=== PATIENT | male | born 1945 | race Hispanic/Latino ===

== ENCOUNTER 2017-08-12 14:11 | Inpatient (IN) | payer MEDICARE ==
[2017-08-12 14:12] VITALS: BMI 24.3
[2017-08-12 15:00] LABS: BASO # 0.1 K/uL (0.0-0.2); EOS % 0.5 % (0.0-4.0); HEMATOCRIT 38.7 % (35.0-51.0); LYMPH # 1.6 K/uL (1.0-4.3); LYMPH % 29.9 % (20.0-40.0); MEAN CELL VOLUME 90.3 fL (80.0-94.0); MEAN CORPUSCULAR HGB CONC 33.2 g/dL (33.0-37.0); MEAN PLATELET VOLUME 7.5 fL (7.2-11.7); MONO # 0.6 K/uL (0.0-0.8); MONO % 11.9 % (0.0-10.0); NRBC % 0.2 % (0.0-2.0); RED CELL DISTRIBUTION WIDTH 14.2 % (11.5-14.5); WHITE BLOOD COUNT 5.4 K/uL (4.8-10.8)
--- NOTE | 2017-08-12 15:12 | C.PDOC ---
History Of Present Illness 71 year old male with a Hx of pancreatitis, prostate CA, HLD, AAA, TAA, and HTN [facility] the [facility] for a complaint of decreased appetite and weakness for a few "weeks". As per patient states when he eats he feels like he is going to choke and regurgitates the food. (+) weight loss. Denies fever, chills, chest pain, hematochezia, abdominal pain, melena, or SOB. Time Seen by Provider: 08/12/17 14:30 Chief Complaint (Nursing): Medical Clearance History Per: Patient History/Exam Limitations: no limitations Onset/Duration Of Symptoms: Days Current Symptoms Are (Timing): Still Present Recent travel outside of the [place]: No Past Medical History Reviewed: Historical Data, Nursing Documentation, Vital Signs Vital Signs: Last Vital Signs Temp 98.2 F 08/15/17 07:35 Pulse 85 08/15/17 12:15 Resp 18 08/15/17 07:35 BP 98/66 L 08/15/17 07:35 Pulse Ox 94 L 08/15/17 12:15 - Medical History PMH: CVA, HTN, Hypercholesterolemia, Hyperlipidemia, Malignancy (bladder cancer , currently being treated), Seizures Surgical History: Appendectomy, Cholecystectomy Family History: States: Unknown Family Hx (noncontributory) - Social History Hx Alcohol Use: No Hx Substance Use: No Review Of Systems Constitutional: Positive for: Weakness, Other (Decreased appetite). Negative for: Fever, Chills Cardiovascular: Negative for: Chest Pain, Palpitations Gastrointestinal: Positive for: Vomiting Physical Exam - Physical Exam Appears: Non-toxic, No Acute Distress, Chronically Ill Skin: Warm, Dry, Ecchymosis (Diffusely) Head: Atraumatic, Normacephalic Eye(s): bilateral: Normal Inspection, EOMI Nose: Normal Oral Mucosa: Moist Throat: No Erythema, No Drooling Neck: Normal, Normal ROM, Supple Chest: Symmetrical, No Tenderness Cardiovascular: Rhythm Regular Respiratory: Normal Breath Sounds, No Rales, No Rhonchi, No Wheezing Gastrointestinal/Abdominal: Bowel Sounds (decreased bowel sounds), Soft, No Tenderness Male Genital: Other (Left groin vacuum) ED Course And Treatment - Laboratory Results Result Diagrams: 08/15/17 10:14 08/15/17 11:49 ECG: Interpreted By Me, Viewed By Me ECG Rhythm: Sinus Rhythm Rate From EC O2 Sat by Pulse Oximetry: 96 (Room air) Pulse Ox Interpretation: Normal - Other Rad CXR X-Ray: Viewed By Me, Read By Radiologist Interpretation: HISTORY: pain. COMPARISON: None available. TECHNIQUE: Chest , one view. FINDINGS: Question presence of left-sided PICC which terminates at the level of the axilla. LUNGS: Biapical pleural thickening and granulomatous changes. Left hilar/ infrahilar opacity of unclear significance ; pneumonia is not excluded. Please note that chest x-ray has limited sensitivity for the detection of pulmonary masses. PLEURA: No significant pleural effusion identified. No definite pneumothorax . CARDIOVASCULAR: Borderline cardiomegaly. Ectatic aorta. Atherosclerotic calcifications of the aorta. OSSEOUS STRUCTURES: Osseous demineralization. Degenerative changes of the spine and shoulders. Marked joint space narrowing of the right glenohumeral joint space. Acromioclavicular arthropathy. VISUALIZED UPPER ABDOMEN: Unremarkable. OTHER FINDINGS: None. IMPRESSION: Question presence of left- sided PICC which terminates at the level of the axilla. Left hilar/ infrahilar opacity of unclear significance ; pneumonia is not excluded. Recommend chest PA and lateral for further evaluation. Follow-up to clearing. Biapical pleural thickening and granulomatous changes. Progress Note: Blood work, CXR, and urinalysis ordered. Case discussed with Dr. Jeffrey who agrees to admit patient to his service. Disposition - Disposition Disposition: HOSPITALIZED Disposition Time: 14:21 Condition: STABLE - Clinical Impression Clinical Impression: Weight loss, Dehydration, Weakness - Scribe Statement The provider has reviewed the documentation as recorded by the Etienneibcosme Cordero All medical record entries made by the Etienneibcosme were at my direction and personally dictated by me. I have reviewed the chart and agree that the record accurately reflects my personal performance of the history, physical exam, medical decision making, and the department course for this patient. I have also personally directed, reviewed, and agree with the discharge instructions and disposition.
[2017-08-12 15:23] LABS: CALCIUM 7.9 mg/dl (8.6-10.4); GFR AFRICAN-AMERICAN > 60; GLUCOSE,RANDOM 70 mg/dL (75-110); TOTAL PROTEIN 6.6 g/dL (6.3-8.3)
[2017-08-12 15:26] LABS: ALB/GLOB RATIO 0.6 (1.0-2.1); ALKALINE PHOSPHATASE 163 U/L (38-126); ALT/SGPT 34 U/L (21-72); AST/SGOT 60 U/L (17-59); BLOOD UREA NITROGEN 17 mg/dL (9-20); CARBON DIOXIDE 18 mmol/L (22-30); CHLORIDE 104 mmol/L (98-107); POTASSIUM 4.8 mmol/L (3.6-5.2); SODIUM 133 mmol/L (132-148)
[2017-08-12 15:40] LABS: INR 1.3
[2017-08-12] MEDS ORDERED: Sodium Chloride 0.9% 1,000 ML IV ONE ×2 (15:54)
[2017-08-12] MEDS ORDERED: Sodium Chloride 0.9% 1,000 ML ONE (15:58)
--- NOTE | 2017-08-12 16:30 | RAD ---
HISTORY: pain COMPARISON: None available. TECHNIQUE: Chest, one view. FINDINGS: Question presence of left-sided PICC which terminates at the level of the axilla. LUNGS: Biapical pleural thickening and granulomatous changes. Left hilar/ infrahilar opacity of unclear significance ; pneumonia is not excluded. Please note that chest x-ray has limited sensitivity for the detection of pulmonary masses. PLEURA: No significant pleural effusion identified. No definite pneumothorax . CARDIOVASCULAR: Borderline cardiomegaly. Ectatic aorta. Atherosclerotic calcifications of the aorta. OSSEOUS STRUCTURES: Osseous demineralization. Degenerative changes of the spine and shoulders. Marked joint space narrowing of the right glenohumeral joint space. Acromioclavicular arthropathy. VISUALIZED UPPER ABDOMEN: Unremarkable. OTHER FINDINGS: None. IMPRESSION: Question presence of left-sided PICC which terminates at the level of the axilla. Left hilar/ infrahilar opacity of unclear significance ; pneumonia is not excluded. Recommend chest PA and lateral for further evaluation. Follow-up to clearing. Biapical pleural thickening and granulomatous changes.
[2017-08-12] MEDS: Dextrose 5%/0.9% NS 1,000 ML IV SCH (17:11)
--- NOTE | 2017-08-12 18:02 | CP.PCM.HP ---
History of Present Illness - History of Present Illness History of Present Illness: 71-year-old male with PMH - abdominal aneuysm [repair done], pancreatitis, prostate cancer, hyperlipidemia, bladder malignancy, HTN, stroke and seizure disorder presents to the ER from group home for complaint of reduced appetite and weakness. C/ reduced appetite since the last 3-4 weeks. C/Ogeneralized weakness for 3-4 weeks. C/ choking sensation while eating and regurgitation of food while eating since 2-3 weeks. C/ weight loss for 3-4 weeks. No C/Ofever, chills, chest pain, hematochezia, abdominal pain, melena or shortness of breath. Present on Admission - Present on Admission Any Indicators Present on Admission: No Past Patient History - Infectious Disease Hx of Infectious Diseases: None - Past Medical History & Family History Past Medical History?: Yes - Past Social History Smoking Status: Former Smoker - CARDIAC Hx Hypercholesterolemia: Yes Hx Hypertension: Yes - PULMONARY Hx Respiratory Disorders: No - NEUROLOGICAL Hx Seizures: Yes - HEENT Hx HEENT Problems: Yes (hard of hearing) - RENAL Hx Chronic Kidney Disease: No - ENDOCRINE/METABOLIC Hx Endocrine Disorders: No - HEMATOLOGICAL/ONCOLOGICAL Hx Human Immunodeficiency Virus (HIV): No - INTEGUMENTARY Hx Dermatological Problems: No - MUSCULOSKELETAL/RHEUMATOLOGICAL Hx Musculoskeletal Disorders: Yes Hx Falls: No Hx Gout: Yes - GASTROINTESTINAL Hx Gastrointestinal Disorders: No Other/Comment: RUPTURED AAA - GENITOURINARY/GYNECOLOGICAL Hx Genitourinary Disorders: No - PSYCHIATRIC Hx Substance Use: No - SURGICAL HISTORY Hx Appendectomy: Yes Hx Cholecystectomy: Yes - ANESTHESIA Hx Anesthesia: Yes Hx Anesthesia Reactions: No Hx Malignant Hyperthermia: No Meds Allergies/Adverse Reactions: Allergies Allergy/AdvReac Type Severity Reaction Status Date / Time No Known Allergies Allergy Verified 10/17/15 15:26 Physical Exam - Constitutional Appears: Well - Head Exam Head Exam: ATRAUMATIC, NORMAL INSPECTION, NORMOCEPHALIC - Eye Exam Eye Exam: EOMI, Normal appearance, PERRL Pupil Exam: NORMAL ACCOMODATION, PERRL - ENT Exam ENT Exam: Mucous Membranes Moist, Normal Exam - Neck Exam Neck exam: Positive for: Normal Inspection - Respiratory Exam Respiratory Exam: Decreased Breath Sounds - Cardiovascular Exam Cardiovascular Exam: REGULAR RHYTHM, +S1, +S2 - GI/Abdominal Exam GI & Abdominal Exam: Diminished Bowel Sounds, Soft - Rectal Exam Rectal Exam: Deferred Results - Vital Signs Recent Vital Signs: Last Vital Signs Temp 98.4 F 08/12/17 14:36 Pulse 85 08/12/17 16:34 Resp 16 08/12/17 16:34 BP 119/76 08/12/17 16:34 Pulse Ox 96 08/12/17 17:04 - Labs Result Diagrams: 08/16/17 07:59 08/16/17 07:59 Labs: Laboratory Results - last 24 hr 08/12/17 08/12/17 08/12/17 14:50 14:50 14:50 WBC 5.4 RBC 4.28 L Hgb 12.9 Hct 38.7 MCV 90.3 MCH 30.0 MCHC 33.2 RDW 14.2 Plt Count 135 MPV 7.5 Neut % (Auto) 56.7 Lymph % (Auto) 29.9 Bowman % (Auto) 11.9 H Eos % (Auto) 0.5 Baso % (Auto) 1.0 Neut # 3.0 Lymph # 1.6 Bowman # 0.6 Eos # 0.0 Baso # 0.1 PT 14.9 H INR 1.3 APTT 38 H Sodium 133 Potassium 4.8 Chloride 104 Carbon Dioxide 18 L Anion Gap 15 BUN 17 Creatinine 0.9 Est GFR ( Amer) > 60 Est GFR (Non-Af Amer) > 60 Random Glucose 70 L Calcium 7.9 L Total Bilirubin 1.0 AST 60 H D ALT 34 Alkaline Phosphatase 163 H D Total Protein 6.6 Albumin 2.6 L Globulin 4.0 H Albumin/Globulin Ratio 0.6 L
[2017-08-13] MEDS ORDERED: Oxycodone/Acetaminophen 5/325 mg Tab PO PRN (00:35)
[2017-08-13] MEDS: Dextrose 5%/0.9% NS 1,000 ML IV SCH ×3 (05:10→22:58)
[2017-08-13] MEDS: Metoprolol Succinate 25 mg XL Tab PO SCH (09:27)
[2017-08-13] MEDS: Pantoprazole 40 mg EC Tab PO SCH (09:27)
[2017-08-13] MEDS ORDERED: ARGININE 500 MG PO SCH (10:00)
--- NOTE | 2017-08-13 14:40 | CP.PCM.PN ---
Subjective - Date & Time of Evaluation Date of Evaluation: 08/13/17 Time of Evaluation: 11:40 - Subjective Subjective: clinically same Objective - Vital Signs/Intake and Output Vital Signs (last 24 hours): Temp Pulse Resp BP Pulse Ox 97.0 F L 80 20 101/65 98 08/13/17 08:29 08/13/17 08:29 08/13/17 08:29 08/13/17 08:29 08/13/17 08:29 Intake and Output: 08/13/17 08/13/17 06:59 18:59 Intake Total 800 Balance 800 - Medications Medications: Current Medications Allopurinol (Zyloprim) 100 mg PO DAILY [facility] Last Admin: 08/13/17 09:27 Dose: 100 mg Aspirin (Ecotrin) 81 mg PO DAILY [facility] Last Admin: 08/13/17 09:26 Dose: 81 mg Docusate Sodium (Colace) 100 mg PO DAILY [facility] Last Admin: 08/13/17 09:26 Dose: 100 mg Dronabinol (Marinol) 2.5 mg PO BID [facility] Last Admin: 08/13/17 12:29 Dose: 2.5 mg Folic Acid (Folic Acid) 1 mg PO DAILY [facility] Last Admin: 08/13/17 12:31 Dose: 1 mg Home Med (Arginine [L-Arginine]) 500 mg PO DAILY [facility] Dextrose/Sodium Chloride (Dextrose 5%/0.9% Ns 1000 Ml) 1,000 mls @ 100 mls/hr IV .Q10H [facility] Last Admin: 08/13/17 12:32 Dose: 100 mls/hr Metoprolol Succinate (Toprol Xl) 25 mg PO DAILY [facility] Last Admin: 08/13/17 09:27 Dose: 25 mg Oxycodone/Acetaminophen (Percocet 5/325 Mg Tab) 1 tab PO Q4H PRN PRN Reason: Pain, moderate (4-7) Stop: 08/16/17 00:36 Pantoprazole Sodium (Protonix Ec Tab) 40 mg PO DAILY [facility] Last Admin: 08/13/17 09:27 Dose: 40 mg Rosuvastatin Calcium (Crestor) 2.5 mg PO HS [facility] - Labs Labs: 08/12/17 14:50 08/12/17 14:50 PT 14.9 SECONDS (9.7-12.2) H 11/24/17 14:50 INR 1.3 08/12/17 14:50 APTT 38 SECONDS (21-34) H 08/12/17 14:50 - Constitutional Appears: Well - Head Exam Head Exam: ATRAUMATIC, NORMAL INSPECTION, NORMOCEPHALIC - Eye Exam Eye Exam: EOMI, Normal appearance, PERRL Pupil Exam: NORMAL ACCOMODATION, PERRL - ENT Exam ENT Exam: Mucous Membranes Moist, Normal Exam - Neck Exam Neck Exam: Full ROM, Normal Inspection. absent: Lymphadenopathy - Respiratory Exam Respiratory Exam: Decreased Breath Sounds - Cardiovascular Exam Cardiovascular Exam: REGULAR RHYTHM, +S1, +S2 - GI/Abdominal Exam GI & Abdominal Exam: Soft, Diminished Bowel Sounds - Rectal Exam Rectal Exam: Deferred Assessment and Plan (1) Dehydration Status: Acute (2) Weakness Status: Acute (3) Weight loss Status: Acute (4) Alcohol dependence Status: Acute (5) Alcohol intoxication Status: Acute (6) Altered mental status Status: Acute (7) Aortic aneurysm Status: Acute (8) DVT prophylaxis Status: Acute (9) HTN (hypertension) Status: Acute (10) Near syncope Status: Acute (11) Pancreatitis Status: Acute (12) Seizure disorder Status: Acute (13) Dyslipidemia Status: Chronic (14) Gout Status: Chronic - Assessment and Plan (Free Text) Plan: Patient examined. Patient better. Continue aspirin. Continue dronabinol. Continue antihypertensive medications and supportive care.
[2017-08-13 21:06] LABS: RBC URINE < 1 /hpf (0-3); URINE BACTERIA RARE (<OCC); URINE BILIRUBIN NEGATIVE (NEGATIVE); URINE BLOOD NEGATIVE (NEGATIVE); URINE COLOR Yellow (YELLOW); URINE GLUCOSE (UA) NORMAL (Normal); URINE KETONE NEGATIVE (NEGATIVE); URINE LEUKOCYTE ESTERASE NEG Leu/uL (Negative); URINE PROTEIN NEGATIVE (NEGATIVE); URINE UROBILINOGEN NORMAL mg/dL (0.2-1.0); WBC URINE 3 /hpf (0-5)
[2017-08-13] MEDS: Vancomycin 1 gm/NS 200 ml 1 GM/200 ML BAG IVPB SCH (22:58)
[2017-08-13] MEDS: Rosuvastatin Calcium 2.5 mg Tab PO SCH (22:59)
--- NOTE | 2017-08-14 01:16 | RAD ---
EXAM: XR Abdomen Complete, 2 or More Views EXAM DATE/TIME: 08/13/2017 11:55 PM CLINICAL HISTORY: 71 years old, male; Signs and symptoms; Vomiting; Additional info: Vomitting TECHNIQUE: Frontal view of the abdomen/pelvis with upright view of the abdomen. COMPARISON: There are no prior studies for comparison. FINDINGS: Lower thorax: There is an endograft in the descending thoracic aorta. There is left retrocardiac opacity. Vascular: There are stents in the abdominal aorta and iliacs. There are vascular calcifications. Intraperitoneal space: There is no free air. Gastrointestinal tract: There is a disordered bowel gas pattern. There are mildly distended loops of small bowel in the left flank and right upper quadrant. There is a paucity of gas in the colon. Bones/joints: Bony structures are osteopenic. There are degenerative changes. Soft tissues: There are no abnormal soft tissue masses. IMPRESSION: Mildly distended small bowel ileus versus early obstruction; vascular disease with multiple stents Additional findings as described above.
--- NOTE | 2017-08-14 07:06 | CP.PCM.CON ---
History of Present Illness - History of Present Illness History of Present Illness: General Surgery Consult Note Re: left groin wound HPI: 71M presented to hospital on 08/12 for weakness and dyspagia. Currently, patient has no complaints. Patient stated he is in the hospital due to his left groin wound vac. Pt stated he has had it for 1.5months and was put in for his "gallbladder." Patient denies any pain from the site. Patient stated he has problems with vomiting when he tries to eat. Patient denies nausea, abdominal pain, fever, chills. Allergies: NKDA PMH: Pancreatitis, Prostate CA, HTN, Hypercholestrolemia, CVA, AAA PSH: Aditi, Appendectomy Med: Allipurinol, Aspirin, Percocet, Simvastatin, Omeprazole, Colase, Metoprolol , Dronabinol SH: Former smoker. Denies alcohol or illicit drug use. Patient lives in halfway. Review of Systems - Review of Systems All systems: reviewed and no additional remarkable complaints except (as per HPI ) Past Patient History - Infectious Disease Hx of Infectious Diseases: None - Past Medical History & Family History Past Medical History?: Yes - Past Social History Smoking Status: Former Smoker - CARDIAC Hx Cardiac Disorders: Yes Hx Hypercholesterolemia: Yes Hx Hypertension: Yes - PULMONARY Hx Respiratory Disorders: No - NEUROLOGICAL HX Cerebrovascular Accident: Yes - HEENT Hx HEENT Problems: Yes (hard of hearing) - RENAL Hx Chronic Kidney Disease: No - ENDOCRINE/METABOLIC Hx Endocrine Disorders: No - HEMATOLOGICAL/ONCOLOGICAL Hx Blood Disorders: No Hx Human Immunodeficiency Virus (HIV): No - INTEGUMENTARY Hx Dermatological Problems: No - MUSCULOSKELETAL/RHEUMATOLOGICAL Hx Musculoskeletal Disorders: Yes Hx Falls: No Hx Gout: Yes - GASTROINTESTINAL Hx Gastrointestinal Disorders: No Other/Comment: RUPTURED AAA - GENITOURINARY/GYNECOLOGICAL Hx Genitourinary Disorders: Yes Hx Prostate Problems: Yes - PSYCHIATRIC Hx Psychophysiologic Disorder: No Hx Substance Use: No - SURGICAL HISTORY Hx Surgeries: Yes Hx Abdominal Aortic Aneurysm Repair: Yes (ruptured AAA) Hx Appendectomy: Yes Hx Cholecystectomy: Yes - ANESTHESIA Hx Anesthesia: Yes Hx Anesthesia Reactions: No Hx Malignant Hyperthermia: No Meds Allergies/Adverse Reactions: Allergies Allergy/AdvReac Type Severity Reaction Status Date / Time No Known Allergies Allergy Verified 10/17/15 15:26 - Medications Medications: Current Medications Allopurinol (Zyloprim) 100 mg PO DAILY [facility] Last Admin: 08/13/17 09:27 Dose: 100 mg Aspirin (Ecotrin) 81 mg PO DAILY [facility] Last Admin: 08/13/17 09:26 Dose: 81 mg Docusate Sodium (Colace) 100 mg PO DAILY [facility] Last Admin: 08/13/17 09:26 Dose: 100 mg Dronabinol (Marinol) 2.5 mg PO BID [facility] Last Admin: 08/13/17 18:00 Dose: Not Given Folic Acid (Folic Acid) 1 mg PO DAILY [facility] Last Admin: 08/13/17 12:31 Dose: 1 mg Home Med (Arginine [L-Arginine]) 500 mg PO DAILY [facility] Dextrose/Sodium Chloride (Dextrose 5%/0.9% Ns 1000 Ml) 1,000 mls @ 100 mls/hr IV .Q10H [facility] Last Admin: 08/13/17 22:58 Dose: 100 mls/hr Vancomycin/Sodium Chloride (Vancomycin 1 Gm/Ns 200 Ml) 1 gm in 200 mls @ 133.333 mls/hr IVPB Q24H [facility] Stop: 08/18/17 22:01 Last Admin: 08/13/17 22:58 Dose: 133.333 mls/hr Metoprolol Succinate (Toprol Xl) 25 mg PO DAILY [facility] Last Admin: 08/13/17 09:27 Dose: 25 mg Oxycodone/Acetaminophen (Percocet 5/325 Mg Tab) 1 tab PO Q4H PRN PRN Reason: Pain, moderate (4-7) Stop: 08/16/17 00:36 Pantoprazole Sodium (Protonix Ec Tab) 40 mg PO DAILY [facility] Last Admin: 08/13/17 09:27 Dose: 40 mg Rosuvastatin Calcium (Crestor) 2.5 mg PO HS [facility] Last Admin: 08/13/17 22:59 Dose: Not Given Physical Exam - Constitutional Appears: Non-toxic, No Acute Distress - Head Exam Head Exam: ATRAUMATIC, NORMAL INSPECTION - Eye Exam Eye Exam: Normal appearance. absent: Scleral icterus - ENT Exam ENT Exam: Mucous Membranes Dry - Respiratory Exam Respiratory Exam: Clear to Auscultation Bilateral, NORMAL BREATHING PATTERN - Cardiovascular Exam Cardiovascular Exam: REGULAR RHYTHM. absent: Tachycardia - GI/Abdominal Exam GI & Abdominal Exam: Soft. absent: Tenderness Additional comments: Wound vac left groin - Rectal Exam Rectal Exam: Deferred - Extremities Exam Extremities exam: Positive for: normal inspection. Negative for: calf tenderness - Psychiatric Exam Psychiatric exam: Normal Affect, Normal Mood Results - Vital Signs Recent Vital Signs: Last Vital Signs Temp 97.7 F 08/13/17 23:20 Pulse 83 08/13/17 23:20 Resp 20 08/13/17 23:20 BP 129/80 08/13/17 23:20 Pulse Ox 97 08/13/17 23:20 - Labs Result Diagrams: 08/12/17 14:50 08/12/17 14:50 Labs: Laboratory Results - last 24 hr 08/13/17 20:55 Urine Color Yellow Urine Clarity Clear Urine pH 5.0 Ur Specific [place] 1.015 Urine Protein Negative Urine Glucose (UA) Normal Urine Ketones Negative Urine Blood Negative Urine Nitrate Negative Urine Bilirubin Negative Urine Urobilinogen Normal Ur Leukocyte Esterase Neg Urine WBC (Auto) 3 Urine RBC (Auto) < 1 Ur Squamous Epith Cells 1 Urine Bacteria Rare Assessment & Plan - Assessment and Plan (Free Text) Assessment: 71M with left groin wound; with wound vac Plan: will change wound vac as soon as supplies available likely change q3d while pt is in house d/w Dr Avni Soni, PGY3
[2017-08-14] MEDS: Dextrose 5%/0.9% NS 1,000 ML IV SCH ×2 (09:00→21:37)
[2017-08-14] MEDS: Pantoprazole 40 mg EC Tab PO SCH (09:33)
[2017-08-14] MEDS: Metoprolol Succinate 25 mg XL Tab PO SCH (09:34)
--- NOTE | 2017-08-14 16:12 | CP.PCM.CON ---
History of Present Illness - History of Present Illness History of Present Illness: 71 year old male with a Hx of pancreatitis, prostate CA, HLD, AAA, TAA, and HTN presents [facility] the ER from [facility] for a complaint of decreased appetite and weakness. As per patient states when he eats he feels like he is going to choke and ends up vomiting. Denies fever, chills, chest pain, or SOB. Patient being treated for left groin wound infection s/p aneurysm repair and has a wound vac in place IV antibiotics ordered pending cultures - Medical History PMH: CVA, HTN, Hypercholesterolemia, Hyperlipidemia, Malignancy (bladder cancer , currently being treated), Seizures Surgical History: Appendectomy, Cholecystectomy Family History: States: Unknown Family Hx (noncontributory) Review of Systems - Review of Systems Systems not reviewed;Unavailable: Altered Mental Status - Constitutional Constitutional: As Per HPI - EENT Eyes: absent: As Per HPI, Blind Spots, Blurred Vision, Change in Vision, Decreased Night Vision, Diplopia, Discharge, Dry Eye, Exophthalmos, Floaters, Irritation, Itchy Eyes, Loss of Peripheral Vision, Pain, Photophobia, Requires Corrective Lenses, Sees Flashes, Spots in Vision, Tunnel Vision, Other Visual Disturbances, Loss of Vision, Other Ears: absent: As Per HPI, Decreased Hearing, Ear Discharge, Ear Pain, Tinnitus, Abnormal Hearing, Disequilibrium, Dizziness, Other Nose/Mouth/Throat: absent: As Per HPI, Epistaxis, Nasal Congestion, Nasal Discharge, Nasal Obstruction, Nasal Trauma, Nose Pain, Post Nasal Drip, Sinus Pain, Sinus Pressure, Bleeding Gums, Change in Voice, Dental Pain, Dry Mouth, Dysphagia, Halitosis, Hoarsness, Lip Swelling, Mouth Lesions, Mouth Pain, Odynophagia, Sore Throat, Throat Swelling, Tongue Swelling, Facial Pain, Neck Pain, Neck Mass, Other - Cardiovascular Cardiovascular: As Per HPI - Respiratory Respiratory: As Per HPI - Gastrointestinal Gastrointestinal: As Per HPI, Abdominal Pain - Genitourinary Genitourinary: As Per HPI - Musculoskeletal Musculoskeletal: absent: As Per HPI, Abnormal Gait, Arthralgias, Atrophy, Back Pain, Deformity, Joint Swelling, Limited Range of Motion, Loss of Height, Muscle Cramps, Muscle Weakness, Myalgias, Neck Pain, Numbness, Radiating Pain into Limb, Stiffness, Tingling, Other - Integumentary Integumentary: As Per HPI, Skin Pain, Wounds - Neurological Neurological: absent: As Per HPI, Abnormal Gait, Abnormal Hearing, Abnormal Movements, Abnormal Speech, Behavioral Changes, Burning Sensations, Confusion, Convulsions, Disequilibrium, Dizziness, Numbness, Focal Weakness, Frequent Falls , Headaches, Lack of Coordination, Loss of Vision, Memory Loss, Paresthesias, Radicular Pain, Restless Legs, Sensory Deficit, Syncope, Tingling, Tremor, Vertigo, Weakness, Other Visual Disturbances, Other - Endocrine Endocrine: absent: As Per HPI, Change in Body Appearance, Change in Libido, Cold Intolorance, Deepening of Voice, Excessive Sweating, Fatigue, Flushing, Heat Intolorance, Increase in Ring/Shoe/Hat Size, Palpitations, Polydipsia, Polyphagia, Polyuria, Other - Hematologic/Lymphatic Hematologic: absent: As Per HPI, Easy Bleeding, Easy Bruising, Lymphadenopathy, Other Past Patient History - Infectious Disease Hx of Infectious Diseases: None - Past Medical History & Family History Past Medical History?: Yes - Past Social History Smoking Status: Former Smoker - CARDIAC Hx Cardiac Disorders: Yes Hx Hypercholesterolemia: Yes Hx Hypertension: Yes - PULMONARY Hx Respiratory Disorders: No - NEUROLOGICAL HX Cerebrovascular Accident: Yes - HEENT Hx HEENT Problems: Yes (hard of hearing) - RENAL Hx Chronic Kidney Disease: No - ENDOCRINE/METABOLIC Hx Endocrine Disorders: No - HEMATOLOGICAL/ONCOLOGICAL Hx Blood Disorders: No Hx Human Immunodeficiency Virus (HIV): No - INTEGUMENTARY Hx Dermatological Problems: No - MUSCULOSKELETAL/RHEUMATOLOGICAL Hx Musculoskeletal Disorders: Yes Hx Falls: No Hx Gout: Yes - GASTROINTESTINAL Hx Gastrointestinal Disorders: No Other/Comment: RUPTURED AAA - GENITOURINARY/GYNECOLOGICAL Hx Genitourinary Disorders: Yes Hx Prostate Problems: Yes - PSYCHIATRIC Hx Psychophysiologic Disorder: No Hx Substance Use: No - SURGICAL HISTORY Hx Surgeries: Yes Hx Abdominal Aortic Aneurysm Repair: Yes (ruptured AAA) Hx Appendectomy: Yes Hx Cholecystectomy: Yes - ANESTHESIA Hx Anesthesia: Yes Hx Anesthesia Reactions: No Hx Malignant Hyperthermia: No Meds Allergies/Adverse Reactions: Allergies Allergy/AdvReac Type Severity Reaction Status Date / Time No Known Allergies Allergy Verified 10/17/15 15:26 - Medications Medications: Current Medications Allopurinol (Zyloprim) 100 mg PO DAILY [facility] Last Admin: 08/14/17 09:33 Dose: 100 mg Aspirin (Ecotrin) 81 mg PO DAILY [facility] Last Admin: 08/14/17 09:34 Dose: 81 mg Docusate Sodium (Colace) 100 mg PO DAILY [facility] Last Admin: 08/14/17 09:33 Dose: 100 mg Dronabinol (Marinol) 2.5 mg PO BID [facility] Last Admin: 08/14/17 11:02 Dose: Not Given Folic Acid (Folic Acid) 1 mg PO DAILY [facility] Last Admin: 08/14/17 09:33 Dose: 1 mg Dextrose/Sodium Chloride (Dextrose 5%/0.9% Ns 1000 Ml) 1,000 mls @ 100 mls/hr IV .Q10H [facility] Last Admin: 08/14/17 09:00 Dose: Not Given Vancomycin/Sodium Chloride (Vancomycin 1 Gm/Ns 200 Ml) 1 gm in 200 mls @ 133.333 mls/hr IVPB Q24H [facility] Stop: 08/18/17 22:01 Last Admin: 08/13/17 22:58 Dose: 133.333 mls/hr Metoprolol Succinate (Toprol Xl) 25 mg PO DAILY [facility] Last Admin: 08/14/17 09:34 Dose: 25 mg Oxycodone/Acetaminophen (Percocet 5/325 Mg Tab) 1 tab PO Q4H PRN PRN Reason: Pain, moderate (4-7) Stop: 08/16/17 00:36 Pantoprazole Sodium (Protonix Ec Tab) 40 mg PO DAILY [facility] Last Admin: 08/14/17 09:33 Dose: 40 mg Rosuvastatin Calcium (Crestor) 2.5 mg PO HS [facility] Last Admin: 08/13/17 22:59 Dose: Not Given Physical Exam - Constitutional Appears: Non-toxic, Cachectic, Chronically Ill - Head Exam Head Exam: ATRAUMATIC, NORMAL INSPECTION, NORMOCEPHALIC - Eye Exam Eye Exam: EOMI, PERRL. absent: Scleral icterus - ENT Exam ENT Exam: Mucous Membranes Dry, Normal External Ear Exam, Normal Oropharynx - Neck Exam Neck exam: Negative for: Lymphadenopathy - Respiratory Exam Respiratory Exam: Decreased Breath Sounds, Rhonchi - Cardiovascular Exam Cardiovascular Exam: REGULAR RHYTHM, +S1, +S2 - GI/Abdominal Exam GI & Abdominal Exam: Diminished Bowel Sounds, Distended, Guarding, Soft, Tenderness. absent: Rebound, Rigid Additional comments: wound vac left groin - Rectal Exam Rectal Exam: Deferred - Exam Exam: NORMAL INSPECTION - Extremities Exam Extremities exam: Positive for: pedal pulses present. Negative for: calf tenderness, pedal edema, tenderness - Back Exam Back exam: absent: CVA tenderness (L), CVA tenderness (R), paraspinal tenderness - Neurological Exam Neurological exam: Alert, Altered, CN II-XII Intact, Reflexes Normal - Psychiatric Exam Psychiatric exam: Depressed - Skin Skin Exam: Dry, Intact Results - Vital Signs Recent Vital Signs: Last Vital Signs Temp 98.1 F 08/14/17 09:13 Pulse 81 08/14/17 09:13 Resp 20 08/14/17 09:13 BP 118/74 08/14/17 09:13 Pulse Ox 100 08/14/17 09:13 - Labs Result Diagrams: 08/12/17 14:50 08/12/17 14:50 Labs: Laboratory Results - last 24 hr 08/13/17 20:55 Urine Color Yellow Urine Clarity Clear Urine pH 5.0 Ur Specific [place] 1.015 Urine Protein Negative Urine Glucose (UA) Normal Urine Ketones Negative Urine Blood Negative Urine Nitrate Negative Urine Bilirubin Negative Urine Urobilinogen Normal Ur Leukocyte Esterase Neg Urine WBC (Auto) 3 Urine RBC (Auto) < 1 Ur Squamous Epith Cells 1 Urine Bacteria Rare Assessment & Plan (1) Altered mental status Status: Acute (2) Aortic aneurysm Status: Acute (3) DVT prophylaxis Status: Acute (4) HTN (hypertension) Status: Acute (5) Near syncope Status: Acute Priority: High (6) Pancreatitis Status: Acute (7) Seizure disorder Status: Acute - Assessment and Plan (Free Text) Assessment: gram + bacrteremia r/o infected wound as source consider Vascular eval/ CT angio pelvis, echo may need drainage
--- NOTE | 2017-08-14 17:03 | CP.PCM.PN ---
Subjective - Date & Time of Evaluation Date of Evaluation: 08/14/17 Time of Evaluation: 12:00 - Subjective Subjective: clinically same Objective - Vital Signs/Intake and Output Vital Signs (last 24 hours): Temp Pulse Resp BP Pulse Ox 98.1 F 81 20 118/74 100 08/14/17 09:13 08/14/17 09:13 08/14/17 09:13 08/14/17 09:13 08/14/17 09:13 Intake and Output: 08/14/17 08/14/17 06:59 18:59 Intake Total 1600 800 Output Total 500 400 Balance 1100 400 - Medications Medications: Current Medications Allopurinol (Zyloprim) 100 mg PO DAILY [facility] Last Admin: 08/14/17 09:33 Dose: 100 mg Aspirin (Ecotrin) 81 mg PO DAILY [facility] Last Admin: 08/14/17 09:34 Dose: 81 mg Docusate Sodium (Colace) 100 mg PO DAILY [facility] Last Admin: 08/14/17 09:33 Dose: 100 mg Dronabinol (Marinol) 2.5 mg PO BID [facility] Last Admin: 08/14/17 11:02 Dose: Not Given Folic Acid (Folic Acid) 1 mg PO DAILY [facility] Last Admin: 08/14/17 09:33 Dose: 1 mg Dextrose/Sodium Chloride (Dextrose 5%/0.9% Ns 1000 Ml) 1,000 mls @ 100 mls/hr IV .Q10H [facility] Last Admin: 08/14/17 09:00 Dose: Not Given Vancomycin/Sodium Chloride (Vancomycin 1 Gm/Ns 200 Ml) 1 gm in 200 mls @ 133.333 mls/hr IVPB Q24H [facility] Stop: 08/18/17 22:01 Last Admin: 08/13/17 22:58 Dose: 133.333 mls/hr Metoprolol Succinate (Toprol Xl) 25 mg PO DAILY [facility] Last Admin: 08/14/17 09:34 Dose: 25 mg Oxycodone/Acetaminophen (Percocet 5/325 Mg Tab) 1 tab PO Q4H PRN PRN Reason: Pain, moderate (4-7) Stop: 08/16/17 00:36 Pantoprazole Sodium (Protonix Ec Tab) 40 mg PO DAILY [facility] Last Admin: 08/14/17 09:33 Dose: 40 mg Rosuvastatin Calcium (Crestor) 2.5 mg PO HS [facility] Last Admin: 08/13/17 22:59 Dose: Not Given - Labs Labs: 08/12/17 14:50 08/12/17 14:50 PT 14.9 SECONDS (9.7-12.2) H 08/12/17 14:50 INR 1.3 08/12/17 14:50 APTT 38 SECONDS (21-34) H 08/12/17 14:50 - Constitutional Appears: Well - Head Exam Head Exam: ATRAUMATIC, NORMAL INSPECTION, NORMOCEPHALIC - Eye Exam Eye Exam: EOMI, Normal appearance, PERRL Pupil Exam: NORMAL ACCOMODATION, PERRL - ENT Exam ENT Exam: Mucous Membranes Moist, Normal Exam - Neck Exam Neck Exam: Full ROM, Normal Inspection. absent: Lymphadenopathy - Respiratory Exam Respiratory Exam: Clear to Ausculation Bilateral, NORMAL BREATHING PATTERN - Cardiovascular Exam Cardiovascular Exam: REGULAR RHYTHM, +S1, +S2. absent: Murmur - GI/Abdominal Exam GI & Abdominal Exam: Soft, Normal Bowel Sounds. absent: Tenderness - Rectal Exam Rectal Exam: Deferred - Extremities Exam Extremities Exam: Full ROM, Normal Capillary Refill, Normal Inspection. absent : Joint Swelling, Pedal Edema - Back Exam Back Exam: NORMAL INSPECTION Assessment and Plan (1) Dehydration Status: Acute (2) Weakness Status: Acute (3) Weight loss Status: Acute (4) Alcohol dependence Status: Acute (5) Alcohol intoxication Status: Acute (6) Altered mental status Status: Acute (7) Aortic aneurysm Status: Acute (8) DVT prophylaxis Status: Acute (9) HTN (hypertension) Status: Acute (10) Near syncope Status: Acute (11) Pancreatitis Status: Acute (12) Seizure disorder Status: Acute (13) Dyslipidemia Status: Chronic (14) Gout Status: Chronic - Assessment and Plan (Free Text) Plan: Patient examined. Chest x-ray suggestive of left heel infrahilar opacities of unclear significance. EKG suggestive of first-degree AV block and T-wave abnormalities. Abdominal x-ray is suggestive of mildly distended small bowel loops possibility of early obstruction. Blood culture grew staph aureus and coagulase-negative Staphylococcus. Urine culture grew Pseudomonas.
[2017-08-14] MEDS: Vancomycin 1 gm/NS 200 ml 1 GM/200 ML BAG IVPB SCH (21:37)
[2017-08-14] MEDS: Rosuvastatin Calcium 2.5 mg Tab PO SCH (21:37)
--- NOTE | 2017-08-15 08:03 | CP.PCM.CON ---
<Deepa Bright - Last Filed: 08/15/17 13:58> History of Present Illness - History of Present Illness History of Present Illness: Deepa Bright, PGY1, GI Consult Note for Dr Graham: CC: decreased appetite, weakness 71 years old male with hx of CVA with no residual deficits (12 years ago), pancreatitis, HLD, TAA, presents for weakness, fatigue and decreased appetite x past three weeks. Pt is a poor historian, info obtained from prior charts, . Pt states that every time he eats, he feels a choking sensation down his throat, and regurgitates the food right up, denies hematochezia, oral lesions, pyrosis, dyspepsia, abdominal pain, diarrhea, constipation, melena, fever, chills, sob. Pt has also lost 36 pounds over the past 3 months. Pt states that he is able to drink water well, but has problems with solids. On 08/04/17, esophagogram was attempted at [facility] [place] for similar complaints, but pt could not ingest barium contrast. Pt has a left groin wound vac from a recent iliac stent placed at [facility]. Pt denies any sick contacts or recent travel. No prior EGD or colonoscopy as per pt. This admission, pt found to have Gram positive bacteremia and started on Vancomycin IV. Wound cultures from left groin wound vac pending. Abd x ray shows mildly distended small bowel ileus vs early obstruction. Vascular disease with multiple stents. CXR shows left hilar/infrahilar opacity - cannot exclude pna. biapical pleural thickening/granulomatous changes. 12 point ROS reviewed and negative, except as noted per HPI PMH: HLD, AAA s/p repair -04/2017, iliac angioplasty/stent 05/2017, HTN, CVA (12 years ago), seizures PSH: lap cholecystectomy - 04/22/17 at [facility], appendectomy All: NK[facility] SH: former smoker, 2 ppd x many years. heavy ETOH user in the past, last drink a month ago, scotch x many years. Lives at [facility]. 05/20/2017 at [facility]: left femoral thrombectomy - iliac angioplasty and stents placed. Endograft for AAA. Review of Systems - Review of Systems All systems: reviewed and no additional remarkable complaints except Review of Systems: as per HPI Past Patient History - Infectious Disease Hx of Infectious Diseases: None - Past Medical History & Family History Past Medical History?: Yes - Past Social History Smoking Status: Former Smoker - CARDIAC Hx Cardiac Disorders: Yes Hx Hypercholesterolemia: Yes Hx Hypertension: Yes - PULMONARY Hx Respiratory Disorders: No - NEUROLOGICAL HX Cerebrovascular Accident: Yes - HEENT Hx HEENT Problems: Yes (hard of hearing) - RENAL Hx Chronic Kidney Disease: No - ENDOCRINE/METABOLIC Hx Endocrine Disorders: No - HEMATOLOGICAL/ONCOLOGICAL Hx Blood Disorders: No Hx Human Immunodeficiency Virus (HIV): No - INTEGUMENTARY Hx Dermatological Problems: No - MUSCULOSKELETAL/RHEUMATOLOGICAL Hx Musculoskeletal Disorders: Yes Hx Falls: No Hx Gout: Yes - GASTROINTESTINAL Hx Gastrointestinal Disorders: No Other/Comment: RUPTURED AAA - GENITOURINARY/GYNECOLOGICAL Hx Genitourinary Disorders: Yes Hx Prostate Problems: Yes - PSYCHIATRIC Hx Psychophysiologic Disorder: No Hx Substance Use: No - SURGICAL HISTORY Hx Surgeries: Yes Hx Abdominal Aortic Aneurysm Repair: Yes (ruptured AAA) Hx Appendectomy: Yes Hx Cholecystectomy: Yes - ANESTHESIA Hx Anesthesia: Yes Hx Anesthesia Reactions: No Hx Malignant Hyperthermia: No Meds Allergies/Adverse Reactions: Allergies Allergy/AdvReac Type Severity Reaction Status Date / Time No Known Allergies Allergy Verified 10/17/15 15:26 - Medications Medications: Current Medications Allopurinol (Zyloprim) 100 mg PO DAILY [facility] Last Admin: 08/14/17 09:33 Dose: 100 mg Aspirin (Ecotrin) 81 mg PO DAILY [facility] Last Admin: 08/14/17 09:34 Dose: 81 mg Docusate Sodium (Colace) 100 mg PO DAILY [facility] Last Admin: 08/14/17 09:33 Dose: 100 mg Dronabinol (Marinol) 2.5 mg PO BID [facility] Last Admin: 08/14/17 17:35 Dose: Not Given Folic Acid (Folic Acid) 1 mg PO DAILY [facility] Last Admin: 08/14/17 09:33 Dose: 1 mg Dextrose/Sodium Chloride (Dextrose 5%/0.9% Ns 1000 Ml) 1,000 mls @ 100 mls/hr IV .Q10H [facility] Last Admin: 08/14/17 21:37 Dose: 100 mls/hr Vancomycin/Sodium Chloride (Vancomycin 1 Gm/Ns 200 Ml) 1 gm in 200 mls @ 133.333 mls/hr IVPB Q24H [facility] Stop: 08/18/17 22:01 Last Admin: 08/14/17 21:37 Dose: 133.333 mls/hr Metoprolol Succinate (Toprol Xl) 25 mg PO DAILY [facility] Last Admin: 08/14/17 09:34 Dose: 25 mg Oxycodone/Acetaminophen (Percocet 5/325 Mg Tab) 1 tab PO Q4H PRN PRN Reason: Pain, moderate (4-7) Stop: 08/16/17 00:36 Pantoprazole Sodium (Protonix Ec Tab) 40 mg PO DAILY [facility] Last Admin: 08/14/17 09:33 Dose: 40 mg Rosuvastatin Calcium (Crestor) 2.5 mg PO HS [facility] Last Admin: 08/14/17 21:37 Dose: Not Given Physical Exam - Constitutional Appears: Non-toxic, Older Than Stated Age, Chronically Ill - Head Exam Head Exam: ATRAUMATIC, NORMOCEPHALIC - Eye Exam Eye Exam: EOMI, PERRL Pupil Exam: PERRL - ENT Exam ENT Exam: Mucous Membranes Moist - Respiratory Exam Respiratory Exam: Clear to Auscultation Bilateral. absent: Respiratory Distress - Cardiovascular Exam Cardiovascular Exam: RRR, +S1, +S2. absent: Systolic Murmur - GI/Abdominal Exam GI & Abdominal Exam: Normal Bowel Sounds, Soft. absent: Distended, Firm, Guarding, Organomegaly, Rebound, Tenderness - Extremities Exam Extremities exam: Negative for: calf tenderness, pedal edema - Neurological Exam Neurological exam: Alert, Oriented x3 - Psychiatric Exam Psychiatric exam: Normal Affect - Skin Skin Exam: Dry, Normal Color, Warm Results - Vital Signs Recent Vital Signs: Last Vital Signs Temp 98.3 F 08/14/17 23:20 Pulse 81 08/14/17 23:20 Resp 20 08/14/17 23:20 BP 111/73 08/14/17 23:20 Pulse Ox 98 08/14/17 23:20 - Labs Result Diagrams: 08/15/17 10:14 08/15/17 11:49 Labs: Laboratory Results - last 24 hr 08/14/17 17:08 Procalcitonin 0.15 L Assessment & Plan - Assessment and Plan (Free Text) Assessment: 71 years old male, with hx of CVA, AAA, TAA, presents for dysphagia, vomiting, weight loss, bacteremia, fatigue: Plan: - 2/2 SBO vs ileus vs esophageal stenosis vs PUD vs malignancy - Formal swallow screen - Obtain medical records from [facility] from 04/2017 - Abd x ray 08/13/17: mildly distended small bowel ileus vs early obstruction. Mildly distended loops of small bowel in left flank and RUQ. Vascular disease with multiple stents - abdominal aorta and iliacs. - CXR 08/12/17: Left hilar/infrahilar opacity -> cannot exclude pneumonia. Biapical pleural thickening/granulamatous changes. - Esophagus x ray 08/04/17: could not evaluate because pt could not ingest barium contrast - Blood cultures (09/20) 08/12/17 shows S aureus, gram positive cocci. Pt started on Vancomycin IV, pt has a left groin wound vac, dressing changed by surgery yesterday, pending wound cultures. - Echocardiogram EF 65-70%. Grade 1 (impaired relaxation pattern) LV diastolic dysfunction. - Follow up formal speech and swallow eval - Obtain Obstructive series x ray to rule out bowel obstruction - Agree with ID recs. Follow up with echocardiogram, Ct angio pelvis. Treat Gr + bacteremia with IV antibiotics. - Consider EGD after all workup is done Will discuss with GI fellow and attending, Dr Graham. Deepa Bright, PGY1 - Date & Time Date: 08/15/17 Time: 08:03 <Chris Graham MD - Last Filed: 08/15/17 18:07> Meds - Medications Medications: Current Medications Allopurinol (Zyloprim) 100 mg PO DAILY [facility] Last Admin: 08/15/17 12:38 Dose: Not Given Aspirin (Ecotrin) 81 mg PO DAILY [facility] Last Admin: 08/15/17 12:35 Dose: Not Given Docusate Sodium (Colace) 100 mg PO DAILY [facility] Last Admin: 08/15/17 12:34 Dose: Not Given Dronabinol (Marinol) 2.5 mg PO BID [facility] Last Admin: 08/15/17 17:43 Dose: Not Given Folic Acid (Folic Acid) 1 mg PO DAILY [facility] Last Admin: 08/15/17 12:36 Dose: Not Given Dextrose/Sodium Chloride (Dextrose 5%/0.9% Ns 1000 Ml) 1,000 mls @ 100 mls/hr IV .Q10H [facility] Last Admin: 08/14/17 21:37 Dose: 100 mls/hr Vancomycin/Sodium Chloride (Vancomycin 1 Gm/Ns 200 Ml) 1 gm in 200 mls @ 133.333 mls/hr IVPB Q24H [facility] Stop: 08/18/17 22:01 Last Admin: 08/14/17 21:37 Dose: 133.333 mls/hr Cefepime HCl (Maxipime Iv 1 Gm Premix) 1 gm in 50 mls @ 100 mls/hr IVPB Q12H [facility] Last Admin: 08/15/17 12:04 Dose: 100 mls/hr Multivitamins/Vitamin C 10 ml/Chromium/Copper/Manganese/Zinc 1 ml/ Amino Acids 1,011 mls @ 50 mls/hr IV .[id number] ONE Stop: 08/16/17 14:13 Fat Emulsion Intravenous (Intralipid 20%) 500 mls @ 50 mls/hr IV MWF@1800 [facility] Stop: 08/20/17 03:59 Magnesium Sulfate/Dextrose (Magnesium Sulfate 1 Gm/100 Ml D5w) 1 gm in 100 mls @ 100 mls/hr IVPB Q1H [facility] Stop: 08/15/17 18:59 Last Admin: 08/15/17 17:36 Dose: 100 mls/hr Potassium Chloride (Potassium Chloride 20 Meq/100 Ml) 20 meq in 100 mls @ 50 mls/hr IVPB Q4H [facility] Stop: 08/15/17 20:59 Last Admin: 08/15/17 15:57 Dose: 50 mls/hr Metoprolol Succinate (Toprol Xl) 25 mg PO DAILY [facility] Last Admin: 08/15/17 12:37 Dose: Not Given Oxycodone/Acetaminophen (Percocet 5/325 Mg Tab) 1 tab PO Q4H PRN PRN Reason: Pain, moderate (4-7) Stop: 08/16/17 00:36 Pantoprazole Sodium (Protonix Ec Tab) 40 mg PO DAILY [facility] Last Admin: 08/15/17 12:37 Dose: Not Given Potassium Chloride (Potassium Chloride Oral Soln) 20 meq PO Q6H [facility] Stop: 08/16/17 05:01 Last Admin: 08/15/17 17:39 Dose: Not Given Potassium Phos/Sodium Phos (Neutra-Phos) 1 pkt PO TID [facility] Stop: 08/17/17 14:01 Last Admin: 08/15/17 17:39 Dose: Not Given Rosuvastatin Calcium (Crestor) 2.5 mg PO HS [facility] Last Admin: 08/14/17 21:37 Dose: Not Given Results - Vital Signs Recent Vital Signs: Last Vital Signs Temp 98.4 F 08/15/17 15:20 Pulse 79 08/15/17 15:20 Resp 20 08/15/17 15:20 BP 118/74 08/15/17 15:20 Pulse Ox 100 08/15/17 15:20 - Labs Result Diagrams: 08/15/17 10:14 08/15/17 11:49 Labs: Laboratory Results - last 24 hr 08/14/17 08/15/17 08/15/17 17:08 07:02 10:14 WBC 5.0 RBC 3.64 L Hgb 11.1 L Hct 32.7 L MCV 89.8 MCH 30.3 MCHC 33.8 RDW 14.0 Plt Count 102 L D MPV 8.4 Neut % (Auto) 55.4 Lymph % (Auto) 32.8 [place] % (Auto) 10.7 H Eos % (Auto) 0.4 Baso % (Auto) 0.7 Neut # 2.8 Lymph # 1.6 [place] # 0.5 Eos # 0.0 Baso # 0.0 Sodium Potassium Chloride Carbon Dioxide Anion Gap BUN Creatinine Est GFR ( Amer) Est GFR (Non-Af Amer) Random Glucose Calcium Phosphorus Magnesium Total Bilirubin AST ALT Alkaline Phosphatase Total Protein Albumin Globulin Albumin/Globulin Ratio Procalcitonin 0.15 L Vancomycin Trough 17.9 H 08/15/17 11:49 WBC RBC Hgb Hct MCV MCH MCHC RDW Plt Count MPV Neut % (Auto) Lymph % (Auto) [place] % (Auto) Eos % (Auto) Baso % (Auto) Neut # Lymph # [place] # Eos # Baso # Sodium 140 Potassium 2.7 L Chloride 112 H Carbon Dioxide 19 L Anion Gap 12 BUN 11 Creatinine 0.9 Est GFR ( Amer) > 60 Est GFR (Non-Af Amer) > 60 Random Glucose 93 Calcium 7.3 L Phosphorus 2.0 L Magnesium 1.4 L Total Bilirubin 0.8 AST 36 ALT 26 Alkaline Phosphatase 147 H Total Protein 4.4 L Albumin 1.9 L D Globulin 2.5 Albumin/Globulin Ratio 0.8 L Procalcitonin Vancomycin Trough Attending/Attestation - Attestation I have personally seen and examined this patient.: Yes I have fully participated in the care of the patient.: Yes I have reviewed all pertinent clinical information: Yes Notes (Text): 08/15/17 18:00 This is a 71 years old male, with hx of CVA, AAA s/p endovascular repair in May , TAA s/p abdominal and iliac stents, presents for dysphagia, vomiting, weight loss. Blood cultures show Gram + cocci. On CXR there is retrocardiac opacity ? Formal speech and swallow pending. Will hold off on endoscopic evaluation till cardiology evaluation is complete and bacteremia is treated. Will follow closely
--- NOTE | 2017-08-15 09:24 | CARD ---
APPROVED REPORT EKG Measurement Heart [id number] <Conclusion> Sinus rhythm with 1st degree AV block Low voltage QRS T wave abnormality, consider anterior ischemia Abnormal ECG
[2017-08-15 10:22] LABS: BASO % 0.7 % (0.0-2.0); EOS % 0.4 % (0.0-4.0); HEMATOCRIT 32.7 % (35.0-51.0); LYMPH # 1.6 K/uL (1.0-4.3); LYMPH % 32.8 % (20.0-40.0); MEAN CELL VOLUME 89.8 fL (80.0-94.0); MEAN CORPUSCULAR HEMOGLOBIN 30.3 pg (27.0-31.0); MEAN CORPUSCULAR HGB CONC 33.8 g/dL (33.0-37.0); MEAN PLATELET VOLUME 8.4 fL (7.2-11.7); MONO # 0.5 K/uL (0.0-0.8); MONO % 10.7 % (0.0-10.0); NRBC % 0.6 % (0.0-2.0)
--- NOTE | 2017-08-15 11:14 | CP.PCM.PN ---
<TieshaJose Elias - Last Filed: 08/15/17 17:34> Subjective - Date & Time of Evaluation Date of Evaluation: 08/15/17 Time of Evaluation: 07:25 - Subjective Subjective: PGY2 Resident - Medicine Progress Note This 71 years old Male with PMHx of pancreatitis, HLD, TAA, CVA (no residual deficits, occured years ago) - presents from correction c/o weakness, fatigue , and dysphagia for the past 2wks. He admits that anytime he eats, he feels a choking sensation and vomits the food immediately. As a result, he has lost 30- 40lbs over the last 3 months. He is able to tolerate liquids, but not solids. He could not complete a esophagram scheduled for 08/04/17 secondary to intolerance of barium contrast (could not ingest). He had a left groin wound vac placed after a recent iliac stent placed at [facility]. He denies any prior Colonoscopy or EGD. PMH: HLD, AAA s/p repair -04/2017, iliac angioplasty/stent 05/2017, HTN, CVA (12 years ago), seizures PSH: lap cholecystectomy - 04/22/17 at [facility], appendectomy All: NKA SH: former smoker, 2 ppd x many years. heavy ETOH user in the past, last drink a month ago, scotch x many years. Lives at [facility]. 05/20/2017 at [facility]: left femoral thrombectomy - iliac angioplasty and stents placed. Endograft for AAA. Today, 08/15/17 - Patient seen and examined at bedside. No acute distress. No overnight events. Patient is AAOx2, not oriented to time. He reports feeling tired and weak. Tolerating liquid diet. Denies fever, chills, headache, palpitations, dyspnea, cough, abdominal pain, nausea/vomiting, diarrhea/ constipation, or any additional acute complaints. Objective - Vital Signs/Intake and Output Vital Signs (last 24 hours): Temp Pulse Resp BP Pulse Ox 98.2 F 90 18 98/66 L 100 08/15/17 07:35 08/15/17 07:35 08/15/17 07:35 08/15/17 07:35 08/15/17 07:35 Intake and Output: 08/15/17 08/15/17 06:59 18:59 Intake Total 800 Output Total 750 Balance 50 - Medications Medications: Current Medications Allopurinol (Zyloprim) 100 mg PO DAILY [facility] Last Admin: 08/14/17 09:33 Dose: 100 mg Aspirin (Ecotrin) 81 mg PO DAILY [facility] Last Admin: 08/14/17 09:34 Dose: 81 mg Docusate Sodium (Colace) 100 mg PO DAILY [facility] Last Admin: 08/14/17 09:33 Dose: 100 mg Dronabinol (Marinol) 2.5 mg PO BID [facility] Last Admin: 08/14/17 17:35 Dose: Not Given Folic Acid (Folic Acid) 1 mg PO DAILY [facility] Last Admin: 08/14/17 09:33 Dose: 1 mg Dextrose/Sodium Chloride (Dextrose 5%/0.9% Ns 1000 Ml) 1,000 mls @ 100 mls/hr IV .Q10H [facility] Last Admin: 08/14/17 21:37 Dose: 100 mls/hr Vancomycin/Sodium Chloride (Vancomycin 1 Gm/Ns 200 Ml) 1 gm in 200 mls @ 133.333 mls/hr IVPB Q24H [facility] Stop: 08/18/17 22:01 Last Admin: 08/14/17 21:37 Dose: 133.333 mls/hr Metoprolol Succinate (Toprol Xl) 25 mg PO DAILY [facility] Last Admin: 08/14/17 09:34 Dose: 25 mg Oxycodone/Acetaminophen (Percocet 5/325 Mg Tab) 1 tab PO Q4H PRN PRN Reason: Pain, moderate (4-7) Stop: 08/16/17 00:36 Pantoprazole Sodium (Protonix Ec Tab) 40 mg PO DAILY [facility] Last Admin: 08/14/17 09:33 Dose: 40 mg Rosuvastatin Calcium (Crestor) 2.5 mg PO HS [facility] Last Admin: 08/14/17 21:37 Dose: Not Given - Labs Labs: 08/15/17 10:14 08/12/17 14:50 PT 14.9 SECONDS (9.7-12.2) H 08/12/17 14:50 INR 1.3 08/12/17 14:50 APTT 38 SECONDS (21-34) H 08/12/17 14:50 - Additional Findings Additional findings: - Constitutional Appears: Non-toxic, Older Than Stated Age, Chronically Ill - Head Exam Head Exam: ATRAUMATIC, NORMOCEPHALIC - Eye Exam Eye Exam: EOMI, PERRL Pupil Exam: PERRL - ENT Exam ENT Exam: Mucous Membranes Moist note: poor dentition - Respiratory Exam Respiratory Exam: Clear to Auscultation Bilateral. absent: Respiratory Distress - Cardiovascular Exam Cardiovascular Exam: RRR, +S1, +S2. absent: Systolic Murmur - GI/Abdominal Exam GI & Abdominal Exam: Diminished Bowel Sounds (mild), Distended, Guarding, Soft, Tenderness. absent: Rebound, Rigid Additional comments: left groin dressing CDI - Extremities Exam Extremities exam: Negative for: calf tenderness, pedal edema - Neurological Exam Neurological exam: Alert, Oriented x2 (not orriented to time). - Psychiatric Exam Psychiatric exam: Flat Affect - Skin Skin Exam: Dry, Normal Color, Warm Assessment and Plan - Assessment and Plan (Free Text) Assessment: 71 years old male, with hx of CVA, AAA, TAA, presents for dysphagia, vomiting, weight loss, bacteremia, fatigue: Dysphagia 08/15: f/u Obstructive series xray to rule out bowel obstruction. GI plans to perform EGD once echo and CT angio pelvis have resulted. f/u echo Marinol) 2.5 mg PO BID [facility] Percocet 5/325 Mg Tab) 1 tab PO Q4H PRN liquid diet - Abd x ray 08/13/17: mildly distended small bowel ileus vs early obstruction. Mildly distended loops of small bowel in left flank and RUQ. Vascular disease with multiple stents - abdominal aorta and iliacs. - CXR 08/12/17: Left hilar/infrahilar opacity -> cannot exclude pneumonia. Biapical pleural thickening/granulamatous changes. - Esophagus x ray 08/04/17: could not evaluate because pt could not ingest barium contrast - Blood cultures (1/2) 08/12/17 shows S aureus, gram positive cocci. Pt started on Vancomycin IV, - Follow up formal speech and swallow eval GI Consult, Dr. Avalos, recs appreciated. Hx of Stents at Iliac and Abdominal Aorta 08/15: f/u CT angio pelvis to assess for any blockage - Abd x ray 08/13/17: mildly distended small bowel ileus vs early obstruction. Mildly distended loops of small bowel in left flank and RUQ. Vascular disease with multiple stents - abdominal aorta and iliacs. AAA s/p repair -04/2017, iliac angioplasty/stent 05/2017 Bacteremia Gram (+) Note: pt has a left groin wound vac - dressings to be changed by surgery Q3d. f/u wound cultures. Vancomycin 1 Gm/Ns 200 Ml) 1 gm in 200 mls @ 133.333 mls/hr IVPB Q24H [facility] BC G+ cocci UC prelim G-negative rods procalcitonin 0.15L ID consult, Dr. Ovalles, recs appreciated. Gout Allopurinol (Zyloprim) 100 mg PO DAILY [facility] Hypertension Metoprolol Succinate (Toprol Xl) 25 mg PO DAILY [facility] Hyperlipidemia ASA 81 mg PO DAILY [facility] Crestor) 2.5 mg PO HS [facility] Electrolyte Imbalance Kypokalemia, K2.7 - KCl 10meq IVPB x4; KCl PO 20meq x3 Hypomagnesemia, Mg 1.4 -> repleted Hypophosphatemia, P 2 -> Neutraphos TID [id number] total Prophylaxis SCDs Protonix Ec Tab) 40 mg PO DAILY [facility] Colace) 100 mg PO DAILY [facility] Folic Acid) 1 mg PO DAILY [facility] NS D5-0.9 at 100cc/hr <Danny Jeffrey S - Last Filed: 08/16/17 17:05> Objective - Vital Signs/Intake and Output Vital Signs (last 24 hours): Temp Pulse Resp BP Pulse Ox 98.4 F 79 20 123/73 98 08/16/17 15:00 08/16/17 15:00 08/16/17 15:00 08/16/17 15:00 08/16/17 15:00 Intake and Output: 08/16/17 08/16/17 06:59 18:59 Intake Total 450 Balance 450 - Medications Medications: Current Medications Allopurinol (Zyloprim) 100 mg PO DAILY [facility] Last Admin: 08/16/17 11:18 Dose: 100 mg Aspirin (Ecotrin) 81 mg PO DAILY [facility] Last Admin: 08/16/17 11:18 Dose: 81 mg Docusate Sodium (Colace) 100 mg PO DAILY [facility] Last Admin: 08/16/17 11:18 Dose: 100 mg Dronabinol (Marinol) 2.5 mg PO BID [facility] Last Admin: 08/16/17 11:35 Dose: 2.5 mg Folic Acid (Folic Acid) 1 mg PO DAILY [facility] Last Admin: 08/16/17 11:18 Dose: 1 mg Dextrose/Sodium Chloride (Dextrose 5%/0.9% Ns 1000 Ml) 1,000 mls @ 100 mls/hr IV .Q10H [facility] Last Admin: 08/16/17 10:15 Dose: Not Given Cefepime HCl (Maxipime Iv 1 Gm Premix) 1 gm in 50 mls @ 100 mls/hr IVPB Q12H [facility] Last Admin: 08/16/17 12:00 Dose: 100 mls/hr Fat Emulsion Intravenous (Intralipid 20%) 500 mls @ 50 mls/hr IV MWF@1800 [facility] Stop: 08/20/17 03:59 Last Admin: 08/15/17 19:37 Dose: 50 mls/hr Multivitamins/Vitamin C 10 ml/Chromium/Copper/Manganese/Zinc 1 ml/ Amino Acids 1,011 mls @ 42 mls/hr IV .Q24H ONE Stop: 08/17/17 17:59 Vancomycin HCl 1 gm/ Sodium (Chloride) 250 mls @ 166.667 mls/hr IVPB Q24H [facility] Metoprolol Succinate (Toprol Xl) 25 mg PO DAILY [facility] Last Admin: 08/16/17 11:35 Dose: 25 mg Ondansetron HCl (Zofran Inj) 4 mg IVP Q6H PRN PRN Reason: Nausea/Vomiting Pantoprazole Sodium (Protonix Inj) 40 mg IVP DAILY [facility] Last Admin: 08/16/17 11:19 Dose: 40 mg Potassium Phos/Sodium Phos (Neutra-Phos) 1 pkt PO TID [facility] Stop: 08/17/17 14:01 Last Admin: 08/16/17 14:00 Dose: 1 pkt Rosuvastatin Calcium (Crestor) 2.5 mg PO HS [facility] Last Admin: 08/15/17 21:05 Dose: Not Given - Labs Labs: 08/16/17 07:59 08/16/17 07:59 PT 18.6 SECONDS (9.7-12.2) H 08/15/17 20:05 INR 1.6 08/15/17 20:05 APTT 44 SECONDS (21-34) H 08/15/17 20:05 Attending/Attestation - Attestation I have personally seen and examined this patient.: Yes I have fully participated in the care of the patient.: Yes I have reviewed all pertinent clinical information, including history, physical exam and plan: Yes Notes (Text): Patient examined. Patient better. Able to tolerate liquids. But not solids. Continue vancomycin. Continue aspirin. Continue antihypertensive medications and supportive care.
--- NOTE | 2017-08-15 11:31 | CP.PCM.PN ---
Subjective - Date & Time of Evaluation Date of Evaluation: 08/15/17 Time of Evaluation: 09:00 - Subjective Subjective: blood c/s + as well as urine IV rx in progress Objective - Vital Signs/Intake and Output Vital Signs (last 24 hours): Temp Pulse Resp BP Pulse Ox 98.2 F 90 18 98/66 L 100 08/15/17 07:35 08/15/17 07:35 08/15/17 07:35 08/15/17 07:35 08/15/17 07:35 Intake and Output: 08/15/17 08/15/17 06:59 18:59 Intake Total 800 Output Total 750 Balance 50 - Medications Medications: Current Medications Allopurinol (Zyloprim) 100 mg PO DAILY [facility] Last Admin: 08/14/17 09:33 Dose: 100 mg Aspirin (Ecotrin) 81 mg PO DAILY [facility] Last Admin: 08/14/17 09:34 Dose: 81 mg Docusate Sodium (Colace) 100 mg PO DAILY [facility] Last Admin: 08/14/17 09:33 Dose: 100 mg Dronabinol (Marinol) 2.5 mg PO BID [facility] Last Admin: 08/14/17 17:35 Dose: Not Given Folic Acid (Folic Acid) 1 mg PO DAILY [facility] Last Admin: 08/14/17 09:33 Dose: 1 mg Dextrose/Sodium Chloride (Dextrose 5%/0.9% Ns 1000 Ml) 1,000 mls @ 100 mls/hr IV .Q10H [facility] Last Admin: 08/14/17 21:37 Dose: 100 mls/hr Vancomycin/Sodium Chloride (Vancomycin 1 Gm/Ns 200 Ml) 1 gm in 200 mls @ 133.333 mls/hr IVPB Q24H [facility] Stop: 08/18/17 22:01 Last Admin: 08/14/17 21:37 Dose: 133.333 mls/hr Metoprolol Succinate (Toprol Xl) 25 mg PO DAILY [facility] Last Admin: 08/14/17 09:34 Dose: 25 mg Oxycodone/Acetaminophen (Percocet 5/325 Mg Tab) 1 tab PO Q4H PRN PRN Reason: Pain, moderate (4-7) Stop: 08/16/17 00:36 Pantoprazole Sodium (Protonix Ec Tab) 40 mg PO DAILY [facility] Last Admin: 08/14/17 09:33 Dose: 40 mg Rosuvastatin Calcium (Crestor) 2.5 mg PO HS [facility] Last Admin: 08/14/17 21:37 Dose: Not Given - Labs Labs: 08/15/17 10:14 08/12/17 14:50 PT 14.9 SECONDS (9.7-12.2) H 08/12/17 14:50 INR 1.3 08/12/17 14:50 APTT 38 SECONDS (21-34) H 08/12/17 14:50 - Constitutional Appears: Cachectic, Chronically Ill - Head Exam Head Exam: NORMOCEPHALIC - Eye Exam Eye Exam: PERRL - ENT Exam ENT Exam: Mucous Membranes Dry - Neck Exam Neck Exam: absent: Lymphadenopathy - Respiratory Exam Respiratory Exam: Decreased Breath Sounds - Cardiovascular Exam Cardiovascular Exam: REGULAR RHYTHM - GI/Abdominal Exam GI & Abdominal Exam: Distended Assessment and Plan (1) Altered mental status Status: Acute (2) Aortic aneurysm Status: Acute (3) DVT prophylaxis Status: Acute (4) HTN (hypertension) Status: Acute (5) Near syncope Status: Acute (6) Pancreatitis Status: Acute (7) Seizure disorder Status: Acute
[2017-08-15] MEDS: Cefepime IV 1 gm in Dextrose 1 GM/50 ML BAG IVPB SCH (12:04)
[2017-08-15] MEDS ORDERED: Aminophylline 25 mg/ml Inj ONE (12:29)
[2017-08-15] MEDS: Pantoprazole 40 mg EC Tab PO SCH (12:37)
[2017-08-15] MEDS: Metoprolol Succinate 25 mg XL Tab PO SCH (12:37)
--- NOTE | 2017-08-15 13:06 | CP.PCM.PN ---
Subjective - Date & Time of Evaluation Date of Evaluation: 08/15/17 Time of Evaluation: 13:02 - Subjective Subjective: Surgery: Dr. Holly Pt seen and examined. Resting comfortably in bed. Mildly confused. No complaints. Objective - Vital Signs/Intake and Output Vital Signs (last 24 hours): Temp Pulse Resp BP Pulse Ox 98.2 F 85 18 98/66 L 94 L 08/15/17 07:35 08/15/17 12:15 08/15/17 07:35 08/15/17 07:35 08/15/17 12:15 Intake and Output: 08/15/17 08/15/17 06:59 18:59 Intake Total 800 Output Total 750 Balance 50 - Medications Medications: Current Medications Allopurinol (Zyloprim) 100 mg PO DAILY [facility] Last Admin: 08/15/17 12:38 Dose: Not Given Aspirin (Ecotrin) 81 mg PO DAILY [facility] Last Admin: 08/15/17 12:35 Dose: Not Given Docusate Sodium (Colace) 100 mg PO DAILY [facility] Last Admin: 08/15/17 12:34 Dose: Not Given Dronabinol (Marinol) 2.5 mg PO BID [facility] Last Admin: 08/15/17 12:36 Dose: Not Given Folic Acid (Folic Acid) 1 mg PO DAILY [facility] Last Admin: 08/15/17 12:36 Dose: Not Given Dextrose/Sodium Chloride (Dextrose 5%/0.9% Ns 1000 Ml) 1,000 mls @ 100 mls/hr IV .Q10H [facility] Last Admin: 08/14/17 21:37 Dose: 100 mls/hr Vancomycin/Sodium Chloride (Vancomycin 1 Gm/Ns 200 Ml) 1 gm in 200 mls @ 133.333 mls/hr IVPB Q24H [facility] Stop: 08/18/17 22:01 Last Admin: 08/14/17 21:37 Dose: 133.333 mls/hr Cefepime HCl (Maxipime Iv 1 Gm Premix) 1 gm in 50 mls @ 100 mls/hr IVPB Q12H [facility] Last Admin: 08/15/17 12:04 Dose: 100 mls/hr Metoprolol Succinate (Toprol Xl) 25 mg PO DAILY [facility] Last Admin: 08/15/17 12:37 Dose: Not Given Oxycodone/Acetaminophen (Percocet 5/325 Mg Tab) 1 tab PO Q4H PRN PRN Reason: Pain, moderate (4-7) Stop: 08/16/17 00:36 Pantoprazole Sodium (Protonix Ec Tab) 40 mg PO DAILY [facility] Last Admin: 08/15/17 12:37 Dose: Not Given Rosuvastatin Calcium (Crestor) 2.5 mg PO HS [facility] Last Admin: 08/14/17 21:37 Dose: Not Given - Labs Labs: 08/15/17 10:14 08/12/17 14:50 PT 14.9 SECONDS (9.7-12.2) H 08/12/17 14:50 INR 1.3 08/12/17 14:50 APTT 38 SECONDS (21-34) H 08/12/17 14:50 - Constitutional Appears: Non-toxic, No Acute Distress - Head Exam Head Exam: ATRAUMATIC, NORMOCEPHALIC - Eye Exam Eye Exam: EOMI - ENT Exam ENT Exam: Mucous Membranes Moist - Neck Exam Neck Exam: Full ROM - Respiratory Exam Respiratory Exam: NORMAL BREATHING PATTERN. absent: Accessory Muscle Use, Respiratory Distress - GI/Abdominal Exam GI & Abdominal Exam: Soft. absent: Distended, Tenderness - Extremities Exam Extremities Exam: absent: Calf Tenderness, Pedal Edema Additional comments: L groin, dressing in place, C/D/I - Neurological Exam Neurological Exam: Alert, Awake. absent: Oriented x3 - Psychiatric Exam Psychiatric exam: Normal Affect, Normal Mood - Skin Skin Exam: Dry, Warm Assessment and Plan - Assessment and Plan (Free Text) Assessment: 71M w. L groin wound -c/w local wound care -discussed w. attending Jacitis PGY3
[2017-08-15 13:14] LABS: ALB/GLOB RATIO 0.8 (1.0-2.1); ALKALINE PHOSPHATASE 147 U/L (38-126); ALT/SGPT 26 U/L (21-72); AST/SGOT 36 U/L (17-59); BILIRUBIN,TOTAL 0.8 mg/dL (0.2-1.3); BLOOD UREA NITROGEN 11 mg/dL (9-20); CALCIUM 7.3 mg/dl (8.6-10.4); CARBON DIOXIDE 19 mmol/L (22-30); CHLORIDE 112 mmol/L (98-107); GFR AFRICAN-AMERICAN > 60; GLUCOSE,RANDOM 93 mg/dL (75-110); MAGNESIUM 1.4 mg/dL (1.6-2.3); POTASSIUM 2.7 mmol/L (3.6-5.2); SODIUM 140 mmol/L (132-148); TOTAL PROTEIN 4.4 g/dL (6.3-8.3)
[2017-08-15] MEDS: Magnesium Sulfate 1 gm in D5W 1 GM/100 ML BAG IVPB SCH ×4 (14:55→18:54)
--- NOTE | 2017-08-15 15:49 | RAD ---
PROCEDURE: Radiographs of the chest and abdomen (obstructive series) HISTORY: vomiting, prior xray with early obtruction COMPARISON: Comparison is made to the previous chest x-ray dated 08/12/2017 and previous x-ray of the abdomen dated 08/14/2017 TECHNIQUE: AP radiograph of the chest, with upright and supine radiographs of the abdomen. FINDINGS: CHEST: Lungs: No significant interval change in the lungs noted since the previous exam. Cardiovascular: Normal size heart. No pulmonary vascular congestion. Pleura: No pleural fluid. No pneumothorax. Other findings: Again seen is descending thoracic aorta stent ABDOMEN AND PELVIS: Bowel: Unremarkable bowel gas pattern. No evidence of mechanical obstruction. Free air: None. Bones: Unremarkable. Other findings: There is distal abdominal aorta and bilateral common iliac arteries stents again noted. IMPRESSION: No radiographic evidence of bowel obstruction. No evidence of acute pulmonary disease.
[2017-08-15] MEDS: Potassium Chloride 20 mEq/15 ml LIQ UD PO SCH (17:39)
[2017-08-15] MEDS: Potassium & Sodium Phosphate PO SCH (17:39)
[2017-08-15] MEDS ORDERED: Iohexol 350mg/ml 100 ML ONE (17:56)
[2017-08-15] MEDS ORDERED: PPN #1 IV ONE (18:00)
[2017-08-15] MEDS: Fat Emulsion 20% IV 500 ML IV SCH (19:37)
--- NOTE | 2017-08-15 20:11 | CP.PCM.PN ---
Subjective - Date & Time of Evaluation Date of Evaluation: 08/15/17 Time of Evaluation: 12:40 - Subjective Subjective: clinically same Objective - Vital Signs/Intake and Output Vital Signs (last 24 hours): Temp Pulse Resp BP Pulse Ox 98.4 F 79 20 118/74 100 08/15/17 15:20 08/15/17 15:20 08/15/17 15:20 08/15/17 15:20 08/15/17 15:20 - Medications Medications: Current Medications Allopurinol (Zyloprim) 100 mg PO DAILY [facility] Last Admin: 08/15/17 12:38 Dose: Not Given Aspirin (Ecotrin) 81 mg PO DAILY [facility] Last Admin: 08/15/17 12:35 Dose: Not Given Docusate Sodium (Colace) 100 mg PO DAILY [facility] Last Admin: 08/15/17 12:34 Dose: Not Given Dronabinol (Marinol) 2.5 mg PO BID [facility] Last Admin: 08/15/17 17:43 Dose: Not Given Folic Acid (Folic Acid) 1 mg PO DAILY [facility] Last Admin: 08/15/17 12:36 Dose: Not Given Dextrose/Sodium Chloride (Dextrose 5%/0.9% Ns 1000 Ml) 1,000 mls @ 100 mls/hr IV .Q10H [facility] Last Admin: 08/14/17 21:37 Dose: 100 mls/hr Vancomycin/Sodium Chloride (Vancomycin 1 Gm/Ns 200 Ml) 1 gm in 200 mls @ 133.333 mls/hr IVPB Q24H [facility] Stop: 08/18/17 22:01 Last Admin: 08/14/17 21:37 Dose: 133.333 mls/hr Cefepime HCl (Maxipime Iv 1 Gm Premix) 1 gm in 50 mls @ 100 mls/hr IVPB Q12H [facility] Last Admin: 08/15/17 12:04 Dose: 100 mls/hr Multivitamins/Vitamin C 10 ml/Chromium/Copper/Manganese/Zinc 1 ml/ Amino Acids 1,011 mls @ 50 mls/hr IV .[id number] [facility] Stop: 08/16/17 14:13 Last Admin: 08/15/17 19:37 Dose: 50 mls/hr Fat Emulsion Intravenous (Intralipid 20%) 500 mls @ 50 mls/hr IV MWF@1800 [facility] Stop: 08/20/17 03:59 Last Admin: 08/15/17 19:37 Dose: 50 mls/hr Potassium Chloride (Potassium Chloride 20 Meq/100 Ml) 20 meq in 100 mls @ 50 mls/hr IVPB Q4H [facility] Stop: 08/15/17 20:59 Last Admin: 08/15/17 18:40 Dose: 50 mls/hr Metoprolol Succinate (Toprol Xl) 25 mg PO DAILY [facility] Last Admin: 08/15/17 12:37 Dose: Not Given Oxycodone/Acetaminophen (Percocet 5/325 Mg Tab) 1 tab PO Q4H PRN PRN Reason: Pain, moderate (4-7) Stop: 08/16/17 00:36 Pantoprazole Sodium (Protonix Ec Tab) 40 mg PO DAILY [facility] Last Admin: 08/15/17 12:37 Dose: Not Given Potassium Chloride (Potassium Chloride Oral Soln) 20 meq PO Q6H [facility] Stop: 08/16/17 05:01 Last Admin: 08/15/17 17:39 Dose: Not Given Potassium Phos/Sodium Phos (Neutra-Phos) 1 pkt PO TID [facility] Stop: 08/17/17 14:01 Last Admin: 08/15/17 17:39 Dose: Not Given Rosuvastatin Calcium (Crestor) 2.5 mg PO HS [facility] Last Admin: 08/14/17 21:37 Dose: Not Given - Labs Labs: 08/15/17 10:14 08/15/17 11:49 PT 14.9 SECONDS (9.7-12.2) H 08/12/17 14:50 INR 1.3 08/12/17 14:50 APTT 38 SECONDS (21-34) H 08/12/17 14:50 - Constitutional Appears: Well - Head Exam Head Exam: ATRAUMATIC, NORMAL INSPECTION, NORMOCEPHALIC - Eye Exam Eye Exam: EOMI, Normal appearance, PERRL Pupil Exam: NORMAL ACCOMODATION, PERRL - ENT Exam ENT Exam: Mucous Membranes Moist, Normal Exam - Neck Exam Neck Exam: Full ROM, Normal Inspection. absent: Lymphadenopathy - Respiratory Exam Respiratory Exam: Clear to Ausculation Bilateral, NORMAL BREATHING PATTERN - Cardiovascular Exam Cardiovascular Exam: REGULAR RHYTHM, +S1, +S2. absent: Murmur - GI/Abdominal Exam GI & Abdominal Exam: Soft, Normal Bowel Sounds. absent: Tenderness - Rectal Exam Rectal Exam: Deferred - Extremities Exam Extremities Exam: Full ROM, Normal Capillary Refill, Normal Inspection. absent : Joint Swelling, Pedal Edema - Back Exam Back Exam: NORMAL INSPECTION Assessment and Plan (1) Dehydration Status: Acute (2) Weakness Status: Acute (3) Weight loss Status: Acute (4) Alcohol dependence Status: Acute (5) Alcohol intoxication Status: Acute (6) Altered mental status Status: Acute (7) Aortic aneurysm Status: Acute (8) DVT prophylaxis Status: Acute (9) HTN (hypertension) Status: Acute (10) Near syncope Status: Acute (11) Pancreatitis Status: Acute (12) Seizure disorder Status: Acute (13) Dyslipidemia Status: Chronic (14) Gout Status: Chronic - Assessment and Plan (Free Text) Plan: Patient examined. Patient better. Resting comfortably in bed. Continue vancomycin and cefepime. Continue aspirin, antihypertensive medications. Continue supportive care.
--- NOTE | 2017-08-15 20:33 | CT ---
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 All CT scans at this facility use one or more dose reduction techniques, viz.: automated exposure control; ma/kV adjustment per patient size (including targeted exams where dose is matched to indication; i.e. head); or iterative reconstruction technique. 3D reconstructed images were created and reviewed. Coronal and sagittal reformatted images were created and reviewed. CONTRAST: 100 mL of omnipaque 350 administered intravenously. COMPARISON: No relevant prior studies were provided for comparison. FINDINGS: Aorta: Post aortic bifemoral endograft repair. The inferior mesenteric artery is fed via collateralization, likely from the superior mesenteric artery. A small blush is detected, not uncommon post procedure, within the aneurysm sac (series 7, image 24). Inferior mesenteric artery: As above. Iliac arteries: The bilateral common iliac arteries are included within the endograft. Femoral arteries: The left common femoral artery is included within the region of (likely) clinical concern. Just above the bifurcation of the superficial femoral artery and the profundofemoral artery, is a 6 x 3 x 8 cm fluid collection (anterior to posterior x medial to lateral x cranial to caudal dimension). A small branch of the common femoral artery courses through this collection. No blush of contrast is detected to suggest active extravasation within this fluid collection. The attenuation of this fluid collection, measures less than one would expect for a simple hematoma, and is denser than simple fluid, possibly representing purulence, for which clinical correlation is needed. Bowel: Anastomotic staple line is identified within the right lower quadrant with adjacent inflammatory change. Mural thickening with surrounding inflammatory changes present within the rectal sigmoid colon. Bladder: Unremarkable. No mass. Reproductive: Unremarkable as visualized. Bones/joints: No acute fracture. No dislocation. Soft tissues: Free fluid is identified within the pelvis, simple in attenuation when compared to the fluid within the left groin, as detailed above. Lymph nodes: Minimally enlarged lymph nodes are identified within the retroperitoneum and at the root of the mesentery, a nonspecific finding. IMPRESSION: Post aortic bifemoral endograft repair. 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 Dense fluid collection surrounding the left common femoral artery with measurements as detailed above. No active extravasation is detected within the dense fluid collection within the left groin, as detailed above.
[2017-08-15 20:44] LABS: INR 1.6
[2017-08-15] MEDS: Dextrose 5%/0.9% NS 1,000 ML IV SCH (21:05)
[2017-08-15] MEDS: Rosuvastatin Calcium 2.5 mg Tab PO SCH (21:05)
[2017-08-15] MEDS: Vancomycin 1 gm/NS 200 ml 1 GM/200 ML BAG IVPB SCH (21:15)
[2017-08-16] MEDS: Cefepime IV 1 gm in Dextrose 1 GM/50 ML BAG IVPB SCH ×2 (00:16→12:00)
[2017-08-16] MEDS: Dextrose 5%/0.9% NS 1,000 ML IV SCH ×2 (00:20→10:15)
[2017-08-16] MEDS: Potassium Chloride 20 mEq/15 ml LIQ UD PO SCH ×3 (00:20→06:22)
--- NOTE | 2017-08-16 07:17 | CP.PCM.PN ---
<Deepa Bright - Last Filed: 08/16/17 08:17> Subjective - Date & Time of Evaluation Date of Evaluation: 08/16/17 Time of Evaluation: 07:13 - Subjective Subjective: Deepa Bright, PGY1, GI Progress Note for Dr. Avalos: Pt seen and examined at bedside. Pt not taking in PO diet, PICC line inserted, started on TPN and lipids. As per nurse, pt refused PO meds and tried some Potassium fluid this morning with coughing. Pt had 1-2 regurgitation episodes yesterday, occurred while trying his liquid diet. Last BM 2 days ago. Verbalizes no appetite this AM, denies abdominal pain, dyspepsia, diarrhea, fever, chills. 12 point ROS obtained and unremarkable, except as noted per HPI. Objective - Vital Signs/Intake and Output Vital Signs (last 24 hours): Temp Pulse Resp BP Pulse Ox 98 F 73 20 114/73 100 08/15/17 23:30 08/15/17 23:30 08/15/17 23:30 08/15/17 23:30 08/15/17 23:30 Intake and Output: 08/16/17 08/16/17 06:59 18:59 Intake Total 450 Balance 450 - Medications Medications: Current Medications Allopurinol (Zyloprim) 100 mg PO DAILY [facility] Last Admin: 08/15/17 12:38 Dose: Not Given Aspirin (Ecotrin) 81 mg PO DAILY [facility] Last Admin: 08/15/17 12:35 Dose: Not Given Docusate Sodium (Colace) 100 mg PO DAILY [facility] Last Admin: 08/15/17 12:34 Dose: Not Given Dronabinol (Marinol) 2.5 mg PO BID [facility] Last Admin: 08/15/17 17:43 Dose: Not Given Folic Acid (Folic Acid) 1 mg PO DAILY [facility] Last Admin: 08/15/17 12:36 Dose: Not Given Dextrose/Sodium Chloride (Dextrose 5%/0.9% Ns 1000 Ml) 1,000 mls @ 100 mls/hr IV .Q10H [facility] Last Admin: 08/16/17 00:20 Dose: Not Given Vancomycin/Sodium Chloride (Vancomycin 1 Gm/Ns 200 Ml) 1 gm in 200 mls @ 133.333 mls/hr IVPB Q24H [facility] Stop: 08/18/17 22:01 Last Admin: 08/15/17 21:15 Dose: 133.333 mls/hr Cefepime HCl (Maxipime Iv 1 Gm Premix) 1 gm in 50 mls @ 100 mls/hr IVPB Q12H [facility] Last Admin: 08/16/17 00:16 Dose: 100 mls/hr Multivitamins/Vitamin C 10 ml/Chromium/Copper/Manganese/Zinc 1 ml/ Amino Acids 1,011 mls @ 50 mls/hr IV .[id number] ONE Stop: 08/16/17 14:13 Last Admin: 08/15/17 19:37 Dose: 50 mls/hr Fat Emulsion Intravenous (Intralipid 20%) 500 mls @ 50 mls/hr IV MWF@1800 [facility] Stop: 08/20/17 03:59 Last Admin: 08/15/17 19:37 Dose: 50 mls/hr Metoprolol Succinate (Toprol Xl) 25 mg PO DAILY [facility] Last Admin: 08/15/17 12:37 Dose: Not Given Pantoprazole Sodium (Protonix Ec Tab) 40 mg PO DAILY [facility] Last Admin: 08/15/17 12:37 Dose: Not Given Potassium Phos/Sodium Phos (Neutra-Phos) 1 pkt PO TID [facility] Stop: 08/17/17 14:01 Last Admin: 08/15/17 17:39 Dose: Not Given Rosuvastatin Calcium (Crestor) 2.5 mg PO HS [facility] Last Admin: 08/15/17 21:05 Dose: Not Given - Labs Labs: 08/15/17 10:14 08/15/17 11:49 PT 18.6 SECONDS (9.7-12.2) H 08/15/17 20:05 INR 1.6 08/15/17 20:05 APTT 44 SECONDS (21-34) H 08/15/17 20:05 - Constitutional Appears: Older Than Stated Age, Cachectic, Chronically Ill - Head Exam Head Exam: ATRAUMATIC, NORMOCEPHALIC - Eye Exam Eye Exam: EOMI, PERRL. absent: Conjunctival injection, Scleral icterus Pupil Exam: PERRL - ENT Exam ENT Exam: Mucous Membranes Moist, Normal Oropharynx - Respiratory Exam Respiratory Exam: Clear to Ausculation Bilateral. absent: Respiratory Distress - Cardiovascular Exam Cardiovascular Exam: RRR, +S1, +S2. absent: Murmur - GI/Abdominal Exam GI & Abdominal Exam: Soft, Tenderness, Normal Bowel Sounds. absent: Distended, Firm, Rigid, Mass, Organomegaly, Rebound Additional comments: Mild TTP in LLQ, at the site of dressing, L groin wound vac removed yesterday by wound care nurse. - Extremities Exam Extremities Exam: absent: Calf Tenderness, Pedal Edema - Neurological Exam Neurological Exam: Alert, Awake, Oriented x3 - Psychiatric Exam Psychiatric exam: Normal Affect - Skin Skin Exam: Dry, Normal Color, Warm Assessment and Plan - Assessment and Plan (Free Text) Assessment: 71 years old male, with hx of CVA, AAA, TAA, presents for dysphagia, weight loss , bacteremia, fatigue: Plan: - 2/2 esophageal stenosis/structure vs mechanical obstruction vs PUD vs malignancy - Formal swallow screen pending, attempted yesterday, however, pt was actively vomiting. - Abd x ray 08/13/17: mildly distended small bowel ileus vs early obstruction. Mildly distended loops of small bowel in left flank and RUQ. Vascular disease with multiple stents - abdominal aorta and iliacs. Repeat obstructive series x ray 07/31 shows no obstruction. - CXR 08/12/17: Left hilar/infrahilar opacity -> cannot exclude pneumonia. Biapical pleural thickening/granulamatous changes. - Esophagus x ray 08/04/17: could not evaluate because pt could not ingest barium contrast - Blood cultures (1/2) 08/12/17 shows S aureus, gram positive cocci in chains. Pt started on Vancomycin IV D4 and IV Cefepime D2, per ID. - Pt's left wound vac removed by wound care nurse yesterday, dressing mildly soiled, clean, intact. - Ct angio pelvis 08/15/17: Post aortic bifemoral endograft repair Dense fluid collection, 6x3x8 cm, surrounding left common femoral artery - likely purulence than hematoma or simple fluid. No active extravasation within dense fluid collection. - Vascular surgery consulted. Follow up recs regarding the left groin infection drainage/treatment. - Pending left wound vac cultures 08/12/17 - Continue with TPN and lipids for now, for nutrition. - CT angio 05/2017 at [facility] [place] shows cirrhosis; Likely 2/2 long standing alcohol abuse. Will obtain cirrhosis workup, f/u hep panel and AFP. - Echocardiogram EF 65-70%. Grade 1 (impaired relaxation pattern) LV diastolic dysfunction. - Follow up echo findings this admission. - Consider EGD after all workup is done Discussed with GI fellow and attending, Dr Avalos. Deepa Bright, PGY1 <Donald Avalos - Last Filed: 08/16/17 08:55> Objective - Vital Signs/Intake and Output Vital Signs (last 24 hours): Temp Pulse Resp BP Pulse Ox 98 F 73 20 114/73 100 08/15/17 23:30 08/15/17 23:30 08/15/17 23:30 08/15/17 23:30 08/15/17 23:30 Intake and Output: 08/16/17 08/16/17 06:59 18:59 Intake Total 450 Balance 450 - Medications Medications: Current Medications Allopurinol (Zyloprim) 100 mg PO DAILY [facility] Last Admin: 08/15/17 12:38 Dose: Not Given Aspirin (Ecotrin) 81 mg PO DAILY [facility] Last Admin: 08/15/17 12:35 Dose: Not Given Docusate Sodium (Colace) 100 mg PO DAILY [facility] Last Admin: 08/15/17 12:34 Dose: Not Given Dronabinol (Marinol) 2.5 mg PO BID [facility] Last Admin: 08/15/17 17:43 Dose: Not Given Folic Acid (Folic Acid) 1 mg PO DAILY [facility] Last Admin: 08/15/17 12:36 Dose: Not Given Dextrose/Sodium Chloride (Dextrose 5%/0.9% Ns 1000 Ml) 1,000 mls @ 100 mls/hr IV .Q10H [facility] Last Admin: 08/16/17 00:20 Dose: Not Given Vancomycin/Sodium Chloride (Vancomycin 1 Gm/Ns 200 Ml) 1 gm in 200 mls @ 133.333 mls/hr IVPB Q24H [facility] Stop: 08/18/17 22:01 Last Admin: 08/15/17 21:15 Dose: 133.333 mls/hr Cefepime HCl (Maxipime Iv 1 Gm Premix) 1 gm in 50 mls @ 100 mls/hr IVPB Q12H [facility] Last Admin: 08/16/17 00:16 Dose: 100 mls/hr Multivitamins/Vitamin C 10 ml/Chromium/Copper/Manganese/Zinc 1 ml/ Amino Acids 1,011 mls @ 50 mls/hr IV .[id number] ONE Stop: 08/16/17 14:13 Last Admin: 08/15/17 19:37 Dose: 50 mls/hr Fat Emulsion Intravenous (Intralipid 20%) 500 mls @ 50 mls/hr IV MWF@1800 [facility] Stop: 08/20/17 03:59 Last Admin: 08/15/17 19:37 Dose: 50 mls/hr Metoprolol Succinate (Toprol Xl) 25 mg PO DAILY [facility] Last Admin: 08/15/17 12:37 Dose: Not Given Ondansetron HCl (Zofran Inj) 4 mg IVP Q6H PRN PRN Reason: Nausea/Vomiting Pantoprazole Sodium (Protonix Inj) 40 mg IVP DAILY [facility] Potassium Phos/Sodium Phos (Neutra-Phos) 1 pkt PO TID [facility] Stop: 08/17/17 14:01 Last Admin: 08/15/17 17:39 Dose: Not Given Rosuvastatin Calcium (Crestor) 2.5 mg PO HS [facility] Last Admin: 08/15/17 21:05 Dose: Not Given - Labs Labs: 08/16/17 07:59 08/16/17 07:59 PT 18.6 SECONDS (9.7-12.2) H 08/15/17 20:05 INR 1.6 08/15/17 20:05 APTT 44 SECONDS (21-34) H 08/15/17 20:05 Attending/Attestation - Attestation I have personally seen and examined this patient.: Yes I have fully participated in the care of the patient.: Yes I have reviewed all pertinent clinical information, including history, physical exam and plan: Yes Notes (Text): 08/16/17 08:49 I have seen and examined patient with medical billing manager and GI fellow. No acute events overnight, he is seen resting in bed comfortably. He denies abdominal pain, nausea, fever/chills. He was made NPO after having difficulty in swallowing medication with small sips of water today. History of CVA AAA TAA Sepsis, left groin abscess Cirrhosis - presumably secondary to prior history of ETOH abuse Dysphagia, weight loss - NPO - Continue with antibiotic therapy as per ID - Patient started on TPN, poses additional risk for superimposed infection in this situation, though required for time being due to ongoing dysphagia - Obtain AFP, viral hepatitis panel, autoimmune serologies to complete cirrhotic workup - Follow up echocardiogram results and vascular surgery recommendations - Patient would eventually benefit from EGD and colonoscopy evaluation given dysphagia and weight loss following further medical optimization, will continue to monitor patient clinical course
[2017-08-16 08:04] LABS: BASO % 0.7 % (0.0-2.0); EOS % 0.6 % (0.0-4.0); HEMATOCRIT 31.7 % (35.0-51.0); MEAN CELL VOLUME 90.1 fL (80.0-94.0); MEAN CORPUSCULAR HGB CONC 34.4 g/dL (33.0-37.0); MEAN PLATELET VOLUME 7.7 fL (7.2-11.7); MONO # 0.4 K/uL (0.0-0.8); NRBC % 0.1 % (0.0-2.0); RED CELL DISTRIBUTION WIDTH 14.1 % (11.5-14.5); WHITE BLOOD COUNT 4.3 K/uL (4.8-10.8)
--- NOTE | 2017-08-16 08:16 | CP.PCM.PN ---
Subjective - Date & Time of Evaluation Date of Evaluation: 08/16/17 Time of Evaluation: 08:15 - Subjective Subjective: groin wound an issue endo leak as described and seen on ct is not unusal and needs medical terminologist fu Objective - Vital Signs/Intake and Output Vital Signs (last 24 hours): Temp Pulse Resp BP Pulse Ox 98 F 73 20 114/73 100 08/15/17 23:30 08/15/17 23:30 08/15/17 23:30 08/15/17 23:30 08/15/17 23:30 Intake and Output: 08/16/17 08/16/17 06:59 18:59 Intake Total 450 Balance 450 - Medications Medications: Current Medications Allopurinol (Zyloprim) 100 mg PO DAILY [facility] Last Admin: 08/15/17 12:38 Dose: Not Given Aspirin (Ecotrin) 81 mg PO DAILY [facility] Last Admin: 08/15/17 12:35 Dose: Not Given Docusate Sodium (Colace) 100 mg PO DAILY [facility] Last Admin: 08/15/17 12:34 Dose: Not Given Dronabinol (Marinol) 2.5 mg PO BID [facility] Last Admin: 08/15/17 17:43 Dose: Not Given Folic Acid (Folic Acid) 1 mg PO DAILY [facility] Last Admin: 08/15/17 12:36 Dose: Not Given Dextrose/Sodium Chloride (Dextrose 5%/0.9% Ns 1000 Ml) 1,000 mls @ 100 mls/hr IV .Q10H [facility] Last Admin: 08/16/17 00:20 Dose: Not Given Vancomycin/Sodium Chloride (Vancomycin 1 Gm/Ns 200 Ml) 1 gm in 200 mls @ 133.333 mls/hr IVPB Q24H [facility] Stop: 08/18/17 22:01 Last Admin: 08/15/17 21:15 Dose: 133.333 mls/hr Cefepime HCl (Maxipime Iv 1 Gm Premix) 1 gm in 50 mls @ 100 mls/hr IVPB Q12H [facility] Last Admin: 08/16/17 00:16 Dose: 100 mls/hr Multivitamins/Vitamin C 10 ml/Chromium/Copper/Manganese/Zinc 1 ml/ Amino Acids 1,011 mls @ 50 mls/hr IV .[id number] ONE Stop: 08/16/17 14:13 Last Admin: 08/15/17 19:37 Dose: 50 mls/hr Fat Emulsion Intravenous (Intralipid 20%) 500 mls @ 50 mls/hr IV MWF@1800 [facility] Stop: 08/20/17 03:59 Last Admin: 08/15/17 19:37 Dose: 50 mls/hr Metoprolol Succinate (Toprol Xl) 25 mg PO DAILY [facility] Last Admin: 08/15/17 12:37 Dose: Not Given Ondansetron HCl (Zofran Inj) 4 mg IVP Q6H PRN PRN Reason: Nausea/Vomiting Pantoprazole Sodium (Protonix Inj) 40 mg IVP DAILY [facility] Potassium Phos/Sodium Phos (Neutra-Phos) 1 pkt PO TID [facility] Stop: 08/17/17 14:01 Last Admin: 08/15/17 17:39 Dose: Not Given Rosuvastatin Calcium (Crestor) 2.5 mg PO HS [facility] Last Admin: 08/15/17 21:05 Dose: Not Given - Labs Labs: 08/16/17 07:59 08/15/17 11:49 PT 18.6 SECONDS (9.7-12.2) H 08/15/17 20:05 INR 1.6 08/15/17 20:05 APTT 44 SECONDS (21-34) H 08/15/17 20:05
[2017-08-16 08:28] LABS: ALB/GLOB RATIO 0.7 (1.0-2.1); ALKALINE PHOSPHATASE 146 U/L (38-126); ALT/SGPT 25 U/L (21-72); AST/SGOT 31 U/L (17-59); BILIRUBIN,TOTAL 0.7 mg/dL (0.2-1.3); BLOOD UREA NITROGEN 11 mg/dL (9-20); CALCIUM 7.2 mg/dl (8.6-10.4); CARBON DIOXIDE 19 mmol/L (22-30); CHLORIDE 113 mmol/L (98-107); GFR AFRICAN-AMERICAN > 60; GLUCOSE,RANDOM 112 mg/dL (75-110); MAGNESIUM 2.1 mg/dL (1.6-2.3); PHOSPHOROUS 1.7 mg/dL (2.5-4.5); POTASSIUM 3.7 mmol/L (3.6-5.2); SODIUM 135 mmol/L (132-148); TOTAL PROTEIN 4.1 g/dL (6.3-8.3)
[2017-08-16] MEDS: Potassium & Sodium Phosphate PO SCH ×4 (10:00→17:50)
--- NOTE | 2017-08-16 10:17 | CP.PCM.PN ---
<Nixon Griffith - Last Filed: 08/16/17 10:14> Subjective - Date & Time of Evaluation Date of Evaluation: 08/16/17 Time of Evaluation: 10:17 - Subjective Subjective: PGY2 Note for Dr. Blayne Jeffrey Patient seen and examined at bedside this AM; he is NPO in good spirits states he has no pain at this time; is planned to go for EGD today as per GI; patient had Echo done and will f/u results; patient has no complaints today. Objective - Vital Signs/Intake and Output Vital Signs (last 24 hours): Temp Pulse Resp BP Pulse Ox 97.8 F 72 18 98/62 L 99 08/16/17 08:35 08/16/17 08:35 08/16/17 08:35 08/16/17 08:35 08/16/17 08:35 Intake and Output: 08/16/17 08/16/17 06:59 18:59 Intake Total 450 Balance 450 - Medications Medications: Current Medications Allopurinol (Zyloprim) 100 mg PO DAILY [facility] Last Admin: 08/15/17 12:38 Dose: Not Given Aspirin (Ecotrin) 81 mg PO DAILY [facility] Last Admin: 08/15/17 12:35 Dose: Not Given Docusate Sodium (Colace) 100 mg PO DAILY [facility] Last Admin: 08/15/17 12:34 Dose: Not Given Dronabinol (Marinol) 2.5 mg PO BID [facility] Last Admin: 08/15/17 17:43 Dose: Not Given Folic Acid (Folic Acid) 1 mg PO DAILY [facility] Last Admin: 08/15/17 12:36 Dose: Not Given Dextrose/Sodium Chloride (Dextrose 5%/0.9% Ns 1000 Ml) 1,000 mls @ 100 mls/hr IV .Q10H [facility] Last Admin: 08/16/17 00:20 Dose: Not Given Vancomycin/Sodium Chloride (Vancomycin 1 Gm/Ns 200 Ml) 1 gm in 200 mls @ 133.333 mls/hr IVPB Q24H [facility] Stop: 08/18/17 22:01 Last Admin: 08/15/17 21:15 Dose: 133.333 mls/hr Cefepime HCl (Maxipime Iv 1 Gm Premix) 1 gm in 50 mls @ 100 mls/hr IVPB Q12H [facility] Last Admin: 08/16/17 00:16 Dose: 100 mls/hr Multivitamins/Vitamin C 10 ml/Chromium/Copper/Manganese/Zinc 1 ml/ Amino Acids 1,011 mls @ 50 mls/hr IV .[id number] ONE Stop: 08/16/17 14:13 Last Admin: 08/15/17 19:37 Dose: 50 mls/hr Fat Emulsion Intravenous (Intralipid 20%) 500 mls @ 50 mls/hr IV MWF@1800 [facility] Stop: 08/20/17 03:59 Last Admin: 08/15/17 19:37 Dose: 50 mls/hr Metoprolol Succinate (Toprol Xl) 25 mg PO DAILY [facility] Last Admin: 08/15/17 12:37 Dose: Not Given Ondansetron HCl (Zofran Inj) 4 mg IVP Q6H PRN PRN Reason: Nausea/Vomiting Pantoprazole Sodium (Protonix Inj) 40 mg IVP DAILY [facility] Potassium Phos/Sodium Phos (Neutra-Phos) 1 pkt PO TID [facility] Stop: 08/17/17 14:01 Last Admin: 08/15/17 17:39 Dose: Not Given Rosuvastatin Calcium (Crestor) 2.5 mg PO HS [facility] Last Admin: 08/15/17 21:05 Dose: Not Given - Labs Labs: 08/16/17 07:59 08/16/17 07:59 PT 18.6 SECONDS (9.7-12.2) H 08/15/17 20:05 INR 1.6 08/15/17 20:05 APTT 44 SECONDS (21-34) H 08/15/17 20:05 - Constitutional Appears: Non-toxic, Cachectic, Chronically Ill - Head Exam Head Exam: ATRAUMATIC - Eye Exam Eye Exam: EOMI - ENT Exam ENT Exam: Mucous Membranes Moist (extremely poor dentition) - Neck Exam Neck Exam: Full ROM - Respiratory Exam Respiratory Exam: Clear to Ausculation Bilateral - Cardiovascular Exam Cardiovascular Exam: REGULAR RHYTHM - Extremities Exam Extremities Exam: absent: Calf Tenderness - Neurological Exam Neurological Exam: Alert, Awake, Oriented x3 - Psychiatric Exam Psychiatric exam: Normal Affect - Skin Skin Exam: Warm Assessment and Plan - Assessment and Plan (Free Text) Assessment: 71 years old male, with hx of CVA, AAA, TAA, presents for dysphagia, vomiting, weight loss, bacteremia, fatigue: Dysphagia 08/16: Speech and swallow is recommending ENT consult; ordered; appreciate Dr. Karel Ramirez; EGD planned for today as potient is NPO; will f/u results 08/15: f/u Obstructive series xray to rule out bowel obstruction. GI plans to perform EGD once echo and CT angio pelvis have resulted. f/u echo Marinol) 2.5 mg PO BID [facility] Percocet 5/325 Mg Tab) 1 tab PO Q4H PRN liquid diet - Abd x ray 08/13/17: mildly distended small bowel ileus vs early obstruction. Mildly distended loops of small bowel in left flank and RUQ. Vascular disease with multiple stents - abdominal aorta and iliacs. - CXR 08/12/17: Left hilar/infrahilar opacity -> cannot exclude pneumonia. Biapical pleural thickening/granulamatous changes. - Esophagus x ray 08/04/17: could not evaluate because pt could not ingest barium contrast - Blood cultures (/2) 08/12/17 shows S aureus, gram positive cocci. Pt started on Vancomycin IV, - Follow up formal speech and swallow eval GI Consult, Dr. Avalos, recs appreciated. Hx of Stents at Iliac and Abdominal Aorta 08/15: f/u CT angio pelvis to assess for any blockage - Abd x ray 08/13/17: mildly distended small bowel ileus vs early obstruction. Mildly distended loops of small bowel in left flank and RUQ. Vascular disease with multiple stents - abdominal aorta and iliacs. AAA s/p repair -04/2017, iliac angioplasty/stent 05/2017 Bacteremia Gram (+) Note: pt has a left groin wound vac - dressings to be changed by surgery Q3d. Vancomycin 1 Gm/Ns 200 Ml) 1 gm in 200 mls @ 133.333 mls/hr IVPB Q24H [facility] BC G+ cocci UC prelim G-negative rods procalcitonin 0.15L ID consult, Dr. Ovalles, recs appreciated. -f/u echo for possible endocarditis -most likely from repair of his iliac and abdominal aorta 2/2 to results from cat scan Gout Allopurinol (Zyloprim) 100 mg PO DAILY [facility] Hypertension Metoprolol Succinate (Toprol Xl) 25 mg PO DAILY [facility] Hyperlipidemia ASA 81 mg PO DAILY [facility] Crestor) 2.5 mg PO HS [facility] Electrolyte Imbalance Kypokalemia, K2.7 - KCl 10meq IVPB x4; KCl PO 20meq x3 Hypomagnesemia, Mg 1.4 -> repleted Hypophosphatemia, P 2 -> Neutraphos TID [id number] total Prophylaxis SCDs Protonix Ec Tab) 40 mg PO DAILY [facility] Colace) 100 mg PO DAILY [facility] Folic Acid) 1 mg PO DAILY [facility] NS D5-0.9 at 100cc/hr All management as per Dr Blayne Jeffrey <Danny Jeffrey S - Last Filed: 08/16/17 17:07> Objective - Vital Signs/Intake and Output Vital Signs (last 24 hours): Temp Pulse Resp BP Pulse Ox 98.4 F 79 20 123/73 98 08/16/17 15:00 08/16/17 15:00 08/16/17 15:00 08/16/17 15:00 08/16/17 15:00 Intake and Output: 08/16/17 08/16/17 06:59 18:59 Intake Total 450 Balance 450 - Medications Medications: Current Medications Allopurinol (Zyloprim) 100 mg PO DAILY [facility] Last Admin: 08/16/17 11:18 Dose: 100 mg Aspirin (Ecotrin) 81 mg PO DAILY [facility] Last Admin: 08/16/17 11:18 Dose: 81 mg Docusate Sodium (Colace) 100 mg PO DAILY [facility] Last Admin: 08/16/17 11:18 Dose: 100 mg Dronabinol (Marinol) 2.5 mg PO BID [facility] Last Admin: 08/16/17 11:35 Dose: 2.5 mg Folic Acid (Folic Acid) 1 mg PO DAILY [facility] Last Admin: 08/16/17 11:18 Dose: 1 mg Dextrose/Sodium Chloride (Dextrose 5%/0.9% Ns 1000 Ml) 1,000 mls @ 100 mls/hr IV .Q10H [facility] Last Admin: 08/16/17 10:15 Dose: Not Given Cefepime HCl (Maxipime Iv 1 Gm Premix) 1 gm in 50 mls @ 100 mls/hr IVPB Q12H [facility] Last Admin: 08/16/17 12:00 Dose: 100 mls/hr Fat Emulsion Intravenous (Intralipid 20%) 500 mls @ 50 mls/hr IV MWF@1800 [facility] Stop: 08/20/17 03:59 Last Admin: 08/15/17 19:37 Dose: 50 mls/hr Multivitamins/Vitamin C 10 ml/Chromium/Copper/Manganese/Zinc 1 ml/ Amino Acids 1,011 mls @ 42 mls/hr IV .Q24H [facility] Stop: 08/17/17 17:59 Vancomycin HCl 1 gm/ Sodium (Chloride) 250 mls @ 166.667 mls/hr IVPB Q24H [facility] Metoprolol Succinate (Toprol Xl) 25 mg PO DAILY [facility] Last Admin: 08/16/17 11:35 Dose: 25 mg Ondansetron HCl (Zofran Inj) 4 mg IVP Q6H PRN PRN Reason: Nausea/Vomiting Pantoprazole Sodium (Protonix Inj) 40 mg IVP DAILY [facility] Last Admin: 08/16/17 11:19 Dose: 40 mg Potassium Phos/Sodium Phos (Neutra-Phos) 1 pkt PO TID [facility] Stop: 08/17/17 14:01 Last Admin: 08/16/17 14:00 Dose: 1 pkt Rosuvastatin Calcium (Crestor) 2.5 mg PO HS [facility] Last Admin: 08/15/17 21:05 Dose: Not Given - Labs Labs: 08/16/17 07:59 08/16/17 07:59 PT 18.6 SECONDS (9.7-12.2) H 08/15/17 20:05 INR 1.6 08/15/17 20:05 APTT 44 SECONDS (21-34) H 08/15/17 20:05 Assessment and Plan (1) Dehydration Status: Acute (2) Weakness Status: Acute (3) Weight loss Status: Acute (4) Alcohol dependence Status: Acute (5) Alcohol intoxication Status: Acute (6) Altered mental status Status: Acute (7) Aortic aneurysm Status: Acute (8) DVT prophylaxis Status: Acute (9) HTN (hypertension) Status: Acute (10) Near syncope Status: Acute (11) Pancreatitis Status: Acute (12) Seizure disorder Status: Acute (13) Dyslipidemia Status: Chronic (14) Gout Status: Chronic Attending/Attestation - Attestation I have personally seen and examined this patient.: Yes I have fully participated in the care of the patient.: Yes I have reviewed all pertinent clinical information, including history, physical exam and plan: Yes Notes (Text): Patient examined. PICC line inserted. TPN started. Continue vancomycin and cefepime. Continue antihypertensive medications and aspirin. Continue supportive care.
--- NOTE | 2017-08-16 10:32 | CP.PCM.PN ---
Subjective - Date & Time of Evaluation Date of Evaluation: 08/16/17 Time of Evaluation: 07:00 - Subjective Subjective: GENERAL SURGERY PROGRESS NOTE FOR DR. SHEIKH Patient seen and examined at bedside. Patient doesn't have any complaints. He wants to go home. Objective - Vital Signs/Intake and Output Vital Signs (last 24 hours): Temp Pulse Resp BP Pulse Ox 97.8 F 72 18 98/62 L 99 08/16/17 08:35 08/16/17 08:35 08/16/17 08:35 08/16/17 08:35 08/16/17 08:35 Intake and Output: 08/16/17 08/16/17 06:59 18:59 Intake Total 450 Balance 450 - Medications Medications: Current Medications Allopurinol (Zyloprim) 100 mg PO DAILY [facility] Last Admin: 08/15/17 12:38 Dose: Not Given Aspirin (Ecotrin) 81 mg PO DAILY [facility] Last Admin: 08/15/17 12:35 Dose: Not Given Docusate Sodium (Colace) 100 mg PO DAILY [facility] Last Admin: 08/15/17 12:34 Dose: Not Given Dronabinol (Marinol) 2.5 mg PO BID [facility] Last Admin: 08/15/17 17:43 Dose: Not Given Folic Acid (Folic Acid) 1 mg PO DAILY [facility] Last Admin: 08/15/17 12:36 Dose: Not Given Dextrose/Sodium Chloride (Dextrose 5%/0.9% Ns 1000 Ml) 1,000 mls @ 100 mls/hr IV .Q10H [facility] Last Admin: 08/16/17 00:20 Dose: Not Given Vancomycin/Sodium Chloride (Vancomycin 1 Gm/Ns 200 Ml) 1 gm in 200 mls @ 133.333 mls/hr IVPB Q24H [facility] Stop: 08/18/17 22:01 Last Admin: 08/15/17 21:15 Dose: 133.333 mls/hr Cefepime HCl (Maxipime Iv 1 Gm Premix) 1 gm in 50 mls @ 100 mls/hr IVPB Q12H [facility] Last Admin: 08/16/17 00:16 Dose: 100 mls/hr Multivitamins/Vitamin C 10 ml/Chromium/Copper/Manganese/Zinc 1 ml/ Amino Acids 1,011 mls @ 50 mls/hr IV .[id number] [facility] Stop: 08/16/17 14:13 Last Admin: 08/15/17 19:37 Dose: 50 mls/hr Fat Emulsion Intravenous (Intralipid 20%) 500 mls @ 50 mls/hr IV MWF@1800 [facility] Stop: 08/20/17 03:59 Last Admin: 08/15/17 19:37 Dose: 50 mls/hr Metoprolol Succinate (Toprol Xl) 25 mg PO DAILY [facility] Last Admin: 08/15/17 12:37 Dose: Not Given Ondansetron HCl (Zofran Inj) 4 mg IVP Q6H PRN PRN Reason: Nausea/Vomiting Pantoprazole Sodium (Protonix Inj) 40 mg IVP DAILY [facility] Potassium Phos/Sodium Phos (Neutra-Phos) 1 pkt PO TID [facility] Stop: 08/17/17 14:01 Last Admin: 08/15/17 17:39 Dose: Not Given Rosuvastatin Calcium (Crestor) 2.5 mg PO HS [facility] Last Admin: 08/15/17 21:05 Dose: Not Given - Labs Labs: 08/16/17 07:59 08/16/17 07:59 PT 18.6 SECONDS (9.7-12.2) H 08/15/17 20:05 INR 1.6 08/15/17 20:05 APTT 44 SECONDS (21-34) H 08/15/17 20:05 - Constitutional Appears: Non-toxic, No Acute Distress - Head Exam Head Exam: ATRAUMATIC, NORMAL INSPECTION - Respiratory Exam Respiratory Exam: NORMAL BREATHING PATTERN. absent: Respiratory Distress - Cardiovascular Exam Cardiovascular Exam: +S1, +S2 - Extremities Exam Additional comments: Left groin dressing clean/dry/intact - Neurological Exam Neurological Exam: Alert, Awake. absent: Oriented x3 - Psychiatric Exam Psychiatric exam: Normal Affect, Normal Mood Assessment and Plan - Assessment and Plan (Free Text) Assessment: 71yo M with left groin wound s/p aortic bifemoral endograft repair - Groin cx: gram negative gladys & corynebacterium species - On Vanco and cefepime - Wound care note: base beefy red with islands of epithelialization, musty sweet odor coming from wound consistent with fungus. Recommending to start medihoney covered with foam dressing to be changed every other day. - CTA: type II endoleak s/p aortic bifemoral endograft repair with dense fluid collection surrounding left common femoral artery. Dr. Hoang, vascular surgery consulted - Recommend transfer back to [place] which was site of patient's surgery - Will discuss plan with Dr. Avni Johns PGY-3
[2017-08-16] MEDS: Metoprolol Succinate 25 mg XL Tab PO SCH (11:35)
--- NOTE | 2017-08-16 12:28 | CP.PCM.PN ---
Subjective - Date & Time of Evaluation Date of Evaluation: 08/16/17 Time of Evaluation: 08:00 - Subjective Subjective: enterococcus in blood pseudomonas in urine prognosis guarded fluid collection left groin needs surg Objective - Vital Signs/Intake and Output Vital Signs (last 24 hours): Temp Pulse Resp BP Pulse Ox 97.8 F 72 18 98/62 L 99 08/16/17 08:35 08/16/17 08:35 08/16/17 08:35 08/16/17 08:35 08/16/17 08:35 Intake and Output: 08/16/17 08/16/17 06:59 18:59 Intake Total 450 Balance 450 - Medications Medications: Current Medications Allopurinol (Zyloprim) 100 mg PO DAILY [facility] Last Admin: 08/16/17 11:18 Dose: 100 mg Aspirin (Ecotrin) 81 mg PO DAILY [facility] Last Admin: 08/16/17 11:18 Dose: 81 mg Docusate Sodium (Colace) 100 mg PO DAILY [facility] Last Admin: 08/16/17 11:18 Dose: 100 mg Dronabinol (Marinol) 2.5 mg PO BID [facility] Last Admin: 08/16/17 11:35 Dose: 2.5 mg Folic Acid (Folic Acid) 1 mg PO DAILY [facility] Last Admin: 08/16/17 11:18 Dose: 1 mg Dextrose/Sodium Chloride (Dextrose 5%/0.9% Ns 1000 Ml) 1,000 mls @ 100 mls/hr IV .Q10H [facility] Last Admin: 08/16/17 00:20 Dose: Not Given Vancomycin/Sodium Chloride (Vancomycin 1 Gm/Ns 200 Ml) 1 gm in 200 mls @ 133.333 mls/hr IVPB Q24H [facility] Stop: 08/18/17 22:01 Last Admin: 08/15/17 21:15 Dose: 133.333 mls/hr Cefepime HCl (Maxipime Iv 1 Gm Premix) 1 gm in 50 mls @ 100 mls/hr IVPB Q12H [facility] Last Admin: 08/16/17 00:16 Dose: 100 mls/hr Multivitamins/Vitamin C 10 ml/Chromium/Copper/Manganese/Zinc 1 ml/ Amino Acids 1,011 mls @ 50 mls/hr IV .[id number] [facility] Stop: 08/16/17 14:13 Last Admin: 08/15/17 19:37 Dose: 50 mls/hr Fat Emulsion Intravenous (Intralipid 20%) 500 mls @ 50 mls/hr IV MWF@1800 [facility] Stop: 08/20/17 03:59 Last Admin: 08/15/17 19:37 Dose: 50 mls/hr Metoprolol Succinate (Toprol Xl) 25 mg PO DAILY [facility] Last Admin: 08/16/17 11:35 Dose: 25 mg Ondansetron HCl (Zofran Inj) 4 mg IVP Q6H PRN PRN Reason: Nausea/Vomiting Pantoprazole Sodium (Protonix Inj) 40 mg IVP DAILY [facility] Last Admin: 08/16/17 11:19 Dose: 40 mg Potassium Phos/Sodium Phos (Neutra-Phos) 1 pkt PO TID [facility] Stop: 08/17/17 14:01 Last Admin: 08/16/17 10:00 Dose: 1 pkt Rosuvastatin Calcium (Crestor) 2.5 mg PO HS [facility] Last Admin: 08/15/17 21:05 Dose: Not Given - Labs Labs: 08/16/17 07:59 08/16/17 07:59 PT 18.6 SECONDS (9.7-12.2) H 08/15/17 20:05 INR 1.6 08/15/17 20:05 APTT 44 SECONDS (21-34) H 08/15/17 20:05 - Constitutional Appears: Non-toxic, Cachectic, Chronically Ill - Head Exam Head Exam: NORMOCEPHALIC - Eye Exam Eye Exam: PERRL. absent: Scleral icterus - ENT Exam ENT Exam: Mucous Membranes Dry - Neck Exam Neck Exam: absent: Lymphadenopathy - Respiratory Exam Respiratory Exam: Decreased Breath Sounds - Cardiovascular Exam Cardiovascular Exam: REGULAR RHYTHM - GI/Abdominal Exam GI & Abdominal Exam: Distended, Soft - Rectal Exam Rectal Exam: Deferred Assessment and Plan (1) Altered mental status Status: Acute (2) Aortic aneurysm Status: Acute (3) DVT prophylaxis Status: Acute (4) HTN (hypertension) Status: Acute (5) Near syncope Status: Acute (6) Pancreatitis Status: Acute (7) Seizure disorder Status: Acute
--- NOTE | 2017-08-16 16:21 | CP.PCM.PN ---
Subjective - Date & Time of Evaluation Date of Evaluation: 08/16/17 Time of Evaluation: 12:20 - Subjective Subjective: clinically same Objective - Vital Signs/Intake and Output Vital Signs (last 24 hours): Temp Pulse Resp BP Pulse Ox 98.4 F 79 20 123/73 98 08/16/17 15:00 08/16/17 15:00 08/16/17 15:00 08/16/17 15:00 08/16/17 15:00 Intake and Output: 08/16/17 08/16/17 06:59 18:59 Intake Total 450 Balance 450 - Medications Medications: Current Medications Allopurinol (Zyloprim) 100 mg PO DAILY [facility] Last Admin: 08/16/17 11:18 Dose: 100 mg Aspirin (Ecotrin) 81 mg PO DAILY [facility] Last Admin: 08/16/17 11:18 Dose: 81 mg Docusate Sodium (Colace) 100 mg PO DAILY [facility] Last Admin: 08/16/17 11:18 Dose: 100 mg Dronabinol (Marinol) 2.5 mg PO BID [facility] Last Admin: 08/16/17 11:35 Dose: 2.5 mg Folic Acid (Folic Acid) 1 mg PO DAILY [facility] Last Admin: 08/16/17 11:18 Dose: 1 mg Dextrose/Sodium Chloride (Dextrose 5%/0.9% Ns 1000 Ml) 1,000 mls @ 100 mls/hr IV .Q10H [facility] Last Admin: 08/16/17 10:15 Dose: Not Given Cefepime HCl (Maxipime Iv 1 Gm Premix) 1 gm in 50 mls @ 100 mls/hr IVPB Q12H [facility] Last Admin: 08/16/17 12:00 Dose: 100 mls/hr Fat Emulsion Intravenous (Intralipid 20%) 500 mls @ 50 mls/hr IV MWF@1800 [facility] Stop: 08/20/17 03:59 Last Admin: 08/15/17 19:37 Dose: 50 mls/hr Multivitamins/Vitamin C 10 ml/Chromium/Copper/Manganese/Zinc 1 ml/ Amino Acids 1,011 mls @ 42 mls/hr IV .Q24H [facility] Stop: 08/17/17 17:59 Vancomycin HCl 1 gm/ Sodium (Chloride) 250 mls @ 166.667 mls/hr IVPB Q24H [facility] Metoprolol Succinate (Toprol Xl) 25 mg PO DAILY [facility] Last Admin: 08/16/17 11:35 Dose: 25 mg Ondansetron HCl (Zofran Inj) 4 mg IVP Q6H PRN PRN Reason: Nausea/Vomiting Pantoprazole Sodium (Protonix Inj) 40 mg IVP DAILY [facility] Last Admin: 08/16/17 11:19 Dose: 40 mg Potassium Phos/Sodium Phos (Neutra-Phos) 1 pkt PO TID [facility] Stop: 08/17/17 14:01 Last Admin: 08/16/17 14:00 Dose: 1 pkt Rosuvastatin Calcium (Crestor) 2.5 mg PO HS [facility] Last Admin: 08/15/17 21:05 Dose: Not Given - Labs Labs: 08/16/17 07:59 08/16/17 07:59 PT 18.6 SECONDS (9.7-12.2) H 08/15/17 20:05 INR 1.6 08/15/17 20:05 APTT 44 SECONDS (21-34) H 08/15/17 20:05 - Constitutional Appears: Well - Head Exam Head Exam: ATRAUMATIC, NORMAL INSPECTION, NORMOCEPHALIC - Eye Exam Eye Exam: EOMI, Normal appearance, PERRL Pupil Exam: NORMAL ACCOMODATION, PERRL - ENT Exam ENT Exam: Mucous Membranes Moist, Normal Exam - Neck Exam Neck Exam: Full ROM, Normal Inspection. absent: Lymphadenopathy - Respiratory Exam Respiratory Exam: Clear to Ausculation Bilateral, NORMAL BREATHING PATTERN - Cardiovascular Exam Cardiovascular Exam: REGULAR RHYTHM, +S1, +S2. absent: Murmur - GI/Abdominal Exam GI & Abdominal Exam: Soft, Normal Bowel Sounds. absent: Tenderness - Rectal Exam Rectal Exam: Deferred - Extremities Exam Extremities Exam: Full ROM, Normal Capillary Refill, Normal Inspection. absent : Joint Swelling, Pedal Edema - Back Exam Back Exam: NORMAL INSPECTION Assessment and Plan (1) Alcohol dependence Status: Acute (2) Alcohol intoxication Status: Acute (3) Altered mental status Status: Acute (4) Aortic aneurysm Status: Acute (5) Dehydration Status: Acute (6) DVT prophylaxis Status: Acute (7) Dyslipidemia Status: Chronic (8) Gout Status: Chronic (9) HTN (hypertension) Status: Acute (10) Near syncope Status: Acute (11) Pancreatitis Status: Acute (12) Seizure disorder Status: Acute (13) Weakness Status: Acute (14) Weight loss Status: Acute - Assessment and Plan (Free Text) Plan: Patient examined. Patient on TPN. Blood culture grows enterococcus. Urine culture grew Pseudomonas. Continue vancomycin and cefepime. Continue antihypertensive medications. Continue supportive care.
[2017-08-16] MEDS ORDERED: PPN #2 IV ONE (18:00)
[2017-08-16] MEDS: Rosuvastatin Calcium 2.5 mg Tab PO SCH (21:08)
--- NOTE | 2017-08-17 00:44 | OP ---
PROCEDURE DATE: 08/16/2017 PREOPERATIVE DIAGNOSIS: Dysphagia. POSTOPERATIVE DIAGNOSIS: Dysphagia. PROCEDURE: Flexible laryngoscopy. SIGNIFICANT FINDINGS: No masses, no lesions, no erythema, no edema. Normal exam. DESCRIPTION OF PROCEDURE: The patient was placed in seated position, and nose was decongested using Afrin nasal spray. Flexible laryngoscope was inserted into nasal cavity, passed through nasopharynx, oropharynx and hypopharynx. The pharyngeal young, base of tongue, vallecula, epiglottis, AE folds, false cords, true cords, arytenoids, piriform sinuses, were brought into view. No masses or lesions were noted. No erythema or edema was noted. Vocal cords were mobile bilaterally. The scope was removed. The patient tolerated the procedure well. Recommend modified barium swallow and follow the speech therapist's recommendations on swallowing. Benny Vinson MD
--- NOTE | 2017-08-17 07:14 | CP.PCM.PN ---
<Deepa Bright - Last Filed: 08/17/17 09:05> Subjective - Date & Time of Evaluation Date of Evaluation: 08/17/17 Time of Evaluation: 07:12 - Subjective Subjective: Deepa Bright, PGY1, GI Progress Note for Dr Cespedes: Pt seen and examined at bedside. No acute events overnight. As per nurse, pt took PO pills with small sips of water yesterday morning, and is tolerating small sips of cranberry juice and liquids. No nausea, vomiting, abdominal/ epigastric pain, diarrhea, fever, chills. Last BM 3 days ago. 12 point ROS reviewed and negative, except as noted per HPI. Objective - Vital Signs/Intake and Output Vital Signs (last 24 hours): Temp Pulse Resp BP Pulse Ox 98.5 F 66 20 107/67 99 08/16/17 23:20 08/16/17 23:20 08/16/17 23:20 08/16/17 23:20 08/16/17 23:20 Intake and Output: 08/17/17 08/17/17 06:59 18:59 Intake Total 660 Output Total 400 Balance 260 - Medications Medications: Current Medications Allopurinol (Zyloprim) 100 mg PO DAILY [facility] Last Admin: 08/16/17 11:18 Dose: 100 mg Aspirin (Ecotrin) 81 mg PO DAILY [facility] Last Admin: 08/16/17 11:18 Dose: 81 mg Docusate Sodium (Colace) 100 mg PO DAILY [facility] Last Admin: 08/16/17 11:18 Dose: 100 mg Dronabinol (Marinol) 2.5 mg PO BID [facility] Last Admin: 08/16/17 17:50 Dose: Not Given Folic Acid (Folic Acid) 1 mg PO DAILY [facility] Last Admin: 08/16/17 11:18 Dose: 1 mg Cefepime HCl (Maxipime Iv 1 Gm Premix) 1 gm in 50 mls @ 100 mls/hr IVPB Q12H [facility] Last Admin: 08/17/17 00:00 Dose: 100 mls/hr Fat Emulsion Intravenous (Intralipid 20%) 500 mls @ 50 mls/hr IV MWF@1800 [facility] Stop: 08/20/17 03:59 Last Admin: 08/15/17 19:37 Dose: 50 mls/hr Multivitamins/Vitamin C 10 ml/Chromium/Copper/Manganese/Zinc 1 ml/ Amino Acids 1,011 mls @ 42 mls/hr IV .Q24H ONE Stop: 08/17/17 17:59 Last Admin: 08/16/17 17:36 Dose: 42 mls/hr Vancomycin HCl 1 gm/ Sodium (Chloride) 250 mls @ 166.667 mls/hr IVPB Q24H [facility] Last Admin: 08/16/17 21:16 Dose: 166.667 mls/hr Metoprolol Succinate (Toprol Xl) 25 mg PO DAILY [facility] Last Admin: 08/16/17 11:35 Dose: 25 mg Ondansetron HCl (Zofran Inj) 4 mg IVP Q6H PRN PRN Reason: Nausea/Vomiting Pantoprazole Sodium (Protonix Inj) 40 mg IVP DAILY [facility] Last Admin: 08/16/17 11:19 Dose: 40 mg Potassium Phos/Sodium Phos (Neutra-Phos) 1 pkt PO TID [facility] Stop: 08/17/17 14:01 Last Admin: 08/16/17 17:50 Dose: Not Given Rosuvastatin Calcium (Crestor) 2.5 mg PO HS [facility] Last Admin: 08/16/17 21:08 Dose: Not Given - Labs Labs: 08/16/17 07:59 08/16/17 07:59 PT 18.6 SECONDS (9.7-12.2) H 08/15/17 20:05 INR 1.6 08/15/17 20:05 APTT 44 SECONDS (21-34) H 08/15/17 20:05 - Constitutional Appears: Non-toxic, Older Than Stated Age, Chronically Ill - Head Exam Head Exam: ATRAUMATIC, NORMOCEPHALIC - Eye Exam Eye Exam: PERRL. absent: Conjunctival injection, Scleral icterus Pupil Exam: PERRL - ENT Exam ENT Exam: Mucous Membranes Moist - Respiratory Exam Respiratory Exam: Clear to Ausculation Bilateral. absent: Respiratory Distress - Cardiovascular Exam Cardiovascular Exam: RRR, +S1, +S2. absent: Murmur - GI/Abdominal Exam GI & Abdominal Exam: Soft, Normal Bowel Sounds. absent: Distended, Guarding, Tenderness, Mass, Organomegaly, Rebound - Extremities Exam Extremities Exam: absent: Calf Tenderness, Pedal Edema - Neurological Exam Neurological Exam: Alert (oriented to person and place only), Awake - Psychiatric Exam Psychiatric exam: Normal Affect - Skin Skin Exam: Dry, Normal Color, Warm Assessment and Plan - Assessment and Plan (Free Text) Assessment: 71 years old male, with hx of CVA, AAA, TAA s/p repair and iliac stents, presents for dysphagia, weight loss, bacteremia, fatigue: Plan: - 2/2 TAA impinging on the esophagus vs esophageal stenosis/structure vs mechanical obstruction vs PUD vs malignancy - Afebrile, no leukocytosis, currently HD stable. - Formal swallow screen 08/16/17 shows pt tolerating small sips of thin liquids. Recommends ENT eval, EGD and Modified Barium swallow. - Repeat obstructive series x ray 08/15 shows no obstruction. Abd x ray : mildly distended small bowel ileus vs early obstruction. Mildly distended loops of small bowel in left flank and RUQ. Vascular disease with multiple stents - abdominal aorta and iliacs. - CXR 08/12/17: Left hilar/infrahilar opacity -> cannot exclude pneumonia. Biapical pleural thickening/granulamatous changes. - Esophagus x ray 08/04/17: could not evaluate because pt could not ingest barium contrast - Blood cultures (1/2) 08/12/17 shows Enterococcus avium, S to Vanco, Cipro, Levofloxacin. - Urine culture shows Pseudomonas aeruginosa. S to Cefepime, Merrem, Cipro. - Wound Culture 08/12/17 shows Corynebacterium, pending final results. - Pt currently on Vancomycin IV D5 and IV Cefepime D3, per ID. Follow up ID recs , given finalized culture results. - Pt's left wound vac removed by wound care nurse 08/15/17, dressing c/d/i. - Ct angio pelvis 08/15/17: Post aortic bifemoral endograft repair Dense fluid collection, 6x3x8 cm, surrounding left common femoral artery - likely purulence than hematoma or simple fluid. No active extravasation within dense fluid collection. - Vascular surgery consulted. Follow up recs regarding the left groin infection drainage/treatment. Discuss with primary team regarding possible transfer to [facility], as pt previously had stents and workup done there. - Continue with TPN and lipids for now, for nutrition. Consider the risk of superimposed infection, in the setting of this septic patient. - CT angio 05/2017 at [facility] shows cirrhosis; Likely 2/2 long standing alcohol abuse. Will obtain cirrhosis workup. Hep panel negative, AFP<0.8. - Echocardiogram EF 65-70%. Grade 1 (impaired relaxation pattern) LV diastolic dysfunction. - Follow up echo findings this admission. - Consider chest CT (to evaluate thoracic aorta and any compressive etiology), EGD and colonoscopy after all workup is done Discussed with GI fellow and attending, Dr Cespedes. Deepa Bright, PGY1 <David Cespedes - Last Filed: 08/17/17 12:43> Objective - Vital Signs/Intake and Output Vital Signs (last 24 hours): Temp Pulse Resp BP Pulse Ox 97.7 F 68 20 108/61 99 08/17/17 08:10 08/17/17 08:10 08/17/17 08:10 08/17/17 08:10 08/17/17 08:10 Intake and Output: 08/17/17 08/17/17 06:59 18:59 Intake Total 660 Output Total 400 Balance 260 - Medications Medications: Current Medications Allopurinol (Zyloprim) 100 mg PO DAILY [facility] Last Admin: 08/17/17 10:30 Dose: 100 mg Aspirin (Ecotrin) 81 mg PO DAILY [facility] Last Admin: 08/17/17 10:30 Dose: 81 mg Docusate Sodium (Colace) 100 mg PO DAILY [facility] Last Admin: 08/17/17 10:30 Dose: 100 mg Dronabinol (Marinol) 2.5 mg PO BID [facility] Last Admin: 08/17/17 10:32 Dose: 2.5 mg Folic Acid (Folic Acid) 1 mg PO DAILY [facility] Last Admin: 08/17/17 10:30 Dose: 1 mg Cefepime HCl (Maxipime Iv 1 Gm Premix) 1 gm in 50 mls @ 100 mls/hr IVPB Q12H [facility] Last Admin: 08/17/17 00:00 Dose: 100 mls/hr Fat Emulsion Intravenous (Intralipid 20%) 500 mls @ 50 mls/hr IV MWF@1800 [facility] Stop: 08/20/17 03:59 Last Admin: 08/15/17 19:37 Dose: 50 mls/hr Multivitamins/Vitamin C 10 ml/Chromium/Copper/Manganese/Zinc 1 ml/ Amino Acids 1,011 mls @ 42 mls/hr IV .Q24H [facility] Stop: 08/17/17 17:59 Last Admin: 08/16/17 17:36 Dose: 42 mls/hr Vancomycin HCl 1 gm/ Sodium (Chloride) 250 mls @ 166.667 mls/hr IVPB Q24H [facility] Last Admin: 08/16/17 21:16 Dose: 166.667 mls/hr Multivitamins/Vitamin C 10 ml/Chromium/Copper/Manganese/Zinc 1 ml/ Amino Acids 1,011 mls @ 42 mls/hr IV .Q24H [facility] Stop: 08/18/17 18:01 Metoprolol Succinate (Toprol Xl) 25 mg PO DAILY [facility] Last Admin: 08/17/17 10:30 Dose: 25 mg Ondansetron HCl (Zofran Inj) 4 mg IVP Q6H PRN PRN Reason: Nausea/Vomiting Pantoprazole Sodium (Protonix Inj) 40 mg IVP DAILY [facility] Last Admin: 08/17/17 10:30 Dose: 40 mg Potassium Phos/Sodium Phos (Neutra-Phos) 1 pkt PO TID [facility] Stop: 08/17/17 14:01 Last Admin: 08/17/17 10:29 Dose: 1 pkt Rosuvastatin Calcium (Crestor) 2.5 mg PO HS [facility] Last Admin: 08/16/17 21:08 Dose: Not Given - Labs Labs: 08/17/17 11:18 08/17/17 11:18 PT 18.6 SECONDS (9.7-12.2) H 08/15/17 20:05 INR 1.6 08/15/17 20:05 APTT 44 SECONDS (21-34) H 08/15/17 20:05 Attending/Attestation - Attestation I have personally seen and examined this patient.: Yes I have fully participated in the care of the patient.: Yes I have reviewed all pertinent clinical information, including history, physical exam and plan: Yes Notes (Text): 08/17/17 12:39 71 years old male with hx of CVA, AAA, TAA s/p repair recently at [facility] a/ w bacteremia, dysphagia, and weight loss. 1. Dysphagia 2. Thoracic aortic aneurysm 3. Abdominal aortic aneurysm Plan: -patient had a large 7 cm thoracic aneurysm repaired at [facility] -suspect extrinsic compression may be contributing to his dysphagia/weight loss -appreciate vascular surgery eval, may need re-evaluation at [place] -if workup here is pursued, then would recommend CT chest prior to any endoscopic evaluation to re-evaluate his thoracic aneurysm as it is not seen on the abdominal imaging -after that, an elective endoscopy could be done -if he is accepted at [facility], then would proceed with transfer, but will defer to vascular surgery -continue supportive measures in the meantime with antibiotics for bacteremia and TPN
[2017-08-17] MEDS: Potassium & Sodium Phosphate PO SCH ×2 (10:29→14:29)
[2017-08-17] MEDS: Metoprolol Succinate 25 mg XL Tab PO SCH (10:30)
--- NOTE | 2017-08-17 11:19 | CP.PCM.PN ---
<Danny Jeffrey S - Last Filed: 08/17/17 14:40> Objective - Vital Signs/Intake and Output Vital Signs (last 24 hours): Temp Pulse Resp BP Pulse Ox 97.7 F 79 20 108/61 100 08/17/17 08:10 08/17/17 12:39 08/17/17 08:10 08/17/17 08:10 08/17/17 12:39 Intake and Output: 08/17/17 08/17/17 06:59 18:59 Intake Total 660 Output Total 400 Balance 260 - Medications Medications: Current Medications Allopurinol (Zyloprim) 100 mg PO DAILY [facility] Last Admin: 08/17/17 10:30 Dose: 100 mg Aspirin (Ecotrin) 81 mg PO DAILY [facility] Last Admin: 08/17/17 10:30 Dose: 81 mg Docusate Sodium (Colace) 100 mg PO DAILY [facility] Last Admin: 08/17/17 10:30 Dose: 100 mg Dronabinol (Marinol) 2.5 mg PO BID [facility] Last Admin: 08/17/17 10:32 Dose: 2.5 mg Folic Acid (Folic Acid) 1 mg PO DAILY [facility] Last Admin: 08/17/17 10:30 Dose: 1 mg Cefepime HCl (Maxipime Iv 1 Gm Premix) 1 gm in 50 mls @ 100 mls/hr IVPB Q12H [facility] Last Admin: 08/17/17 13:00 Dose: 100 mls/hr Fat Emulsion Intravenous (Intralipid 20%) 500 mls @ 50 mls/hr IV MWF@1800 [facility] Stop: 08/20/17 03:59 Last Admin: 08/15/17 19:37 Dose: 50 mls/hr Multivitamins/Vitamin C 10 ml/Chromium/Copper/Manganese/Zinc 1 ml/ Amino Acids 1,011 mls @ 42 mls/hr IV .Q24H [facility] Stop: 08/17/17 17:59 Last Admin: 08/16/17 17:36 Dose: 42 mls/hr Vancomycin HCl 1 gm/ Sodium (Chloride) 250 mls @ 166.667 mls/hr IVPB Q24H [facility] Last Admin: 08/16/17 21:16 Dose: 166.667 mls/hr Multivitamins/Vitamin C 10 ml/Chromium/Copper/Manganese/Zinc 1 ml/ Amino Acids 1,011 mls @ 42 mls/hr IV .Q24H [facility] Stop: 08/18/17 18:01 Metoprolol Succinate (Toprol Xl) 25 mg PO DAILY [facility] Last Admin: 08/17/17 10:30 Dose: 25 mg Ondansetron HCl (Zofran Inj) 4 mg IVP Q6H PRN PRN Reason: Nausea/Vomiting Pantoprazole Sodium (Protonix Inj) 40 mg IVP DAILY [facility] Last Admin: 08/17/17 10:30 Dose: 40 mg Rosuvastatin Calcium (Crestor) 2.5 mg PO HS [facility] Last Admin: 08/16/17 21:08 Dose: Not Given - Labs Labs: 08/17/17 11:18 08/17/17 11:18 PT 18.6 SECONDS (9.7-12.2) H 08/15/17 20:05 INR 1.6 08/15/17 20:05 APTT 44 SECONDS (21-34) H 08/15/17 20:05 Assessment and Plan (1) Alcohol dependence Status: Acute (2) Alcohol intoxication Status: Acute (3) Altered mental status Status: Acute (4) Aortic aneurysm Status: Acute (5) Dehydration Status: Acute (6) DVT prophylaxis Status: Acute (7) Dyslipidemia Status: Chronic (8) Gout Status: Chronic (9) HTN (hypertension) Status: Acute (10) Near syncope Status: Acute (11) Pancreatitis Status: Acute (12) Seizure disorder Status: Acute (13) Weakness Status: Acute (14) Weight loss Status: Acute Attending/Attestation - Attestation I have personally seen and examined this patient.: Yes I have fully participated in the care of the patient.: Yes I have reviewed all pertinent clinical information, including history, physical exam and plan: Yes Notes (Text): Patient examined. Patient better. Continue cefepime and vanomycin. Continue supportive care. <Jose Elias Motley - Last Filed: 08/17/17 18:35> Subjective - Date & Time of Evaluation Date of Evaluation: 08/17/17 Time of Evaluation: 07:25 - Subjective Subjective: PGY2 Resident - Medicine Progress Note Patient seen and examined at bedside. No acute distress. No overnight events. He is tolerating liquid diet. He reports feeling weak / lethargic overall. Patient is AAOx2, not oriented to the year, however he knows its July and that Thanksgiving has past. Denies fever, chills, headache, changes in vision, chest pain, palpitations, dyspnea, cough, abdominal pain, nausea/vomiting, diarrhea/constipation, or any additional acute complaints. Objective - Vital Signs/Intake and Output Vital Signs (last 24 hours): Temp Pulse Resp BP Pulse Ox 97.7 F 68 20 108/61 99 08/17/17 08:10 08/17/17 08:10 08/17/17 08:10 08/17/17 08:10 08/17/17 08:10 Intake and Output: 08/17/17 08/17/17 06:59 18:59 Intake Total 660 Output Total 400 Balance 260 - Medications Medications: Current Medications Allopurinol (Zyloprim) 100 mg PO DAILY [facility] Last Admin: 08/17/17 10:30 Dose: 100 mg Aspirin (Ecotrin) 81 mg PO DAILY [facility] Last Admin: 08/17/17 10:30 Dose: 81 mg Docusate Sodium (Colace) 100 mg PO DAILY [facility] Last Admin: 08/17/17 10:30 Dose: 100 mg Dronabinol (Marinol) 2.5 mg PO BID [facility] Last Admin: 08/17/17 10:32 Dose: 2.5 mg Folic Acid (Folic Acid) 1 mg PO DAILY [facility] Last Admin: 08/17/17 10:30 Dose: 1 mg Cefepime HCl (Maxipime Iv 1 Gm Premix) 1 gm in 50 mls @ 100 mls/hr IVPB Q12H [facility] Last Admin: 08/17/17 00:00 Dose: 100 mls/hr Fat Emulsion Intravenous (Intralipid 20%) 500 mls @ 50 mls/hr IV MWF@1800 [facility] Stop: 08/20/17 03:59 Last Admin: 08/15/17 19:37 Dose: 50 mls/hr Multivitamins/Vitamin C 10 ml/Chromium/Copper/Manganese/Zinc 1 ml/ Amino Acids 1,011 mls @ 42 mls/hr IV .Q24H ONE Stop: 08/17/17 17:59 Last Admin: 08/16/17 17:36 Dose: 42 mls/hr Vancomycin HCl 1 gm/ Sodium (Chloride) 250 mls @ 166.667 mls/hr IVPB Q24H [facility] Last Admin: 08/16/17 21:16 Dose: 166.667 mls/hr Metoprolol Succinate (Toprol Xl) 25 mg PO DAILY [facility] Last Admin: 08/17/17 10:30 Dose: 25 mg Ondansetron HCl (Zofran Inj) 4 mg IVP Q6H PRN PRN Reason: Nausea/Vomiting Pantoprazole Sodium (Protonix Inj) 40 mg IVP DAILY [facility] Last Admin: 08/17/17 10:30 Dose: 40 mg Potassium Phos/Sodium Phos (Neutra-Phos) 1 pkt PO TID [facility] Stop: 08/17/17 14:01 Last Admin: 08/17/17 10:29 Dose: 1 pkt Rosuvastatin Calcium (Crestor) 2.5 mg PO HS [facility] Last Admin: 08/16/17 21:08 Dose: Not Given - Labs Labs: 08/16/17 07:59 08/16/17 07:59 PT 18.6 SECONDS (9.7-12.2) H 08/15/17 20:05 INR 1.6 08/15/17 20:05 APTT 44 SECONDS (21-34) H 08/15/17 20:05 - Additional Findings Additional findings: - Constitutional Appears: Non-toxic, Cachectic, Chronically Ill - Head Exam Head Exam: ATRAUMATIC - Eye Exam Eye Exam: EOMI - ENT Exam ENT Exam: Mucous Membranes Moist (extremely poor dentition) - Neck Exam Neck Exam: Full ROM - Respiratory Exam Respiratory Exam: Clear to Ausculation Bilateral - Cardiovascular Exam Cardiovascular Exam: REGULAR RHYTHM, +S1, +S2 - Extremities Exam Extremities Exam: absent: Calf Tenderness - Neurological Exam Neurological Exam: Alert, Awake, Oriented x3 - Psychiatric Exam Psychiatric exam: Normal Affect - Skin Skin Exam: Warm Note: L Groin wound CDI, nontender to palpation, No fluctuance Assessment and Plan - Assessment and Plan (Free Text) Assessment: 71 years old male, with hx of CVA, AAA, TAA, presents for dysphagia, vomiting, weight loss, bacteremia, fatigue: Dysphagia 08/17: EGD negative. f/u modified barrium swallow 08/16: Speech and swallow is recommending ENT consult; ordered; appreciate Dr. Vinson Rectd; EGD planned for today as potient is NPO; will f/u results 08/15: f/u Obstructive series xray to rule out bowel obstruction. GI plans to perform EGD once echo and CT angio pelvis have resulted. f/u echo Marinol) 2.5 mg PO BID [facility] Percocet 5/325 Mg Tab) 1 tab PO Q4H PRN liquid diet - Abd x ray 08/13/17: mildly distended small bowel ileus vs early obstruction. Mildly distended loops of small bowel in left flank and RUQ. Vascular disease with multiple stents - abdominal aorta and iliacs. - CXR 08/12/17: Left hilar/infrahilar opacity -> cannot exclude pneumonia. Biapical pleural thickening/granulamatous changes. - Esophagus x ray 08/04/17: could not evaluate because pt could not ingest barium contrast - Blood cultures (09/20) 08/12/17 shows S aureus, gram positive cocci. Pt started on Vancomycin IV, - Follow up formal speech and swallow eval GI Consult, Dr. Avalos, recs appreciated. Hx of Stents at Iliac and Abdominal Aorta 08/17: surgery team recommends transfer back to [place] which was site of patient's initial surgery 08/15: f/u CT angio pelvis to assess for any blockage Ct angio pelvis 08/15/17: Post aortic bifemoral endograft repair Dense fluid collection, 6x3x8 cm, surrounding left common femoral artery - likely purulence than hematoma or simple fluid. No active extravasation within dense fluid collection. - Abd x ray 08/13/17: mildly distended small bowel ileus vs early obstruction. Mildly distended loops of small bowel in left flank and RUQ. Vascular disease with multiple stents - abdominal aorta and iliacs. AAA s/p repair -04/2017, iliac angioplasty/stent 05/2017 Bacteremia Gram (+) 08/17: Continue Vanco and Cefepime for infections in groin, blood, and urine ( MICs reviewed, abx are effective). -f/u echo for possible endocarditis - pending read Note: pt has a left groin wound vac - dressings to be changed by surgery Q3d. Vancomycin 1 Gm/Ns 200 Ml) 1 gm in 200 mls @ 133.333 mls/hr IVPB Q24H [facility] BC G+ cocci UC prelim G-negative rods procalcitonin 0.15L ID consult, Dr. Mangia, recs appreciated. -most likely from repair of his iliac and abdominal aorta 2/2 to results from cat scan Gout Allopurinol (Zyloprim) 100 mg PO DAILY [facility] Hypertension Metoprolol Succinate (Toprol Xl) 25 mg PO DAILY [facility] Hyperlipidemia ASA 81 mg PO DAILY [facility] Crestor) 2.5 mg PO HS [facility] Electrolyte Imbalance Kypokalemia, K2.7 - KCl 10meq IVPB x4; KCl PO 20meq x3 Hypomagnesemia, Mg 1.4 -> repleted Hypophosphatemia, P 2 -> Neutraphos TID [id number] total Prophylaxis PT/OT SCDs Protonix Ec Tab) 40 mg PO DAILY [facility] Colace) 100 mg PO DAILY [facility] Folic Acid) 1 mg PO DAILY [facility] NS D5-0.9 at 100cc/hr All management as per Dr Blayne Jeffrey
[2017-08-17 11:24] LABS: BASO % 0.7 % (0.0-2.0); EOS # 0.1 K/uL (0.0-0.7); EOS % 1.2 % (0.0-4.0); HEMATOCRIT 34.7 % (35.0-51.0); LYMPH # 1.9 K/uL (1.0-4.3); LYMPH % 32.8 % (20.0-40.0); MEAN CELL VOLUME 91.3 fL (80.0-94.0); MEAN CORPUSCULAR HEMOGLOBIN 29.8 pg (27.0-31.0); MEAN CORPUSCULAR HGB CONC 32.7 g/dL (33.0-37.0); MEAN PLATELET VOLUME 8.3 fL (7.2-11.7); MONO # 0.6 K/uL (0.0-0.8); MONO % 10.2 % (0.0-10.0); NRBC % 0.3 % (0.0-2.0); RED CELL DISTRIBUTION WIDTH 14.3 % (11.5-14.5); WHITE BLOOD COUNT 5.8 K/uL (4.8-10.8)
[2017-08-17 11:45] LABS: ALB/GLOB RATIO 0.8 (1.0-2.1); ALKALINE PHOSPHATASE 159 U/L (38-126); ALT/SGPT 29 U/L (21-72); AST/SGOT 45 U/L (17-59); BILIRUBIN,TOTAL 0.9 mg/dL (0.2-1.3); BLOOD UREA NITROGEN 13 mg/dL (9-20); CALCIUM 7.2 mg/dl (8.6-10.4); CARBON DIOXIDE 12 mmol/L (22-30); CHLORIDE 109 mmol/L (98-107); GFR AFRICAN-AMERICAN > 60; GLUCOSE,RANDOM 94 mg/dL (75-110); MAGNESIUM 2.1 mg/dL (1.6-2.3); PHOSPHOROUS 2.4 mg/dL (2.5-4.5); POTASSIUM 3.9 mmol/L (3.6-5.2); SODIUM 133 mmol/L (132-148); TOTAL PROTEIN 4.6 g/dL (6.3-8.3)
[2017-08-17] MEDS: Cefepime IV 1 gm in Dextrose 1 GM/50 ML BAG IVPB SCH ×2 (13:00)
--- NOTE | 2017-08-17 16:31 | CP.PCM.PN ---
Subjective - Date & Time of Evaluation Date of Evaluation: 08/17/17 Time of Evaluation: 08:00 - Subjective Subjective: events noted rx in progress Objective - Vital Signs/Intake and Output Vital Signs (last 24 hours): Temp Pulse Resp BP Pulse Ox 97.7 F 71 20 121/75 100 08/17/17 15:35 08/17/17 15:35 08/17/17 15:35 08/17/17 15:35 08/17/17 15:35 Intake and Output: 08/17/17 08/17/17 06:59 18:59 Intake Total 660 Output Total 400 Balance 260 - Medications Medications: Current Medications Allopurinol (Zyloprim) 100 mg PO DAILY [facility] Last Admin: 08/17/17 10:30 Dose: 100 mg Aspirin (Ecotrin) 81 mg PO DAILY [facility] Last Admin: 08/17/17 10:30 Dose: 81 mg Docusate Sodium (Colace) 100 mg PO DAILY [facility] Last Admin: 08/17/17 10:30 Dose: 100 mg Dronabinol (Marinol) 2.5 mg PO BID [facility] Last Admin: 08/17/17 10:32 Dose: 2.5 mg Folic Acid (Folic Acid) 1 mg PO DAILY [facility] Last Admin: 08/17/17 10:30 Dose: 1 mg Cefepime HCl (Maxipime Iv 1 Gm Premix) 1 gm in 50 mls @ 100 mls/hr IVPB Q12H [facility] Last Admin: 08/17/17 13:00 Dose: 100 mls/hr Fat Emulsion Intravenous (Intralipid 20%) 500 mls @ 50 mls/hr IV MWF@1800 [facility] Stop: 08/20/17 03:59 Last Admin: 08/15/17 19:37 Dose: 50 mls/hr Multivitamins/Vitamin C 10 ml/Chromium/Copper/Manganese/Zinc 1 ml/ Amino Acids 1,011 mls @ 42 mls/hr IV .Q24H ONE Stop: 08/17/17 17:59 Last Admin: 08/16/17 17:36 Dose: 42 mls/hr Vancomycin HCl 1 gm/ Sodium (Chloride) 250 mls @ 166.667 mls/hr IVPB Q24H [facility] Last Admin: 08/16/17 21:16 Dose: 166.667 mls/hr Multivitamins/Vitamin C 10 ml/Chromium/Copper/Manganese/Zinc 1 ml/ Amino Acids 1,011 mls @ 42 mls/hr IV .Q24H [facility] Stop: 08/18/17 18:01 Metoprolol Succinate (Toprol Xl) 25 mg PO DAILY [facility] Last Admin: 08/17/17 10:30 Dose: 25 mg Ondansetron HCl (Zofran Inj) 4 mg IVP Q6H PRN PRN Reason: Nausea/Vomiting Pantoprazole Sodium (Protonix Inj) 40 mg IVP DAILY [facility] Last Admin: 08/17/17 10:30 Dose: 40 mg Rosuvastatin Calcium (Crestor) 2.5 mg PO HS [facility] Last Admin: 08/16/17 21:08 Dose: Not Given - Labs Labs: 08/17/17 11:18 08/17/17 11:18 PT 18.6 SECONDS (9.7-12.2) H 08/15/17 20:05 INR 1.6 08/15/17 20:05 APTT 44 SECONDS (21-34) H 08/15/17 20:05 - Constitutional Appears: Non-toxic - Head Exam Head Exam: NORMOCEPHALIC - Eye Exam Eye Exam: PERRL - ENT Exam ENT Exam: Mucous Membranes Dry - Neck Exam Neck Exam: absent: Lymphadenopathy - Respiratory Exam Respiratory Exam: Decreased Breath Sounds - Cardiovascular Exam Cardiovascular Exam: REGULAR RHYTHM - GI/Abdominal Exam GI & Abdominal Exam: Distended, Soft - Rectal Exam Rectal Exam: Deferred Assessment and Plan (1) Altered mental status Status: Acute (2) Aortic aneurysm Status: Acute (3) DVT prophylaxis Status: Acute (4) HTN (hypertension) Status: Acute (5) Near syncope Status: Acute (6) Pancreatitis Status: Acute (7) Seizure disorder Status: Acute
--- NOTE | 2017-08-17 16:52 | CP.PCM.PN ---
Subjective - Date & Time of Evaluation Date of Evaluation: 08/17/17 Time of Evaluation: 10:15 - Subjective Subjective: General Surgery Pt S&E, NAEO. No complaints at this time. no groin pain. Objective - Vital Signs/Intake and Output Vital Signs (last 24 hours): Temp Pulse Resp BP Pulse Ox 97.7 F 71 20 121/75 100 08/17/17 15:35 08/17/17 15:35 08/17/17 15:35 08/17/17 15:35 08/17/17 15:35 Intake and Output: 08/17/17 08/17/17 06:59 18:59 Intake Total 660 Output Total 400 Balance 260 - Medications Medications: Current Medications Allopurinol (Zyloprim) 100 mg PO DAILY [facility] Last Admin: 08/17/17 10:30 Dose: 100 mg Aspirin (Ecotrin) 81 mg PO DAILY [facility] Last Admin: 08/17/17 10:30 Dose: 81 mg Docusate Sodium (Colace) 100 mg PO DAILY [facility] Last Admin: 08/17/17 10:30 Dose: 100 mg Dronabinol (Marinol) 2.5 mg PO BID [facility] Last Admin: 08/17/17 10:32 Dose: 2.5 mg Folic Acid (Folic Acid) 1 mg PO DAILY [facility] Last Admin: 08/17/17 10:30 Dose: 1 mg Cefepime HCl (Maxipime Iv 1 Gm Premix) 1 gm in 50 mls @ 100 mls/hr IVPB Q12H [facility] Last Admin: 08/17/17 13:00 Dose: 100 mls/hr Fat Emulsion Intravenous (Intralipid 20%) 500 mls @ 50 mls/hr IV MWF@1800 [facility] Stop: 08/20/17 03:59 Last Admin: 08/15/17 19:37 Dose: 50 mls/hr Multivitamins/Vitamin C 10 ml/Chromium/Copper/Manganese/Zinc 1 ml/ Amino Acids 1,011 mls @ 42 mls/hr IV .Q24H [facility] Stop: 08/17/17 17:59 Last Admin: 08/16/17 17:36 Dose: 42 mls/hr Vancomycin HCl 1 gm/ Sodium (Chloride) 250 mls @ 166.667 mls/hr IVPB Q24H [facility] Last Admin: 08/16/17 21:16 Dose: 166.667 mls/hr Multivitamins/Vitamin C 10 ml/Chromium/Copper/Manganese/Zinc 1 ml/ Amino Acids 1,011 mls @ 42 mls/hr IV .Q24H [facility] Stop: 08/18/17 18:01 Metoprolol Succinate (Toprol Xl) 25 mg PO DAILY [facility] Last Admin: 08/17/17 10:30 Dose: 25 mg Ondansetron HCl (Zofran Inj) 4 mg IVP Q6H PRN PRN Reason: Nausea/Vomiting Pantoprazole Sodium (Protonix Inj) 40 mg IVP DAILY [facility] Last Admin: 08/17/17 10:30 Dose: 40 mg Rosuvastatin Calcium (Crestor) 2.5 mg PO HS [facility] Last Admin: 08/16/17 21:08 Dose: Not Given - Labs Labs: 08/17/17 11:18 08/17/17 11:18 PT 18.6 SECONDS (9.7-12.2) H 08/15/17 20:05 INR 1.6 08/15/17 20:05 APTT 44 SECONDS (21-34) H 08/15/17 20:05 - Constitutional Appears: Non-toxic, No Acute Distress - Head Exam Head Exam: ATRAUMATIC, NORMOCEPHALIC - Respiratory Exam Respiratory Exam: NORMAL BREATHING PATTERN. absent: Respiratory Distress - GI/Abdominal Exam GI & Abdominal Exam: Soft. absent: Distended, Tenderness - Extremities Exam Additional comments: L Groin wound healing. No fluctuance, +induration. Dressing changed No TTP - Neurological Exam Neurological Exam: Alert, Awake - Skin Skin Exam: Dry, Warm Assessment and Plan - Assessment and Plan (Free Text) Assessment: 71M with left groin wound s/p aortic bifemoral endograft repair Plan: Medihoney covered with foam dressing to be changed every other day per wound care. No palpable abscess beneath site. Recommend transfer back to [place] which was site of patient's surgery D/W Dr. Avni Hadley PGY4
[2017-08-17] MEDS: *** PPN # 3 IV SCH (18:41)
[2017-08-17] MEDS: Fat Emulsion 20% IV 500 ML IV SCH (18:41)
--- NOTE | 2017-08-17 19:02 | CP.PCM.PN ---
Subjective - Date & Time of Evaluation Date of Evaluation: 08/17/17 Time of Evaluation: 11:40 - Subjective Subjective: clinically same Objective - Vital Signs/Intake and Output Vital Signs (last 24 hours): Temp Pulse Resp BP Pulse Ox 97.7 F 71 20 121/75 100 08/17/17 15:35 08/17/17 15:35 08/17/17 15:35 08/17/17 15:35 08/17/17 15:35 - Medications Medications: Current Medications Allopurinol (Zyloprim) 100 mg PO DAILY [facility] Last Admin: 08/17/17 10:30 Dose: 100 mg Aspirin (Ecotrin) 81 mg PO DAILY [facility] Last Admin: 08/17/17 10:30 Dose: 81 mg Docusate Sodium (Colace) 100 mg PO DAILY [facility] Last Admin: 08/17/17 10:30 Dose: 100 mg Dronabinol (Marinol) 2.5 mg PO BID [facility] Last Admin: 08/17/17 18:41 Dose: Not Given Folic Acid (Folic Acid) 1 mg PO DAILY [facility] Last Admin: 08/17/17 10:30 Dose: 1 mg Cefepime HCl (Maxipime Iv 1 Gm Premix) 1 gm in 50 mls @ 100 mls/hr IVPB Q12H [facility] Last Admin: 08/17/17 13:00 Dose: 100 mls/hr Vancomycin HCl 1 gm/ Sodium (Chloride) 250 mls @ 166.667 mls/hr IVPB Q24H [facility] Last Admin: 08/16/17 21:16 Dose: 166.667 mls/hr Multivitamins/Vitamin C 10 ml/Chromium/Copper/Manganese/Zinc 1 ml/ Amino Acids 1,011 mls @ 42 mls/hr IV .Q24H [facility] Stop: 08/18/17 18:01 Last Admin: 08/17/17 18:41 Dose: 42 mls/hr Metoprolol Succinate (Toprol Xl) 25 mg PO DAILY [facility] Last Admin: 08/17/17 10:30 Dose: 25 mg Ondansetron HCl (Zofran Inj) 4 mg IVP Q6H PRN PRN Reason: Nausea/Vomiting Pantoprazole Sodium (Protonix Inj) 40 mg IVP DAILY [facility] Last Admin: 08/17/17 10:30 Dose: 40 mg Rosuvastatin Calcium (Crestor) 2.5 mg PO HS [facility] Last Admin: 08/16/17 21:08 Dose: Not Given - Labs Labs: 08/17/17 11:18 08/17/17 11:18 PT 18.6 SECONDS (9.7-12.2) H 08/15/17 20:05 INR 1.6 08/15/17 20:05 APTT 44 SECONDS (21-34) H 08/15/17 20:05 - Constitutional Appears: Well - Head Exam Head Exam: ATRAUMATIC, NORMAL INSPECTION, NORMOCEPHALIC - Eye Exam Eye Exam: EOMI, Normal appearance, PERRL Pupil Exam: NORMAL ACCOMODATION, PERRL - ENT Exam ENT Exam: Mucous Membranes Moist, Normal Exam - Neck Exam Neck Exam: Full ROM, Normal Inspection. absent: Lymphadenopathy - Respiratory Exam Respiratory Exam: Decreased Breath Sounds - Cardiovascular Exam Cardiovascular Exam: REGULAR RHYTHM, +S1, +S2 - GI/Abdominal Exam GI & Abdominal Exam: Soft, Diminished Bowel Sounds - Rectal Exam Rectal Exam: Deferred Assessment and Plan (1) Alcohol dependence Status: Acute (2) Alcohol intoxication Status: Acute (3) Altered mental status Status: Acute (4) Aortic aneurysm Status: Acute (5) Dehydration Status: Acute (6) DVT prophylaxis Status: Acute (7) Dyslipidemia Status: Chronic (8) Gout Status: Chronic (9) HTN (hypertension) Status: Acute (10) Near syncope Status: Acute (11) Pancreatitis Status: Acute (12) Seizure disorder Status: Acute (13) Weakness Status: Acute (14) Weight loss Status: Acute
[2017-08-17] MEDS: Rosuvastatin Calcium 2.5 mg Tab PO SCH (22:04)
--- NOTE | 2017-08-17 22:45 | CARD ---
APPROVED REPORT EXAM: LIMITED Two-dimensional and M-mode echocardiogram with Doppler and color Doppler. Other Information Quality : TDSRhythm : INDICATION Syncope Alcohole dependance RISK FACTORS Hypertension Hyperlipidemia <Conclusion> LIMITED STUDY DUE TO POOR ULTRASONIC WINDOW. Grossly, good LV systolic function. Suggest ARIADNA for better identification of cardiac structures.
[2017-08-18] MEDS: Cefepime IV 1 gm in Dextrose 1 GM/50 ML BAG IVPB SCH ×2 (01:23→11:56)
[2017-08-18 06:44] LABS: BASO % 0.7 % (0.0-2.0); EOS # 0.1 K/uL (0.0-0.7); EOS % 1.2 % (0.0-4.0); HEMATOCRIT 30.5 % (35.0-51.0); LYMPH # 1.1 K/uL (1.0-4.3); LYMPH % 23.4 % (20.0-40.0); MEAN CELL VOLUME 88.8 fL (80.0-94.0); MEAN CORPUSCULAR HEMOGLOBIN 30.3 pg (27.0-31.0); MEAN CORPUSCULAR HGB CONC 34.2 g/dL (33.0-37.0); MEAN PLATELET VOLUME 7.9 fL (7.2-11.7); MONO # 0.4 K/uL (0.0-0.8); MONO % 8.1 % (0.0-10.0); NRBC % 0.1 % (0.0-2.0); RED CELL DISTRIBUTION WIDTH 13.9 % (11.5-14.5); WHITE BLOOD COUNT 4.5 K/uL (4.8-10.8)
[2017-08-18 08:33] LABS: ALB/GLOB RATIO 0.8 (1.0-2.1); ALKALINE PHOSPHATASE 157 U/L (38-126); ALT/SGPT 32 U/L (21-72); AST/SGOT 41 U/L (17-59); BILIRUBIN,TOTAL 0.6 mg/dL (0.2-1.3); BLOOD UREA NITROGEN 13 mg/dL (9-20); CALCIUM 7.2 mg/dl (8.6-10.4); CARBON DIOXIDE 18 mmol/L (22-30); CHLORIDE 107 mmol/L (98-107); GFR AFRICAN-AMERICAN > 60; GLUCOSE,RANDOM 92 mg/dL (75-110); MAGNESIUM 1.9 mg/dL (1.6-2.3); PHOSPHOROUS 2.3 mg/dL (2.5-4.5); POTASSIUM 3.7 mmol/L (3.6-5.2); SODIUM 135 mmol/L (132-148); TOTAL PROTEIN 4.4 g/dL (6.3-8.3)
--- NOTE | 2017-08-18 09:04 | CP.PCM.PN ---
Subjective - Date & Time of Evaluation Date of Evaluation: 08/18/17 Time of Evaluation: 09:03 - Subjective Subjective: PGY2 Note for Dr. Blayne Jeffrey; all management as per Dr. Blayne Jeffrey Pt seen and examined at bedside this AM; denies any complaints and states he feels great and hates to complain. Objective - Vital Signs/Intake and Output Vital Signs (last 24 hours): Temp Pulse Resp BP Pulse Ox 97.9 F 79 20 112/70 100 08/18/17 08:10 08/18/17 08:10 08/18/17 08:10 08/18/17 08:10 08/18/17 08:10 Intake and Output: 08/18/17 08/18/17 06:59 18:59 Intake Total 1622 Output Total 600 Balance 1022 - Medications Medications: Current Medications Allopurinol (Zyloprim) 100 mg PO DAILY [facility] Last Admin: 08/17/17 10:30 Dose: 100 mg Aspirin (Ecotrin) 81 mg PO DAILY [facility] Last Admin: 08/17/17 10:30 Dose: 81 mg Docusate Sodium (Colace) 100 mg PO DAILY [facility] Last Admin: 08/17/17 10:30 Dose: 100 mg Dronabinol (Marinol) 2.5 mg PO BID [facility] Last Admin: 08/17/17 18:41 Dose: Not Given Folic Acid (Folic Acid) 1 mg PO DAILY [facility] Last Admin: 08/17/17 10:30 Dose: 1 mg Cefepime HCl (Maxipime Iv 1 Gm Premix) 1 gm in 50 mls @ 100 mls/hr IVPB Q12H [facility] Last Admin: 08/18/17 01:23 Dose: 100 mls/hr Vancomycin HCl 1 gm/ Sodium (Chloride) 250 mls @ 166.667 mls/hr IVPB Q24H [facility] Last Admin: 08/17/17 22:04 Dose: 166.667 mls/hr Multivitamins/Vitamin C 10 ml/Chromium/Copper/Manganese/Zinc 1 ml/ Amino Acids 1,011 mls @ 42 mls/hr IV .Q24H [facility] Stop: 08/18/17 18:01 Last Admin: 08/17/17 18:41 Dose: 42 mls/hr Metoprolol Succinate (Toprol Xl) 25 mg PO DAILY [facility] Last Admin: 08/17/17 10:30 Dose: 25 mg Ondansetron HCl (Zofran Inj) 4 mg IVP Q6H PRN PRN Reason: Nausea/Vomiting Pantoprazole Sodium (Protonix Inj) 40 mg IVP DAILY [facility] Last Admin: 08/17/17 10:30 Dose: 40 mg Rosuvastatin Calcium (Crestor) 2.5 mg PO HS [facility] Last Admin: 08/17/17 22:04 Dose: Not Given Sodium Bicarbonate (Sodium Bicarbonate Tab) 650 mg PO Q6 [facility] Last Admin: 08/18/17 05:43 Dose: Not Given - Labs Labs: 08/18/17 06:35 08/18/17 06:35 PT 18.6 SECONDS (9.7-12.2) H 08/15/17 20:05 INR 1.6 08/15/17 20:05 APTT 44 SECONDS (21-34) H 08/15/17 20:05 - Constitutional Appears: Non-toxic - Head Exam Head Exam: ATRAUMATIC Additional comments: extremely poor dentition - ENT Exam ENT Exam: Mucous Membranes Moist - Neck Exam Neck Exam: absent: Lymphadenopathy - Respiratory Exam Respiratory Exam: Clear to Ausculation Bilateral - Cardiovascular Exam Cardiovascular Exam: REGULAR RHYTHM - GI/Abdominal Exam GI & Abdominal Exam: Soft - Extremities Exam Extremities Exam: absent: Calf Tenderness - Back Exam Back Exam: absent: CVA tenderness (L), CVA tenderness (R) - Neurological Exam Neurological Exam: Alert, Awake, Oriented x3 - Psychiatric Exam Psychiatric exam: Normal Affect - Skin Skin Exam: Warm Assessment and Plan - Assessment and Plan (Free Text) Assessment: 71 years old male, with hx of CVA, AAA, TAA, presents for dysphagia, vomiting, weight loss, bacteremia, fatigue: Dysphagia 08/18: pending barium swallow results; ENT has signed off and recommends chest CT; going for EGD today 08/17: EGD negative. f/u modified barrium swallow 08/16: Speech and swallow is recommending ENT consult; ordered; appreciate Dr. Karel Ramirez; EGD planned for today as potient is NPO; will f/u results 08/15: f/u Obstructive series xray to rule out bowel obstruction. GI plans to perform EGD once echo and CT angio pelvis have resulted. f/u echo Marinol) 2.5 mg PO BID [facility] Percocet 5/325 Mg Tab) 1 tab PO Q4H PRN liquid diet - Abd x ray 08/13/17: mildly distended small bowel ileus vs early obstruction. Mildly distended loops of small bowel in left flank and RUQ. Vascular disease with multiple stents - abdominal aorta and iliacs. - CXR 08/12/17: Left hilar/infrahilar opacity -> cannot exclude pneumonia. Biapical pleural thickening/granulamatous changes. - Esophagus x ray 08/04/17: could not evaluate because pt could not ingest barium contrast - Blood cultures (1/2) 08/12/17 shows S aureus, gram positive cocci. Pt started on Vancomycin IV, - Follow up formal speech and swallow eval GI Consult, Dr. Avalos, recs appreciated. Hx of Stents at Iliac and Abdominal Aorta 08/18: vasc surg is recommending transfer back to [place] as this was site of patients initial surgery 08/17: surgery team recommends transfer back to [place] which was site of patient's initial surgery 08/15: f/u CT angio pelvis to assess for any blockage Ct angio pelvis 08/15/17: Post aortic bifemoral endograft repair Dense fluid collection, 6x3x8 cm, surrounding left common femoral artery - likely purulence than hematoma or simple fluid. No active extravasation within dense fluid collection. - Abd x ray 08/13/17: mildly distended small bowel ileus vs early obstruction. Mildly distended loops of small bowel in left flank and RUQ. Vascular disease with multiple stents - abdominal aorta and iliacs. AAA s/p repair -04/2017, iliac angioplasty/stent 05/2017 Bacteremia Gram (+) 08/18: c/w Vanco/Cefepime; echo was inconclusive and they are recommending ARIADNA 08/17: Continue Vanco and Cefepime for infections in groin, blood, and urine ( MICs reviewed, abx are effective). -f/u echo for possible endocarditis - pending read Note: pt has a left groin wound vac - dressings to be changed by surgery Q3d. Vancomycin 1 Gm/Ns 200 Ml) 1 gm in 200 mls @ 133.333 mls/hr IVPB Q24H [facility] BC G+ cocci UC prelim G-negative rods procalcitonin 0.15L ID consult, Dr. Mangia, recs appreciated. -most likely from repair of his iliac and abdominal aorta 2/2 to results from cat scan Gout;chronic stable Allopurinol (Zyloprim) 100 mg PO DAILY [facility] Hypertension; chronic stable Metoprolol Succinate (Toprol Xl) 25 mg PO DAILY [facility] Hyperlipidemia; chronic stable ASA 81 mg PO DAILY [facility] Crestor) 2.5 mg PO HS [facility] Electrolyte Imbalance; will continue to monitor Kypokalemia, K2.7 - KCl 10meq IVPB x4; KCl PO 20meq x3 Hypomagnesemia, Mg 1.4 -> repleted Hypophosphatemia, P 2 -> Neutraphos TID [id number] total Prophylaxis PT/OT SCDs Protonix Ec Tab) 40 mg PO DAILY [facility] Colace) 100 mg PO DAILY [facility] Folic Acid) 1 mg PO DAILY [facility] NS D5-0.9 at 100cc/hr Dispo: Pending EGD -pending possible ARIADNA to r/o endocard??? Will order another set of blood cx to see if come back + as it is a hard criteria for endocarditis and is cheaper/ better tolerated by patient with multiple comorbidities who has undergone so much testing recently; f/u results -surgery is recommending transfer back to [place] as all surgeries were performed there All management as per Dr Blayne Jeffrey
[2017-08-18] MEDS: Metoprolol Succinate 25 mg XL Tab PO SCH ×2 (11:09→11:10)
[2017-08-18] MEDS ORDERED: Propofol 10 mg/ml Inj (20 ML) ONE (15:05)
--- NOTE | 2017-08-18 15:05 | CP.PCM.PN ---
Subjective - Date & Time of Evaluation Date of Evaluation: 08/18/17 Time of Evaluation: 15:01 - Subjective Subjective: Surgery: Dr. Holly Pt seen and examined. Resting comfortably in bed. No acute events overnight. Objective - Vital Signs/Intake and Output Vital Signs (last 24 hours): Temp Pulse Resp BP Pulse Ox 97.9 F 79 20 112/70 100 08/18/17 08:10 08/18/17 08:10 08/18/17 08:10 08/18/17 08:10 08/18/17 08:10 Intake and Output: 08/18/17 08/18/17 06:59 18:59 Intake Total 1622 289 Output Total 600 Balance 1022 289 - Medications Medications: Current Medications Allopurinol (Zyloprim) 100 mg PO DAILY [facility] Last Admin: 08/18/17 10:50 Dose: Not Given Aspirin (Ecotrin) 81 mg PO DAILY [facility] Last Admin: 08/18/17 10:48 Dose: Not Given Docusate Sodium (Colace) 100 mg PO DAILY [facility] Last Admin: 08/18/17 10:48 Dose: Not Given Dronabinol (Marinol) 2.5 mg PO BID [facility] Last Admin: 08/18/17 10:48 Dose: Not Given Folic Acid (Folic Acid) 1 mg PO DAILY [facility] Last Admin: 08/18/17 10:48 Dose: Not Given Cefepime HCl (Maxipime Iv 1 Gm Premix) 1 gm in 50 mls @ 100 mls/hr IVPB Q12H [facility] Last Admin: 08/18/17 11:56 Dose: 100 mls/hr Vancomycin HCl 1 gm/ Sodium (Chloride) 250 mls @ 166.667 mls/hr IVPB Q24H [facility] Last Admin: 08/17/17 22:04 Dose: 166.667 mls/hr Multivitamins/Vitamin C 10 ml/Chromium/Copper/Manganese/Zinc 1 ml/ Amino Acids 1,011 mls @ 42 mls/hr IV .Q24H [facility] Stop: 08/18/17 18:01 Last Admin: 08/17/17 18:41 Dose: 42 mls/hr Multivitamins/Vitamin C 10 ml/Chromium/Copper/Manganese/Zinc 1 ml/ Amino Acids 1,011 mls @ 42 mls/hr IV .Q24H [facility] Stop: 08/19/17 17:59 Fat Emulsion Intravenous (Intralipid 20%) 500 mls @ 50 mls/hr IV 1800 [facility] Stop: 08/20/17 03:59 Metoprolol Succinate (Toprol Xl) 25 mg PO DAILY [facility] Last Admin: 08/18/17 11:10 Dose: 25 mg Ondansetron HCl (Zofran Inj) 4 mg IVP Q6H PRN PRN Reason: Nausea/Vomiting Pantoprazole Sodium (Protonix Inj) 40 mg IVP DAILY [facility] Last Admin: 08/18/17 10:55 Dose: 40 mg Rosuvastatin Calcium (Crestor) 2.5 mg PO HS [facility] Last Admin: 08/17/17 22:04 Dose: Not Given Sodium Bicarbonate (Sodium Bicarbonate Tab) 650 mg PO Q6 [facility] Last Admin: 08/18/17 11:57 Dose: Not Given - Labs Labs: 08/18/17 06:35 08/18/17 06:35 PT 18.6 SECONDS (9.7-12.2) H 08/15/17 20:05 INR 1.6 08/15/17 20:05 APTT 44 SECONDS (21-34) H 08/15/17 20:05 - Constitutional Appears: Non-toxic, No Acute Distress, Unkempt - Head Exam Head Exam: ATRAUMATIC, NORMOCEPHALIC - Eye Exam Eye Exam: EOMI - ENT Exam ENT Exam: Mucous Membranes Moist - Neck Exam Neck Exam: Full ROM - GI/Abdominal Exam GI & Abdominal Exam: Soft. absent: Tenderness - Extremities Exam Additional comments: L groin, ~3x2 cm wound, beefy red base, no drainage/pus - Neurological Exam Neurological Exam: Alert, Awake Assessment and Plan - Assessment and Plan (Free Text) Assessment: 71M with left groin wound s/p aortic bifemoral endograft repair -Medihoney covered with foam dressing to be changed every other day per wound care. No palpable abscess beneath site. -Recommend transfer back to [place] which was site of patient's surgery -d/w attending Tammie PGY3
[2017-08-18] MEDS ORDERED: PPN #4 IV ONE (18:00)
--- NOTE | 2017-08-18 18:36 | CP.PCM.PN ---
Subjective - Date & Time of Evaluation Date of Evaluation: 08/18/17 Time of Evaluation: 08:00 - Subjective Subjective: awake alert NAD Objective - Vital Signs/Intake and Output Vital Signs (last 24 hours): Temp Pulse Resp BP Pulse Ox 97.6 F 66 20 105/68 100 08/18/17 16:50 08/18/17 16:50 08/18/17 16:50 08/18/17 16:50 08/18/17 16:50 Intake and Output: 08/18/17 08/18/17 06:59 18:59 Intake Total 1622 589 Output Total 600 Balance 1022 589 - Medications Medications: Current Medications Allopurinol (Zyloprim) 100 mg PO DAILY [facility] Last Admin: 08/18/17 10:50 Dose: Not Given Aspirin (Ecotrin) 81 mg PO DAILY [facility] Last Admin: 08/18/17 10:48 Dose: Not Given Docusate Sodium (Colace) 100 mg PO DAILY [facility] Last Admin: 08/18/17 10:48 Dose: Not Given Dronabinol (Marinol) 2.5 mg PO BID [facility] Last Admin: 08/18/17 17:49 Dose: 2.5 mg Folic Acid (Folic Acid) 1 mg PO DAILY [facility] Last Admin: 08/18/17 10:48 Dose: Not Given Cefepime HCl (Maxipime Iv 1 Gm Premix) 1 gm in 50 mls @ 100 mls/hr IVPB Q12H [facility] Last Admin: 08/18/17 11:56 Dose: 100 mls/hr Vancomycin HCl 1 gm/ Sodium (Chloride) 250 mls @ 166.667 mls/hr IVPB Q24H [facility] Last Admin: 08/17/17 22:04 Dose: 166.667 mls/hr Multivitamins/Vitamin C 10 ml/Chromium/Copper/Manganese/Zinc 1 ml/ Amino Acids 1,011 mls @ 42 mls/hr IV .Q24H [facility] Stop: 08/19/17 17:59 Last Admin: 08/18/17 17:49 Dose: 42 mls/hr Fat Emulsion Intravenous (Intralipid 20%) 500 mls @ 50 mls/hr IV 1800 [facility] Stop: 08/20/17 03:59 Metoprolol Succinate (Toprol Xl) 25 mg PO DAILY [facility] Last Admin: 08/18/17 11:10 Dose: 25 mg Ondansetron HCl (Zofran Inj) 4 mg IVP Q6H PRN PRN Reason: Nausea/Vomiting Pantoprazole Sodium (Protonix Inj) 40 mg IVP DAILY [facility] Last Admin: 08/18/17 10:55 Dose: 40 mg Rosuvastatin Calcium (Crestor) 2.5 mg PO HS [facility] Last Admin: 08/17/17 22:04 Dose: Not Given Sodium Bicarbonate (Sodium Bicarbonate Tab) 650 mg PO Q6 [facility] Last Admin: 08/18/17 17:49 Dose: 650 mg - Labs Labs: 08/18/17 06:35 08/18/17 06:35 PT 18.6 SECONDS (9.7-12.2) H 08/15/17 20:05 INR 1.6 08/15/17 20:05 APTT 44 SECONDS (21-34) H 08/15/17 20:05 - Constitutional Appears: Non-toxic, Chronically Ill - Head Exam Head Exam: NORMOCEPHALIC - Eye Exam Eye Exam: PERRL - ENT Exam ENT Exam: Mucous Membranes Dry - Neck Exam Neck Exam: absent: Lymphadenopathy - Respiratory Exam Respiratory Exam: Decreased Breath Sounds - Cardiovascular Exam Cardiovascular Exam: REGULAR RHYTHM - GI/Abdominal Exam GI & Abdominal Exam: Distended, Soft - Rectal Exam Rectal Exam: Deferred - Exam Exam: NORMAL INSPECTION Assessment and Plan (1) Altered mental status Status: Acute (2) Aortic aneurysm Status: Acute (3) DVT prophylaxis Status: Acute (4) HTN (hypertension) Status: Acute (5) Near syncope Status: Acute (6) Pancreatitis Status: Acute (7) Seizure disorder Status: Acute - Assessment and Plan (Free Text) Assessment: wound with min drainage cultures noted IV rx in progress
--- NOTE | 2017-08-18 18:53 | CP.PCM.PN ---
Subjective - Date & Time of Evaluation Date of Evaluation: 08/18/17 Time of Evaluation: 10:40 - Subjective Subjective: clinically same Objective - Vital Signs/Intake and Output Vital Signs (last 24 hours): Temp Pulse Resp BP Pulse Ox 97.6 F 66 20 105/68 100 08/18/17 16:50 08/18/17 16:50 08/18/17 16:50 08/18/17 16:50 08/18/17 16:50 Intake and Output: 08/18/17 08/18/17 06:59 18:59 Intake Total 1622 589 Output Total 600 Balance 1022 589 - Medications Medications: Current Medications Allopurinol (Zyloprim) 100 mg PO DAILY [facility] Last Admin: 08/18/17 10:50 Dose: Not Given Aspirin (Ecotrin) 81 mg PO DAILY [facility] Last Admin: 08/18/17 10:48 Dose: Not Given Docusate Sodium (Colace) 100 mg PO DAILY [facility] Last Admin: 08/18/17 10:48 Dose: Not Given Dronabinol (Marinol) 2.5 mg PO BID [facility] Last Admin: 08/18/17 17:49 Dose: 2.5 mg Folic Acid (Folic Acid) 1 mg PO DAILY [facility] Last Admin: 08/18/17 10:48 Dose: Not Given Cefepime HCl (Maxipime Iv 1 Gm Premix) 1 gm in 50 mls @ 100 mls/hr IVPB Q12H [facility] Last Admin: 08/18/17 11:56 Dose: 100 mls/hr Vancomycin HCl 1 gm/ Sodium (Chloride) 250 mls @ 166.667 mls/hr IVPB Q24H [facility] Last Admin: 08/17/17 22:04 Dose: 166.667 mls/hr Multivitamins/Vitamin C 10 ml/Chromium/Copper/Manganese/Zinc 1 ml/ Amino Acids 1,011 mls @ 42 mls/hr IV .Q24H [facility] Stop: 08/19/17 17:59 Last Admin: 08/18/17 17:49 Dose: 42 mls/hr Fat Emulsion Intravenous (Intralipid 20%) 500 mls @ 50 mls/hr IV 1800 [facility] Stop: 08/20/17 03:59 Metoprolol Succinate (Toprol Xl) 25 mg PO DAILY [facility] Last Admin: 08/18/17 11:10 Dose: 25 mg Ondansetron HCl (Zofran Inj) 4 mg IVP Q6H PRN PRN Reason: Nausea/Vomiting Pantoprazole Sodium (Protonix Inj) 40 mg IVP DAILY [facility] Last Admin: 08/18/17 10:55 Dose: 40 mg Rosuvastatin Calcium (Crestor) 2.5 mg PO HS [facility] Last Admin: 08/17/17 22:04 Dose: Not Given Sodium Bicarbonate (Sodium Bicarbonate Tab) 650 mg PO Q6 [facility] Last Admin: 08/18/17 17:49 Dose: 650 mg - Labs Labs: 08/18/17 06:35 08/18/17 06:35 PT 18.6 SECONDS (9.7-12.2) H 08/15/17 20:05 INR 1.6 08/15/17 20:05 APTT 44 SECONDS (21-34) H 08/15/17 20:05 - Constitutional Appears: Well - Head Exam Head Exam: ATRAUMATIC, NORMAL INSPECTION, NORMOCEPHALIC - Eye Exam Eye Exam: EOMI, Normal appearance, PERRL Pupil Exam: NORMAL ACCOMODATION, PERRL - ENT Exam ENT Exam: Mucous Membranes Moist, Normal Exam - Neck Exam Neck Exam: Full ROM, Normal Inspection. absent: Lymphadenopathy - Respiratory Exam Respiratory Exam: Decreased Breath Sounds - Cardiovascular Exam Cardiovascular Exam: REGULAR RHYTHM, +S1, +S2 - GI/Abdominal Exam GI & Abdominal Exam: Soft, Diminished Bowel Sounds - Rectal Exam Rectal Exam: Deferred Assessment and Plan (1) Alcohol dependence Status: Acute (2) Alcohol intoxication Status: Acute (3) Altered mental status Status: Acute (4) Aortic aneurysm Status: Acute (5) Dehydration Status: Acute (6) DVT prophylaxis Status: Acute (7) Dyslipidemia Status: Chronic (8) Gout Status: Chronic (9) HTN (hypertension) Status: Acute (10) Near syncope Status: Acute (11) Pancreatitis Status: Acute (12) Seizure disorder Status: Acute (13) Weakness Status: Acute (14) Weight loss Status: Acute
[2017-08-18] MEDS: Rosuvastatin Calcium 2.5 mg Tab PO SCH (22:10)
[2017-08-18] MEDS: *** PPN # 3 IV SCH (22:19)
[2017-08-19] MEDS: Cefepime IV 1 gm in Dextrose 1 GM/50 ML BAG IVPB SCH ×2 (00:32→11:26)
[2017-08-19 07:06] LABS: ALB/GLOB RATIO 0.6 (1.0-2.1); ALKALINE PHOSPHATASE 160 U/L (38-126); ALT/SGPT 39 U/L (21-72); AST/SGOT 56 U/L (17-59); BILIRUBIN,TOTAL 0.4 mg/dL (0.2-1.3); BLOOD UREA NITROGEN 14 mg/dL (9-20); CALCIUM 7.3 mg/dl (8.6-10.4); CARBON DIOXIDE 22 mmol/L (22-30); CHLORIDE 106 mmol/L (98-107); GFR AFRICAN-AMERICAN > 60; GLUCOSE,RANDOM 96 mg/dL (75-110); MAGNESIUM 1.9 mg/dL (1.6-2.3); PHOSPHOROUS 2.5 mg/dL (2.5-4.5); POTASSIUM 3.5 mmol/L (3.6-5.2); SODIUM 132 mmol/L (132-148); TOTAL PROTEIN 5.2 g/dL (6.3-8.3)
--- NOTE | 2017-08-19 07:17 | CP.PCM.PN ---
<Deepa Bright - Last Filed: 08/19/17 10:45> Subjective - Date & Time of Evaluation Date of Evaluation: 08/19/17 Time of Evaluation: 07:08 - Subjective Subjective: Deepa Bright, PGY1, GI Progress Note for Dr Cespedes: Pt seen and examined at bedside. No acute events overnight. EGD yesterday showed gastritis, no obstruction. As per nurse, pt tolerated liquid diet yesterday evening. No nausea and vomiting for past 24 hours. Denies abdominal pain, nausea, vomiting, diarrhea. Last BM yesterday, formed, nonbloody. 12 point ROS unobtainable due to AMS. Objective - Vital Signs/Intake and Output Vital Signs (last 24 hours): Temp Pulse Resp BP Pulse Ox 98.2 F 76 20 98/62 L 97 08/19/17 04:05 08/19/17 04:05 08/19/17 04:05 08/19/17 04:05 08/19/17 04:05 Intake and Output: 08/19/17 08/19/17 06:59 18:59 Intake Total 604 Output Total 500 Balance 104 - Medications Medications: Current Medications Allopurinol (Zyloprim) 100 mg PO DAILY [facility] Last Admin: 08/18/17 10:50 Dose: Not Given Aspirin (Ecotrin) 81 mg PO DAILY [facility] Last Admin: 08/18/17 10:48 Dose: Not Given Docusate Sodium (Colace) 100 mg PO DAILY [facility] Last Admin: 08/18/17 10:48 Dose: Not Given Dronabinol (Marinol) 2.5 mg PO BID [facility] Last Admin: 08/18/17 17:49 Dose: 2.5 mg Folic Acid (Folic Acid) 1 mg PO DAILY [facility] Last Admin: 08/18/17 10:48 Dose: Not Given Cefepime HCl (Maxipime Iv 1 Gm Premix) 1 gm in 50 mls @ 100 mls/hr IVPB Q12H [facility] Last Admin: 08/19/17 00:32 Dose: 100 mls/hr Vancomycin HCl 1 gm/ Sodium (Chloride) 250 mls @ 166.667 mls/hr IVPB Q24H [facility] Last Admin: 08/17/17 22:04 Dose: 166.667 mls/hr Multivitamins/Vitamin C 10 ml/Chromium/Copper/Manganese/Zinc 1 ml/ Amino Acids 1,011 mls @ 42 mls/hr IV .Q24H ONE Stop: 08/19/17 17:59 Last Admin: 08/18/17 17:49 Dose: 42 mls/hr Fat Emulsion Intravenous (Intralipid 20%) 500 mls @ 50 mls/hr IV 1800 ONE Stop: 08/20/17 03:59 Metoprolol Succinate (Toprol Xl) 25 mg PO DAILY [facility] Last Admin: 08/18/17 11:10 Dose: 25 mg Ondansetron HCl (Zofran Inj) 4 mg IVP Q6H PRN PRN Reason: Nausea/Vomiting Pantoprazole Sodium (Protonix Inj) 40 mg IVP DAILY [facility] Last Admin: 08/18/17 10:55 Dose: 40 mg Rosuvastatin Calcium (Crestor) 2.5 mg PO HS [facility] Last Admin: 08/18/17 22:10 Dose: 2.5 mg Sodium Bicarbonate (Sodium Bicarbonate Tab) 650 mg PO Q6 [facility] Last Admin: 08/19/17 06:24 Dose: 650 mg - Labs Labs: 08/18/17 06:35 08/19/17 06:37 PT 18.6 SECONDS (9.7-12.2) H 08/15/17 20:05 INR 1.6 08/15/17 20:05 APTT 44 SECONDS (21-34) H 08/15/17 20:05 - Constitutional Appears: Non-toxic, Older Than Stated Age, Chronically Ill - Head Exam Head Exam: ATRAUMATIC, NORMOCEPHALIC - Eye Exam Eye Exam: EOMI, PERRL Pupil Exam: PERRL - ENT Exam ENT Exam: Mucous Membranes Moist - Respiratory Exam Respiratory Exam: Clear to Ausculation Bilateral. absent: Respiratory Distress - Cardiovascular Exam Cardiovascular Exam: RRR, +S1, +S2. absent: Murmur - GI/Abdominal Exam GI & Abdominal Exam: Soft, Normal Bowel Sounds. absent: Distended, Firm, Guarding, Tenderness, Mass, Organomegaly, Rebound - Extremities Exam Extremities Exam: absent: Calf Tenderness, Pedal Edema Additional comments: L groin dressing c/d/i. - Back Exam Back Exam: NORMAL INSPECTION - Neurological Exam Neurological Exam: Awake Additional comments: oriented to self only - Psychiatric Exam Psychiatric exam: Normal Affect - Skin Skin Exam: Dry, Normal Color, Warm Assessment and Plan - Assessment and Plan (Free Text) Assessment: 71 years old male, with hx of CVA, AAA, TAA s/p repair and iliac stents, presents for dysphagia, weight loss, bacteremia, fatigue: Plan: - 2/2 advanced dementia vs stroke vs spastic motor disorders (esophageal spasm) - Afebrile, no leukocytosis, mildly hypotensive 98/62 today. As per nurse, pt tolerated CLD yesterday for dinner. - Formal swallow screen 08/16/17 shows pt tolerating small sips of thin liquids. Recommends ENT eval, EGD and Modified Barium swallow. - Following normal EGD, reobtain formal swallow eval. - Repeat obstructive series x ray 08/15 shows no obstruction. Abd x ray : mildly distended small bowel ileus vs early obstruction. Mildly distended loops of small bowel in left flank and RUQ. Vascular disease with multiple stents - abdominal aorta and iliacs. - CXR 08/12/17: Left hilar/infrahilar opacity -> cannot exclude pneumonia. Biapical pleural thickening/granulamatous changes. - Esophagus x ray 08/04/17: could not evaluate because pt could not ingest barium contrast - Blood cultures (1/2) 08/12/17 shows Enterococcus avium, S to Vanco, Cipro, Levofloxacin. - Urine culture shows Pseudomonas aeruginosa. S to Cefepime, Merrem, Cipro. - Wound Culture 08/12/17 shows E.coli and Corynebacterium. - Pt currently on Vancomycin IV D7 and IV Cefepime D5, per ID. - Pt's left wound vac removed by wound care nurse 08/15/17, dressing c/d/i. - Ct angio pelvis 08/15/17: Post aortic bifemoral endograft repair. Dense fluid collection, 6x3x8 cm, surrounding left common femoral artery - likely purulence than hematoma or simple fluid. No active extravasation within dense fluid collection. - Vascular surgery consulted. Discuss with primary team regarding possible transfer to [facility], as pt previously had stents and workup done there. - CT angio 05/2017 at [facility] shows cirrhosis; Likely 2/2 long standing alcohol abuse. Hep panel negative, AFP<0.8. - Echocardiogram EF 65-70%. Grade 1 (impaired relaxation pattern) LV diastolic dysfunction. - Echo this admission shows good LV systolic function. Limited due to poor US window. Recommend ARIADNA. - EGD yesterday showed gastritis, no obstruction. - Pt oriented to self only today, quite disoriented with mild slurring of speech this AM, notified bedside nurse and primary team medical office clerk Dr Jose Elias Keene. Aware and will evaluated. Obtain CT head to r/o CVA. - Continue with TPN and lipids for now, for nutrition. Pt tolerating some CLD. As patient tolerates more PO diet, will cut down on parenteral nutrition. Discussed with GI fellow and attending, Dr Cespedes. Deepa Bright, PGY1 <David Cespedes - Last Filed: 08/19/17 15:19> Objective - Vital Signs/Intake and Output Vital Signs (last 24 hours): Temp Pulse Resp BP Pulse Ox 98.3 F 75 18 100/61 98 08/19/17 08:30 08/19/17 08:30 08/19/17 08:30 08/19/17 08:30 08/19/17 08:30 Intake and Output: 08/19/17 08/19/17 06:59 18:59 Intake Total 604 Output Total 500 Balance 104 - Medications Medications: Current Medications Allopurinol (Zyloprim) 100 mg PO DAILY [facility] Last Admin: 08/19/17 10:04 Dose: 100 mg Aspirin (Aspirin Chewable) 81 mg PO DAILY [facility] Last Admin: 08/19/17 11:26 Dose: 81 mg Docusate Sodium (Colace) 100 mg PO DAILY [facility] Last Admin: 08/19/17 10:10 Dose: Not Given Dronabinol (Marinol) 2.5 mg PO BID [facility] Last Admin: 08/19/17 10:05 Dose: 2.5 mg Folic Acid (Folic Acid) 1 mg PO DAILY [facility] Last Admin: 08/19/17 10:05 Dose: 1 mg Cefepime HCl (Maxipime Iv 1 Gm Premix) 1 gm in 50 mls @ 100 mls/hr IVPB Q12H [facility] Last Admin: 08/19/17 11:26 Dose: 100 mls/hr Vancomycin HCl 1 gm/ Sodium (Chloride) 250 mls @ 166.667 mls/hr IVPB Q24H [facility] Last Admin: 08/17/17 22:04 Dose: 166.667 mls/hr Multivitamins/Vitamin C 10 ml/Chromium/Copper/Manganese/Zinc 1 ml/ Amino Acids 1,011 mls @ 42 mls/hr IV .Q24H ONE Stop: 08/19/17 17:59 Last Admin: 08/18/17 17:49 Dose: 42 mls/hr Fat Emulsion Intravenous (Intralipid 20%) 500 mls @ 50 mls/hr IV 1800 ONE Stop: 08/20/17 03:59 Multivitamins/Vitamin C 10 ml/Chromium/Copper/Manganese/Zinc 1 ml/ Amino Acids 1,011 mls @ 42 mls/hr IV .Q24H ONE Stop: 08/20/17 17:59 Potassium Chloride (Potassium Chloride 10 Meq/100 Ml) 10 meq in 100 mls @ 100 mls/hr IVPB Q3H [facility] Stop: 08/19/17 18:59 Last Admin: 08/19/17 12:17 Dose: 100 mls/hr Metoprolol Succinate (Toprol Xl) 25 mg PO DAILY [facility] Last Admin: 08/19/17 10:04 Dose: 25 mg Ondansetron HCl (Zofran Inj) 4 mg IVP Q6H PRN PRN Reason: Nausea/Vomiting Pantoprazole Sodium (Protonix Inj) 40 mg IVP DAILY [facility] Last Admin: 08/19/17 10:16 Dose: 40 mg Rosuvastatin Calcium (Crestor) 2.5 mg PO HS [facility] Last Admin: 08/18/17 22:10 Dose: 2.5 mg Sodium Bicarbonate (Sodium Bicarbonate Tab) 650 mg PO Q6 [facility] Last Admin: 08/19/17 11:26 Dose: 650 mg - Labs Labs: 08/19/17 06:37 08/19/17 06:37 PT 18.6 SECONDS (9.7-12.2) H 08/15/17 20:05 INR 1.6 08/15/17 20:05 APTT 44 SECONDS (21-34) H 08/15/17 20:05 Attending/Attestation - Attestation I have personally seen and examined this patient.: Yes I have fully participated in the care of the patient.: Yes I have reviewed all pertinent clinical information, including history, physical exam and plan: Yes Notes (Text): 08/19/17 15:18 71 years old male with hx of CVA, AAA, TAA s/p repair recently at [place]/ w bacteremia, dysphagia, and weight loss. 1. Dysphagia Plan: -s/p unremarkable EGD yesterday -dysphagia may be neurological in origin -repeat speech/swallow eval -advance diet as tolerated
[2017-08-19 07:29] LABS: BASO % 0.7 % (0.0-2.0); EOS # 0.1 K/uL (0.0-0.7); EOS % 1.6 % (0.0-4.0); HEMATOCRIT 28.7 % (35.0-51.0); LYMPH % 24.5 % (20.0-40.0); MEAN CELL VOLUME 88.1 fL (80.0-94.0); MEAN CORPUSCULAR HEMOGLOBIN 29.7 pg (27.0-31.0); MEAN CORPUSCULAR HGB CONC 33.8 g/dL (33.0-37.0); MEAN PLATELET VOLUME 8.6 fL (7.2-11.7); MONO # 0.4 K/uL (0.0-0.8); MONO % 9.8 % (0.0-10.0); NRBC % 0.3 % (0.0-2.0); RED CELL DISTRIBUTION WIDTH 13.8 % (11.5-14.5); WHITE BLOOD COUNT 4.1 K/uL (4.8-10.8)
--- NOTE | 2017-08-19 09:11 | CP.PCM.PN ---
Subjective - Date & Time of Evaluation Date of Evaluation: 08/19/17 Time of Evaluation: 09:07 - Subjective Subjective: General Surgery: Dr Holly Pt S&E. JAMES. Resting comfortably. No complaints. Denies any fevers or chills. No further drainage from wound site in left groin Objective - Vital Signs/Intake and Output Vital Signs (last 24 hours): Temp Pulse Resp BP Pulse Ox 98.3 F 75 18 100/61 98 08/19/17 08:30 08/19/17 08:30 08/19/17 08:30 08/19/17 08:30 08/19/17 08:30 Intake and Output: 08/19/17 08/19/17 06:59 18:59 Intake Total 604 Output Total 500 Balance 104 - Medications Medications: Current Medications Allopurinol (Zyloprim) 100 mg PO DAILY [facility] Last Admin: 08/18/17 10:50 Dose: Not Given Aspirin (Ecotrin) 81 mg PO DAILY [facility] Last Admin: 08/18/17 10:48 Dose: Not Given Docusate Sodium (Colace) 100 mg PO DAILY [facility] Last Admin: 08/18/17 10:48 Dose: Not Given Dronabinol (Marinol) 2.5 mg PO BID [facility] Last Admin: 08/18/17 17:49 Dose: 2.5 mg Folic Acid (Folic Acid) 1 mg PO DAILY [facility] Last Admin: 08/18/17 10:48 Dose: Not Given Cefepime HCl (Maxipime Iv 1 Gm Premix) 1 gm in 50 mls @ 100 mls/hr IVPB Q12H [facility] Last Admin: 08/19/17 00:32 Dose: 100 mls/hr Vancomycin HCl 1 gm/ Sodium (Chloride) 250 mls @ 166.667 mls/hr IVPB Q24H [facility] Last Admin: 08/17/17 22:04 Dose: 166.667 mls/hr Multivitamins/Vitamin C 10 ml/Chromium/Copper/Manganese/Zinc 1 ml/ Amino Acids 1,011 mls @ 42 mls/hr IV .Q24H ONE Stop: 08/19/17 17:59 Last Admin: 08/18/17 17:49 Dose: 42 mls/hr Fat Emulsion Intravenous (Intralipid 20%) 500 mls @ 50 mls/hr IV 1800 ONE Stop: 08/20/17 03:59 Metoprolol Succinate (Toprol Xl) 25 mg PO DAILY [facility] Last Admin: 08/18/17 11:10 Dose: 25 mg Ondansetron HCl (Zofran Inj) 4 mg IVP Q6H PRN PRN Reason: Nausea/Vomiting Pantoprazole Sodium (Protonix Inj) 40 mg IVP DAILY [facility] Last Admin: 08/18/17 10:55 Dose: 40 mg Rosuvastatin Calcium (Crestor) 2.5 mg PO HS [facility] Last Admin: 08/18/17 22:10 Dose: 2.5 mg Sodium Bicarbonate (Sodium Bicarbonate Tab) 650 mg PO Q6 [facility] Last Admin: 08/19/17 06:24 Dose: 650 mg - Labs Labs: 08/19/17 06:37 08/19/17 06:37 PT 18.6 SECONDS (9.7-12.2) H 08/15/17 20:05 INR 1.6 08/15/17 20:05 APTT 44 SECONDS (21-34) H 08/15/17 20:05 - Constitutional Appears: Non-toxic - ENT Exam ENT Exam: Mucous Membranes Moist - Respiratory Exam Respiratory Exam: absent: Accessory Muscle Use, Respiratory Distress - Cardiovascular Exam Cardiovascular Exam: absent: Tachycardia - GI/Abdominal Exam GI & Abdominal Exam: Soft. absent: Distended - Extremities Exam Additional comments: left groin wound c/d/i, minimal drainage, no erythema or discharge Assessment and Plan - Assessment and Plan (Free Text) Assessment: 71M with Type II endoleak and left groin wound Plan: wound healing well cont abx as per ID no plan or need for surgical intervention regarding wound should fluid collection need to be addressed pt should be transfered back to [place] please reconsult if necessary d/w Dr Avni Soni, PGY3
[2017-08-19] MEDS: Metoprolol Succinate 25 mg XL Tab PO SCH (10:04)
--- NOTE | 2017-08-19 11:32 | CP.PCM.PN ---
Subjective - Date & Time of Evaluation Date of Evaluation: 08/19/17 Time of Evaluation: 07:40 - Subjective Subjective: PGY2 Resident - Medicine Progress Note Patient seen and examined at bedside. No acute distress. No overnight events. He is tolerating liquid diet. He continues to feeling weak / lethargic overall. Patient is AAOx2, not oriented to the year. No noted slurring of speech or increased confusion from prior assessment. No neurological findings. However, GI and nursing report a distinct change in the patients mental status. Will evaluate further. Denies fever, chills, headache, changes in vision, chest pain , palpitations, dyspnea, cough, abdominal pain, nausea/vomiting, diarrhea/ constipation, or any additional acute complaints. Objective - Vital Signs/Intake and Output Vital Signs (last 24 hours): Temp Pulse Resp BP Pulse Ox 98.3 F 75 18 100/61 98 08/19/17 08:30 08/19/17 08:30 08/19/17 08:30 08/19/17 08:30 08/19/17 08:30 Intake and Output: 08/19/17 08/19/17 06:59 18:59 Intake Total 604 Output Total 500 Balance 104 - Medications Medications: Current Medications Allopurinol (Zyloprim) 100 mg PO DAILY [facility] Last Admin: 08/19/17 10:04 Dose: 100 mg Aspirin (Aspirin Chewable) 81 mg PO DAILY [facility] Last Admin: 08/19/17 11:26 Dose: 81 mg Docusate Sodium (Colace) 100 mg PO DAILY [facility] Last Admin: 08/19/17 10:10 Dose: Not Given Dronabinol (Marinol) 2.5 mg PO BID [facility] Last Admin: 08/19/17 10:05 Dose: 2.5 mg Folic Acid (Folic Acid) 1 mg PO DAILY [facility] Last Admin: 08/19/17 10:05 Dose: 1 mg Cefepime HCl (Maxipime Iv 1 Gm Premix) 1 gm in 50 mls @ 100 mls/hr IVPB Q12H [facility] Last Admin: 08/19/17 11:26 Dose: 100 mls/hr Vancomycin HCl 1 gm/ Sodium (Chloride) 250 mls @ 166.667 mls/hr IVPB Q24H [facility] Last Admin: 08/17/17 22:04 Dose: 166.667 mls/hr Multivitamins/Vitamin C 10 ml/Chromium/Copper/Manganese/Zinc 1 ml/ Amino Acids 1,011 mls @ 42 mls/hr IV .Q24H ONE Stop: 08/19/17 17:59 Last Admin: 08/18/17 17:49 Dose: 42 mls/hr Fat Emulsion Intravenous (Intralipid 20%) 500 mls @ 50 mls/hr IV 1800 ONE Stop: 08/20/17 03:59 Multivitamins/Vitamin C 10 ml/Chromium/Copper/Manganese/Zinc 1 ml/ Amino Acids 1,011 mls @ 42 mls/hr IV .Q24H ONE Stop: 08/20/17 17:59 Metoprolol Succinate (Toprol Xl) 25 mg PO DAILY [facility] Last Admin: 08/19/17 10:04 Dose: 25 mg Ondansetron HCl (Zofran Inj) 4 mg IVP Q6H PRN PRN Reason: Nausea/Vomiting Pantoprazole Sodium (Protonix Inj) 40 mg IVP DAILY [facility] Last Admin: 08/19/17 10:16 Dose: 40 mg Rosuvastatin Calcium (Crestor) 2.5 mg PO HS [facility] Last Admin: 08/18/17 22:10 Dose: 2.5 mg Sodium Bicarbonate (Sodium Bicarbonate Tab) 650 mg PO Q6 [facility] Last Admin: 08/19/17 11:26 Dose: 650 mg - Labs Labs: 08/19/17 06:37 08/19/17 06:37 PT 18.6 SECONDS (9.7-12.2) H 08/15/17 20:05 INR 1.6 08/15/17 20:05 APTT 44 SECONDS (21-34) H 08/15/17 20:05 - Additional Findings Additional findings: - Constitutional Appears: Non-toxic - Head Exam Head Exam: ATRAUMATIC - ENT Exam ENT Exam: Mucous Membranes Moist (poor dentition) - Neck Exam Neck Exam: absent: Lymphadenopathy - Respiratory Exam Respiratory Exam: Clear to Ausculation Bilateral - Cardiovascular Exam Cardiovascular Exam: REGULAR RHYTHM, +S1, +S2 - GI/Abdominal Exam GI & Abdominal Exam: Soft - Extremities Exam Extremities Exam: absent: Calf Tenderness - Back Exam Back Exam: absent: CVA tenderness (L), CVA tenderness (R) - Neurological Exam Neurological Exam: Alert, Awake, Oriented x2 (not oriented to year) - Psychiatric Exam Psychiatric exam: Normal Affect - Skin Skin Exam: Warm, Dry Note: L Groin wound CDI, nontender to palpation, No fluctuance Assessment and Plan - Assessment and Plan (Free Text) Assessment: 71 years old male, with hx of CVA, AAA, TAA, presents for dysphagia, vomiting, weight loss, bacteremia, fatigue: Dysphagia 08/19: pending barium swallow results; ENT has signed off and recommends chest CT ; EGD negative 08/18: pending barium swallow results; ENT has signed off and recommends chest CT; going for EGD today 08/17: f/u modified barrium swallow 08/16: Speech and swallow is recommending ENT consult; ordered; appreciate Dr. Karel Ramirez; EGD planned for today as potient is NPO; will f/u results 08/15: f/u Obstructive series xray to rule out bowel obstruction. GI plans to perform EGD once echo and CT angio pelvis have resulted. f/u echo Marinol) 2.5 mg PO BID [facility] Percocet 5/325 Mg Tab) 1 tab PO Q4H PRN liquid diet - Abd x ray 08/13/17: mildly distended small bowel ileus vs early obstruction. Mildly distended loops of small bowel in left flank and RUQ. Vascular disease with multiple stents - abdominal aorta and iliacs. - CXR 08/12/17: Left hilar/infrahilar opacity -> cannot exclude pneumonia. Biapical pleural thickening/granulamatous changes. - Esophagus x ray 08/04/17: could not evaluate because pt could not ingest barium contrast - Blood cultures (/) 08/12/17 shows S aureus, gram positive cocci. Pt started on Vancomycin IV, - Follow up formal speech and swallow eval GI Consult, Dr. Avalos recs appreciated. Altered Mental Status 08/19: GI team and nursing noted AMS today. My evaluation of the patient showed him at his base line, AAOx2, in a pleasant mood. He often jokes with staff and this behavior may be misleading. CT Head w/o contrast ordered. If this is negative, order CT head w/Contrast to r/o Stroke. -Neurology consulted, Dr. Jeffers, help appreciated. Hx of Stents at Iliac and Abdominal Aorta 08/19: vasc surg is recommending transfer back to [facility] as this was site of patients initial surgery. 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 08/18: vasc surg is recommending transfer back to [facility] as this was site of patients initial surgery 08/17: surgery team recommends transfer back to [facility] which was site of patient's initial surgery 08/15: f/u CT angio pelvis to assess for any blockage Ct angio pelvis 08/15/17: Post aortic bifemoral endograft repair Dense fluid collection, 6x3x8 cm, surrounding left common femoral artery - likely purulence than hematoma or simple fluid. No active extravasation within dense fluid collection. - Abd x ray 08/13/17: mildly distended small bowel ileus vs early obstruction. Mildly distended loops of small bowel in left flank and RUQ. Vascular disease with multiple stents - abdominal aorta and iliacs. AAA s/p repair -04/2017, iliac angioplasty/stent 05/2017 Bacteremia Gram (+) 08/19: repeat BC negative x24hrs; Source of prior bacteremia likely L Groin wound. If bacteremia persists at time of discharge to [facility], will recommend ARIADNA at that time. 08/18: c/w Vanco/Cefepime; echo was inconclusive and they are recommending ARIADNA 08/17: Continue Vanco and Cefepime for infections in groin, blood, and urine ( MICs reviewed, abx are effective). -f/u echo for possible endocarditis - pending read Note: pt has a left groin wound vac - dressings to be changed by surgery Q3d. Vancomycin 1 Gm/Ns 200 Ml) 1 gm in 200 mls @ 133.333 mls/hr IVPB Q24H [facility] BC G+ cocci UC prelim G-negative rods procalcitonin 0.15L ID consult, Dr. Ovalles, recs appreciated. -most likely from repair of his iliac and abdominal aorta 2/2 to results from cat scan Gout;chronic stable Allopurinol (Zyloprim) 100 mg PO DAILY [facility] Hypertension; chronic stable Metoprolol Succinate (Toprol Xl) 25 mg PO DAILY [facility] Hyperlipidemia; chronic stable ASA 81 mg PO DAILY [facility] Crestor) 2.5 mg PO HS [facility] Electrolyte Imbalance; will continue to monitor 08/19: Hypokalemia, K3.5 -> KCl 10meq IVPB x3 bags (magsulfate x1bag) Kypokalemia, K2.7 - KCl 10meq IVPB x4; KCl PO 20meq x3 Hypomagnesemia, Mg 1.4 -> repleted Hypophosphatemia, P 2 -> Neutraphos TID d2igdyl total Prophylaxis PT/OT SCDs Protonix Ec Tab) 40 mg PO DAILY [facility] Colace) 100 mg PO DAILY [facility] Folic Acid) 1 mg PO DAILY [facility] NS D5-0.9 at 100cc/hr Dispo: Once evaluation of stroke 2/2 AMS is completed and patient is stable, patient may be discharged to [facility], which was the site of patients initial surgery (Stents at Iliac and Abdominal Aorta). 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 All management as per Dr Blayne Jeffrey
[2017-08-19] MEDS ORDERED: Magnesium Sulfate 1 gm in D5W 1 GM/100 ML BAG IVPB ONE (12:00)
--- NOTE | 2017-08-19 16:27 | CP.PCM.PN ---
Subjective - Date & Time of Evaluation Date of Evaluation: 08/19/17 Time of Evaluation: 08:00 - Subjective Subjective: afeb on IV antibiotics for possible transfer to [facility] Objective - Vital Signs/Intake and Output Vital Signs (last 24 hours): Temp Pulse Resp BP Pulse Ox 98.3 F 75 18 100/61 98 08/19/17 08:30 08/19/17 08:30 08/19/17 08:30 08/19/17 08:30 08/19/17 08:30 Intake and Output: 08/19/17 08/19/17 06:59 18:59 Intake Total 604 660 Output Total 500 Balance 104 660 - Medications Medications: Current Medications Allopurinol (Zyloprim) [address] [facility] Last Admin: 08/19/17 10:04 Dose: 100 mg Aspirin (Aspirin Chewable) [address] [facility] Last Admin: 08/19/17 11:26 Dose: 81 mg Docusate Sodium (Colace) [address] [facility] Last Admin: 08/19/17 10:10 Dose: Not Given Dronabinol (Marinol) 2.[address] [facility] Last Admin: 08/19/17 10:05 Dose: 2.5 mg Folic Acid (Folic Acid) [address] [facility] Last Admin: 08/19/17 10:05 Dose: 1 mg Cefepime HCl (Maxipime Iv 1 Gm Premix) 1 gm in 50 mls @ 100 mls/hr IVPB Q12H [facility] Last Admin: 08/19/17 11:26 Dose: 100 mls/hr Vancomycin HCl 1 gm/ Sodium (Chloride) 250 mls @ 166.667 mls/hr IVPB Q24H [facility] Last Admin: 08/17/17 22:04 Dose: 166.667 mls/hr Multivitamins/Vitamin C 10 ml/Chromium/Copper/Manganese/Zinc 1 ml/ Amino Acids 1,011 mls @ 42 mls/hr IV .Q24H ONE Stop: 08/19/17 17:59 Last Admin: 08/18/17 17:49 Dose: 42 mls/hr Fat Emulsion Intravenous (Intralipid 20%) 500 mls @ 50 mls/hr IV 1800 ONE Stop: 08/20/17 03:59 Multivitamins/Vitamin C 10 ml/Chromium/Copper/Manganese/Zinc 1 ml/ Amino Acids 1,011 mls @ 42 mls/hr IV .Q24H ONE Stop: 08/20/17 17:59 Potassium Chloride (Potassium Chloride 10 Meq/100 Ml) 10 meq in 100 mls @ 100 mls/hr IVPB Q3H [facility] Stop: 08/19/17 18:59 Last Admin: 08/19/17 12:17 Dose: 100 mls/hr Metoprolol Succinate (Toprol Xl) [address] [facility] Last Admin: 08/19/17 10:04 Dose: 25 mg Ondansetron HCl (Zofran Inj) 4 mg IVP Q6H PRN PRN Reason: Nausea/Vomiting Pantoprazole Sodium (Protonix Inj) [address] [facility] Last Admin: 08/19/17 10:16 Dose: 40 mg Rosuvastatin Calcium (Crestor) 2.[address] [facility] Last Admin: 08/18/17 22:10 Dose: 2.5 mg Sodium Bicarbonate (Sodium Bicarbonate Tab) [address] [facility] Last Admin: 08/19/17 11:26 Dose: 650 mg - Labs Labs: 08/19/17 06:37 08/19/17 06:37 PT 18.6 SECONDS (9.7-12.2) H 08/15/17 20:05 INR 1.6 08/15/17 20:05 APTT 44 SECONDS (21-34) H 08/15/17 20:05 - Constitutional Appears: Non-toxic, Chronically Ill - Head Exam Head Exam: NORMOCEPHALIC - Eye Exam Eye Exam: absent: Scleral icterus - ENT Exam ENT Exam: Mucous Membranes Dry - Neck Exam Neck Exam: absent: Lymphadenopathy - Respiratory Exam Respiratory Exam: Decreased Breath Sounds - Cardiovascular Exam Cardiovascular Exam: REGULAR RHYTHM, +S1, +S2 - GI/Abdominal Exam GI & Abdominal Exam: Distended - Rectal Exam Rectal Exam: Deferred - Exam Exam: NORMAL INSPECTION - Extremities Exam Extremities Exam: absent: Calf Tenderness, Pedal Edema - Back Exam Back Exam: absent: CVA tenderness (L), CVA tenderness (R) Assessment and Plan (1) Altered mental status Status: Acute (2) Aortic aneurysm Status: Acute (3) DVT prophylaxis Status: Acute (4) HTN (hypertension) Status: Acute (5) Near syncope Status: Acute (6) Pancreatitis Status: Acute (7) Seizure disorder Status: Acute
[2017-08-19] MEDS ORDERED: PPN #5 IV ONE (18:00)
[2017-08-19] MEDS ORDERED: Fat Emulsion 20% IV 500 ML IV ONE (18:00)
--- NOTE | 2017-08-19 20:00 | CP.PCM.PN ---
Subjective - Date & Time of Evaluation Date of Evaluation: 08/19/17 Time of Evaluation: 11:00 - Subjective Subjective: clinically same Objective - Vital Signs/Intake and Output Vital Signs (last 24 hours): Temp Pulse Resp BP Pulse Ox 98.4 F 71 16 125/55 L 96 08/19/17 15:30 08/19/17 15:30 08/19/17 15:30 08/19/17 15:30 08/19/17 15:30 Intake and Output: 08/19/17 08/20/17 18:59 06:59 Intake Total 660 Balance 660 - Medications Medications: Current Medications Allopurinol (Zyloprim) 100 mg PO DAILY [facility] Last Admin: 08/19/17 10:04 Dose: 100 mg Aspirin (Aspirin Chewable) 81 mg PO DAILY [facility] Last Admin: 08/19/17 11:26 Dose: 81 mg Docusate Sodium (Colace) 100 mg PO DAILY [facility] Last Admin: 08/19/17 10:10 Dose: Not Given Dronabinol (Marinol) 2.5 mg PO BID [facility] Last Admin: 08/19/17 17:00 Dose: 2.5 mg Folic Acid (Folic Acid) 1 mg PO DAILY [facility] Last Admin: 08/19/17 10:05 Dose: 1 mg Cefepime HCl (Maxipime Iv 1 Gm Premix) 1 gm in 50 mls @ 100 mls/hr IVPB Q12H [facility] Last Admin: 08/19/17 11:26 Dose: 100 mls/hr Vancomycin HCl 1 gm/ Sodium (Chloride) 250 mls @ 166.667 mls/hr IVPB Q24H [facility] Last Admin: 08/17/17 22:04 Dose: 166.667 mls/hr Fat Emulsion Intravenous (Intralipid 20%) 500 mls @ 50 mls/hr IV 1800 ONE Stop: 08/20/17 03:59 Last Admin: 08/19/17 19:50 Dose: 50 mls/hr Multivitamins/Vitamin C 10 ml/Chromium/Copper/Manganese/Zinc 1 ml/ Amino Acids 1,011 mls @ 42 mls/hr IV .Q24H ONE Stop: 08/20/17 17:59 Last Admin: 08/19/17 18:00 Dose: 42 mls/hr Metoprolol Succinate (Toprol Xl) 25 mg PO DAILY [facility] Last Admin: 08/19/17 10:04 Dose: 25 mg Ondansetron HCl (Zofran Inj) 4 mg IVP Q6H PRN PRN Reason: Nausea/Vomiting Pantoprazole Sodium (Protonix Inj) 40 mg IVP DAILY [facility] Last Admin: 08/19/17 10:16 Dose: 40 mg Potassium Chloride (K-Dur 20 Meq Er Tab) 40 meq PO Q2 [facility] Stop: 08/19/17 22:01 Rosuvastatin Calcium (Crestor) 2.5 mg PO HS [facility] Last Admin: 08/18/17 22:10 Dose: 2.5 mg Sodium Bicarbonate (Sodium Bicarbonate Tab) 650 mg PO Q6 [facility] Last Admin: 08/19/17 17:00 Dose: 650 mg - Labs Labs: 08/19/17 06:37 08/19/17 06:37 PT 18.6 SECONDS (9.7-12.2) H 08/15/17 20:05 INR 1.6 08/15/17 20:05 APTT 44 SECONDS (21-34) H 08/15/17 20:05 - Constitutional Appears: Well - Head Exam Head Exam: ATRAUMATIC, NORMAL INSPECTION, NORMOCEPHALIC - Eye Exam Eye Exam: EOMI, Normal appearance, PERRL Pupil Exam: NORMAL ACCOMODATION, PERRL - ENT Exam ENT Exam: Mucous Membranes Moist, Normal Exam - Neck Exam Neck Exam: Full ROM, Normal Inspection. absent: Lymphadenopathy - Respiratory Exam Respiratory Exam: Decreased Breath Sounds - Cardiovascular Exam Cardiovascular Exam: REGULAR RHYTHM, +S1, +S2 - GI/Abdominal Exam GI & Abdominal Exam: Soft, Diminished Bowel Sounds - Rectal Exam Rectal Exam: Deferred Assessment and Plan (1) Alcohol dependence Status: Acute (2) Alcohol intoxication Status: Acute (3) Altered mental status Status: Acute (4) Aortic aneurysm Status: Acute (5) Dehydration Status: Acute (6) DVT prophylaxis Status: Acute (7) Dyslipidemia Status: Chronic (8) Gout Status: Chronic (9) HTN (hypertension) Status: Acute (10) Near syncope Status: Acute (11) Pancreatitis Status: Acute (12) Seizure disorder Status: Acute (13) Weakness Status: Acute (14) Weight loss Status: Acute
[2017-08-19] MEDS: Potassium Chloride 20 mEq ER Tab PO SCH (21:39)
[2017-08-19] MEDS: Rosuvastatin Calcium 2.5 mg Tab PO SCH ×2 (21:40→21:41)
[2017-08-20] MEDS: Cefepime IV 1 gm in Dextrose 1 GM/50 ML BAG IVPB SCH ×2 (01:10→12:45)
--- NOTE | 2017-08-20 08:18 | CP.PCM.PN ---
<Tiffany Petersen - Last Filed: 08/20/17 08:39> Subjective - Date & Time of Evaluation Date of Evaluation: 08/20/17 Time of Evaluation: 07:30 - Subjective Subjective: GI Fellow PGY4 Progress Note Pt seen and evaluated at bedside, pt awake and able to answer some questions, reports he is tolerating his liquid diet with no problem. Pt had a BM two days ago. ROS: A 12pt ROS was negative except as above. Objective - Vital Signs/Intake and Output Vital Signs (last 24 hours): Temp Pulse Resp BP Pulse Ox 98.5 F 70 20 104/65 95 08/19/17 23:17 08/19/17 23:17 08/19/17 23:17 08/19/17 23:17 08/19/17 23:17 Intake and Output: 08/20/17 08/20/17 06:59 18:59 Intake Total 976 Output Total 1150 Balance -174 - Medications Medications: Current Medications Allopurinol (Zyloprim) [address] [facility] Last Admin: 08/19/17 10:04 Dose: 100 mg Aspirin (Aspirin Chewable) [address] [facility] Last Admin: 08/19/17 11:26 Dose: 81 mg Docusate Sodium (Colace) [address] [facility] Last Admin: 08/19/17 10:10 Dose: Not Given Dronabinol (Marinol) 2.[address] [facility] Last Admin: 08/19/17 17:00 Dose: 2.5 mg Folic Acid (Folic Acid) [address] [facility] Last Admin: 08/19/17 10:05 Dose: 1 mg Cefepime HCl (Maxipime Iv 1 Gm Premix) 1 gm in 50 mls @ 100 mls/hr IVPB Q12H [facility] Last Admin: 08/20/17 01:10 Dose: 100 mls/hr Vancomycin HCl 1 gm/ Sodium (Chloride) 250 mls @ 166.667 mls/hr IVPB Q24H [facility] Last Admin: 08/17/17 22:04 Dose: 166.667 mls/hr Multivitamins/Vitamin C 10 ml/Chromium/Copper/Manganese/Zinc 1 ml/ Amino Acids 1,011 mls @ 42 mls/hr IV .Q24H ONE Stop: 08/20/17 17:59 Last Admin: 08/19/17 18:00 Dose: 42 mls/hr Metoprolol Succinate (Toprol Xl) [address] [facility] Last Admin: 08/19/17 10:04 Dose: 25 mg Ondansetron HCl (Zofran Inj) 4 mg IVP Q6H PRN PRN Reason: Nausea/Vomiting Pantoprazole Sodium (Protonix Inj) [address] [facility] Last Admin: 08/19/17 10:16 Dose: 40 mg Rosuvastatin Calcium (Crestor) 2.[address] [facility] Last Admin: 08/19/17 21:41 Dose: Not Given Sodium Bicarbonate (Sodium Bicarbonate Tab) [address] [facility] Last Admin: 08/20/17 06:26 Dose: Not Given - Labs Labs: 08/19/17 06:37 08/19/17 06:37 PT 18.6 SECONDS (9.7-12.2) H 08/15/17 20:05 INR 1.6 08/15/17 20:05 APTT 44 SECONDS (21-34) H 08/15/17 20:05 - Constitutional Appears: Non-toxic, No Acute Distress, Older Than Stated Age, Chronically Ill - Head Exam Head Exam: ATRAUMATIC, NORMAL INSPECTION, NORMOCEPHALIC - Eye Exam Eye Exam: EOMI, Normal appearance, PERRL Pupil Exam: PERRL - ENT Exam ENT Exam: Mucous Membranes Moist - Respiratory Exam Respiratory Exam: Decreased Breath Sounds - Cardiovascular Exam Cardiovascular Exam: REGULAR RHYTHM - GI/Abdominal Exam GI & Abdominal Exam: Soft, Normal Bowel Sounds. absent: Tenderness - Rectal Exam Rectal Exam: Deferred - Extremities Exam Extremities Exam: Pedal Edema, Tenderness - Neurological Exam Neurological Exam: Alert, Awake - Psychiatric Exam Psychiatric exam: Normal Affect, Normal Mood - Skin Skin Exam: Dry, Intact, Normal Color, Warm Assessment and Plan - Assessment and Plan (Free Text) Assessment: 71 years old male with hx of CVA, AAA, TAA s/p repair presenting with with bacteremia, dysphagia, and weight loss. 1. Dysphagia, weight loss 2. History of CVA 3. AAA 4. TAA 5. Groin abscess 6. Constipation 7. Elevated LFTs Plan: -Continue supportive care with clear liquid diet and advance as tolerated -Repeat speech/swallow evaluation -s/p EGD unremarkable -Dysphagia may be neurological in origin -Continue with antibiotic therapy as per ID -Patient on TPN increased risk for superimposed infection -Viral hepatitis panel negative, AFP negative, LFTs normalized -Bowel regimen with miralax daily -Outpatient colonoscopy for weight loss following when medically stable -Please call with any questions or concerns <Donald Avalos - Last Filed: 08/20/17 09:16> Objective - Vital Signs/Intake and Output Vital Signs (last 24 hours): Temp Pulse Resp BP Pulse Ox 97.6 F 63 18 101/60 100 08/20/17 07:35 08/20/17 07:35 08/20/17 07:35 08/20/17 07:35 08/20/17 07:35 Intake and Output: 08/20/17 08/20/17 06:59 18:59 Intake Total 976 Output Total 1150 Balance -174 - Medications Medications: Current Medications Allopurinol (Zyloprim) [address] [facility] Last Admin: 08/19/17 10:04 Dose: 100 mg Aspirin (Aspirin Chewable) [address] [facility] Last Admin: 08/19/17 11:26 Dose: 81 mg Docusate Sodium (Colace) [address] [facility] Last Admin: 08/19/17 10:10 Dose: Not Given Dronabinol (Marinol) 2.[address] [facility] Last Admin: 08/19/17 17:00 Dose: 2.5 mg Folic Acid (Folic Acid) [address] [facility] Last Admin: 08/19/17 10:05 Dose: 1 mg Cefepime HCl (Maxipime Iv 1 Gm Premix) 1 gm in 50 mls @ 100 mls/hr IVPB Q12H [facility] Last Admin: 08/20/17 01:10 Dose: 100 mls/hr Vancomycin HCl 1 gm/ Sodium (Chloride) 250 mls @ 166.667 mls/hr IVPB Q24H [facility] Last Admin: 08/17/17 22:04 Dose: 166.667 mls/hr Multivitamins/Vitamin C 10 ml/Chromium/Copper/Manganese/Zinc 1 ml/ Amino Acids 1,011 mls @ 42 mls/hr IV .Q24H ONE Stop: 08/20/17 17:59 Last Admin: 08/19/17 18:00 Dose: 42 mls/hr Metoprolol Succinate (Toprol Xl) [address] [facility] Last Admin: 08/19/17 10:04 Dose: 25 mg Ondansetron HCl (Zofran Inj) 4 mg IVP Q6H PRN PRN Reason: Nausea/Vomiting Pantoprazole Sodium (Protonix Inj) [address] [facility] Last Admin: 08/19/17 10:16 Dose: 40 mg Polyethylene Glycol (Miralax) [address] [facility] Rosuvastatin Calcium (Crestor) 2.[address] [facility] Last Admin: 08/19/17 21:41 Dose: Not Given Sodium Bicarbonate (Sodium Bicarbonate Tab) [address] [facility] Last Admin: 08/20/17 06:26 Dose: Not Given - Labs Labs: 08/19/17 06:37 08/19/17 06:37 PT 18.6 SECONDS (9.7-12.2) H 08/15/17 20:05 INR 1.6 08/15/17 20:05 APTT 44 SECONDS (21-34) H 08/15/17 20:05 Attending/Attestation - Attestation I have personally seen and examined this patient.: Yes I have fully participated in the care of the patient.: Yes I have reviewed all pertinent clinical information, including history, physical exam and plan: Yes Notes (Text): 08/20/17 09:12 Patient seen and examined with GI fellow. No acute events overnight, he is tolerating PO liquid diet without difficulty. More alert today as compared to yesterday. He denies abdominal pain, nausea, vomiting, fever/chills. AAA TAA s/p repair Dementia Sepsis, bacteremia Dysphagia - s/p EGD without any gross abnormalities noted, ? underlying neurological deficit contributing to ongoing dysphagia - Liquid diet as tolerated. Swallow evaluation performed yesterday with patient not able to cooperate fully with examination, continue to follow recommendations. - Neurologic workup in progress, monitor - Follow up vascular surgery recommendations regarding TAA endoleak - Continue with antibiotic therapy as per ID - Monitor calorie count, if patient not able to maintain appropriate caloric intake, may eventually require placement of feeding tube. Currently no further planned GI intervention, will sign off case. Please reconsult as necessary, thank you.
[2017-08-20] MEDS: Metoprolol Succinate 25 mg XL Tab PO SCH (10:00)
[2017-08-20] MEDS: POLYETHYLENE GLYCOL 3350 17 GM/Dose PACKET PO SCH (10:00)
--- NOTE | 2017-08-20 10:30 | CT ---
PROCEDURE: CT HEAD WITHOUT CONTRAST. HISTORY: AMS, assess for stroke COMPARISON: None available. TECHNIQUE: Axial computed tomography images were obtained through the head/brain without intravenous contrast. Radiation dose: Total exam DLP = 918.10 mGy-cm. This CT exam was performed using one or more of the following dose reduction techniques: Automated exposure control, adjustment of the mA and/or kV according to patient size, and/or use of iterative reconstruction technique. FINDINGS: HEMORRHAGE: No intracranial hemorrhage. BRAIN: A chronic lacune is seen at the medial left thalamus. Otherwise, Diffuse expansion of the ventriculosulcal and cisternal spaces is appreciated with white matter lucency compatible with diffuse cerebral atrophy and chronic microangiopathy. No masses appreciated. Extra-axial spaces appear unremarkable as well as the midline brain anatomy. Posterior fossa contents are unremarkable the brainstem. VENTRICLES: Unremarkable. No hydrocephalus. CALVARIUM: Unremarkable. PARANASAL SINUSES: Unremarkable as visualized. No significant inflammatory changes. MASTOID AIR CELLS: Unremarkable as visualized. No inflammatory changes. OTHER FINDINGS: None. IMPRESSION: No definite acute intracranial findings by standard CT criteria. Chronic lacune is seen the left thalamus and are age related neuro degenerative changes which appear age-appropriate as discussed above. Follow-up CT or MRI are available if clinically warranted.
[2017-08-20 12:06] LABS: BASO % 0.6 % (0.0-2.0); EOS # 0.1 K/uL (0.0-0.7); EOS % 1.2 % (0.0-4.0); HEMATOCRIT 32.1 % (35.0-51.0); LYMPH # 1.4 K/uL (1.0-4.3); LYMPH % 30.5 % (20.0-40.0); MEAN CELL VOLUME 88.8 fL (80.0-94.0); MEAN CORPUSCULAR HGB CONC 33.8 g/dL (33.0-37.0); MEAN PLATELET VOLUME 8.7 fL (7.2-11.7); MONO # 0.4 K/uL (0.0-0.8); MONO % 9.2 % (0.0-10.0); NRBC % 0.2 % (0.0-2.0); RED CELL DISTRIBUTION WIDTH 13.4 % (11.5-14.5); WHITE BLOOD COUNT 4.7 K/uL (4.8-10.8)
[2017-08-20 12:30] LABS: ALB/GLOB RATIO 0.6 (1.0-2.1); ALKALINE PHOSPHATASE 192 U/L (38-126); ALT/SGPT 37 U/L (21-72); AST/SGOT 46 U/L (17-59); BILIRUBIN,TOTAL 0.4 mg/dL (0.2-1.3); BLOOD UREA NITROGEN 14 mg/dL (9-20); CALCIUM 7.8 mg/dl (8.6-10.4); CARBON DIOXIDE 27 mmol/L (22-30); CHLORIDE 104 mmol/L (98-107); CHOLESTEROL 98 mg/dL (0-199); GFR AFRICAN-AMERICAN > 60; GLUCOSE,RANDOM 96 mg/dL (75-110); MAGNESIUM 2.1 mg/dL (1.6-2.3); PHOSPHOROUS 2.4 mg/dL (2.5-4.5); POTASSIUM 4.1 mmol/L (3.6-5.2); SODIUM 133 mmol/L (132-148)
--- NOTE | 2017-08-20 14:17 | CP.PCM.CON ---
History of Present Illness - History of Present Illness History of Present Illness: Mr. Perez is a 71-year-old man with a past medical history of abdominal aneurysm (repaired), pancreatitis, prostate cancer, hyperlipidemia, bladder malignancy, HTN, stroke and seizure disorder who has been experiencing generalized weakness, lethargy, decreased appetite, dysphagia and confusion. He has had a nearly 40 lb weight loss. He was admitted and found to have gram +ve bacteremia, possible pneumonia and started on vancomycin. Neurology was consulted for dysphagia and generalized weakness. Review of Systems - Review of Systems All systems: reviewed and no additional remarkable complaints except Past Patient History - Infectious Disease Hx of Infectious Diseases: None - Past Medical History & Family History Past Medical History?: Yes - Past Social History Smoking Status: Former Smoker - CARDIAC Hx Cardiac Disorders: Yes Hx Hypercholesterolemia: Yes Hx Hypertension: Yes - PULMONARY Hx Respiratory Disorders: No - NEUROLOGICAL HX Cerebrovascular Accident: Yes - HEENT Hx HEENT Problems: Yes (hard of hearing) - RENAL Hx Chronic Kidney Disease: No - ENDOCRINE/METABOLIC Hx Endocrine Disorders: No - HEMATOLOGICAL/ONCOLOGICAL Hx Human Immunodeficiency Virus (HIV): No - INTEGUMENTARY Hx Dermatological Problems: No - MUSCULOSKELETAL/RHEUMATOLOGICAL Hx Musculoskeletal Disorders: Yes Hx Falls: No Hx Gout: Yes - GASTROINTESTINAL Hx Gastrointestinal Disorders: No Other/Comment: RUPTURED AAA - GENITOURINARY/GYNECOLOGICAL Hx Genitourinary Disorders: No - PSYCHIATRIC Hx Substance Use: No - SURGICAL HISTORY Hx Appendectomy: Yes Hx Cholecystectomy: Yes - ANESTHESIA Hx Anesthesia: Yes Hx Anesthesia Reactions: No Hx Malignant Hyperthermia: No Meds Allergies/Adverse Reactions: Allergies Allergy/AdvReac Type Severity Reaction Status Date / Time No Known Allergies Allergy Verified 10/17/15 15:26 - Medications Medications: Current Medications Allopurinol (Zyloprim) 100 mg PO DAILY [facility] Last Admin: 08/19/17 10:04 Dose: 100 mg Aspirin (Aspirin Chewable) 81 mg PO DAILY [facility] Last Admin: 08/19/17 11:26 Dose: 81 mg Docusate Sodium (Colace) 100 mg PO DAILY [facility] Last Admin: 08/19/17 10:10 Dose: Not Given Dronabinol (Marinol) 2.5 mg PO BID [facility] Last Admin: 08/19/17 17:00 Dose: 2.5 mg Folic Acid (Folic Acid) 1 mg PO DAILY [facility] Last Admin: 08/19/17 10:05 Dose: 1 mg Cefepime HCl (Maxipime Iv 1 Gm Premix) 1 gm in 50 mls @ 100 mls/hr IVPB Q12H [facility] Last Admin: 08/20/17 01:10 Dose: 100 mls/hr Vancomycin HCl 1 gm/ Sodium (Chloride) 250 mls @ 166.667 mls/hr IVPB Q24H [facility] Last Admin: 08/17/17 22:04 Dose: 166.667 mls/hr Multivitamins/Vitamin C 10 ml/Chromium/Copper/Manganese/Zinc 1 ml/ Amino Acids 1,011 mls @ 42 mls/hr IV .Q24H ONE Stop: 08/20/17 17:59 Last Admin: 08/19/17 18:00 Dose: 42 mls/hr Multivitamins/Vitamin C 10 ml/Chromium/Copper/Manganese/Zinc 1 ml/ Amino Acids 1,011 mls @ 42 mls/hr IV .Q24H ONE Stop: 08/21/17 17:59 Metoprolol Succinate (Toprol Xl) 25 mg PO DAILY [facility] Last Admin: 08/19/17 10:04 Dose: 25 mg Ondansetron HCl (Zofran Inj) 4 mg IVP Q6H PRN PRN Reason: Nausea/Vomiting Pantoprazole Sodium (Protonix Inj) 40 mg IVP DAILY [facility] Last Admin: 08/19/17 10:16 Dose: 40 mg Polyethylene Glycol (Miralax) 17 gm PO DAILY [facility] Rosuvastatin Calcium (Crestor) 2.5 mg PO HS [facility] Last Admin: 08/19/17 21:41 Dose: Not Given Sodium Bicarbonate (Sodium Bicarbonate Tab) 650 mg PO Q6 [facility] Last Admin: 08/20/17 06:26 Dose: Not Given Physical Exam - Constitutional Appears: Cachectic, Chronically Ill - Head Exam Head Exam: ATRAUMATIC, NORMAL INSPECTION, NORMOCEPHALIC - Eye Exam Eye Exam: EOMI, Normal appearance, PERRL - ENT Exam Additional comments: Poor dentition - Neck Exam Neck exam: Positive for: Normal Inspection - Respiratory Exam Respiratory Exam: Clear to Auscultation Bilateral, NORMAL BREATHING PATTERN - Cardiovascular Exam Cardiovascular Exam: +S1, +S2 - GI/Abdominal Exam GI & Abdominal Exam: Normal Bowel Sounds, Soft. absent: Tenderness - Rectal Exam Rectal Exam: Deferred - Neurological Exam Neurological exam: Alert, CN II-XII Intact, Oriented x3, Reflexes Normal Additional comments: Dysarthric speech due to poor dentition, no aphasia, otherwise content of speech and comprehension is normal. Generalized weakness proximally and distally in all extremities with muscle wasting. Reflexes and sensation were normal. Gait could not be tested due to weakness. Plantar responses were downgoing. Results - Vital Signs Recent Vital Signs: Last Vital Signs Temp 97.6 F 08/20/17 07:35 Pulse 63 08/20/17 07:35 Resp 18 08/20/17 07:35 BP 101/60 08/20/17 07:35 Pulse Ox 100 08/20/17 07:35 - Labs Result Diagrams: 08/20/17 11:56 08/20/17 11:56 Labs: Laboratory Results - last 24 hr 08/20/17 08/20/17 11:56 11:56 WBC 4.7 L RBC 3.62 L Hgb 10.9 L Hct 32.1 L MCV 88.8 MCH 30.0 MCHC 33.8 RDW 13.4 Plt Count 127 L D MPV 8.7 Neut % (Auto) 58.5 Lymph % (Auto) 30.5 [place] % (Auto) 9.2 Eos % (Auto) 1.2 Baso % (Auto) 0.6 Neut # 2.7 Lymph # 1.4 [place] # 0.4 Eos # 0.1 Baso # 0.0 Sodium 133 Potassium 4.1 Chloride 104 Carbon Dioxide 27 Anion Gap 6 L BUN 14 Creatinine 0.9 Est GFR ( Amer) > 60 Est GFR (Non-Af Amer) > 60 Random Glucose 96 Calcium 7.8 L Phosphorus 2.4 L Magnesium 2.1 Total Bilirubin 0.4 AST 46 ALT 37 Alkaline Phosphatase 192 H Total Protein 6.0 L Albumin 2.2 L Globulin 3.7 Albumin/Globulin Ratio 0.6 L Triglycerides 167 H Cholesterol 98 LDL Cholesterol Direct 62 HDL Cholesterol 15 L - Imaging and Cardiology CT scan - head Status: Image reviewed by me, Report reviewed by me (Chronic small vesssel disease and white matter disease. No acute findings. ) Assessment & Plan (1) Dysphagia Assessment and Plan: This does not seem to be neurologically based and may be due to GI issues and/ or generalized deconditioning and sepsis. Speech/swallow evaluation concurrent with speech therapy is recommended. Considering his history, a brainstem stroke is possible, but will need an MRI to evaluate for this. An MRI of the brain without contrast may be performed. This does NOT appear to be due to any auto-immune conditions such as Myasthenia or Lambert-Eaton based on exam findings and history. Status: Acute Priority: Medium (2) Weakness Status: Chronic Priority: Medium (3) Altered mental status Status: Resolved Priority: Low (4) Near syncope Status: Resolved Priority: Medium (5) Seizure disorder Status: Chronic Priority: Low
[2017-08-20] MEDS ORDERED: PPN #6 IV ONE (18:00)
--- NOTE | 2017-08-20 18:33 | CP.PCM.PN ---
Subjective - Date & Time of Evaluation Date of Evaluation: 08/20/17 Time of Evaluation: 10:00 - Subjective Subjective: clinically same Objective - Vital Signs/Intake and Output Vital Signs (last 24 hours): Temp Pulse Resp BP Pulse Ox 98.8 F 78 18 100/60 97 08/20/17 17:17 08/20/17 17:17 08/20/17 17:17 08/20/17 17:17 08/20/17 17:17 Intake and Output: 08/20/17 08/20/17 06:59 18:59 Intake Total 976 Output Total 1150 Balance -174 - Medications Medications: Current Medications Allopurinol (Zyloprim) 100 mg PO DAILY [facility] Last Admin: 08/19/17 10:04 Dose: 100 mg Aspirin (Aspirin Chewable) 81 mg PO DAILY [facility] Last Admin: 08/19/17 11:26 Dose: 81 mg Docusate Sodium (Colace) 100 mg PO DAILY [facility] Last Admin: 08/19/17 10:10 Dose: Not Given Dronabinol (Marinol) 2.5 mg PO BID [facility] Last Admin: 08/20/17 17:21 Dose: 2.5 mg Folic Acid (Folic Acid) 1 mg PO DAILY [facility] Last Admin: 08/19/17 10:05 Dose: 1 mg Cefepime HCl (Maxipime Iv 1 Gm Premix) 1 gm in 50 mls @ 100 mls/hr IVPB Q12H [facility] Last Admin: 08/20/17 01:10 Dose: 100 mls/hr Vancomycin HCl 1 gm/ Sodium (Chloride) 250 mls @ 166.667 mls/hr IVPB Q24H [facility] Last Admin: 08/17/17 22:04 Dose: 166.667 mls/hr Multivitamins/Vitamin C 10 ml/Chromium/Copper/Manganese/Zinc 1 ml/ Amino Acids 1,011 mls @ 42 mls/hr IV .Q24H ONE Stop: 08/21/17 17:59 Metoprolol Succinate (Toprol Xl) 25 mg PO DAILY [facility] Last Admin: 08/19/17 10:04 Dose: 25 mg Ondansetron HCl (Zofran Inj) 4 mg IVP Q6H PRN PRN Reason: Nausea/Vomiting Pantoprazole Sodium (Protonix Inj) 40 mg IVP DAILY [facility] Last Admin: 08/19/17 10:16 Dose: 40 mg Polyethylene Glycol (Miralax) 17 gm PO DAILY [facility] Rosuvastatin Calcium (Crestor) 2.5 mg PO HS [facility] Last Admin: 08/19/17 21:41 Dose: Not Given Sodium Bicarbonate (Sodium Bicarbonate Tab) 650 mg PO Q6 [facility] Last Admin: 08/20/17 17:21 Dose: 650 mg - Labs Labs: 08/20/17 11:56 08/20/17 11:56 PT 18.6 SECONDS (9.7-12.2) H 08/15/17 20:05 INR 1.6 08/15/17 20:05 APTT 44 SECONDS (21-34) H 08/15/17 20:05 Assessment and Plan (1) Alcohol dependence Status: Acute (2) Alcohol intoxication Status: Acute (3) Aortic aneurysm Status: Acute (4) Dehydration Status: Acute (5) DVT prophylaxis Status: Acute (6) Dyslipidemia Status: Chronic (7) Gout Status: Chronic (8) HTN (hypertension) Status: Acute (9) Pancreatitis Status: Acute (10) Seizure disorder Status: Chronic (11) Weakness Status: Chronic (12) Weight loss Status: Acute
[2017-08-20] MEDS: Rosuvastatin Calcium 2.5 mg Tab PO SCH (22:15)
[2017-08-21] MEDS: Cefepime IV 1 gm in Dextrose 1 GM/50 ML BAG IVPB SCH ×2 (00:27→13:32)
[2017-08-21 07:48] LABS: BASO % 1.1 % (0.0-2.0); EOS # 0.1 K/uL (0.0-0.7); EOS % 1.3 % (0.0-4.0); HEMATOCRIT 29.3 % (35.0-51.0); LYMPH % 27.2 % (20.0-40.0); MEAN CELL VOLUME 88.3 fL (80.0-94.0); MEAN PLATELET VOLUME 8.5 fL (7.2-11.7); MONO # 0.5 K/uL (0.0-0.8); MONO % 13.4 % (0.0-10.0); NRBC % 0.1 % (0.0-2.0); RED CELL DISTRIBUTION WIDTH 13.7 % (11.5-14.5); WHITE BLOOD COUNT 3.8 K/uL (4.8-10.8)
[2017-08-21 08:05] LABS: ALB/GLOB RATIO 0.8 (1.0-2.1); ALKALINE PHOSPHATASE 166 U/L (38-126); ALT/SGPT 36 U/L (21-72); AST/SGOT 43 U/L (17-59); BILIRUBIN,TOTAL 0.5 mg/dL (0.2-1.3); BLOOD UREA NITROGEN 14 mg/dL (9-20); CALCIUM 7.5 mg/dl (8.6-10.4); CARBON DIOXIDE 25 mmol/L (22-30); CHLORIDE 104 mmol/L (98-107); GFR AFRICAN-AMERICAN > 60; GLUCOSE,RANDOM 102 mg/dL (75-110); PHOSPHOROUS 2.9 mg/dL (2.5-4.5); POTASSIUM 3.7 mmol/L (3.6-5.2); SODIUM 132 mmol/L (132-148); TOTAL PROTEIN 4.8 g/dL (6.3-8.3)
[2017-08-21] MEDS: Metoprolol Succinate 25 mg XL Tab PO SCH (10:59)
[2017-08-21] MEDS: POLYETHYLENE GLYCOL 3350 17 GM/Dose PACKET PO SCH (10:59)
--- NOTE | 2017-08-21 14:25 | CP.PCM.PN ---
Subjective - Date & Time of Evaluation Date of Evaluation: 08/21/17 Time of Evaluation: 09:00 - Subjective Subjective: improving slowly less drainage Objective - Vital Signs/Intake and Output Vital Signs (last 24 hours): Temp Pulse Resp BP Pulse Ox 99.2 F 81 18 111/71 98 08/21/17 07:35 08/21/17 07:35 08/21/17 07:35 08/21/17 07:35 08/21/17 07:35 Intake and Output: 08/21/17 08/21/17 06:59 18:59 Intake Total 840 Output Total 200 Balance 640 - Medications Medications: Current Medications Allopurinol (Zyloprim) 100 mg PO DAILY [facility] Last Admin: 08/21/17 10:59 Dose: 100 mg Aspirin (Aspirin Chewable) 81 mg PO DAILY [facility] Last Admin: 08/21/17 10:59 Dose: 81 mg Docusate Sodium (Colace) 100 mg PO DAILY [facility] Last Admin: 08/21/17 11:00 Dose: Not Given Dronabinol (Marinol) 2.5 mg PO BID [facility] Last Admin: 08/21/17 10:59 Dose: 2.5 mg Folic Acid (Folic Acid) 1 mg PO DAILY [facility] Last Admin: 08/21/17 10:59 Dose: 1 mg Cefepime HCl (Maxipime Iv 1 Gm Premix) 1 gm in 50 mls @ 100 mls/hr IVPB Q12H [facility] Last Admin: 08/21/17 13:32 Dose: 100 mls/hr Vancomycin HCl 1 gm/ Sodium (Chloride) 250 mls @ 166.667 mls/hr IVPB Q24H [facility] Last Admin: 08/17/17 22:04 Dose: 166.667 mls/hr Multivitamins/Vitamin C 10 ml/Chromium/Copper/Manganese/Zinc 1 ml/ Amino Acids 1,011 mls @ 42 mls/hr IV .Q24H ONE Stop: 08/21/17 17:59 Last Admin: 08/20/17 18:00 Dose: 42 mls/hr Chromium/Copper/Manganese/Zinc 1 ml/ Parenteral Electrolytes 20 ml/ Amino Acids 1,021 mls @ 42 mls/hr IV .Q24H ONE Stop: 08/22/17 17:59 Metoprolol Succinate (Toprol Xl) 25 mg PO DAILY [facility] Last Admin: 08/21/17 10:59 Dose: 25 mg Ondansetron HCl (Zofran Inj) 4 mg IVP Q6H PRN PRN Reason: Nausea/Vomiting Pantoprazole Sodium (Protonix Inj) 40 mg IVP DAILY [facility] Last Admin: 08/21/17 10:59 Dose: 40 mg Polyethylene Glycol (Miralax) 17 gm PO DAILY [facility] Last Admin: 08/21/17 10:59 Dose: Not Given Rosuvastatin Calcium (Crestor) 2.5 mg PO HS [facility] Last Admin: 08/20/17 22:15 Dose: Not Given Sodium Bicarbonate (Sodium Bicarbonate Tab) 650 mg PO Q6 [facility] Last Admin: 08/21/17 13:32 Dose: Not Given - Labs Labs: 08/21/17 07:24 08/21/17 07:24 PT 18.6 SECONDS (9.7-12.2) H 08/15/17 20:05 INR 1.6 08/15/17 20:05 APTT 44 SECONDS (21-34) H 08/15/17 20:05 - Constitutional Appears: Non-toxic, Cachectic, Chronically Ill - Head Exam Head Exam: NORMOCEPHALIC - Eye Exam Eye Exam: PERRL. absent: Scleral icterus - ENT Exam ENT Exam: Mucous Membranes Dry, Normal External Ear Exam - Neck Exam Neck Exam: absent: Lymphadenopathy - Respiratory Exam Respiratory Exam: Decreased Breath Sounds, Clear to Ausculation Bilateral - Cardiovascular Exam Cardiovascular Exam: REGULAR RHYTHM, +S1, +S2 - GI/Abdominal Exam GI & Abdominal Exam: Distended, Soft. absent: Tenderness - Rectal Exam Rectal Exam: Deferred - Exam Exam: NORMAL INSPECTION - Extremities Exam Extremities Exam: absent: Pedal Edema - Back Exam Back Exam: absent: CVA tenderness (L), CVA tenderness (R) - Neurological Exam Neurological Exam: Alert, Awake, Oriented x3 - Psychiatric Exam Psychiatric exam: Depressed - Skin Skin Exam: Intact Assessment and Plan (1) Altered mental status Status: Resolved (2) Aortic aneurysm Status: Acute (3) DVT prophylaxis Status: Acute (4) HTN (hypertension) Status: Acute (5) Near syncope Status: Resolved (6) Pancreatitis Status: Acute (7) Seizure disorder Status: Chronic
--- NOTE | 2017-08-21 17:05 | CP.PCM.PN ---
Subjective - Date & Time of Evaluation Date of Evaluation: 08/21/17 Time of Evaluation: 10:00 - Subjective Subjective: clinically same Objective - Vital Signs/Intake and Output Vital Signs (last 24 hours): Temp Pulse Resp BP Pulse Ox 99.2 F 81 18 111/71 98 08/21/17 07:35 08/21/17 07:35 08/21/17 07:35 08/21/17 07:35 08/21/17 07:35 Intake and Output: 08/21/17 08/21/17 06:59 18:59 Intake Total 840 330 Output Total 200 Balance 640 330 - Medications Medications: Current Medications Allopurinol (Zyloprim) 100 mg PO DAILY [facility] Last Admin: 08/21/17 10:59 Dose: 100 mg Aspirin (Aspirin Chewable) 81 mg PO DAILY [facility] Last Admin: 08/21/17 10:59 Dose: 81 mg Docusate Sodium (Colace) 100 mg PO DAILY [facility] Last Admin: 08/21/17 11:00 Dose: Not Given Dronabinol (Marinol) 2.5 mg PO BID [facility] Last Admin: 08/21/17 10:59 Dose: 2.5 mg Folic Acid (Folic Acid) 1 mg PO DAILY [facility] Last Admin: 08/21/17 10:59 Dose: 1 mg Cefepime HCl (Maxipime Iv 1 Gm Premix) 1 gm in 50 mls @ 100 mls/hr IVPB Q12H [facility] Last Admin: 08/21/17 13:32 Dose: 100 mls/hr Vancomycin HCl 1 gm/ Sodium (Chloride) 250 mls @ 166.667 mls/hr IVPB Q24H [facility] Last Admin: 08/17/17 22:04 Dose: 166.667 mls/hr Multivitamins/Vitamin C 10 ml/Chromium/Copper/Manganese/Zinc 1 ml/ Amino Acids 1,011 mls @ 42 mls/hr IV .Q24H ONE Stop: 08/21/17 17:59 Last Admin: 08/20/17 18:00 Dose: 42 mls/hr Chromium/Copper/Manganese/Zinc 1 ml/ Parenteral Electrolytes 20 ml/ Amino Acids 1,021 mls @ 42 mls/hr IV .Q24H ONE Stop: 08/22/17 17:59 Metoprolol Succinate (Toprol Xl) 25 mg PO DAILY [facility] Last Admin: 08/21/17 10:59 Dose: 25 mg Ondansetron HCl (Zofran Inj) 4 mg IVP Q6H PRN PRN Reason: Nausea/Vomiting Pantoprazole Sodium (Protonix Inj) 40 mg IVP DAILY [facility] Last Admin: 08/21/17 10:59 Dose: 40 mg Polyethylene Glycol (Miralax) 17 gm PO DAILY [facility] Last Admin: 08/21/17 10:59 Dose: Not Given Rosuvastatin Calcium (Crestor) 2.5 mg PO HS [facility] Last Admin: 08/20/17 22:15 Dose: Not Given Sodium Bicarbonate (Sodium Bicarbonate Tab) 650 mg PO Q6 [facility] Last Admin: 08/21/17 13:32 Dose: Not Given - Labs Labs: 08/21/17 07:24 08/21/17 07:24 PT 18.6 SECONDS (9.7-12.2) H 08/15/17 20:05 INR 1.6 08/15/17 20:05 APTT 44 SECONDS (21-34) H 08/15/17 20:05 Assessment and Plan (1) Alcohol dependence Status: Acute (2) Alcohol intoxication Status: Acute (3) Aortic aneurysm Status: Acute (4) Dehydration Status: Acute (5) DVT prophylaxis Status: Acute (6) Dyslipidemia Status: Chronic (7) Gout Status: Chronic (8) HTN (hypertension) Status: Acute (9) Pancreatitis Status: Acute (10) Seizure disorder Status: Chronic (11) Weakness Status: Chronic (12) Weight loss Status: Acute
[2017-08-21] MEDS ORDERED: PPN #7 IV ONE (18:00)
[2017-08-21] MEDS: Rosuvastatin Calcium 2.5 mg Tab PO SCH (21:40)
[2017-08-22] MEDS: Cefepime IV 1 gm in Dextrose 1 GM/50 ML BAG IVPB SCH ×3 (00:02→23:55)
[2017-08-22 06:34] LABS: BASO # 0.1 K/uL (0.0-0.2); BASO % 1.2 % (0.0-2.0); EOS % 1.1 % (0.0-4.0); LYMPH # 1.3 K/uL (1.0-4.3); LYMPH % 31.2 % (20.0-40.0); MEAN CELL VOLUME 88.3 fL (80.0-94.0); MEAN CORPUSCULAR HEMOGLOBIN 30.2 pg (27.0-31.0); MEAN CORPUSCULAR HGB CONC 34.2 g/dL (33.0-37.0); MONO # 0.5 K/uL (0.0-0.8); MONO % 12.8 % (0.0-10.0); NRBC % 0.1 % (0.0-2.0); RED CELL DISTRIBUTION WIDTH 13.7 % (11.5-14.5); WHITE BLOOD COUNT 4.3 K/uL (4.8-10.8)
[2017-08-22 06:50] LABS: ALB/GLOB RATIO 0.8 (1.0-2.1); ALKALINE PHOSPHATASE 168 U/L (38-126); ALT/SGPT 34 U/L (21-72); AST/SGOT 56 U/L (17-59); BILIRUBIN,TOTAL 0.5 mg/dL (0.2-1.3); BLOOD UREA NITROGEN 16 mg/dL (9-20); CALCIUM 7.6 mg/dl (8.6-10.4); CARBON DIOXIDE 27 mmol/L (22-30); CHLORIDE 104 mmol/L (98-107); GFR AFRICAN-AMERICAN > 60; GLUCOSE,RANDOM 104 mg/dL (75-110); PHOSPHOROUS 2.4 mg/dL (2.5-4.5); POTASSIUM 3.9 mmol/L (3.6-5.2); SODIUM 132 mmol/L (132-148); TOTAL PROTEIN 4.9 g/dL (6.3-8.3)
--- NOTE | 2017-08-22 08:47 | CP.PCM.PN ---
Subjective - Date & Time of Evaluation Date of Evaluation: 08/22/17 Time of Evaluation: 08:37 - Subjective Subjective: PGY2 Progress note for Dr. Jeffrey's service: Patient seen and examined at bedside. No acute overnight events per nursing. States he "feels good" at bedside. He is oriented to person/time, and is aware of president, but not to place. Nursing reports patient is able to tolerate liquid diet but must be coached and prodded to eat. At bedside patient denied any pain or trouble swallowing. Denies fever, chills, headache, changes in vision, chest pain, palpitations, dyspnea, cough, abdominal pain, nausea/ vomiting, diarrhea/constipation, or any additional acute complaints. Objective - Vital Signs/Intake and Output Vital Signs (last 24 hours): Temp Pulse Resp BP Pulse Ox 98.0 F 79 20 99/54 L 98 08/22/17 08:02 08/22/17 08:02 08/22/17 08:02 08/22/17 08:02 08/22/17 08:02 Intake and Output: 08/22/17 08/22/17 06:59 18:59 Intake Total 872 Output Total 400 Balance 472 - Medications Medications: Current Medications Allopurinol (Zyloprim) 100 mg PO DAILY [facility] Last Admin: 08/21/17 10:59 Dose: 100 mg Aspirin (Aspirin Chewable) 81 mg PO DAILY [facility] Last Admin: 08/21/17 10:59 Dose: 81 mg Docusate Sodium (Colace) 100 mg PO DAILY [facility] Last Admin: 08/21/17 11:00 Dose: Not Given Dronabinol (Marinol) 2.5 mg PO BID [facility] Last Admin: 08/21/17 18:12 Dose: 2.5 mg Folic Acid (Folic Acid) 1 mg PO DAILY [facility] Last Admin: 08/21/17 10:59 Dose: 1 mg Cefepime HCl (Maxipime Iv 1 Gm Premix) 1 gm in 50 mls @ 100 mls/hr IVPB Q12H [facility] Last Admin: 08/22/17 00:02 Dose: 100 mls/hr Vancomycin HCl 1 gm/ Sodium (Chloride) 250 mls @ 166.667 mls/hr IVPB Q24H [facility] Last Admin: 08/17/17 22:04 Dose: 166.667 mls/hr Chromium/Copper/Manganese/Zinc 1 ml/ Parenteral Electrolytes 20 ml/ Amino Acids 1,021 mls @ 42 mls/hr IV .Q24H ONE Stop: 08/22/17 17:59 Last Admin: 08/21/17 18:13 Dose: 42 mls/hr Metoprolol Succinate (Toprol Xl) 25 mg PO DAILY [facility] Last Admin: 08/21/17 10:59 Dose: 25 mg Ondansetron HCl (Zofran Inj) 4 mg IVP Q6H PRN PRN Reason: Nausea/Vomiting Pantoprazole Sodium (Protonix Inj) 40 mg IVP DAILY [facility] Last Admin: 08/21/17 10:59 Dose: 40 mg Polyethylene Glycol (Miralax) 17 gm PO DAILY [facility] Last Admin: 08/21/17 10:59 Dose: Not Given Rosuvastatin Calcium (Crestor) 2.5 mg PO HS [facility] Last Admin: 08/21/17 21:40 Dose: Not Given Sodium Bicarbonate (Sodium Bicarbonate Tab) 650 mg PO Q6 [facility] Last Admin: 08/22/17 06:04 Dose: 650 mg - Labs Labs: 08/22/17 06:25 08/22/17 06:25 PT 18.6 SECONDS (9.7-12.2) H 08/15/17 20:05 INR 1.6 08/15/17 20:05 APTT 44 SECONDS (21-34) H 08/15/17 20:05 - Additional Findings Additional findings: - Constitutional Appears: Non-toxic - Head Exam Head Exam: ATRAUMATIC - ENT Exam ENT Exam: Mucous Membranes Dry (poor dentition) - Witnessed pt eat. With prodding he eats/swallows with no coughing or other signs of aspiration. No pocketing witnessed. - Neck Exam Neck Exam: absent: Lymphadenopathy - Respiratory Exam Respiratory Exam: Clear to Auscultation Bilateral - Cardiovascular Exam Cardiovascular Exam: REGULAR RHYTHM, +S1, +S2 - GI/Abdominal Exam GI & Abdominal Exam: Soft - Extremities Exam Extremities Exam: absent: Calf Tenderness - Back Exam Back Exam: absent: CVA tenderness (L), CVA tenderness (R) - Neurological Exam Neurological Exam: Alert, Awake, Oriented x2 (not oriented to place) - Psychiatric Exam Psychiatric exam: Normal Affect - Skin Skin Exam: Warm, Dry Assessment and Plan - Assessment and Plan (Free Text) Plan: 71 years old male, with hx of CVA, AAA, TAA, presents for dysphagia, vomiting, weight loss, bacteremia, fatigue: Dysphagia 08/22: Events over weekend: GI - EGD unremarkable, ADAT, OPDX colonoscopy for wt loss when medically stable, believe dysphagia may be neurologic in origin - Pt tolerating liquid diet at bedside with prodding from nursing staff - Continue Liquid Diet until after barium swallow tomorrow, NPO after midnight - Barium swallow tomorrow, 08/23/17 @ 11 AM per instructions from speech Marinol 2.5 mg PO BID [facility] Obst Series (08/15/17): No evidence of acute obstruction. Abd x ray 08/13/17: mildly distended small bowel ileus vs early obstruction. Mildly distended loops of small bowel in left flank and RUQ. Vascular disease with multiple stents - abdominal aorta and iliacs. CXR 08/12/17: Left hilar/infrahilar opacity -> cannot exclude pneumonia. Biapical pleural thickening/granulamatous changes. Esophagus x ray 08/04/17: could not evaluate because pt could not ingest barium contrast GI Consult, Dr. Avalos, recs appreciated. - EGD unremarkable, ADAT, OPDX colonoscopy for wt loss when medically stable, believe dysphagia may be neurologic in origin Altered Mental Status Neurology consulted, Dr. Jeffers, help appreciated - CT head (08/19/17): read as as Chronic small vessel disease/white matter disease. No acute findings. - speech/swallow eval repeat recommended - recommend MRI brain w/o contrast for brainstem stroke - MRI has history of aneurysm and iliac stent placement, produced card saying MRI safe - f/u MRI brain - not believed to be caused by autoimmune condition Hx of Stents at Iliac and Abdominal Aorta 08/22: vasc surg is recommending transfer back to [place] as this was site of patients initial surgery. 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 Will consider once workup for stroke completed. 08/18: vasc surg is recommending transfer back to [place] as this was site of patients initial surgery 08/17: surgery team recommends transfer back to [place] which was site of patient's initial surgery 08/15: f/u CT angio pelvis to assess for any blockage Ct angio pelvis 08/15/17: Post aortic bifemoral endograft repair Dense fluid collection, 6x3x8 cm, surrounding left common femoral artery - likely purulence than hematoma or simple fluid. No active extravasation within dense fluid collection. - Abd x ray 08/13/17: mildly distended small bowel ileus vs early obstruction. Mildly distended loops of small bowel in left flank and RUQ. Vascular disease with multiple stents - abdominal aorta and iliacs. AAA s/p repair -04/2017, iliac angioplasty/stent 05/2017 Bacteremia Gram (+) 08/22: Pt afebrile over the weekend - ECHO (08/17/17): Poor acoustic windows. Grossly good LV systolic dysfunction. Recommend ARIADNA for evaluation of cardiac structures. - Per Dr. Jeffrey, no ARIADNA at this time. ARIADNA can be performed at [place] when patient transferred. Vancomycin 1 Gm/Ns 200 Ml) 1 gm in 200 mls @ 133.333 mls/hr IVPB Q24H [facility] Cefepime 1 gram IV Q12H [facility] ID consult, Dr. Ovalles, recs appreciated. - positive cultures most likely from repair of his iliac and abdominal aorta / 2 to results from cat scan Blood culture (08/12/17): Enterococcus Avium (1 bottle only) - repeat Blood culture (08/18/17): No growth x 4 days Gout; chronic stable Allopurinol (Zyloprim) 100 mg PO DAILY [facility] Hypertension; chronic stable Well controlled, borderline hypotensive this AM Metoprolol Succinate (Toprol Xl) 25 mg PO DAILY [facility] - new parameters entered (Hold if SBP <100, HR < 65) Will monitor and encourage fluid intake Hyperlipidemia; chronic stable ASA 81 mg PO DAILY [facility] Crestor 2.5 mg PO HS [facility] Electrolyte Imbalance; will continue to monitor 08/22: Phos 2.4 repleted, hypokalemia/hypomagnesemia resolved Prophylaxis PT/OT SCDs Protonix Ec Tab 40 mg PO DAILY [facility] Colace 100 mg PO DAILY [facility] Folic Acid 1 mg PO DAILY [facility] Dispo: Pt for barium swallow tomorrow, he is NPO after midnight. If MRI brain negative, will reach out to [facility] for transfer to fix endoleak. Once evaluation of stroke 2/2 AMS is completed and patient is stable, patient may be discharged to [facility], which was the site of patients initial surgery (Stents at Iliac and Abdominal Aorta). 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 Bernard Gonzalez PGY-2 All management as per Dr Blayne Jeffrey
[2017-08-22] MEDS: Metoprolol Succinate 25 mg XL Tab PO SCH ×3 (10:29→11:05)
[2017-08-22] MEDS: POLYETHYLENE GLYCOL 3350 17 GM/Dose PACKET PO SCH (10:53)
--- NOTE | 2017-08-22 14:59 | CP.PCM.PN ---
Subjective - Date & Time of Evaluation Date of Evaluation: 08/22/17 Time of Evaluation: 14:57 - Subjective Subjective: Mr. Perez was seen and examined at the bedside. He is alert, oriented in all spheres. He further claims that his speech is slightly garbled due to his illfitting dentures. He further states of losing a lot of weight in the recent months. He denies any headache, dizziness, lightheadedness, numbness, nausea, or vomiting. There was no untoward events overnight. Objective - Vital Signs/Intake and Output Vital Signs (last 24 hours): Temp Pulse Resp BP Pulse Ox 98.0 F 79 20 99/54 L 98 08/22/17 08:02 08/22/17 08:02 08/22/17 08:02 08/22/17 08:02 08/22/17 08:02 Intake and Output: 08/22/17 08/22/17 06:59 18:59 Intake Total 872 444 Output Total 400 200 Balance 472 244 - Medications Medications: Current Medications Allopurinol (Zyloprim) 100 mg PO DAILY [facility] Last Admin: 08/22/17 10:28 Dose: 100 mg Aspirin (Aspirin Chewable) 81 mg PO DAILY [facility] Last Admin: 08/22/17 10:28 Dose: 81 mg Docusate Sodium (Colace) 100 mg PO DAILY [facility] Last Admin: 08/22/17 10:28 Dose: 100 mg Dronabinol (Marinol) 2.5 mg PO BID [facility] Last Admin: 08/22/17 10:28 Dose: 2.5 mg Folic Acid (Folic Acid) 1 mg PO DAILY [facility] Last Admin: 08/22/17 10:28 Dose: 1 mg Cefepime HCl (Maxipime Iv 1 Gm Premix) 1 gm in 50 mls @ 100 mls/hr IVPB Q12H [facility] Last Admin: 08/22/17 11:45 Dose: 100 mls/hr Vancomycin HCl 1 gm/ Sodium (Chloride) 250 mls @ 166.667 mls/hr IVPB Q24H [facility] Last Admin: 08/17/17 22:04 Dose: 166.667 mls/hr Chromium/Copper/Manganese/Zinc 1 ml/ Parenteral Electrolytes 20 ml/ Amino Acids 1,021 mls @ 42 mls/hr IV .Q24H ONE Stop: 08/22/17 17:59 Last Admin: 08/21/17 18:13 Dose: 42 mls/hr Metoprolol Succinate (Toprol Xl) 25 mg PO DAILY [facility] Last Admin: 08/22/17 10:29 Dose: 25 mg Ondansetron HCl (Zofran Inj) 4 mg IVP Q6H PRN PRN Reason: Nausea/Vomiting Pantoprazole Sodium (Protonix Inj) 40 mg IVP DAILY [facility] Last Admin: 08/22/17 10:28 Dose: 40 mg Polyethylene Glycol (Miralax) 17 gm PO DAILY [facility] Last Admin: 08/22/17 10:53 Dose: Not Given Potassium Phos/Sodium Phos (Neutra-Phos) 1 pkt PO BID [facility] Stop: 08/24/17 10:01 Rosuvastatin Calcium (Crestor) 2.5 mg PO HS [facility] Last Admin: 08/21/17 21:40 Dose: Not Given Sodium Bicarbonate (Sodium Bicarbonate Tab) 650 mg PO Q6 [facility] Last Admin: 08/22/17 11:54 Dose: Not Given - Labs Labs: 08/22/17 06:25 08/22/17 06:25 PT 18.6 SECONDS (9.7-12.2) H 08/15/17 20:05 INR 1.6 08/15/17 20:05 APTT 44 SECONDS (21-34) H 08/15/17 20:05 - Constitutional Appears: No Acute Distress - Head Exam Head Exam: ATRAUMATIC - Neurological Exam Neurological Exam: Alert, Awake, Oriented x3 Additional comments: Dysarthric speech due to poor dentition, no aphasia, otherwise content of speech and comprehension is normal. Generalized weakness proximally and distally in all extremities with muscle wasting. Reflexes and sensation were normal. Gait could not be tested due to weakness. Plantar responses were downgoing. Assessment and Plan (1) Dysphagia Assessment & Plan: Case discussed with Dr. evans, continue all current medical, physical, and occupational therapies. Pending MRI of the brain result Status: Acute
--- NOTE | 2017-08-22 15:07 | MRI ---
PROCEDURE: MRI BRAIN WITHOUT CONTRAST HISTORY: per neuro, r/o brainstem stroke, AMS COMPARISON: Unenhanced head CT 08/20/2017. TECHNIQUE: Multiplanar, multisequence MR images of the brain were obtained without intravenous contrast enhancement. FINDINGS: HEMORRHAGE: None DWI: No evidence of an acute or early subacute infarction. BRAIN PARENCHYMA: Diffuse cerebral atrophy and chronic microangiopathy are reiterated as well as left thalamic chronic lacune. No acute intracranial findings are appreciable by standard MR criteria. There is no mass effect or suspicious extra-axial collection in the posterior fossa contents appear stable. VENTRICLES: Unremarkable. No hydrocephalus. CRANIUM: Unremarkable. ORBITS: Grossly unremarkable. PARANASAL SINUSES/MASTOIDS: Clear VASCULAR SYSTEM: Skull base flow voids intact. OTHER FINDINGS: None. IMPRESSION: Age-related neuro degenerative changes are reiterated. No acute brain infarction or intracranial hemorrhage appreciable this time.
[2017-08-22] MEDS: Potassium & Sodium Phosphate PO SCH (17:47)
--- NOTE | 2017-08-22 19:41 | CP.PCM.PN ---
Subjective - Date & Time of Evaluation Date of Evaluation: 08/22/17 Time of Evaluation: 11:20 - Subjective Subjective: clinically same Objective - Vital Signs/Intake and Output Vital Signs (last 24 hours): Temp Pulse Resp BP Pulse Ox 97.6 F 73 20 106/66 99 08/22/17 15:12 08/22/17 15:12 08/22/17 15:12 08/22/17 15:12 08/22/17 15:12 Intake and Output: 08/22/17 08/23/17 18:59 06:59 Intake Total 444 Output Total 200 Balance 244 - Medications Medications: Current Medications Allopurinol (Zyloprim) 100 mg PO DAILY [facility] Last Admin: 08/22/17 10:28 Dose: 100 mg Aspirin (Aspirin Chewable) 81 mg PO DAILY [facility] Last Admin: 08/22/17 10:28 Dose: 81 mg Docusate Sodium (Colace) 100 mg PO DAILY [facility] Last Admin: 08/22/17 10:28 Dose: 100 mg Dronabinol (Marinol) 2.5 mg PO BID [facility] Last Admin: 08/22/17 17:52 Dose: Not Given Folic Acid (Folic Acid) 1 mg PO DAILY [facility] Last Admin: 08/22/17 10:28 Dose: 1 mg Cefepime HCl (Maxipime Iv 1 Gm Premix) 1 gm in 50 mls @ 100 mls/hr IVPB Q12H [facility] Last Admin: 08/22/17 11:45 Dose: 100 mls/hr Vancomycin HCl 1 gm/ Sodium (Chloride) 250 mls @ 166.667 mls/hr IVPB Q24H [facility] Last Admin: 08/17/17 22:04 Dose: 166.667 mls/hr Metoprolol Succinate (Toprol Xl) 25 mg PO DAILY [facility] Last Admin: 08/22/17 10:29 Dose: 25 mg Ondansetron HCl (Zofran Inj) 4 mg IVP Q6H PRN PRN Reason: Nausea/Vomiting Pantoprazole Sodium (Protonix Inj) 40 mg IVP DAILY [facility] Last Admin: 08/22/17 10:28 Dose: 40 mg Polyethylene Glycol (Miralax) 17 gm PO DAILY [facility] Last Admin: 08/22/17 10:53 Dose: Not Given Potassium Phos/Sodium Phos (Neutra-Phos) 1 pkt PO BID [facility] Stop: 08/24/17 10:01 Last Admin: 08/22/17 17:47 Dose: 1 pkt Rosuvastatin Calcium (Crestor) 2.5 mg PO HS [facility] Last Admin: 08/21/17 21:40 Dose: Not Given Sodium Bicarbonate (Sodium Bicarbonate Tab) 650 mg PO Q6 [facility] Last Admin: 08/22/17 17:47 Dose: 650 mg - Labs Labs: 08/22/17 06:25 08/22/17 06:25 PT 18.6 SECONDS (9.7-12.2) H 08/15/17 20:05 INR 1.6 08/15/17 20:05 APTT 44 SECONDS (21-34) H 08/15/17 20:05 Assessment and Plan (1) Alcohol dependence Status: Acute (2) Alcohol intoxication Status: Acute (3) Aortic aneurysm Status: Acute (4) Dehydration Status: Acute (5) DVT prophylaxis Status: Acute (6) Dyslipidemia Status: Chronic (7) Gout Status: Chronic (8) HTN (hypertension) Status: Acute (9) Pancreatitis Status: Acute (10) Seizure disorder Status: Chronic (11) Weakness Status: Chronic (12) Weight loss Status: Acute
[2017-08-22] MEDS: Dextrose 5%/0.9% NS 1,000 ML IV SCH (21:52)
[2017-08-22] MEDS: Rosuvastatin Calcium 2.5 mg Tab PO SCH (22:43)
[2017-08-23] MEDS ORDERED: Barium Sulfate for Susp 96% w/w 176g Bottle PR ONE (09:24)
[2017-08-23] MEDS ORDERED: Barium Sulfate for Susp 98% w/w 340g Bottle ONE (09:25)
--- NOTE | 2017-08-23 10:42 | CP.PCM.PN ---
Subjective - Date & Time of Evaluation Date of Evaluation: 08/23/17 Time of Evaluation: 09:45 - Subjective Subjective: Medicine note- Dr. Jeffrey's service Patient was seen and examined at bedside. Patient reports no acute complaints at this time. He states he is currently comfortable, slept well overnight. Nursing reports patient needs constant encouragement in order to eat. Patient is scheduled for Barium swallow test today. Objective - Vital Signs/Intake and Output Vital Signs (last 24 hours): Temp Pulse Resp BP Pulse Ox 98.1 F 79 20 137/70 99 08/23/17 08:33 08/23/17 08:33 08/23/17 08:33 08/23/17 08:33 08/23/17 08:33 Intake and Output: 08/23/17 08/23/17 06:59 18:59 Intake Total 1392 Output Total 200 Balance 1192 - Medications Medications: Current Medications Allopurinol (Zyloprim) 100 mg PO DAILY [facility] Last Admin: 08/22/17 10:28 Dose: 100 mg Aspirin (Aspirin Chewable) 81 mg PO DAILY [facility] Last Admin: 08/22/17 10:28 Dose: 81 mg Docusate Sodium (Colace) 100 mg PO DAILY [facility] Last Admin: 08/22/17 10:28 Dose: 100 mg Dronabinol (Marinol) 2.5 mg PO BID [facility] Last Admin: 08/22/17 17:52 Dose: Not Given Folic Acid (Folic Acid) 1 mg PO DAILY [facility] Last Admin: 08/22/17 10:28 Dose: 1 mg Cefepime HCl (Maxipime Iv 1 Gm Premix) 1 gm in 50 mls @ 100 mls/hr IVPB Q12H [facility] Last Admin: 08/22/17 23:55 Dose: 100 mls/hr Vancomycin HCl 1 gm/ Sodium (Chloride) 250 mls @ 166.667 mls/hr IVPB Q24H [facility] Last Admin: 08/17/17 22:04 Dose: 166.667 mls/hr Dextrose/Sodium Chloride (Dextrose 5%/0.9% Ns 1000 Ml) 1,000 mls @ 75 mls/hr IV .[id number] [facility] Last Admin: 08/22/17 21:52 Dose: 75 mls/hr Metoprolol Succinate (Toprol Xl) 25 mg PO DAILY [facility] Last Admin: 08/22/17 10:29 Dose: 25 mg Ondansetron HCl (Zofran Inj) 4 mg IVP Q6H PRN PRN Reason: Nausea/Vomiting Pantoprazole Sodium (Protonix Inj) 40 mg IVP DAILY [facility] Last Admin: 08/22/17 10:28 Dose: 40 mg Polyethylene Glycol (Miralax) 17 gm PO DAILY [facility] Last Admin: 08/22/17 10:53 Dose: Not Given Potassium Phos/Sodium Phos (Neutra-Phos) 1 pkt PO BID [facility] Stop: 08/24/17 10:01 Last Admin: 08/22/17 17:47 Dose: 1 pkt Rosuvastatin Calcium (Crestor) 2.5 mg PO HS [facility] Last Admin: 08/22/17 22:43 Dose: Not Given Sodium Bicarbonate (Sodium Bicarbonate Tab) 650 mg PO Q6 [facility] Last Admin: 08/23/17 05:50 Dose: 650 mg - Labs Labs: 08/22/17 06:25 08/22/17 06:25 PT 18.6 SECONDS (9.7-12.2) H 08/15/17 20:05 INR 1.6 08/15/17 20:05 APTT 44 SECONDS (21-34) H 08/15/17 20:05 - Constitutional Appears: Non-toxic, No Acute Distress - Head Exam Head Exam: ATRAUMATIC, NORMAL INSPECTION, NORMOCEPHALIC - Eye Exam Pupil Exam: NORMAL ACCOMODATION - ENT Exam ENT Exam: Mucous Membranes Moist - Respiratory Exam Respiratory Exam: Clear to Ausculation Bilateral, NORMAL BREATHING PATTERN. absent: Prolonged Expiratory Phase, Rales, Rhonchi, Wheezes - Cardiovascular Exam Cardiovascular Exam: REGULAR RHYTHM, +S1, +S2 - GI/Abdominal Exam GI & Abdominal Exam: Soft, Normal Bowel Sounds. absent: Tenderness, Diminished Bowel Sounds, Hernia, Hypoactive Bowel Sounds - Extremities Exam Extremities Exam: Normal Capillary Refill, Normal Inspection - Neurological Exam Neurological Exam: Alert, Awake, Oriented x3 - Psychiatric Exam Psychiatric exam: Normal Affect, Normal Mood - Skin Skin Exam: Dry, Intact, Normal Color, Warm Assessment and Plan - Assessment and Plan (Free Text) Assessment: 71 years old male, with hx of CVA, AAA, TAA, presents for dysphagia, vomiting, weight loss, bacteremia, fatigue: Dysphagia 08/22: Events over weekend: GI - EGD unremarkable, ADAT, OPDX colonoscopy for wt loss when medically stable, believe dysphagia may be neurologic in origin - Pt tolerating liquid diet at bedside with prodding from nursing staff - Barium swallow today, 08/23/17 @ 11 AM per instructions from speech Marinol 2.5 mg PO BID [facility] Obst Series (08/15/17): No evidence of acute obstruction. Abd x ray 08/13/17: mildly distended small bowel ileus vs early obstruction. Mildly distended loops of small bowel in left flank and RUQ. Vascular disease with multiple stents - abdominal aorta and iliacs. CXR 08/12/17: Left hilar/infrahilar opacity -> cannot exclude pneumonia. Biapical pleural thickening/granulamatous changes. Esophagus x ray 08/04/17: could not evaluate because pt could not ingest barium contrast GI Consult, Dr. Avalos, recs appreciated. - EGD unremarkable, ADAT, OPDX colonoscopy for wt loss when medically stable, believe dysphagia may be neurologic in origin Altered Mental Status Neurology consulted, Dr. Jeffers, help appreciated - CT head (08/19/17): read as as Chronic small vessel disease/white matter disease. No acute findings. - speech/swallow eval repeat recommended - recommend MRI brain w/o contrast for brainstem stroke - MRI has history of aneurysm and iliac stent placement, produced card saying MRI safe - MRI Brain- Age related neuro degenerative changes are reiterated. No acute brain infarctino or intracranial hemorrhage appreciable at this time. - not believed to be caused by autoimmune condition Hx of Stents at Iliac and Abdominal Aorta 08/22: vasc surg is recommending transfer back to [place] as this was site of patients initial surgery. 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 Will consider once workup for stroke completed. 08/18: vasc surg is recommending transfer back to [place] as this was site of patients initial surgery 08/17: surgery team recommends transfer back to [place] which was site of patient's initial surgery 08/15: f/u CT angio pelvis to assess for any blockage Ct angio pelvis 08/15/17: Post aortic bifemoral endograft repair Dense fluid collection, 6x3x8 cm, surrounding left common femoral artery - likely purulence than hematoma or simple fluid. No active extravasation within dense fluid collection. - Abd x ray 08/13/17: mildly distended small bowel ileus vs early obstruction. Mildly distended loops of small bowel in left flank and RUQ. Vascular disease with multiple stents - abdominal aorta and iliacs. AAA s/p repair -04/2017, iliac angioplasty/stent 05/2017 Bacteremia Gram (+) 08/22: Pt afebrile over the weekend - ECHO (08/17/17): Poor acoustic windows. Grossly good LV systolic dysfunction. Recommend ARIADNA for evaluation of cardiac structures. - Per Dr. Jeffrey, no ARIADNA at this time. ARIADNA can be performed at [facility] when patient transferred. Vancomycin 1 Gm/Ns 200 Ml) 1 gm in 200 mls @ 133.333 mls/hr IVPB Q24H [facility] Cefepime 1 gram IV Q12H [facility] ID consult, Dr. Ovalles, recs appreciated. - positive cultures most likely from repair of his iliac and abdominal aorta 2/ 2 to results from cat scan Blood culture (08/12/17): Enterococcus Avium (1 bottle only) - repeat Blood culture (08/18/17): No growth x 4 days Gout; chronic stable Allopurinol (Zyloprim) 100 mg PO DAILY [facility] Hypertension; chronic stable Well controlled, borderline hypotensive this AM Metoprolol Succinate (Toprol Xl) 25 mg PO DAILY [facility] - new parameters entered (Hold if SBP <100, HR < 65) Will monitor and encourage fluid intake Hyperlipidemia; chronic stable ASA 81 mg PO DAILY [facility] Crestor 2.5 mg PO HS [facility] Electrolyte Imbalance; will continue to monitor 08/22: Phos 2.4 repleted, hypokalemia/hypomagnesemia resolved Prophylaxis PT/OT SCDs Protonix Ec Tab 40 mg PO DAILY [facility] Colace 100 mg PO DAILY [facility] Folic Acid 1 mg PO DAILY [facility] Dispo: Pt for barium swallow today. If MRI brain negative, will reach out to [facility] for transfer to fix endoleak. Once evaluation of stroke 2/2 AMS is completed and patient is stable, patient may be discharged to [facility], which was the site of patients initial surgery (Stents at Iliac and Abdominal Aorta). 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 All management as per Dr Blayne Jeffrey
[2017-08-23] MEDS: Dextrose 5%/0.9% NS 1,000 ML IV SCH (10:48)
[2017-08-23] MEDS: Metoprolol Succinate 25 mg XL Tab PO SCH (10:49)
[2017-08-23] MEDS: Potassium & Sodium Phosphate PO SCH ×2 (10:49→17:55)
[2017-08-23] MEDS: POLYETHYLENE GLYCOL 3350 17 GM/Dose PACKET PO SCH (10:49)
--- NOTE | 2017-08-23 11:55 | RAD ---
PROCEDURE: Modified barium swallow study. HISTORY: dysphagia, weight loss COMPARISON: None available. TECHNIQUE: Under fluoroscopic guidance, barium meals of various consistency were administered to the patient by the speech pathologist. FINDINGS: No penetration or aspiration was observed during this study. Pooling within the valleculae and piriform sinuses noted. IMPRESSION: No penetration or aspiration observed. Please refer to the detailed report and recommendations of the speech pathologist.
[2017-08-23] MEDS: Cefepime IV 1 gm in Dextrose 1 GM/50 ML BAG IVPB SCH (13:08)
[2017-08-23 14:11] LABS: BASO % 0.9 % (0.0-2.0); EOS % 0.6 % (0.0-4.0); HEMATOCRIT 29.8 % (35.0-51.0); LYMPH % 28.3 % (20.0-40.0); MEAN CELL VOLUME 88.9 fL (80.0-94.0); MEAN CORPUSCULAR HEMOGLOBIN 29.7 pg (27.0-31.0); MEAN CORPUSCULAR HGB CONC 33.4 g/dL (33.0-37.0); MEAN PLATELET VOLUME 8.3 fL (7.2-11.7); MONO # 0.6 K/uL (0.0-0.8); MONO % 15.3 % (0.0-10.0); NRBC % 0.1 % (0.0-2.0); RED CELL DISTRIBUTION WIDTH 13.8 % (11.5-14.5); WHITE BLOOD COUNT 3.7 K/uL (4.8-10.8)
[2017-08-23 14:30] LABS: ALB/GLOB RATIO 0.6 (1.0-2.1); ALKALINE PHOSPHATASE 177 U/L (38-126); ALT/SGPT 37 U/L (21-72); AST/SGOT 52 U/L (17-59); BILIRUBIN,TOTAL 0.5 mg/dL (0.2-1.3); BLOOD UREA NITROGEN 14 mg/dL (9-20); CALCIUM 7.5 mg/dl (8.6-10.4); CARBON DIOXIDE 26 mmol/L (22-30); CHLORIDE 104 mmol/L (98-107); GFR AFRICAN-AMERICAN > 60; GLUCOSE,RANDOM 91 mg/dL (75-110); MAGNESIUM 1.9 mg/dL (1.6-2.3); PHOSPHOROUS 2.5 mg/dL (2.5-4.5); POTASSIUM 3.9 mmol/L (3.6-5.2); SODIUM 133 mmol/L (132-148); TOTAL PROTEIN 6.1 g/dL (6.3-8.3)
--- NOTE | 2017-08-23 17:43 | CP.PCM.PN ---
Subjective - Date & Time of Evaluation Date of Evaluation: 08/23/17 Time of Evaluation: 10:40 - Subjective Subjective: clinically same Objective - Vital Signs/Intake and Output Vital Signs (last 24 hours): Temp Pulse Resp BP Pulse Ox 98.3 F 80 20 120/70 95 08/23/17 15:21 08/23/17 15:21 08/23/17 15:21 08/23/17 15:21 08/23/17 15:21 Intake and Output: 08/23/17 08/23/17 06:59 18:59 Intake Total 1392 606 Output Total 200 250 Balance 1192 356 - Medications Medications: Current Medications Allopurinol (Zyloprim) 100 mg PO DAILY [facility] Last Admin: 08/23/17 10:46 Dose: 100 mg Aspirin (Aspirin Chewable) 81 mg PO DAILY [facility] Last Admin: 08/23/17 10:46 Dose: 81 mg Docusate Sodium (Colace) 100 mg PO DAILY [facility] Last Admin: 08/23/17 10:47 Dose: 100 mg Dronabinol (Marinol) 2.5 mg PO BID [facility] Last Admin: 08/23/17 10:47 Dose: 2.5 mg Folic Acid (Folic Acid) 1 mg PO DAILY [facility] Last Admin: 08/23/17 10:47 Dose: 1 mg Cefepime HCl (Maxipime Iv 1 Gm Premix) 1 gm in 50 mls @ 100 mls/hr IVPB Q12H [facility] Last Admin: 08/23/17 13:08 Dose: 100 mls/hr Vancomycin HCl 1 gm/ Sodium (Chloride) 250 mls @ 166.667 mls/hr IVPB Q24H [facility] Last Admin: 08/17/17 22:04 Dose: 166.667 mls/hr Dextrose/Sodium Chloride (Dextrose 5%/0.9% Ns 1000 Ml) 1,000 mls @ 75 mls/hr IV .[id number] [facility] Last Admin: 08/23/17 10:48 Dose: 75 mls/hr Parenteral Electrolytes 20 ml/Multivitamins/Vitamin C 10 ml / Chromium/Copper/ Manganese/Zinc 1 ml/ Amino Acids 1,031 mls @ 42 mls/hr IV .Q24H [facility] Stop: 08/24/17 17:59 Fat Emulsion Intravenous (Intralipid 20%) 500 mls @ 42 mls/hr IV TTS@1800 [facility] Stop: 08/28/17 05:55 Metoprolol Succinate (Toprol Xl) 25 mg PO DAILY [facility] Last Admin: 08/23/17 10:49 Dose: Not Given Ondansetron HCl (Zofran Inj) 4 mg IVP Q6H PRN PRN Reason: Nausea/Vomiting Pantoprazole Sodium (Protonix Inj) 40 mg IVP DAILY [facility] Last Admin: 08/23/17 10:46 Dose: 40 mg Polyethylene Glycol (Miralax) 17 gm PO DAILY [facility] Last Admin: 08/23/17 10:49 Dose: Not Given Potassium Phos/Sodium Phos (Neutra-Phos) 1 pkt PO BID [facility] Stop: 08/24/17 10:01 Last Admin: 08/23/17 10:49 Dose: 1 pkt Rosuvastatin Calcium (Crestor) 2.5 mg PO HS [facility] Last Admin: 08/22/17 22:43 Dose: Not Given Sodium Bicarbonate (Sodium Bicarbonate Tab) 650 mg PO Q6 [facility] Last Admin: 08/23/17 11:22 Dose: Not Given - Labs Labs: 08/23/17 14:06 08/23/17 14:06 PT 18.6 SECONDS (9.7-12.2) H 08/15/17 20:05 INR 1.6 08/15/17 20:05 APTT 44 SECONDS (21-34) H 08/15/17 20:05 - Constitutional Appears: Well - Head Exam Head Exam: ATRAUMATIC, NORMAL INSPECTION, NORMOCEPHALIC - Eye Exam Eye Exam: EOMI, Normal appearance, PERRL Pupil Exam: NORMAL ACCOMODATION, PERRL - ENT Exam ENT Exam: Mucous Membranes Moist, Normal Exam - Neck Exam Neck Exam: Full ROM, Normal Inspection. absent: Lymphadenopathy - Respiratory Exam Respiratory Exam: Decreased Breath Sounds - Cardiovascular Exam Cardiovascular Exam: REGULAR RHYTHM, +S1, +S2 - GI/Abdominal Exam GI & Abdominal Exam: Soft, Diminished Bowel Sounds - Rectal Exam Rectal Exam: Deferred Assessment and Plan (1) Alcohol dependence Status: Acute (2) Alcohol intoxication Status: Acute (3) Aortic aneurysm Status: Acute (4) Dehydration Status: Acute (5) DVT prophylaxis Status: Acute (6) Dyslipidemia Status: Chronic (7) Gout Status: Chronic (8) HTN (hypertension) Status: Acute (9) Pancreatitis Status: Acute (10) Seizure disorder Status: Chronic (11) Weakness Status: Chronic (12) Weight loss Status: Acute
[2017-08-23] MEDS: Fat Emulsion 20% IV 500 ML IV SCH (17:54)
[2017-08-23] MEDS ORDERED: PPN #1 IV ONE (18:00)
[2017-08-23] MEDS: Rosuvastatin Calcium 2.5 mg Tab PO SCH (21:26)
[2017-08-24] MEDS: Cefepime IV 1 gm in Dextrose 1 GM/50 ML BAG IVPB SCH ×2 (00:47→13:00)
[2017-08-24 07:33] LABS: EOS % 0.8 % (0.0-4.0); HEMATOCRIT 29.7 % (35.0-51.0); LYMPH # 1.2 K/uL (1.0-4.3); LYMPH % 28.2 % (20.0-40.0); MEAN CELL VOLUME 88.9 fL (80.0-94.0); MEAN CORPUSCULAR HEMOGLOBIN 30.2 pg (27.0-31.0); MEAN PLATELET VOLUME 8.1 fL (7.2-11.7); MONO # 0.5 K/uL (0.0-0.8); MONO % 12.7 % (0.0-10.0); NRBC % 0.1 % (0.0-2.0); RED CELL DISTRIBUTION WIDTH 13.9 % (11.5-14.5); WHITE BLOOD COUNT 4.2 K/uL (4.8-10.8)
[2017-08-24 08:15] LABS: ALB/GLOB RATIO 0.8 (1.0-2.1); ALKALINE PHOSPHATASE 168 U/L (38-126); ALT/SGPT 39 U/L (21-72); AST/SGOT 39 U/L (17-59); BILIRUBIN,TOTAL 0.4 mg/dL (0.2-1.3); BLOOD UREA NITROGEN 14 mg/dL (9-20); CALCIUM 7.6 mg/dl (8.6-10.4); CARBON DIOXIDE 23 mmol/L (22-30); CHLORIDE 104 mmol/L (98-107); GFR AFRICAN-AMERICAN > 60; GLUCOSE,RANDOM 110 mg/dL (75-110); MAGNESIUM 1.8 mg/dL (1.6-2.3); PHOSPHOROUS 2.1 mg/dL (2.5-4.5); POTASSIUM 3.6 mmol/L (3.6-5.2); SODIUM 132 mmol/L (132-148); TOTAL PROTEIN 4.9 g/dL (6.3-8.3)
--- NOTE | 2017-08-24 10:51 | CP.PCM.PN ---
Subjective - Date & Time of Evaluation Date of Evaluation: 08/24/17 Time of Evaluation: 10:48 - Subjective Subjective: PGY-[address] Jeffrey's service Patient seen and examined at bedside. Nursing reports no acute events overnight. Patient oriented to person only (and is aware of president of [place]), but not to place/time/context. Nursing reports patient needs constant encouragement in order to eat. He is for possible transfer to [facility] today. He denies any acute complaints at this time. Objective - Vital Signs/Intake and Output Vital Signs (last 24 hours): Temp Pulse Resp BP Pulse Ox 98.0 F 82 20 107/67 98 08/24/17 08:06 08/24/17 08:06 08/24/17 08:06 08/24/17 08:06 08/24/17 08:06 Intake and Output: 08/24/17 08/24/17 06:59 18:59 Intake Total 1517 Balance 1517 - Medications Medications: Current Medications Allopurinol (Zyloprim) 100 mg PO DAILY [facility] Last Admin: 08/23/17 10:46 Dose: 100 mg Aspirin (Aspirin Chewable) 81 mg PO DAILY [facility] Last Admin: 08/23/17 10:46 Dose: 81 mg Docusate Sodium (Colace) 100 mg PO DAILY [facility] Last Admin: 08/23/17 10:47 Dose: 100 mg Dronabinol (Marinol) 2.5 mg PO BID [facility] Last Admin: 08/23/17 17:54 Dose: 2.5 mg Folic Acid (Folic Acid) 1 mg PO DAILY [facility] Last Admin: 08/23/17 10:47 Dose: 1 mg Cefepime HCl (Maxipime Iv 1 Gm Premix) 1 gm in 50 mls @ 100 mls/hr IVPB Q12H [facility] Last Admin: 08/24/17 00:47 Dose: Not Given Vancomycin HCl 1 gm/ Sodium (Chloride) 250 mls @ 166.667 mls/hr IVPB Q24H [facility] Last Admin: 08/17/17 22:04 Dose: 166.667 mls/hr Dextrose/Sodium Chloride (Dextrose 5%/0.9% Ns 1000 Ml) 1,000 mls @ 75 mls/hr IV .[id number] [facility] Last Admin: 08/24/17 00:00 Dose: Not Given Parenteral Electrolytes 20 ml/Multivitamins/Vitamin C 10 ml / Chromium/Copper/ Manganese/Zinc 1 ml/ Amino Acids 1,031 mls @ 42 mls/hr IV .Q24H ONE Stop: 08/24/17 17:59 Last Admin: 08/23/17 17:54 Dose: 42 mls/hr Fat Emulsion Intravenous (Intralipid 20%) 500 mls @ 42 mls/hr IV TTS@1800 [facility] Stop: 08/28/17 05:55 Last Admin: 08/23/17 17:54 Dose: 42 mls/hr Parenteral Electrolytes 20 ml/Multivitamins/Vitamin C 10 ml / Chromium/Copper/ Manganese/Zinc 1 ml/ Amino Acids 1,031 mls @ 42 mls/hr IV .Q24H ONE Stop: 08/25/17 17:59 Metoprolol Succinate (Toprol Xl) 25 mg PO DAILY [facility] Last Admin: 08/23/17 10:49 Dose: Not Given Ondansetron HCl (Zofran Inj) 4 mg IVP Q6H PRN PRN Reason: Nausea/Vomiting Pantoprazole Sodium (Protonix Inj) 40 mg IVP DAILY [facility] Last Admin: 08/23/17 10:46 Dose: 40 mg Polyethylene Glycol (Miralax) 17 gm PO DAILY [facility] Last Admin: 08/23/17 10:49 Dose: Not Given Rosuvastatin Calcium (Crestor) 2.5 mg PO HS [facility] Last Admin: 08/23/17 21:26 Dose: 2.5 mg Sodium Bicarbonate (Sodium Bicarbonate Tab) 650 mg PO Q6 [facility] Last Admin: 08/24/17 05:46 Dose: Not Given - Labs Labs: 08/24/17 07:10 08/24/17 07:10 PT 18.6 SECONDS (9.7-12.2) H 08/15/17 20:05 INR 1.6 08/15/17 20:05 APTT 44 SECONDS (21-34) H 08/15/17 20:05 - Additional Findings Additional findings: - Constitutional Appears: Non-toxic, No Acute Distress - Head Exam Head Exam: ATRAUMATIC, NORMAL INSPECTION, NORMOCEPHALIC - Eye Exam Pupil Exam: NORMAL ACCOMODATION - ENT Exam ENT Exam: Mucous Membranes Moist - Respiratory Exam Respiratory Exam: Clear to Ausculation Bilateral, NORMAL BREATHING PATTERN. absent: Prolonged Expiratory Phase, Rales, Rhonchi, Wheezes - Cardiovascular Exam Cardiovascular Exam: REGULAR RHYTHM, +S1, +S2 - GI/Abdominal Exam GI & Abdominal Exam: Soft, Normal Bowel Sounds. absent: Tenderness, Diminished Bowel Sounds, Hernia, Hypoactive Bowel Sounds - Extremities Exam Extremities Exam: Normal Capillary Refill, Normal Inspection - Neurological Exam Neurological Exam: Alert, Awake, Oriented x1 - Person only orientation, not context/time/place - Psychiatric Exam Psychiatric exam: Normal Affect, Normal Mood - Skin Skin Exam: Dry, Intact, Normal Color, Warm Assessment and Plan - Assessment and Plan (Free Text) Plan: 71 years old male, with hx of CVA, AAA, TAA, presents for dysphagia, vomiting, weight loss, bacteremia, fatigue: Dysphagia GI Consult, Dr. Avalos, recs appreciated. - EGD unremarkable, ADAT, OPDX colonoscopy for wt loss when medically stable, believe dysphagia may be neurologic in origin Obst Series (08/15/17): No evidence of acute obstruction. Abd x ray 08/13/17: mildly distended small bowel ileus vs early obstruction. Mildly distended loops of small bowel in left flank and RUQ. Vascular disease with multiple stents - abdominal aorta and iliacs. CXR 08/12/17: Left hilar/infrahilar opacity -> cannot exclude pneumonia. Biapical pleural thickening/granulamatous changes. Esophagus x ray 08/04/17: could not evaluate because pt could not ingest barium contrast Modified barium swallow (08/23/17): No penetration or aspiration observed. Refer to detailed reccs of speech pathologist (see full reports) - Speech pathology reccs: Pharyngeal Dysphagia noted with delayed initiations of swallows as both liquids and pureed went to level of valleculae prior to initiating the swallow. Mild residue noted on base of tongue and mild residue in valleculae following all consistencies.If weight loss continues, and pt's PO intakes remain low, alternative means of primary nutrition (PEG) might be considered with PO pleasure feeds. - Recommend: Liquid diet. Thin liquid via straw. Eugene liquid via spoon. Pureed food. - Chemist Instrumentation recommends: Ensure supplement TID and Prostat 30ml TID; recommend increasing PPN to 83ml/hr Marinol 2.5 mg PO BID [facility] Altered Mental Status Neurology consulted, Dr. Jeffers, help appreciated - CT head (08/19/17): read as as Chronic small vessel disease/white matter disease. No acute findings. - speech/swallow eval repeat recommended - recommend MRI brain w/o contrast for brainstem stroke - MRI has history of aneurysm and iliac stent placement, produced card saying MRI safe - MRI Brain (08/22/17): Age related neuro degenerative changes are reiterated. No acute brain infarction or intracranial hemorrhage appreciable at this time. - not believed to be caused by autoimmune condition Hx of Stents at Iliac and Abdominal Aorta 08/24: vas surg is recommending transfer back to [place] as this was site of patients initial surgery. 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 Will consider once workup for stroke completed. 08/18: [facility] is recommending transfer back to [place] as this was site of patients initial surgery 08/17: surgery team recommends transfer back to [place] which was site of patient's initial surgery 08/15: f/u CT angio pelvis to assess for any blockage Ct angio pelvis 08/15/17: Post aortic bifemoral endograft repair Dense fluid collection, 6x3x8 cm, surrounding left common femoral artery - likely purulence than hematoma or simple fluid. No active extravasation within dense fluid collection. - Abd x ray 08/13/17: mildly distended small bowel ileus vs early obstruction. Mildly distended loops of small bowel in left flank and RUQ. Vascular disease with multiple stents - abdominal aorta and iliacs. AAA s/p repair -04/2017, iliac angioplasty/stent 05/2017 Bacteremia Gram (+) 08/24/17: Pt afebrile over the weekend - ECHO (08/17/17): Poor acoustic windows. Grossly good LV systolic dysfunction. Recommend ARIADNA for evaluation of cardiac structures. - Per Dr. Jeffrey, no ARIADNA at this time. ARIADNA can be performed at [place] when patient transferred. Vancomycin 1 Gm/Ns 200 Ml) 1 gm in 200 mls @ 133.333 mls/hr IVPB Q24H [facility] Cefepime 1 gram IV Q12H [facility] ID consult, Dr. Ovalles, recs appreciated. - positive cultures most likely from repair of his iliac and abdominal aorta 2/ 2 to results from cat scan Blood culture (08/12/17): Enterococcus Avium (1 bottle only) - repeat Blood culture (08/18/17): No growth x 5 days Gout; chronic stable Allopurinol (Zyloprim) 100 mg PO DAILY [facility] Hypertension; chronic stable Well controlled today Metoprolol Succinate (Toprol Xl) 25 mg PO DAILY [facility] - new parameters entered (Hold if SBP <100, HR < 65) Will monitor and encourage fluid intake Hyperlipidemia; chronic stable ASA 81 mg PO DAILY [facility] Crestor 2.5 mg PO HS [facility] Low HDL 08/20/17: HDL 15 Start Lovaza 1 gram PO BID Electrolyte Imbalance; will continue to monitor 08/24: Phos 2.1 - start Neutra-phos 1 packet BID x 6 doses hypokalemia/hypomagnesemia resolved Prophylaxis PT/OT SCDs Protonix Ec Tab 40 mg PO DAILY [facility] Colace 100 mg PO DAILY [facility] Folic Acid 1 mg PO DAILY [facility] Dispo: MRI brain negative, will reach out to [facility] for transfer to fix endoleak. Once evaluation of stroke 2/2 AMS is completed and patient is stable, patient may be discharged to [facility], which was the site of patients initial surgery (Stents at Iliac and Abdominal Aorta). 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 Bernard Gonzalez PGY-2 All management as per Dr Blayne Jeffrey
[2017-08-24] MEDS: POLYETHYLENE GLYCOL 3350 17 GM/Dose PACKET PO SCH (11:01)
[2017-08-24] MEDS: Metoprolol Succinate 25 mg XL Tab PO SCH (11:02)
[2017-08-24] MEDS: Potassium & Sodium Phosphate PO SCH ×2 (11:02→18:26)
--- NOTE | 2017-08-24 13:32 | CP.PCM.PN ---
Subjective - Date & Time of Evaluation Date of Evaluation: 08/24/17 Time of Evaluation: 13:31 - Subjective Subjective: Mr. Ma was seen and examined at the bedside. He is alert, oriented in all spheres. He denies any headache, dizziness, lightheadedness,numbness, nausea , or vomiting. He still states of feeling weak. He has Amino acid infusion.There was no untoward events overnight. Objective - Vital Signs/Intake and Output Vital Signs (last 24 hours): Temp Pulse Resp BP Pulse Ox 98.0 F 82 20 107/67 98 08/24/17 08:06 08/24/17 08:06 08/24/17 08:06 08/24/17 08:06 08/24/17 08:06 Intake and Output: 08/24/17 08/24/17 06:59 18:59 Intake Total 1517 Balance 1517 - Medications Medications: Current Medications Allopurinol (Zyloprim) 100 mg PO DAILY [facility] Last Admin: 08/24/17 11:03 Dose: 100 mg Aspirin (Aspirin Chewable) 81 mg PO DAILY [facility] Last Admin: 08/24/17 11:02 Dose: 81 mg Docusate Sodium (Colace) 100 mg PO DAILY [facility] Last Admin: 08/24/17 11:02 Dose: 100 mg Dronabinol (Marinol) 2.5 mg PO BID [facility] Last Admin: 08/24/17 11:04 Dose: 2.5 mg Folic Acid (Folic Acid) 1 mg PO DAILY [facility] Last Admin: 08/24/17 11:04 Dose: 1 mg Cefepime HCl (Maxipime Iv 1 Gm Premix) 1 gm in 50 mls @ 100 mls/hr IVPB Q12H [facility] Last Admin: 08/24/17 00:47 Dose: Not Given Vancomycin HCl 1 gm/ Sodium (Chloride) 250 mls @ 166.667 mls/hr IVPB Q24H [facility] Last Admin: 08/17/17 22:04 Dose: 166.667 mls/hr Dextrose/Sodium Chloride (Dextrose 5%/0.9% Ns 1000 Ml) 1,000 mls @ 75 mls/hr IV .[id number] [facility] Last Admin: 08/24/17 00:00 Dose: Not Given Parenteral Electrolytes 20 ml/Multivitamins/Vitamin C 10 ml / Chromium/Copper/ Manganese/Zinc 1 ml/ Amino Acids 1,031 mls @ 42 mls/hr IV .Q24H ONE Stop: 08/24/17 17:59 Last Admin: 08/23/17 17:54 Dose: 42 mls/hr Fat Emulsion Intravenous (Intralipid 20%) 500 mls @ 42 mls/hr IV TTS@1800 [facility] Stop: 08/28/17 05:55 Last Admin: 08/23/17 17:54 Dose: 42 mls/hr Parenteral Electrolytes 20 ml/Multivitamins/Vitamin C 10 ml / Chromium/Copper/ Manganese/Zinc 1 ml/ Amino Acids 1,031 mls @ 42 mls/hr IV .Q24H [facility] Stop: 08/25/17 17:59 Metoprolol Succinate (Toprol Xl) 25 mg PO DAILY [facility] Last Admin: 08/24/17 11:02 Dose: 25 mg [id number] Ethyl Esters (Lovaza) 1 gm PO BID [facility] Ondansetron HCl (Zofran Inj) 4 mg IVP Q6H PRN PRN Reason: Nausea/Vomiting Pantoprazole Sodium (Protonix Inj) 40 mg IVP DAILY [facility] Last Admin: 08/24/17 11:02 Dose: 40 mg Polyethylene Glycol (Miralax) 17 gm PO DAILY [facility] Last Admin: 08/24/17 11:01 Dose: 17 gm Potassium Phos/Sodium Phos (Neutra-Phos) 1 pkt PO BID [facility] Stop: 08/27/17 10:01 Rosuvastatin Calcium (Crestor) 2.5 mg PO HS [facility] Last Admin: 08/23/17 21:26 Dose: 2.5 mg Sodium Bicarbonate (Sodium Bicarbonate Tab) 650 mg PO Q6 [facility] Last Admin: 08/24/17 05:46 Dose: Not Given - Labs Labs: 08/24/17 07:10 08/24/17 07:10 PT 18.6 SECONDS (9.7-12.2) H 08/15/17 20:05 INR 1.6 08/15/17 20:05 APTT 44 SECONDS (21-34) H 08/15/17 20:05 - Constitutional Appears: No Acute Distress - Head Exam Head Exam: ATRAUMATIC - Neurological Exam Neurological Exam: Alert, Awake, CN II-XII Intact, Oriented x3 Neuro motor strength exam: Left Upper Extremity: 5, Right Upper Extremity: 5, Left Lower Extremity: 3, Right Lower Extremity: 3 Additional comments: Neurological unchanged from previous examination. Assessment and Plan (1) Dysphagia Assessment & Plan: Case discussed with Dr. Jeffers, continue all current medical, physical, and occupational therapies. There is no new recommendation from neurology. Status: Acute
[2017-08-24] MEDS: Dextrose 5%/0.9% NS 1,000 ML IV SCH ×2 (14:20)
--- NOTE | 2017-08-24 17:48 | CP.PCM.PN ---
Subjective - Date & Time of Evaluation Date of Evaluation: 08/24/17 Time of Evaluation: 09:00 - Subjective Subjective: events noted for transfer to [facility] for IV antibiotic rx Objective - Vital Signs/Intake and Output Vital Signs (last 24 hours): Temp Pulse Resp BP Pulse Ox 98.1 F 91 H 18 124/74 99 08/24/17 16:55 08/24/17 16:55 08/24/17 16:55 08/24/17 16:55 08/24/17 16:55 Intake and Output: 08/24/17 08/24/17 06:59 18:59 Intake Total 1517 Balance 1517 - Medications Medications: Current Medications Allopurinol (Zyloprim) 100 mg PO DAILY [facility] Last Admin: 08/24/17 11:03 Dose: 100 mg Aspirin (Aspirin Chewable) 81 mg PO DAILY [facility] Last Admin: 08/24/17 11:02 Dose: 81 mg Docusate Sodium (Colace) 100 mg PO DAILY [facility] Last Admin: 08/24/17 11:02 Dose: 100 mg Dronabinol (Marinol) 2.5 mg PO BID [facility] Last Admin: 08/24/17 11:04 Dose: 2.5 mg Folic Acid (Folic Acid) 1 mg PO DAILY [facility] Last Admin: 08/24/17 11:04 Dose: 1 mg Cefepime HCl (Maxipime Iv 1 Gm Premix) 1 gm in 50 mls @ 100 mls/hr IVPB Q12H [facility] Last Admin: 08/24/17 13:00 Dose: 100 mls/hr Vancomycin HCl 1 gm/ Sodium (Chloride) 250 mls @ 166.667 mls/hr IVPB Q24H [facility] Last Admin: 08/17/17 22:04 Dose: 166.667 mls/hr Dextrose/Sodium Chloride (Dextrose 5%/0.9% Ns 1000 Ml) 1,000 mls @ 75 mls/hr IV .[id number] [facility] Last Admin: 08/24/17 14:20 Dose: Not Given Parenteral Electrolytes 20 ml/Multivitamins/Vitamin C 10 ml / Chromium/Copper/ Manganese/Zinc 1 ml/ Amino Acids 1,031 mls @ 42 mls/hr IV .Q24H [facility] Stop: 08/24/17 17:59 Last Admin: 08/23/17 17:54 Dose: 42 mls/hr Fat Emulsion Intravenous (Intralipid 20%) 500 mls @ 42 mls/hr IV TTS@1800 [facility] Stop: 08/28/17 05:55 Last Admin: 08/23/17 17:54 Dose: 42 mls/hr Parenteral Electrolytes 20 ml/Multivitamins/Vitamin C 10 ml / Chromium/Copper/ Manganese/Zinc 1 ml/ Amino Acids 1,031 mls @ 42 mls/hr IV .Q24H [facility] Stop: 08/25/17 17:59 Metoprolol Succinate (Toprol Xl) 25 mg PO DAILY [facility] Last Admin: 08/24/17 11:02 Dose: 25 mg Hnvty-1-[id number] Ethyl Esters (Lovaza) 1 gm PO BID [facility] Ondansetron HCl (Zofran Inj) 4 mg IVP Q6H PRN PRN Reason: Nausea/Vomiting Pantoprazole Sodium (Protonix Inj) 40 mg IVP DAILY [facility] Last Admin: 08/24/17 11:02 Dose: 40 mg Polyethylene Glycol (Miralax) 17 gm PO DAILY [facility] Last Admin: 08/24/17 11:01 Dose: 17 gm Potassium Phos/Sodium Phos (Neutra-Phos) 1 pkt PO BID [facility] Stop: 08/27/17 10:01 Rosuvastatin Calcium (Crestor) 2.5 mg PO HS [facility] Last Admin: 08/23/17 21:26 Dose: 2.5 mg Sodium Bicarbonate (Sodium Bicarbonate Tab) 650 mg PO Q6 [facility] Last Admin: 08/24/17 13:30 Dose: 650 mg - Labs Labs: 08/24/17 07:10 08/24/17 07:10 PT 18.6 SECONDS (9.7-12.2) H 08/15/17 20:05 INR 1.6 08/15/17 20:05 APTT 44 SECONDS (21-34) H 08/15/17 20:05 - Constitutional Appears: Non-toxic, Chronically Ill - Head Exam Head Exam: NORMOCEPHALIC - Eye Exam Eye Exam: PERRL - ENT Exam ENT Exam: Mucous Membranes Dry - Neck Exam Neck Exam: absent: Lymphadenopathy - Respiratory Exam Respiratory Exam: Decreased Breath Sounds - Cardiovascular Exam Cardiovascular Exam: REGULAR RHYTHM - GI/Abdominal Exam GI & Abdominal Exam: Distended Assessment and Plan (1) Altered mental status Status: Resolved (2) Aortic aneurysm Status: Acute (3) DVT prophylaxis Status: Acute (4) HTN (hypertension) Status: Acute (5) Near syncope Status: Resolved (6) Pancreatitis Status: Acute (7) Seizure disorder Status: Chronic - Assessment and Plan (Free Text) Assessment: cont vanco/ cefepime for 3 more weeks follow up with surgeon
[2017-08-24] MEDS ORDERED: PPN #9 IV ONE (18:00)
[2017-08-24] MEDS: Omega-3-Acid Ethyl Esters 1 GM Cap PO SCH (18:26)
--- NOTE | 2017-08-24 19:33 | CP.PCM.PN ---
Subjective - Date & Time of Evaluation Date of Evaluation: 08/24/17 Time of Evaluation: 10:00 - Subjective Subjective: clinically same Objective - Vital Signs/Intake and Output Vital Signs (last 24 hours): Temp Pulse Resp BP Pulse Ox 98.1 F 91 H 18 124/74 99 08/24/17 16:55 08/24/17 16:55 08/24/17 16:55 08/24/17 16:55 08/24/17 16:55 - Medications Medications: Current Medications Allopurinol (Zyloprim) 100 mg PO DAILY [facility] Last Admin: 08/24/17 11:03 Dose: 100 mg Aspirin (Aspirin Chewable) 81 mg PO DAILY [facility] Last Admin: 08/24/17 11:02 Dose: 81 mg Docusate Sodium (Colace) 100 mg PO DAILY [facility] Last Admin: 08/24/17 11:02 Dose: 100 mg Dronabinol (Marinol) 2.5 mg PO BID [facility] Last Admin: 08/24/17 18:26 Dose: 2.5 mg Folic Acid (Folic Acid) 1 mg PO DAILY [facility] Last Admin: 08/24/17 11:04 Dose: 1 mg Cefepime HCl (Maxipime Iv 1 Gm Premix) 1 gm in 50 mls @ 100 mls/hr IVPB Q12H [facility] Last Admin: 08/24/17 13:00 Dose: 100 mls/hr Vancomycin HCl 1 gm/ Sodium (Chloride) 250 mls @ 166.667 mls/hr IVPB Q24H [facility] Last Admin: 08/17/17 22:04 Dose: 166.667 mls/hr Dextrose/Sodium Chloride (Dextrose 5%/0.9% Ns 1000 Ml) 1,000 mls @ 75 mls/hr IV .[id number] [facility] Last Admin: 08/24/17 14:20 Dose: Not Given Fat Emulsion Intravenous (Intralipid 20%) 500 mls @ 42 mls/hr IV TTS@1800 [facility] Stop: 08/28/17 05:55 Last Admin: 08/23/17 17:54 Dose: 42 mls/hr Parenteral Electrolytes 20 ml/Multivitamins/Vitamin C 10 ml / Chromium/Copper/ Manganese/Zinc 1 ml/ Amino Acids 1,031 mls @ 42 mls/hr IV .Q24H ONE Stop: 12/07/17 17:59 Metoprolol Succinate (Toprol Xl) 25 mg PO DAILY [facility] Last Admin: 08/24/17 11:02 Dose: 25 mg Xyfix-1-Pmez Ethyl Esters (Lovaza) 1 gm PO BID [facility] Last Admin: 08/24/17 18:26 Dose: 1 gm Ondansetron HCl (Zofran Inj) 4 mg IVP Q6H PRN PRN Reason: Nausea/Vomiting Pantoprazole Sodium (Protonix Inj) 40 mg IVP DAILY [facility] Last Admin: 08/24/17 11:02 Dose: 40 mg Polyethylene Glycol (Miralax) 17 gm PO DAILY [facility] Last Admin: 08/24/17 11:01 Dose: 17 gm Potassium Phos/Sodium Phos (Neutra-Phos) 1 pkt PO BID [facility] Stop: 08/27/17 10:01 Last Admin: 08/24/17 18:26 Dose: 1 pkt Rosuvastatin Calcium (Crestor) 2.5 mg PO HS [facility] Last Admin: 08/23/17 21:26 Dose: 2.5 mg Sodium Bicarbonate (Sodium Bicarbonate Tab) 650 mg PO Q6 [facility] Last Admin: 08/24/17 18:26 Dose: 650 mg - Labs Labs: 08/24/17 07:10 08/24/17 07:10 PT 18.6 SECONDS (9.7-12.2) H 08/15/17 20:05 INR 1.6 08/15/17 20:05 APTT 44 SECONDS (21-34) H 08/15/17 20:05 - Constitutional Appears: Well - Head Exam Head Exam: ATRAUMATIC, NORMAL INSPECTION, NORMOCEPHALIC - Eye Exam Eye Exam: EOMI, Normal appearance, PERRL Pupil Exam: NORMAL ACCOMODATION, PERRL - ENT Exam ENT Exam: Mucous Membranes Moist, Normal Exam - Neck Exam Neck Exam: Full ROM, Normal Inspection. absent: Lymphadenopathy - Respiratory Exam Respiratory Exam: Decreased Breath Sounds - Cardiovascular Exam Cardiovascular Exam: REGULAR RHYTHM, +S1, +S2 - GI/Abdominal Exam GI & Abdominal Exam: Soft, Diminished Bowel Sounds - Rectal Exam Rectal Exam: Deferred Assessment and Plan (1) Alcohol dependence Status: Acute (2) Alcohol intoxication Status: Acute (3) Aortic aneurysm Status: Acute (4) Dehydration Status: Acute (5) DVT prophylaxis Status: Acute (6) Dyslipidemia Status: Chronic (7) Gout Status: Chronic (8) HTN (hypertension) Status: Acute (9) Pancreatitis Status: Acute (10) Seizure disorder Status: Chronic (11) Weakness Status: Chronic (12) Weight loss Status: Acute
[2017-08-24] MEDS: Rosuvastatin Calcium 2.5 mg Tab PO SCH (21:23)
[2017-08-25] MEDS: Cefepime IV 1 gm in Dextrose 1 GM/50 ML BAG IVPB SCH ×2 (00:37→11:35)
[2017-08-25] MEDS: Dextrose 5%/0.9% NS 1,000 ML IV SCH ×3 (02:40→16:42)
[2017-08-25 06:43] LABS: EOS % 0.8 % (0.0-4.0); HEMATOCRIT 28.5 % (35.0-51.0); LYMPH # 1.2 K/uL (1.0-4.3); MEAN CELL VOLUME 88.4 fL (80.0-94.0); MEAN CORPUSCULAR HEMOGLOBIN 30.3 pg (27.0-31.0); MEAN CORPUSCULAR HGB CONC 34.3 g/dL (33.0-37.0); MONO # 0.6 K/uL (0.0-0.8); MONO % 14.7 % (0.0-10.0); NRBC % 0.5 % (0.0-2.0); RED CELL DISTRIBUTION WIDTH 13.9 % (11.5-14.5); WHITE BLOOD COUNT 3.8 K/uL (4.8-10.8)
[2017-08-25 06:53] LABS: ALB/GLOB RATIO 0.8 (1.0-2.1); ALKALINE PHOSPHATASE 159 U/L (38-126); ALT/SGPT 35 U/L (21-72); AST/SGOT 38 U/L (17-59); BILIRUBIN,TOTAL 0.4 mg/dL (0.2-1.3); BLOOD UREA NITROGEN 15 mg/dL (9-20); CALCIUM 7.7 mg/dl (8.6-10.4); CARBON DIOXIDE 25 mmol/L (22-30); CHLORIDE 104 mmol/L (98-107); GFR AFRICAN-AMERICAN > 60; GLUCOSE,RANDOM 104 mg/dL (75-110); MAGNESIUM 1.8 mg/dL (1.6-2.3); PHOSPHOROUS 2.1 mg/dL (2.5-4.5); POTASSIUM 3.6 mmol/L (3.6-5.2); SODIUM 132 mmol/L (132-148); TOTAL PROTEIN 4.9 g/dL (6.3-8.3)
--- NOTE | 2017-08-25 06:59 | CP.PCM.PN ---
Subjective - Date & Time of Evaluation Date of Evaluation: 08/25/17 Time of Evaluation: 09:36 - Subjective Subjective: PGY2 Medicine Note for Dr. Blayne Jeffrey; all management as per Dr. Blayne Jeffrey This patient was seen and examined at bedside; as I had this patient last week he looks far more cachectic to myself but is only on PPN nutrition and is eating very little by mouth. He is offering no complaints. Objective - Vital Signs/Intake and Output Vital Signs (last 24 hours): Temp Pulse Resp BP Pulse Ox 97.5 F L 88 20 100/62 99 08/24/17 23:15 08/24/17 23:15 08/24/17 23:15 08/24/17 23:15 08/24/17 23:15 Intake and Output: 08/24/17 08/25/17 18:59 06:59 Intake Total 936 Output Total 0 Balance 936 - Medications Medications: Current Medications Allopurinol (Zyloprim) 100 mg PO DAILY [facility] Last Admin: 08/24/17 11:03 Dose: 100 mg Aspirin (Aspirin Chewable) 81 mg PO DAILY [facility] Last Admin: 08/24/17 11:02 Dose: 81 mg Docusate Sodium (Colace) 100 mg PO DAILY [facility] Last Admin: 08/24/17 11:02 Dose: 100 mg Dronabinol (Marinol) 2.5 mg PO BID [facility] Last Admin: 08/24/17 18:26 Dose: 2.5 mg Folic Acid (Folic Acid) 1 mg PO DAILY [facility] Last Admin: 08/24/17 11:04 Dose: 1 mg Cefepime HCl (Maxipime Iv 1 Gm Premix) 1 gm in 50 mls @ 100 mls/hr IVPB Q12H [facility] Last Admin: 08/25/17 00:37 Dose: 100 mls/hr Vancomycin HCl 1 gm/ Sodium (Chloride) 250 mls @ 166.667 mls/hr IVPB Q24H [facility] Last Admin: 08/24/17 22:09 Dose: 166.667 mls/hr Dextrose/Sodium Chloride (Dextrose 5%/0.9% Ns 1000 Ml) 1,000 mls @ 75 mls/hr IV .[id number] [facility] Last Admin: 08/25/17 02:40 Dose: Not Given Fat Emulsion Intravenous (Intralipid 20%) 500 mls @ 42 mls/hr IV TTS@1800 [facility] Stop: 08/28/17 05:55 Last Admin: 08/23/17 17:54 Dose: 42 mls/hr Parenteral Electrolytes 20 ml/Multivitamins/Vitamin C 10 ml / Chromium/Copper/ Manganese/Zinc 1 ml/ Amino Acids 1,031 mls @ 42 mls/hr IV .Q24H ONE Stop: 08/25/17 17:59 Last Admin: 08/24/17 19:00 Dose: 42 mls/hr Metoprolol Succinate (Toprol Xl) 25 mg PO DAILY [facility] Last Admin: 08/24/17 11:02 Dose: 25 mg [id number] Ethyl Esters (Lovaza) 1 gm PO BID [facility] Last Admin: 08/24/17 18:26 Dose: 1 gm Ondansetron HCl (Zofran Inj) 4 mg IVP Q6H PRN PRN Reason: Nausea/Vomiting Pantoprazole Sodium (Protonix Inj) 40 mg IVP DAILY [facility] Last Admin: 08/24/17 11:02 Dose: 40 mg Polyethylene Glycol (Miralax) 17 gm PO DAILY [facility] Last Admin: 08/24/17 11:01 Dose: 17 gm Potassium Phos/Sodium Phos (Neutra-Phos) 1 pkt PO BID [facility] Stop: 08/27/17 10:01 Last Admin: 08/24/17 18:26 Dose: 1 pkt Rosuvastatin Calcium (Crestor) 2.5 mg PO HS [facility] Last Admin: 08/24/17 21:23 Dose: Not Given Sodium Bicarbonate (Sodium Bicarbonate Tab) 650 mg PO Q6 [facility] Last Admin: 08/25/17 05:57 Dose: Not Given - Labs Labs: 08/25/17 06:16 08/25/17 06:16 PT 18.6 SECONDS (9.7-12.2) H 08/15/17 20:05 INR 1.6 08/15/17 20:05 APTT 44 SECONDS (21-34) H 08/15/17 20:05 - Constitutional Appears: Non-toxic - Head Exam Head Exam: ATRAUMATIC - Eye Exam Eye Exam: EOMI - ENT Exam ENT Exam: Mucous Membranes Moist - Neck Exam Neck Exam: Full ROM - Cardiovascular Exam Cardiovascular Exam: REGULAR RHYTHM - GI/Abdominal Exam GI & Abdominal Exam: Soft - Extremities Exam Extremities Exam: absent: Calf Tenderness - Back Exam Back Exam: absent: CVA tenderness (L), CVA tenderness (R) - Neurological Exam Neurological Exam: Awake - Psychiatric Exam Psychiatric exam: Normal Affect - Skin Skin Exam: Warm Assessment and Plan - Assessment and Plan (Free Text) Assessment: 71 years old male, with hx of CVA, AAA, TAA, presents for dysphagia, vomiting, weight loss, bacteremia, fatigue: Dysphagia GI Consult, Dr. Avalos, recs appreciated. - EGD unremarkable, ADAT, OPDX colonoscopy for wt loss when medically stable, believe dysphagia may be neurologic in origin Obst Series (08/15/17): No evidence of acute obstruction. Abd x ray 08/13/17: mildly distended small bowel ileus vs early obstruction. Mildly distended loops of small bowel in left flank and RUQ. Vascular disease with multiple stents - abdominal aorta and iliacs. CXR 08/12/17: Left hilar/infrahilar opacity -> cannot exclude pneumonia. Biapical pleural thickening/granulamatous changes. Esophagus x ray 08/04/17: could not evaluate because pt could not ingest barium contrast Modified barium swallow (08/23/17): No penetration or aspiration observed. Refer to detailed reccs of speech pathologist (see full reports) - Speech pathology reccs: Pharyngeal Dysphagia noted with delayed initiations of swallows as both liquids and pureed went to level of valleculae prior to initiating the swallow. Mild residue noted on base of tongue and mild residue in valleculae following all consistencies.If weight loss continues, and pt's PO intakes remain low, alternative means of primary nutrition (PEG) might be considered with PO pleasure feeds. - Recommend: Liquid diet. Thin liquid via straw. [place] liquid via spoon. Pureed food. - Molding Machine Setter recommends: Ensure supplement TID and Prostat 30ml TID; recommend increasing PPN to 83ml/hr Marinol 2.5 mg PO BID [facility] Altered Mental Status;resolved Neurology consulted, Dr. Jeffers, help appreciated - CT head (08/19/17): read as as Chronic small vessel disease/white matter disease. No acute findings. - speech/swallow eval repeat recommended - recommend MRI brain w/o contrast for brainstem stroke - MRI has history of aneurysm and iliac stent placement, produced card saying MRI safe - MRI Brain (08/22/17): Age related neuro degenerative changes are reiterated. No acute brain infarction or intracranial hemorrhage appreciable at this time. - not believed to be caused by autoimmune condition Hx of Stents at Iliac and Abdominal Aorta 08/24: vas surg is recommending transfer back to [place] as this was site of patients initial surgery. 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 Will consider once workup for stroke completed. 08/18: vas surg is recommending transfer back to [place] as this was site of patients initial surgery 08/17: surgery team recommends transfer back to [place] which was site of patient's initial surgery 08/15: f/u CT angio pelvis to assess for any blockage Ct angio pelvis 08/15/17: Post aortic bifemoral endograft repair Dense fluid collection, 6x3x8 cm, surrounding left common femoral artery - likely purulence than hematoma or simple fluid. No active extravasation within dense fluid collection. - Abd x ray 08/13/17: mildly distended small bowel ileus vs early obstruction. Mildly distended loops of small bowel in left flank and RUQ. Vascular disease with multiple stents - abdominal aorta and iliacs. AAA s/p repair -04/2017, iliac angioplasty/stent 05/2017 Bacteremia Gram (+); resolved 08/24/17: Pt afebrile over the weekend - ECHO (08/17/17): Poor acoustic windows. Grossly good LV systolic dysfunction. Recommend ARIADNA for evaluation of cardiac structures. - Per Dr. Jeffrey, no ARIADNA at this time. ARIADNA can be performed at [place] when patient transferred. 08/25: Repeat Bcx negative after 4 days Vancomycin 1 Gm/Ns 200 Ml) 1 gm in 200 mls @ 133.333 mls/hr IVPB Q24H [facility] Cefepime 1 gram IV Q12H [facility] ID consult, Dr. Ovalles, recs appreciated. - positive cultures most likely from repair of his iliac and abdominal aorta 2/ 2 to results from cat scan Blood culture (08/12/17): Enterococcus Avium (1 bottle only) - repeat Blood culture (08/18/17): No growth x 5 days Gout; chronic stable Allopurinol (Zyloprim) 100 mg PO DAILY [facility] Hypertension; chronic stable Well controlled today Metoprolol Succinate (Toprol Xl) 25 mg PO DAILY [facility] - new parameters entered (Hold if SBP <100, HR < 65) Will monitor and encourage fluid intake Hyperlipidemia; chronic stable ASA 81 mg PO DAILY [facility] Crestor 2.5 mg PO HS [facility] Low HDL 08/20/17: HDL 15 Start Lovaza 1 gram PO BID Electrolyte Imbalance; will continue to monitor 08/24: Phos 2.1 - start Neutra-phos 1 packet BID x 6 doses hypokalemia/hypomagnesemia resolved Prophylaxis PT/OT SCDs Protonix Ec Tab 40 mg PO DAILY [facility] Colace 100 mg PO DAILY [facility] Folic Acid 1 mg PO DAILY [facility] Dispo: for d/c to [facility] with 3 weeks total of vanc/cefepime once PICC is in place Patient was for PICC today he is on PPN because he is failing to meet caloric needs through regular means; patient is able to tolerate liquid diet/pureed as per diet orders but the patient is not taking in enough on his own; patient was started on marinol here 5mg and has made minimal response with it All management as per Dr Blayne Jeffrey
[2017-08-25] MEDS: Metoprolol Succinate 25 mg XL Tab PO SCH ×2 (10:59→11:09)
[2017-08-25] MEDS: POLYETHYLENE GLYCOL 3350 17 GM/Dose PACKET PO SCH ×2 (10:59→11:03)
[2017-08-25] MEDS: Omega-3-Acid Ethyl Esters 1 GM Cap PO SCH ×3 (11:03→17:42)
[2017-08-25] MEDS: Potassium & Sodium Phosphate PO SCH ×2 (11:09→17:42)
--- NOTE | 2017-08-25 14:53 | CP.PCM.PN ---
Subjective - Date & Time of Evaluation Date of Evaluation: 08/25/17 Time of Evaluation: 14:50 - Subjective Subjective: Mr. Ma was seen and examined at the bedside. He is alert and oriented, but weak. He is on TPN for nutrition. He states of feeling much better since receiving the TPN. He denies any headache, blurred vision, numbness, nausea, or vomiting. He is able to follow simple commands. There was no untoward events overnight. Objective - Vital Signs/Intake and Output Vital Signs (last 24 hours): Temp Pulse Resp BP Pulse Ox 98.1 F 84 20 101/65 100 08/25/17 08:00 08/25/17 08:00 08/25/17 08:00 08/25/17 08:00 08/25/17 08:00 Intake and Output: 08/25/17 08/25/17 06:59 18:59 Intake Total 936 Output Total 0 Balance 936 - Medications Medications: Current Medications Allopurinol (Zyloprim) 100 mg PO DAILY [facility] Last Admin: 08/25/17 11:09 Dose: Not Given Aspirin (Aspirin Chewable) 81 mg PO DAILY [facility] Last Admin: 08/25/17 11:10 Dose: Not Given Docusate Sodium (Colace) 100 mg PO DAILY [facility] Last Admin: 08/25/17 11:10 Dose: Not Given Dronabinol (Marinol) 5 mg PO BID [facility] Last Admin: 08/25/17 11:08 Dose: Not Given Folic Acid (Folic Acid) 1 mg PO DAILY [facility] Last Admin: 08/25/17 11:10 Dose: Not Given Cefepime HCl (Maxipime Iv 1 Gm Premix) 1 gm in 50 mls @ 100 mls/hr IVPB Q12H [facility] Last Admin: 08/25/17 11:35 Dose: 100 mls/hr Dextrose/Sodium Chloride (Dextrose 5%/0.9% Ns 1000 Ml) 1,000 mls @ 75 mls/hr IV .[id number] [facility] Last Admin: 08/25/17 12:36 Dose: 75 mls/hr Fat Emulsion Intravenous (Intralipid 20%) 500 mls @ 42 mls/hr IV TTS@1800 [facility] Stop: 08/28/17 05:55 Last Admin: 08/23/17 17:54 Dose: 42 mls/hr Parenteral Electrolytes 20 ml/Multivitamins/Vitamin C 10 ml / Chromium/Copper/ Manganese/Zinc 1 ml/ Amino Acids 1,031 mls @ 42 mls/hr IV .Q24H [facility] Stop: 08/25/17 17:59 Last Admin: 08/24/17 19:00 Dose: 42 mls/hr Parenteral Electrolytes 20 ml/Multivitamins/Vitamin C 10 ml / Chromium/Copper/ Manganese/Zinc 1 ml/ Amino Acids 1,031 mls @ 42 mls/hr IV .Q24H [facility] Stop: 08/26/17 17:59 Vancomycin/Sodium Chloride (Vancomycin 1 Gm/Ns 200 Ml) 1 gm in 200 mls @ 133.333 mls/hr IVPB 2200 [facility] Stop: 08/30/17 22:01 Metoprolol Succinate (Toprol Xl) 25 mg PO DAILY [facility] Last Admin: 08/25/17 11:09 Dose: Not Given [id number]-[id number] Ethyl Esters (Lovaza) 1 gm PO BID [facility] Last Admin: 08/25/17 11:03 Dose: Not Given Ondansetron HCl (Zofran Inj) 4 mg IVP Q6H PRN PRN Reason: Nausea/Vomiting Pantoprazole Sodium (Protonix Inj) 40 mg IVP DAILY [facility] Last Admin: 08/25/17 10:58 Dose: 40 mg Polyethylene Glycol (Miralax) 17 gm PO DAILY [facility] Last Admin: 08/25/17 11:03 Dose: Not Given Potassium Phos/Sodium Phos (Neutra-Phos) 1 pkt PO BID [facility] Stop: 08/27/17 10:01 Last Admin: 08/25/17 11:09 Dose: Not Given Rosuvastatin Calcium (Crestor) 2.5 mg PO HS [facility] Last Admin: 08/24/17 21:23 Dose: Not Given Sodium Bicarbonate (Sodium Bicarbonate Tab) 650 mg PO Q6 [facility] Last Admin: 08/25/17 11:30 Dose: Not Given - Labs Labs: 08/25/17 06:16 08/25/17 06:16 PT 18.6 SECONDS (9.7-12.2) H 08/15/17 20:05 INR 1.6 08/15/17 20:05 APTT 44 SECONDS (21-34) H 08/15/17 20:05 - Constitutional Appears: No Acute Distress - Head Exam Head Exam: ATRAUMATIC - Neurological Exam Neurological Exam: Alert, Awake, CN II-XII Intact, Oriented x3 Neuro motor strength exam: Left Upper Extremity: 4, Right Upper Extremity: 4, Left Lower Extremity: 3, Right Lower Extremity: 3 Additional comments: Neurological unchanged fro previous examination. Assessment and Plan (1) Dysphagia Assessment & Plan: Case discussed with Dr. Jeffers, continue all current medical, physical, and occupational therapies. There is no new recommendation from neurology. Status: Acute
[2017-08-25] MEDS: Fat Emulsion 20% IV 500 ML IV SCH (17:20)
[2017-08-25] MEDS ORDERED: PPN #10 IV ONE (18:00)
--- NOTE | 2017-08-25 18:26 | CP.PCM.HP ---
Past Patient History - Infectious Disease Hx of Infectious Diseases: None - Past Medical History & Family History Past Medical History?: Yes - Past Social History Smoking Status: Former Smoker - CARDIAC Hx Cardiac Disorders: Yes Hx Hypercholesterolemia: Yes Hx Hypertension: Yes - PULMONARY Hx Respiratory Disorders: No - NEUROLOGICAL HX Cerebrovascular Accident: Yes - HEENT Hx HEENT Problems: Yes (hard of hearing) - RENAL Hx Chronic Kidney Disease: No - ENDOCRINE/METABOLIC Hx Endocrine Disorders: No - HEMATOLOGICAL/ONCOLOGICAL Hx Human Immunodeficiency Virus (HIV): No - INTEGUMENTARY Hx Dermatological Problems: No - MUSCULOSKELETAL/RHEUMATOLOGICAL Hx Musculoskeletal Disorders: Yes Hx Falls: No Hx Gout: Yes - GASTROINTESTINAL Hx Gastrointestinal Disorders: No Other/Comment: RUPTURED AAA - GENITOURINARY/GYNECOLOGICAL Hx Genitourinary Disorders: No - PSYCHIATRIC Hx Substance Use: No - SURGICAL HISTORY Hx Appendectomy: Yes Hx Cholecystectomy: Yes - ANESTHESIA Hx Anesthesia: Yes Hx Anesthesia Reactions: No Hx Malignant Hyperthermia: No Meds Home Medications: Home Medication List Medication Instructions Recorded Confirmed Type [id number] Ethyl Esters 1 GM 1 gm PO BID sgl 08/24/17 Rx [Lovaza] Phosphorus/Potassium/Sodium 1 pkt PO BID #5 packet 08/24/17 Rx [Neutra-Phos] Polyethylene Glycol 3350 [Miralax] 17 gm PO DAILY packet 08/24/17 Rx Sodium Bicarbonate Tab 650 mg PO Q6 tab 08/24/17 Rx Allergies/Adverse Reactions: Allergies Allergy/AdvReac Type Severity Reaction Status Date / Time No Known Allergies Allergy Verified 10/17/15 15:26 Physical Exam - Constitutional Appears: Well - Head Exam Head Exam: ATRAUMATIC, NORMAL INSPECTION, NORMOCEPHALIC - Eye Exam Eye Exam: EOMI, Normal appearance, PERRL Pupil Exam: NORMAL ACCOMODATION, PERRL - ENT Exam ENT Exam: Mucous Membranes Moist, Normal Exam - Neck Exam Neck exam: Positive for: Normal Inspection - Respiratory Exam Respiratory Exam: Decreased Breath Sounds - Cardiovascular Exam Cardiovascular Exam: REGULAR RHYTHM, +S1, +S2 - GI/Abdominal Exam GI & Abdominal Exam: Diminished Bowel Sounds, Soft - Rectal Exam Rectal Exam: Deferred Results - Vital Signs Recent Vital Signs: Last Vital Signs Temp 98.2 F 08/25/17 16:39 Pulse 88 08/25/17 16:39 Resp 20 08/25/17 16:39 BP 118/76 08/25/17 16:39 Pulse Ox 98 08/25/17 16:39 - Labs Result Diagrams: 08/25/17 06:16 08/25/17 06:16 Labs: Laboratory Results - last 24 hr 08/25/17 08/25/17 06:16 06:16 WBC 3.8 L RBC 3.23 L Hgb 9.8 L Hct 28.5 L MCV 88.4 MCH 30.3 MCHC 34.3 RDW 13.9 Plt Count 181 MPV 8.0 Neut % (Auto) 52.5 Lymph % (Auto) 31.0 [place] % (Auto) 14.7 H Eos % (Auto) 0.8 Baso % (Auto) 1.0 Neut # 2.0 Lymph # 1.2 [place] # 0.6 Eos # 0.0 Baso # 0.0 Sodium 132 Potassium 3.6 Chloride 104 Carbon Dioxide 25 Anion Gap 7 L BUN 15 Creatinine 0.9 Est GFR ( Amer) > 60 Est GFR (Non-Af Amer) > 60 Random Glucose 104 Calcium 7.7 L Phosphorus 2.1 L Magnesium 1.8 Total Bilirubin 0.4 AST 38 ALT 35 Alkaline Phosphatase 159 H Total Protein 4.9 L Albumin 2.2 L Globulin 2.7 Albumin/Globulin Ratio 0.8 L Assessment & Plan (1) Alcohol dependence Status: Acute (2) Alcohol intoxication Status: Acute (3) Aortic aneurysm Status: Acute (4) Dehydration Status: Acute (5) DVT prophylaxis Status: Acute (6) Dyslipidemia Status: Chronic Priority: High (7) Gout Status: Chronic (8) HTN (hypertension) Status: Acute (9) Pancreatitis Status: Acute (10) Seizure disorder Status: Chronic Priority: Low (11) Weakness Status: Chronic Priority: Medium (12) Weight loss Status: Acute
--- NOTE | 2017-08-25 18:27 | CP.PCM.PN ---
Subjective - Date & Time of Evaluation Date of Evaluation: 08/25/17 Time of Evaluation: 11:40 - Subjective Subjective: clinically same Objective - Vital Signs/Intake and Output Vital Signs (last 24 hours): Temp Pulse Resp BP Pulse Ox 98.2 F 88 20 118/76 98 08/25/17 16:39 08/25/17 16:39 08/25/17 16:39 08/25/17 16:39 08/25/17 16:39 Intake and Output: 08/25/17 08/25/17 06:59 18:59 Intake Total 936 827 Output Total 0 250 Balance 936 577 - Medications Medications: Current Medications Allopurinol (Zyloprim) 100 mg PO DAILY [facility] Last Admin: 08/25/17 11:09 Dose: Not Given Aspirin (Aspirin Chewable) 81 mg PO DAILY [facility] Last Admin: 08/25/17 11:10 Dose: Not Given Docusate Sodium (Colace) 100 mg PO DAILY [facility] Last Admin: 08/25/17 11:10 Dose: Not Given Dronabinol (Marinol) 5 mg PO BID [facility] Last Admin: 08/25/17 11:08 Dose: Not Given Folic Acid (Folic Acid) 1 mg PO DAILY [facility] Last Admin: 08/25/17 11:10 Dose: Not Given Cefepime HCl (Maxipime Iv 1 Gm Premix) 1 gm in 50 mls @ 100 mls/hr IVPB Q12H [facility] Last Admin: 08/25/17 11:35 Dose: 100 mls/hr Dextrose/Sodium Chloride (Dextrose 5%/0.9% Ns 1000 Ml) 1,000 mls @ 75 mls/hr IV .[id number] [facility] Last Admin: 08/25/17 16:42 Dose: Not Given Fat Emulsion Intravenous (Intralipid 20%) 500 mls @ 42 mls/hr IV TTS@1800 [facility] Stop: 08/28/17 05:55 Last Admin: 08/25/17 17:20 Dose: 42 mls/hr Parenteral Electrolytes 20 ml/Multivitamins/Vitamin C 10 ml / Chromium/Copper/ Manganese/Zinc 1 ml/ Amino Acids 1,031 mls @ 42 mls/hr IV .Q24H [facility] Stop: 08/26/17 17:59 Last Admin: 08/25/17 17:21 Dose: 42 mls/hr Vancomycin/Sodium Chloride (Vancomycin 1 Gm/Ns 200 Ml) 1 gm in 200 mls @ 133.333 mls/hr IVPB 2200 [facility] Stop: 08/30/17 22:01 Metoprolol Succinate (Toprol Xl) 25 mg PO DAILY [facility] Last Admin: 08/25/17 11:09 Dose: Not Given Idehk-6-Ceix Ethyl Esters (Lovaza) 1 gm PO BID [facility] Last Admin: 08/25/17 17:42 Dose: Not Given Ondansetron HCl (Zofran Inj) 4 mg IVP Q6H PRN PRN Reason: Nausea/Vomiting Pantoprazole Sodium (Protonix Inj) 40 mg IVP DAILY [facility] Last Admin: 08/25/17 10:58 Dose: 40 mg Polyethylene Glycol (Miralax) 17 gm PO DAILY [facility] Last Admin: 08/25/17 11:03 Dose: Not Given Potassium Phos/Sodium Phos (Neutra-Phos) 1 pkt PO BID [facility] Stop: 08/27/17 10:01 Last Admin: 08/25/17 17:42 Dose: Not Given Rosuvastatin Calcium (Crestor) 2.5 mg PO HS [facility] Last Admin: 08/24/17 21:23 Dose: Not Given Sodium Bicarbonate (Sodium Bicarbonate Tab) 650 mg PO Q6 [facility] Last Admin: 08/25/17 17:18 Dose: 650 mg - Labs Labs: 08/25/17 06:16 08/25/17 06:16 PT 18.6 SECONDS (9.7-12.2) H 08/15/17 20:05 INR 1.6 08/15/17 20:05 APTT 44 SECONDS (21-34) H 08/15/17 20:05 - Constitutional Appears: Well - Head Exam Head Exam: ATRAUMATIC, NORMAL INSPECTION, NORMOCEPHALIC - Eye Exam Eye Exam: EOMI, Normal appearance, PERRL Pupil Exam: NORMAL ACCOMODATION, PERRL - ENT Exam ENT Exam: Mucous Membranes Moist, Normal Exam - Neck Exam Neck Exam: Full ROM, Normal Inspection. absent: Lymphadenopathy - Respiratory Exam Respiratory Exam: Decreased Breath Sounds - Cardiovascular Exam Cardiovascular Exam: REGULAR RHYTHM, +S1, +S2 - GI/Abdominal Exam GI & Abdominal Exam: Soft, Diminished Bowel Sounds - Rectal Exam Rectal Exam: Deferred Assessment and Plan (1) Alcohol dependence Status: Acute (2) Alcohol intoxication Status: Acute (3) Aortic aneurysm Status: Acute (4) Dehydration Status: Acute (5) DVT prophylaxis Status: Acute (6) Dyslipidemia Status: Chronic (7) Gout Status: Chronic (8) HTN (hypertension) Status: Acute (9) Pancreatitis Status: Acute (10) Seizure disorder Status: Chronic (11) Weakness Status: Chronic (12) Weight loss Status: Acute
[2017-08-25] MEDS: Rosuvastatin Calcium 2.5 mg Tab PO SCH (21:47)
[2017-08-25] MEDS ORDERED: Vancomycin 1 gm/NS 200 ml 1 GM/200 ML BAG IVPB SCH (22:00)
[2017-08-26] MEDS: Cefepime IV 1 gm in Dextrose 1 GM/50 ML BAG IVPB SCH ×2 (00:30→11:19)
[2017-08-26 06:25] LABS: BASO % 0.8 % (0.0-2.0); HEMATOCRIT 29.4 % (35.0-51.0); LYMPH # 1.2 K/uL (1.0-4.3); LYMPH % 25.8 % (20.0-40.0); MEAN CELL VOLUME 88.4 fL (80.0-94.0); MEAN CORPUSCULAR HEMOGLOBIN 30.4 pg (27.0-31.0); MEAN CORPUSCULAR HGB CONC 34.4 g/dL (33.0-37.0); MEAN PLATELET VOLUME 7.7 fL (7.2-11.7); MONO # 0.6 K/uL (0.0-0.8); MONO % 13.1 % (0.0-10.0); NRBC % 0.4 % (0.0-2.0); RED CELL DISTRIBUTION WIDTH 13.8 % (11.5-14.5); WHITE BLOOD COUNT 4.6 K/uL (4.8-10.8)
[2017-08-26 08:14] VITALS: RESP 18
[2017-08-26 08:29] LABS: ALB/GLOB RATIO 0.8 (1.0-2.1); ALKALINE PHOSPHATASE 157 U/L (38-126); ALT/SGPT 36 U/L (21-72); AST/SGOT 45 U/L (17-59); BILIRUBIN,TOTAL 0.4 mg/dL (0.2-1.3); BLOOD UREA NITROGEN 15 mg/dL (9-20); CALCIUM 7.7 mg/dl (8.6-10.4); CARBON DIOXIDE 23 mmol/L (22-30); CHLORIDE 103 mmol/L (98-107); GFR AFRICAN-AMERICAN > 60; GLUCOSE,RANDOM 113 mg/dL (75-110); MAGNESIUM 1.7 mg/dL (1.6-2.3); PHOSPHOROUS 1.6 mg/dL (2.5-4.5); POTASSIUM 3.6 mmol/L (3.6-5.2); SODIUM 132 mmol/L (132-148)
--- NOTE | 2017-08-26 09:37 | CP.PCM.PN ---
Subjective - Date & Time of Evaluation Date of Evaluation: 08/26/17 Time of Evaluation: 09:34 - Subjective Subjective: PGY-[address] Jeffrey's service: Pt seen and examined at bedside. Nursing reports no acute events overnight. Patient for PICC line placement and transfer to [facility] after. Spoke with Samantha who consented to PICC line placement and updated her on transfer plans. Patient and are aware there is no need for return to [facility] per surgical team. Patient remains oriented only to person, and is aware of president of . He denies current complaints. Objective - Vital Signs/Intake and Output Vital Signs (last 24 hours): Temp Pulse Resp BP Pulse Ox 98.1 F 88 18 108/65 96 08/26/17 08:13 08/26/17 08:13 08/26/17 08:13 08/26/17 08:13 08/26/17 08:13 Intake and Output: 08/26/17 08/26/17 06:59 18:59 Intake Total 386 Output Total 200 Balance 186 - Medications Medications: Current Medications Allopurinol (Zyloprim) 100 mg PO DAILY [facility] Last Admin: 08/25/17 11:09 Dose: Not Given Aspirin (Aspirin Chewable) 81 mg PO DAILY [facility] Last Admin: 08/25/17 11:10 Dose: Not Given Docusate Sodium (Colace) 100 mg PO DAILY [facility] Last Admin: 08/25/17 11:10 Dose: Not Given Dronabinol (Marinol) 5 mg PO BID [facility] Last Admin: 08/25/17 20:53 Dose: Not Given Folic Acid (Folic Acid) 1 mg PO DAILY [facility] Last Admin: 08/25/17 11:10 Dose: Not Given Cefepime HCl (Maxipime Iv 1 Gm Premix) 1 gm in 50 mls @ 100 mls/hr IVPB Q12H [facility] Last Admin: 08/26/17 00:30 Dose: 100 mls/hr Fat Emulsion Intravenous (Intralipid 20%) 500 mls @ 42 mls/hr IV TTS@1800 [facility] Stop: 08/28/17 05:55 Last Admin: 08/25/17 17:20 Dose: 42 mls/hr Parenteral Electrolytes 20 ml/Multivitamins/Vitamin C 10 ml / Chromium/Copper/ Manganese/Zinc 1 ml/ Amino Acids 1,031 mls @ 42 mls/hr IV .Q24H ONE Stop: 08/26/17 17:59 Last Admin: 08/25/17 17:21 Dose: 42 mls/hr Vancomycin/Sodium Chloride (Vancomycin 1 Gm/Ns 200 Ml) 1 gm in 200 mls @ 133.333 mls/hr IVPB 2200 [facility] Stop: 08/30/17 22:01 Last Admin: 08/25/17 21:50 Dose: 133.333 mls/hr Metoprolol Succinate (Toprol Xl) 25 mg PO DAILY [facility] Last Admin: 08/25/17 11:09 Dose: Not Given Amivt-4-Jvhe Ethyl Esters (Lovaza) 1 gm PO BID [facility] Last Admin: 08/25/17 17:42 Dose: Not Given Ondansetron HCl (Zofran Inj) 4 mg IVP Q6H PRN PRN Reason: Nausea/Vomiting Pantoprazole Sodium (Protonix Inj) 40 mg IVP DAILY [facility] Last Admin: 08/25/17 10:58 Dose: 40 mg Polyethylene Glycol (Miralax) 17 gm PO DAILY [facility] Last Admin: 08/25/17 11:03 Dose: Not Given Potassium Phos/Sodium Phos (Neutra-Phos) 1 pkt PO BID [facility] Stop: 08/27/17 10:01 Last Admin: 08/25/17 17:42 Dose: Not Given Rosuvastatin Calcium (Crestor) 2.5 mg PO HS [facility] Last Admin: 08/25/17 21:47 Dose: Not Given Sodium Bicarbonate (Sodium Bicarbonate Tab) 650 mg PO Q6 [facility] Last Admin: 08/26/17 06:25 Dose: Not Given - Labs Labs: 08/26/17 06:16 08/26/17 06:16 PT 18.6 SECONDS (9.7-12.2) H 08/15/17 20:05 INR 1.6 08/15/17 20:05 APTT 44 SECONDS (21-34) H 08/15/17 20:05 - Constitutional Appears: Non-toxic, No Acute Distress - Head Exam Head Exam: ATRAUMATIC, NORMOCEPHALIC - Eye Exam Eye Exam: EOMI, Normal appearance. absent: Scleral icterus - ENT Exam ENT Exam: Mucous Membranes Dry Additional comments: Appearance of thrush on back tongue, left palate - Respiratory Exam Respiratory Exam: Clear to Ausculation Bilateral, NORMAL BREATHING PATTERN. absent: Rales, Rhonchi, Wheezes - Cardiovascular Exam Cardiovascular Exam: REGULAR RHYTHM, +S1, +S2 - GI/Abdominal Exam GI & Abdominal Exam: Soft, Normal Bowel Sounds. absent: Tenderness - Extremities Exam Extremities Exam: Normal Inspection. absent: Pedal Edema - Back Exam Back Exam: absent: CVA tenderness (L), CVA tenderness (R) - Neurological Exam Neurological Exam: Alert, Awake. absent: Oriented x3 - Psychiatric Exam Psychiatric exam: Normal Affect, Normal Mood - Skin Skin Exam: Normal Color, Warm Assessment and Plan - Assessment and Plan (Free Text) Plan: 71 years old male, with hx of CVA, AAA, TAA, presents for dysphagia, vomiting, weight loss, bacteremia, fatigue: Dysphagia GI Consult, Dr. Avalos, recs appreciated. - EGD unremarkable, ADAT, OPDX colonoscopy for wt loss when medically stable, believe dysphagia may be neurologic in origin Obst Series (08/15/17): No evidence of acute obstruction. Abd x ray 08/13/17: mildly distended small bowel ileus vs early obstruction. Mildly distended loops of small bowel in left flank and RUQ. Vascular disease with multiple stents - abdominal aorta and iliacs. CXR 08/12/17: Left hilar/infrahilar opacity -> cannot exclude pneumonia. Biapical pleural thickening/granulamatous changes. Esophagus x ray 08/04/17: could not evaluate because pt could not ingest barium contrast Modified barium swallow (08/23/17): No penetration or aspiration observed. Refer to detailed reccs of speech pathologist (see full reports) - Speech pathology reccs: Pharyngeal Dysphagia noted with delayed initiations of swallows as both liquids and pureed went to level of valleculae prior to initiating the swallow. Mild residue noted on base of tongue and mild residue in valleculae following all consistencies.If weight loss continues, and pt's PO intakes remain low, alternative means of primary nutrition (PEG) might be considered with PO pleasure feeds. - Recommend: Liquid diet. Thin liquid via straw. Garland liquid via spoon. Pureed food. - Varnish Thinner recommends: Ensure supplement TID and Prostat 30ml TID; recommend increasing PPN to 83ml/hr - Per DR. Jeffrey, no PPN at [facility] initially. He will monitor intake and discuss PEG tube placement with family Marinol 2.5 mg PO BID [facility] Oropharyngeal Thrush Diflucan 100mg IV x 6 days Altered Mental Status; Chronic Neurology consulted, Dr. Jeffers, help appreciated - CT head (08/19/17): read as as Chronic small vessel disease/white matter disease. No acute findings. - speech/swallow eval repeat recommended - recommend MRI brain w/o contrast for brainstem stroke - MRI has history of aneurysm and iliac stent placement, produced card saying MRI safe - MRI Brain (08/22/17): Age related neuro degenerative changes are reiterated. No acute brain infarction or intracranial hemorrhage appreciable at this time. - not believed to be caused by autoimmune condition Hx of Stents at Iliac and Abdominal Aorta 08/24: vas surg is recommending transfer back to [place] as this was site of patients initial surgery. 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 Will consider once workup for stroke completed. 08/18: vas surg is recommending transfer back to [place] as this was site of patients initial surgery 08/17: surgery team recommends transfer back to [place] which was site of patient's initial surgery 08/15: f/u CT angio pelvis to assess for any blockage Ct angio pelvis 08/15/17: Post aortic bifemoral endograft repair Dense fluid collection, 6x3x8 cm, surrounding left common femoral artery - likely purulence than hematoma or simple fluid. No active extravasation within dense fluid collection. - Abd x ray 08/13/17: mildly distended small bowel ileus vs early obstruction. Mildly distended loops of small bowel in left flank and RUQ. Vascular disease with multiple stents - abdominal aorta and iliacs. AAA s/p repair -04/2017, iliac angioplasty/stent 05/2017 Bacteremia Gram (+); resolved 08/24/17: Pt afebrile over the weekend - ECHO (08/17/17): Poor acoustic windows. Grossly good LV systolic dysfunction. Recommend ARIADNA for evaluation of cardiac structures. - Per Dr. Jeffrey, no ARIADNA at this time. ARIADNA can be performed at [place] when patient transferred. 08/25: Repeat Bcx negative after 4 days Vancomycin 1 Gm/Ns 200 Ml) 1 gm in 200 mls @ 133.333 mls/hr IVPB Q24H [facility] Cefepime 1 gram IV Q12H [facility] ID consult, Dr. Ovalles, recs appreciated. - positive cultures most likely from repair of his iliac and abdominal aorta 2/ 2 to results from cat scan - continue IV antibiotics (above) for 3 weeks Blood culture (08/12/17): Enterococcus Avium (1 bottle only) - repeat Blood culture (08/18/17): No growth x 5 days Gout; chronic stable Allopurinol (Zyloprim) 100 mg PO DAILY [facility] Hypertension; chronic stable Well controlled Metoprolol Succinate (Toprol Xl) 25 mg PO DAILY [facility] - new parameters entered (Hold if SBP <100, HR < 65) Will monitor and encourage fluid intake Hyperlipidemia; chronic stable ASA 81 mg PO DAILY [facility] Crestor 2.5 mg PO HS [facility] Low HDL 08/20/17: HDL 15 Start Lovaza 1 gram PO BID Electrolyte Imbalance; will continue to monitor 08/24: Phos 2.1 - start Neutra-phos 1 packet BID x 6 doses hypokalemia/hypomagnesemia resolved Prophylaxis PT/OT SCDs Protonix Ec Tab 40 mg PO DAILY [facility] Colace 100 mg PO DAILY [facility] Folic Acid 1 mg PO DAILY [facility] Dispo: for d/c to [facility] with 3 weeks total of vanc/cefepime once PICC is in place Consent attained for PICC line via telephone with , Samantha He is on PPN because he is failing to meet caloric needs through regular means Will continue discussion with /patient about placement of PEG tube in future if caloric needs continue not to be met with supplements - Per DR. Jeffrey, no PPN at [facility] initially. He will monitor intake and discuss PEG tube placement with family Bernard Gonzalez PGY-2 All management as per Dr Blayne Jeffrey
[2017-08-26] MEDS: Omega-3-Acid Ethyl Esters 1 GM Cap PO SCH (09:58)
[2017-08-26] MEDS: Potassium & Sodium Phosphate PO SCH (09:58)
[2017-08-26] MEDS: POLYETHYLENE GLYCOL 3350 17 GM/Dose PACKET PO SCH (09:58)
[2017-08-26] MEDS: Metoprolol Succinate 25 mg XL Tab PO SCH (09:59)
--- NOTE | 2017-08-26 11:48 | RAD ---
PROCEDURE: CHEST RADIOGRAPH, 1 VIEW HISTORY: verify right PICC COMPARISON: 08/12/2017 FINDINGS: LUNGS: Clear. PLEURA: No pneumothorax or pleural fluid seen. CARDIOVASCULAR: The heart is normal in size. There is an abnormal curvilinear density posterior to the heart, possibly saccular aneurysm of the descending thoracic aorta. There is an aortic stent in the descending thoracic aorta. Comparison to the prior examination and is limited due to markedly oblique positioning on the prior examination. Recommend correlation with chest CT examination. There is a right PICC catheter present terminating in the region of the SVC. OSSEOUS STRUCTURES: No significant abnormalities. VISUALIZED UPPER ABDOMEN: Normal. OTHER FINDINGS: None. IMPRESSION: Abnormal density abutting the descending thoracic aorta, possibly saccular aneurysm. The descending thoracic aortic stent in place. Please correlate with history. Consider evaluation with chest CT examination. Right PICC terminates in the SVC.
[2017-08-26] MEDS ORDERED: Potassium Phosphate 30 MMOLE in Sodium Chloride 0.9% 250 ML IV ONE (12:00)
--- NOTE | 2017-08-26 13:06 | CP.PCM.PN ---
Subjective - Date & Time of Evaluation Date of Evaluation: 08/26/17 Time of Evaluation: 13:03 - Subjective Subjective: Mr. Ma was seen and examined at the bedside. He is alert and oriented in all spheres. He denies any pain, headache, dizziness, lightheadedness, nausea , or vomiting. There was no untoward events overnight. Objective - Vital Signs/Intake and Output Vital Signs (last 24 hours): Temp Pulse Resp BP Pulse Ox 98.1 F 88 18 108/65 96 08/26/17 08:13 08/26/17 08:13 08/26/17 08:13 08/26/17 08:13 08/26/17 08:13 Intake and Output: 08/26/17 08/26/17 06:59 18:59 Intake Total 386 Output Total 200 Balance 186 - Medications Medications: Current Medications Allopurinol (Zyloprim) 100 mg PO DAILY [facility] Last Admin: 08/26/17 09:59 Dose: Not Given Aspirin (Aspirin Chewable) 81 mg PO DAILY [facility] Last Admin: 08/26/17 09:58 Dose: Not Given Docusate Sodium (Colace) 100 mg PO DAILY [facility] Last Admin: 08/26/17 09:58 Dose: Not Given Dronabinol (Marinol) 5 mg PO BID [facility] Last Admin: 08/26/17 09:58 Dose: Not Given Folic Acid (Folic Acid) 1 mg PO DAILY [facility] Last Admin: 08/26/17 09:58 Dose: Not Given Cefepime HCl (Maxipime Iv 1 Gm Premix) 1 gm in 50 mls @ 100 mls/hr IVPB Q12H [facility] Last Admin: 08/26/17 11:19 Dose: 100 mls/hr Fat Emulsion Intravenous (Intralipid 20%) 500 mls @ 42 mls/hr IV TTS@1800 [facility] Stop: 08/28/17 05:55 Last Admin: 08/25/17 17:20 Dose: 42 mls/hr Parenteral Electrolytes 20 ml/Multivitamins/Vitamin C 10 ml / Chromium/Copper/ Manganese/Zinc 1 ml/ Amino Acids 1,031 mls @ 42 mls/hr IV .Q24H [facility] Stop: 08/26/17 17:59 Last Admin: 08/25/17 17:21 Dose: 42 mls/hr Vancomycin/Sodium Chloride (Vancomycin 1 Gm/Ns 200 Ml) 1 gm in 200 mls @ 133.333 mls/hr IVPB 2200 [facility] Stop: 08/30/17 22:01 Last Admin: 08/25/17 21:50 Dose: 133.333 mls/hr Parenteral Electrolytes 20 ml/Multivitamins/Vitamin C 10 ml / Chromium/Copper/ Manganese/Zinc 1 ml/ Amino Acids 1,031 mls @ 42 mls/hr IV .Q24H [facility] Stop: 08/27/17 17:59 Fluconazole 100 mg/ (Miscellaneous) 50 mls @ 100 mls/hr IVPB DAILY [facility] Potassium Phosphate 30 mmole/ (Sodium Chloride) 260 mls @ 63 mls/hr IV ONCE [facility] Stop: 08/26/17 16:07 Last Admin: 08/26/17 13:02 Dose: 63 mls/hr Metoprolol Succinate (Toprol Xl) 25 mg PO DAILY [facility] Last Admin: 08/26/17 09:59 Dose: Not Given Oizgl-4-Bxxy Ethyl Esters (Lovaza) 1 gm PO BID [facility] Last Admin: 08/26/17 09:58 Dose: Not Given Ondansetron HCl (Zofran Inj) 4 mg IVP Q6H PRN PRN Reason: Nausea/Vomiting Pantoprazole Sodium (Protonix Inj) 40 mg IVP DAILY [facility] Last Admin: 08/26/17 10:50 Dose: 40 mg Polyethylene Glycol (Miralax) 17 gm PO DAILY [facility] Last Admin: 08/26/17 09:58 Dose: Not Given Potassium Phos/Sodium Phos (Neutra-Phos) 1 pkt PO BID [facility] Stop: 08/27/17 10:01 Last Admin: 08/26/17 09:58 Dose: Not Given Rosuvastatin Calcium (Crestor) 2.5 mg PO HS [facility] Last Admin: 08/25/17 21:47 Dose: Not Given Sodium Bicarbonate (Sodium Bicarbonate Tab) 650 mg PO Q6 [facility] Last Admin: 08/26/17 12:48 Dose: Not Given - Labs Labs: 08/26/17 06:16 08/26/17 06:16 PT 18.6 SECONDS (9.7-12.2) H 08/15/17 20:05 INR 1.6 08/15/17 20:05 APTT 44 SECONDS (21-34) H 11/27/17 20:05 - Constitutional Appears: No Acute Distress - Head Exam Head Exam: NORMAL INSPECTION, NORMOCEPHALIC - Neurological Exam Neurological Exam: Alert, Awake, CN II-XII Intact, Oriented x3 Neuro motor strength exam: Left Upper Extremity: 3, Right Upper Extremity: 3, Left Lower Extremity: 3, Right Lower Extremity: 3 Additional comments: Neurological unchanged from previous examination Assessment and Plan (1) Dysphagia Assessment & Plan: Case discussed with Dr. Jeffers, continue all current medical, physical, and occupational therapies. Status: Acute
[2017-08-26] MEDS ORDERED: Fluconazole IV 200mg/100 ml NS 100 MG in Premixed IV 1 EA IVPB SCH (13:20)
[2017-08-26 17:05] VITALS: BP 113/71; PULSE 85; TEMP 98.3; O2SAT 100
[2017-08-26] MEDS ORDERED: PPN #11 IV ONE (18:00)
--- NOTE | 2017-08-26 18:41 | CP.PCM.PN ---
Subjective - Date & Time of Evaluation Date of Evaluation: 08/26/17 Time of Evaluation: 08:00 - Subjective Subjective: iv rx in progress discussed with dr Blayne Jeffrey Objective - Vital Signs/Intake and Output Vital Signs (last 24 hours): Temp Pulse Resp BP Pulse Ox 98.3 F 85 18 113/71 100 08/26/17 16:00 08/26/17 16:00 08/26/17 16:00 08/26/17 16:00 08/26/17 16:00 Intake and Output: 08/26/17 08/26/17 06:59 18:59 Intake Total 386 692 Output Total 200 0 Balance 186 692 - Medications Medications: Current Medications Allopurinol (Zyloprim) 100 mg PO DAILY [facility] Last Admin: 08/26/17 09:59 Dose: Not Given Aspirin (Aspirin Chewable) 81 mg PO DAILY [facility] Last Admin: 08/26/17 09:58 Dose: Not Given Docusate Sodium (Colace) 100 mg PO DAILY [facility] Last Admin: 08/26/17 09:58 Dose: Not Given Dronabinol (Marinol) 5 mg PO BID [facility] Last Admin: 08/26/17 09:58 Dose: Not Given Folic Acid (Folic Acid) 1 mg PO DAILY [facility] Last Admin: 08/26/17 09:58 Dose: Not Given Cefepime HCl (Maxipime Iv 1 Gm Premix) 1 gm in 50 mls @ 100 mls/hr IVPB Q12H [facility] Last Admin: 08/26/17 11:19 Dose: 100 mls/hr Fat Emulsion Intravenous (Intralipid 20%) 500 mls @ 42 mls/hr IV TTS@1800 [facility] Stop: 08/28/17 05:55 Last Admin: 08/25/17 17:20 Dose: 42 mls/hr Vancomycin/Sodium Chloride (Vancomycin 1 Gm/Ns 200 Ml) 1 gm in 200 mls @ 133.333 mls/hr IVPB 2200 [facility] Stop: 08/30/17 22:01 Last Admin: 08/25/17 21:50 Dose: 133.333 mls/hr Parenteral Electrolytes 20 ml/Multivitamins/Vitamin C 10 ml / Chromium/Copper/ Manganese/Zinc 1 ml/ Amino Acids 1,031 mls @ 42 mls/hr IV .Q24H [facility] Stop: 08/27/17 17:59 Fluconazole 100 mg/ (Miscellaneous) 50 mls @ 100 mls/hr IVPB DAILY [facility] Last Admin: 08/26/17 14:49 Dose: 100 mls/hr Metoprolol Succinate (Toprol Xl) 25 mg PO DAILY [facility] Last Admin: 08/26/17 09:59 Dose: Not Given Wywbp-3-Iqbp Ethyl Esters (Lovaza) 1 gm PO BID [facility] Last Admin: 08/26/17 09:58 Dose: Not Given Pantoprazole Sodium (Protonix Inj) 40 mg IVP DAILY [facility] Last Admin: 08/26/17 10:50 Dose: 40 mg Polyethylene Glycol (Miralax) 17 gm PO DAILY [facility] Last Admin: 08/26/17 09:58 Dose: Not Given Potassium Phos/Sodium Phos (Neutra-Phos) 1 pkt PO BID [facility] Stop: 08/27/17 10:01 Last Admin: 08/26/17 09:58 Dose: Not Given Rosuvastatin Calcium (Crestor) 2.5 mg PO HS [facility] Last Admin: 08/25/17 21:47 Dose: Not Given Sodium Bicarbonate (Sodium Bicarbonate Tab) 650 mg PO Q6 [facility] Last Admin: 08/26/17 12:48 Dose: Not Given - Labs Labs: 08/26/17 06:16 08/26/17 06:16 PT 18.6 SECONDS (9.7-12.2) H 08/15/17 20:05 INR 1.6 08/15/17 20:05 APTT 44 SECONDS (21-34) H 08/15/17 20:05 - Constitutional Appears: Non-toxic, Chronically Ill - Head Exam Head Exam: NORMOCEPHALIC - Eye Exam Eye Exam: PERRL - ENT Exam ENT Exam: Mucous Membranes Dry - Neck Exam Neck Exam: absent: Lymphadenopathy - Respiratory Exam Respiratory Exam: Decreased Breath Sounds - Cardiovascular Exam Cardiovascular Exam: REGULAR RHYTHM - GI/Abdominal Exam GI & Abdominal Exam: Distended, Soft Assessment and Plan (1) Altered mental status Status: Resolved (2) Aortic aneurysm Status: Acute (3) DVT prophylaxis Status: Acute (4) HTN (hypertension) Status: Acute (5) Near syncope Status: Resolved (6) Pancreatitis Status: Acute (7) Seizure disorder Status: Chronic
--- NOTE | 2017-08-26 19:30 | CP.PCM.PN ---
Subjective - Date & Time of Evaluation Date of Evaluation: 08/26/17 Time of Evaluation: 10:20 - Subjective Subjective: clinically same Objective - Vital Signs/Intake and Output Vital Signs (last 24 hours): Temp Pulse Resp BP Pulse Ox 98.3 F 85 18 113/71 100 08/26/17 16:00 08/26/17 16:00 08/26/17 16:00 08/26/17 16:00 08/26/17 16:00 Intake and Output: 08/26/17 08/27/17 18:59 06:59 Intake Total 692 Output Total 0 Balance 692 - Medications Medications: Current Medications Allopurinol (Zyloprim) 100 mg PO DAILY [facility] Last Admin: 08/26/17 09:59 Dose: Not Given Aspirin (Aspirin Chewable) 81 mg PO DAILY [facility] Last Admin: 08/26/17 09:58 Dose: Not Given Docusate Sodium (Colace) 100 mg PO DAILY [facility] Last Admin: 08/26/17 09:58 Dose: Not Given Dronabinol (Marinol) 5 mg PO BID [facility] Last Admin: 08/26/17 09:58 Dose: Not Given Folic Acid (Folic Acid) 1 mg PO DAILY [facility] Last Admin: 08/26/17 09:58 Dose: Not Given Cefepime HCl (Maxipime Iv 1 Gm Premix) 1 gm in 50 mls @ 100 mls/hr IVPB Q12H [facility] Last Admin: 08/26/17 11:19 Dose: 100 mls/hr Fat Emulsion Intravenous (Intralipid 20%) 500 mls @ 42 mls/hr IV TTS@1800 [facility] Stop: 08/28/17 05:55 Last Admin: 08/25/17 17:20 Dose: 42 mls/hr Vancomycin/Sodium Chloride (Vancomycin 1 Gm/Ns 200 Ml) 1 gm in 200 mls @ 133.333 mls/hr IVPB 2200 [facility] Stop: 08/30/17 22:01 Last Admin: 08/25/17 21:50 Dose: 133.333 mls/hr Parenteral Electrolytes 20 ml/Multivitamins/Vitamin C 10 ml / Chromium/Copper/ Manganese/Zinc 1 ml/ Amino Acids 1,031 mls @ 42 mls/hr IV .Q24H [facility] Stop: 08/27/17 17:59 Fluconazole 100 mg/ (Miscellaneous) 50 mls @ 100 mls/hr IVPB DAILY [facility] Last Admin: 08/26/17 14:49 Dose: 100 mls/hr Metoprolol Succinate (Toprol Xl) 25 mg PO DAILY [facility] Last Admin: 08/26/17 09:59 Dose: Not Given Hqndx-6-Yhff Ethyl Esters (Lovaza) 1 gm PO BID [facility] Last Admin: 08/26/17 09:58 Dose: Not Given Pantoprazole Sodium (Protonix Inj) 40 mg IVP DAILY [facility] Last Admin: 08/26/17 10:50 Dose: 40 mg Polyethylene Glycol (Miralax) 17 gm PO DAILY [facility] Last Admin: 08/26/17 09:58 Dose: Not Given Potassium Phos/Sodium Phos (Neutra-Phos) 1 pkt PO BID [facility] Stop: 08/27/17 10:01 Last Admin: 08/26/17 09:58 Dose: Not Given Rosuvastatin Calcium (Crestor) 2.5 mg PO HS [facility] Last Admin: 08/25/17 21:47 Dose: Not Given Sodium Bicarbonate (Sodium Bicarbonate Tab) 650 mg PO Q6 [facility] Last Admin: 08/26/17 12:48 Dose: Not Given - Labs Labs: 08/26/17 06:16 08/26/17 06:16 PT 18.6 SECONDS (9.7-12.2) H 08/15/17 20:05 INR 1.6 08/15/17 20:05 APTT 44 SECONDS (21-34) H 08/15/17 20:05 - Constitutional Appears: Well - Head Exam Head Exam: ATRAUMATIC, NORMAL INSPECTION, NORMOCEPHALIC - Eye Exam Eye Exam: EOMI, Normal appearance, PERRL Pupil Exam: NORMAL ACCOMODATION, PERRL - ENT Exam ENT Exam: Mucous Membranes Moist, Normal Exam - Neck Exam Neck Exam: Full ROM, Normal Inspection. absent: Lymphadenopathy - Respiratory Exam Respiratory Exam: Decreased Breath Sounds - Cardiovascular Exam Cardiovascular Exam: REGULAR RHYTHM, +S1, +S2 - GI/Abdominal Exam GI & Abdominal Exam: Soft, Diminished Bowel Sounds - Rectal Exam Rectal Exam: Deferred Assessment and Plan (1) Alcohol dependence Status: Acute (2) Alcohol intoxication Status: Acute (3) Aortic aneurysm Status: Acute (4) Dehydration Status: Acute (5) DVT prophylaxis Status: Acute (6) Dyslipidemia Status: Chronic (7) Gout Status: Chronic (8) HTN (hypertension) Status: Acute (9) Pancreatitis Status: Acute (10) Seizure disorder Status: Chronic (11) Weakness Status: Chronic (12) Weight loss Status: Acute
[2017-08-27] MEDS ORDERED: Fluconazole IV 200mg/100 ml NS 100 MG in Premixed IV 1 EA IVPB SCH (12:00)
== END 2017-08-26 19:50 | DRG 871 ==
LOC: C.ER 14:11 → C.9E 15:07 → C.6T 21:27
PROVIDERS: ADMIT Internal Medicine Nephrology; ATTEND Internal Medicine Nephrology
PROC: 3E0436Z Introduction of Nutritional Substance into Central Vein, Percutaneous Approach (ICD-10-PCS; 2017-08-16)
PROC: 0CJS8ZZ Inspection of Larynx, Via Natural or Artificial Opening Endoscopic (ICD-10-PCS; 2017-08-16)
PROC: 0DB88ZX Excision of Small Intestine, Via Natural or Artificial Opening Endoscopic, Diagnostic (ICD-10-PCS; 2017-08-18)
PROC: 02HV33Z Insertion of Infusion Device into Superior Vena Cava, Percutaneous Approach (ICD-10-PCS; principal; 2017-08-26)
DX: A41.81 Sepsis due to Enterococcus (principal); K85.90 Acute pancreatitis without necrosis or infection, unspecified; J18.9 Pneumonia, unspecified organism; R13.10 Dysphagia, unspecified; G40.909 Epilepsy, unspecified, not intractable, without status epilepticus; K70.30 Alcoholic cirrhosis of liver without ascites; E83.42 Hypomagnesemia; E83.39 Other disorders of phosphorus metabolism; T81.4XXA Infection following a procedure, initial encounter; E86.0 Dehydration; I10 Essential (primary) hypertension; R65.20 Severe sepsis without septic shock; B96.89 Other specified bacterial agents as the cause of diseases classified elsewhere; E78.00 Pure hypercholesterolemia, unspecified; Z86.73 Personal history of transient ischemic attack (TIA), and cerebral infarction without residual deficits; Z90.49 Acquired absence of other specified parts of digestive tract; Z85.51 Personal history of malignant neoplasm of bladder; R63.4 Abnormal weight loss; Z87.891 Personal history of nicotine dependence; B96.20 Unspecified Escherichia coli [E. coli] as the cause of diseases classified elsewhere; Y83.8 Other surgical procedures as the cause of abnormal reaction of the patient, or of later complication, without mention of misadventure at the time of the procedure; I71.9 Aortic aneurysm of unspecified site, without rupture; R55 Syncope and collapse; F10.220 Alcohol dependence with intoxication, uncomplicated; Y90.9 Presence of alcohol in blood, level not specified; M1A.9XX0 Chronic gout, unspecified, without tophus (tophi); K29.70 Gastritis, unspecified, without bleeding

== ENCOUNTER 2017-08-29 13:17 | Inpatient (IN) | payer MEDICARE ==
[2017-08-29 13:18] VITALS: BMI 24.3
--- NOTE | 2017-08-29 14:21 | C.PDOC ---
History Of Present Illness 72 year old male presents to the ED from retirement for PEG placement. History limited due to clinical condition, history per retirement and EMS. Patient has chronic decreased appetite. He is currently taking antibiotics for post operative infection. Patient is currently at baseline with no recent fever , vomiting, or diarrhea. LIMITED DUE TO CLIN COND HX PER FAMILY REFERRED FROM [facility] FOR PEG PLACEMENT. PT W CHRONIC DEC APPETITE. CURRENTLY ON ABX FOR POST OP INFXN. PT CURRENTLY @ BASELINE NO RECENT FEVER, VD ROS LIMITED EXAM MILD DIST NONTOXIC LUNGS NEG ABD NEG NONVERBAL BUT APPROPRIATELY INTERACTIVE NO GROSS FOCAL DEF REMAINDER NEG Time Seen by Provider: 08/29/17 13:56 Chief Complaint (Nursing): Medical Clearance History Per: EMS, Other (retirement) History/Exam Limitations: clinical condition Onset/Duration Of Symptoms: Hrs Current Symptoms Are (Timing): Still Present Reports Recently: Seen In ED Recent travel outside of the [place]: No Additional History Per: Prior Records Past Medical History Reviewed: Historical Data, Nursing Documentation, Vital Signs Vital Signs: Last Vital Signs Temp 97.9 F 08/29/17 13:42 Pulse 88 08/29/17 15:02 Resp 19 08/29/17 15:02 BP 119/68 08/29/17 15:02 Pulse Ox 98 08/29/17 15:46 - Medical History PMH: CVA, Gastrointestinal Ulcer, HTN, Hypercholesterolemia, Hyperlipidemia, Malignancy (bladder cancer, currently being treated), Seizures Surgical History: Appendectomy, Cholecystectomy - [facility] Procedures EXCISION OF SMALL INTESTINE, ENDO, DIAGN (08/12/17) INSERTION OF INFUSION DEV INTO SUP VENA CAVA, PERC APPROACH (08/12/17) INSPECTION OF LARYNX, ENDO (08/12/17) INTRODUCTION OF NUTRITIONAL INTO CENTRAL VEIN, PERC APPROACH (08/12/17) Family History: States: Unknown Family Hx (noncontributory) - Social History Hx Alcohol Use: No Hx Substance Use: No Review Of Systems Review Of Systems: ROS cannot be obtained secondary to pt's inabilty to answer questions. (due to clinical condition) Physical Exam - Physical Exam Appears: Non-toxic, In Acute Distress (mild distress ) Skin: Warm, Dry, No Rash Head: Atraumatic, Normacephalic, No Tenderness Eye(s): bilateral: Normal Inspection, PERRL, EOMI Oral Mucosa: Moist Chest: Symmetrical, No Deformity Cardiovascular: Rhythm Regular, No Murmur Respiratory: No Rales, No Rhonchi, No Wheezing, Other (clear to auscultation bilaterally) Gastrointestinal/Abdominal: Soft, No Tenderness, No Distention, No Guarding, No Rebound Extremity: Normal ROM, No Tenderness Neurological/Psych: Other (Patient is nonverbal but appropriately interactive, no gross focal deficits) ED Course And Treatment - Laboratory Results Result Diagrams: 08/29/17 15:10 08/29/17 15:10 O2 Sat by Pulse Oximetry: 98 (RA) Pulse Ox Interpretation: Normal Progress Note: EKG, CXR, blood work, and labs were ordered. Patient was given IV fluids. Progress - Re-Evaluation Re-evaluation Note: 08/29/17 15:48 D/W PMD WILL ADMIT - Data Reviewed Data Reviewed: Lab, Diagnostic imaging, EKG, Old records Disposition Counseled Patient/Family Regarding: Studies Performed, Diagnosis - Disposition Disposition: HOSPITALIZED Disposition Time: 15:48 Condition: STABLE Forms: [facility] (Nauruan) - POA Present On Arrival: None - Clinical Impression Clinical Impression: Failure to thrive - Scribe Statement The provider has reviewed the documentation as recorded by the Scribe Sara Patrick All medical record entries made by the Scribe were at my direction and personally dictated by me. I have reviewed the chart and agree that the record accurately reflects my personal performance of the history, physical exam, medical decision making, and the department course for this patient. I have also personally directed, reviewed, and agree with the discharge instructions and disposition. Decision To Admit - Pt Status Changed To: Hospital Disposition Of: Observation - . Bed Request Type: Regular Admitting Physician: Danny Jeffrey Patient Diagnosis: Failure to thrive
[2017-08-29] MEDS ORDERED: Sodium Chloride 0.9% 1,000 ML IV ONE (14:43)
[2017-08-29 15:14] LABS: BASO % 0.8 % (0.0-2.0); EOS % 0.7 % (0.0-4.0); HEMATOCRIT 28.4 % (35.0-51.0); LYMPH % 24.8 % (20.0-40.0); MEAN CELL VOLUME 88.7 fL (80.0-94.0); MEAN CORPUSCULAR HGB CONC 33.8 g/dL (33.0-37.0); MEAN PLATELET VOLUME 7.6 fL (7.2-11.7); MONO # 0.5 K/uL (0.0-0.8); MONO % 13.9 % (0.0-10.0); NRBC % 0.1 % (0.0-2.0); RED CELL DISTRIBUTION WIDTH 14.4 % (11.5-14.5); WHITE BLOOD COUNT 3.9 K/uL (4.8-10.8)
[2017-08-29 15:24] LABS: INR 1.2
[2017-08-29 15:43] LABS: ALKALINE PHOSPHATASE 161 U/L (38-126); ALT/SGPT 42 U/L (21-72); AST/SGOT 38 U/L (17-59); BILIRUBIN,TOTAL 0.5 mg/dL (0.2-1.3); BLOOD UREA NITROGEN 18 mg/dL (9-20); CARBON DIOXIDE 20 mmol/L (22-30); CHLORIDE 108 mmol/L (98-107); GFR AFRICAN-AMERICAN > 60; GLUCOSE,RANDOM 74 mg/dL (75-110); POTASSIUM 3.8 mmol/L (3.6-5.2); SODIUM 135 mmol/L (132-148); TOTAL PROTEIN 5.3 g/dL (6.3-8.3)
[2017-08-29 15:44] LABS: ALB/GLOB RATIO 0.9 (1.0-2.1)
--- NOTE | 2017-08-29 15:53 | RAD ---
PROCEDURE: CHEST RADIOGRAPH, 1 VIEW HISTORY: Pre Op COMPARISON: 08/12/2017. FINDINGS: The right PICC line terminates in the SVC. LUNGS: The lungs are well inflated and clear. PLEURA: No pneumothorax or pleural fluid seen. CARDIOVASCULAR: The heart is normal in size. There is stable appearance of endovascular aortic stent graft. OSSEOUS STRUCTURES: No significant abnormalities. VISUALIZED UPPER ABDOMEN: Normal. OTHER FINDINGS: None. IMPRESSION: No acute findings.
[2017-08-29] MEDS ORDERED: Sodium Chloride 0.9% 1,000 ML ONE (16:06)
[2017-08-29] MEDS ORDERED: Oxycodone/Acetaminophen 5/325 mg Tab PO PRN (18:27)
--- NOTE | 2017-08-29 18:31 | CP.PCM.HP ---
Present on Admission - Present on Admission Any Indicators Present on Admission: No Past Patient History - Infectious Disease Hx of Infectious Diseases: None - Past Medical History & Family History Past Medical History?: Yes - Past Social History Smoking Status: Former Smoker - CARDIAC Hx Hypercholesterolemia: Yes Hx Hypertension: Yes - PULMONARY Hx Respiratory Disorders: No - NEUROLOGICAL Hx Seizures: Yes - HEENT Hx HEENT Problems: Yes (hard of hearing) - RENAL Hx Chronic Kidney Disease: No - ENDOCRINE/METABOLIC Hx Endocrine Disorders: No - HEMATOLOGICAL/ONCOLOGICAL Hx Human Immunodeficiency Virus (HIV): No - INTEGUMENTARY Hx Dermatological Problems: No - MUSCULOSKELETAL/RHEUMATOLOGICAL Hx Musculoskeletal Disorders: Yes Hx Gout: Yes - GASTROINTESTINAL Hx Gastrointestinal Disorders: Yes Hx Gastroesophageal Reflux: Yes - GENITOURINARY/GYNECOLOGICAL Hx Genitourinary Disorders: No - PSYCHIATRIC Hx Substance Use: No - SURGICAL HISTORY Hx Appendectomy: Yes Hx Cholecystectomy: Yes - ANESTHESIA Hx Anesthesia: Yes Hx Anesthesia Reactions: No Hx Malignant Hyperthermia: No Meds Allergies/Adverse Reactions: Allergies Allergy/AdvReac Type Severity Reaction Status Date / Time No Known Allergies Allergy Verified 10/17/15 15:26 Physical Exam - Constitutional Appears: Well - Head Exam Head Exam: ATRAUMATIC, NORMAL INSPECTION, NORMOCEPHALIC - Eye Exam Eye Exam: EOMI, Normal appearance, PERRL Pupil Exam: NORMAL ACCOMODATION, PERRL - ENT Exam ENT Exam: Mucous Membranes Moist, Normal Exam - Neck Exam Neck exam: Positive for: Normal Inspection - Respiratory Exam Respiratory Exam: Decreased Breath Sounds - Cardiovascular Exam Cardiovascular Exam: REGULAR RHYTHM, +S1, +S2 - GI/Abdominal Exam GI & Abdominal Exam: Diminished Bowel Sounds, Soft - Rectal Exam Rectal Exam: Deferred Results - Vital Signs Recent Vital Signs: Last Vital Signs Temp 97.9 F 08/29/17 13:42 Pulse 88 08/29/17 15:02 Resp 19 08/29/17 15:02 BP 119/68 08/29/17 15:02 Pulse Ox 98 08/29/17 15:48 - Labs Result Diagrams: 08/29/17 15:10 08/29/17 15:10 Labs: Laboratory Results - last 24 hr 08/29/17 08/29/17 08/29/17 15:10 15:10 15:10 WBC 3.9 L RBC 3.20 L Hgb 9.6 L Hct 28.4 L MCV 88.7 MCH 30.0 MCHC 33.8 RDW 14.4 Plt Count 214 MPV 7.6 Neut % (Auto) 59.8 Lymph % (Auto) 24.8 [place] % (Auto) 13.9 H Eos % (Auto) 0.7 Baso % (Auto) 0.8 Neut # 2.3 Lymph # 1.0 [place] # 0.5 Eos # 0.0 Baso # 0.0 PT 13.8 H INR 1.2 APTT 31 Sodium 135 Potassium 3.8 Chloride 108 H Carbon Dioxide 20 L Anion Gap 10 BUN 18 Creatinine 1.0 Est GFR ( Amer) > 60 Est GFR (Non-Af Amer) > 60 Random Glucose 74 L Calcium 8.0 L Total Bilirubin 0.5 AST 38 ALT 42 Alkaline Phosphatase 161 H Total Protein 5.3 L Albumin 2.5 L Globulin 2.8 Albumin/Globulin Ratio 0.9 L Blood Type Antibody Screen 08/29/17 15:10 WBC RBC Hgb Hct MCV MCH MCHC RDW Plt Count MPV Neut % (Auto) Lymph % (Auto) [place] % (Auto) Eos % (Auto) Baso % (Auto) Neut # Lymph # [place] # Eos # Baso # PT INR APTT Sodium Potassium Chloride Carbon Dioxide Anion Gap BUN Creatinine Est GFR ( Amer) Est GFR (Non-Af Amer) Random Glucose Calcium Total Bilirubin AST ALT Alkaline Phosphatase Total Protein Albumin Globulin Albumin/Globulin Ratio Blood Type B POSITIVE Antibody Screen Negative Assessment & Plan - Assessment and Plan (Free Text) Plan: Will hold aspirin GI consult with Dr. Avalos the Medication reconciliation done Continue cefepime and vancomycin For PEG tube placement No surgical intervention at this time Continue same as ordered
[2017-08-29] MEDS: POLYETHYLENE GLYCOL 3350 17 GM/Dose PACKET PO SCH (19:45)
[2017-08-29] MEDS: Cefepime IV 1 gm in Dextrose 1 GM/50 ML BAG IVPB SCH (20:00)
[2017-08-29] MEDS ORDERED: CEFEPIME IV SCH (22:00)
[2017-08-29] MEDS ORDERED: NS IV SCH (22:00)
[2017-08-29] MEDS: Rosuvastatin Calcium 2.5 mg Tab PO SCH (22:02)
[2017-08-30] MEDS: Cefepime IV 1 gm in Dextrose 1 GM/50 ML BAG IVPB SCH ×2 (06:00→19:10)
--- NOTE | 2017-08-30 07:32 | CP.PCM.CON ---
<Ramón Sharp - Last Filed: 08/30/17 08:58> History of Present Illness - History of Present Illness History of Present Illness: Ramón Sharp D.O. PGY-2, GI Consultation Note 72 year old male with a PMH of previous CVA, PUD, HTN, HLD, AAA s/p repair, iliac angio/stent, prostate CA, left groin wound, and seizure disorder who presents for evaluation for PEG placement given dysphagia with recent EGD on consistent with chronic gastritis. Patient was seen and examined at bedside. Patient states that he has not had much appetite over the last month, particularly since he had a cholecystectomy about 1 month ago. Patient at this time states that he has no complaints. When asked about his decreased PO intake , patient admits that he just hasn't wanted to eat anything. Denies dypshagia or odynophagia but admits to sometimes having nausea but no vomiting. Otherwise has no complaints. PMH: as above PSH: lap cholecystectomy - 04/22/17 at [facility], appendectomy SH: former smoker, 2 ppd x many years, heavy ETOH user in the past, lives at [facility]. FH: denies Meds: reviewed Allergies: NKA Review of Systems - Review of Systems All systems: reviewed and no additional remarkable complaints except - Gastrointestinal Additional comments: decreased appetite Past Patient History - Infectious Disease Hx of Infectious Diseases: None - Past Medical History & Family History Past Medical History?: Yes - Past Social History Smoking Status: Former Smoker - CARDIAC Hx Hypercholesterolemia: Yes Hx Hypertension: Yes - PULMONARY Hx Respiratory Disorders: No - NEUROLOGICAL HX Cerebrovascular Accident: Yes Hx Seizures: Yes - HEENT Hx HEENT Problems: Yes (hard of hearing) - RENAL Hx Chronic Kidney Disease: No Other/Comment: ca bladder - ENDOCRINE/METABOLIC Hx Endocrine Disorders: No - HEMATOLOGICAL/ONCOLOGICAL Hx Human Immunodeficiency Virus (HIV): No - INTEGUMENTARY Hx Dermatological Problems: No - MUSCULOSKELETAL/RHEUMATOLOGICAL Hx Falls: No - GASTROINTESTINAL Hx Gastrointestinal Disorders: Yes Hx Gastroesophageal Reflux: Yes - GENITOURINARY/GYNECOLOGICAL Hx Genitourinary Disorders: No - PSYCHIATRIC Hx Substance Use: No - SURGICAL HISTORY Hx Appendectomy: Yes Hx Cholecystectomy: Yes - ANESTHESIA Hx Anesthesia: Yes Hx Anesthesia Reactions: No Hx Malignant Hyperthermia: No Has any member of the family had a problem w/ anesthesia?: No Meds Allergies/Adverse Reactions: Allergies Allergy/AdvReac Type Severity Reaction Status Date / Time No Known Allergies Allergy Verified 10/17/15 15:26 - Medications Medications: Current Medications Docusate Sodium (Colace) 100 mg PO DAILY [facility] Enoxaparin Sodium (Lovenox) 40 mg SC DAILY [facility] Folic Acid (Folic Acid) 1 mg PO DAILY [facility] Home Med (Arginine [L-Arginine]) 500 mg PO DAILY [facility] Cefepime HCl (Maxipime Iv 1 Gm Premix) 1 gm in 50 mls @ 100 mls/hr IVPB Q12H [facility] Last Admin: 08/30/17 06:00 Dose: 100 mls/hr Fluconazole (Diflucan Iv 200 Mg/100 Ml Ns) 100 mls @ 100 mls/hr IVPB DAILY [facility] Vancomycin/Sodium Chloride (Vancomycin 1 Gm/Ns 200 Ml) 1 gm in 200 mls @ 133 mls/hr IVPB Q24H [facility] Stop: 09/04/17 10:01 Magnesium Hydroxide (Milk Of Magnesia) 30 ml PO DAILY [facility] Metoprolol Tartrate (Lopressor) 25 mg PO DAILY [facility] Oxycodone/Acetaminophen (Percocet 5/325 Mg Tab) 1 tab PO Q4 PRN PRN Reason: Pain, moderate (4-7) Stop: 09/01/17 18:28 Pantoprazole Sodium (Protonix Ec Tab) 40 mg PO DAILY [facility] Polyethylene Glycol (Miralax) 17 gm PO DAILY [facility] Last Admin: 08/29/17 19:45 Dose: 17 gm Rosuvastatin Calcium (Crestor) 2.5 mg PO HS [facility] Last Admin: 08/29/17 22:02 Dose: 2.5 mg Physical Exam - Constitutional Appears: Non-toxic, No Acute Distress, Cachectic - Head Exam Head Exam: ATRAUMATIC, NORMOCEPHALIC Additional comments: temporal wasting - Eye Exam Eye Exam: EOMI, PERRL Pupil Exam: absent: NORMAL ACCOMODATION - ENT Exam ENT Exam: Mucous Membranes Dry, Normal Oropharynx - Neck Exam Neck exam: Positive for: Normal Inspection. Negative for: Tenderness - Respiratory Exam Respiratory Exam: Clear to Auscultation Bilateral - Cardiovascular Exam Cardiovascular Exam: +S1, +S2 - GI/Abdominal Exam GI & Abdominal Exam: Normal Bowel Sounds, Soft. absent: Distended, Firm, Guarding, Tenderness Additional comments: ex lap well healed scar, LLQ open wound, no erythema, not tender, no drainage - Extremities Exam Extremities exam: Negative for: calf tenderness, pedal edema - Neurological Exam Additional comments: AAOx4, follows simple and complex commands - Psychiatric Exam Psychiatric exam: Normal Affect, Normal Mood - Skin Skin Exam: Dry, Warm Results - Vital Signs Recent Vital Signs: Last Vital Signs Temp 97.7 F 08/30/17 00:00 Pulse 86 08/30/17 00:00 Resp 20 08/30/17 00:00 BP 124/73 08/30/17 00:00 Pulse Ox 98 08/30/17 00:00 - Labs Result Diagrams: 08/29/17 15:10 08/29/17 15:10 Labs: Laboratory Results - last 24 hr 08/29/17 08/29/17 08/29/17 15:10 15:10 15:10 WBC 3.9 L RBC 3.20 L Hgb 9.6 L Hct 28.4 L MCV 88.7 MCH 30.0 MCHC 33.8 RDW 14.4 Plt Count 214 MPV 7.6 Neut % (Auto) 59.8 Lymph % (Auto) 24.8 [place] % (Auto) 13.9 H Eos % (Auto) 0.7 Baso % (Auto) 0.8 Neut # 2.3 Lymph # 1.0 [place] # 0.5 Eos # 0.0 Baso # 0.0 PT 13.8 H INR 1.2 APTT 31 Sodium 135 Potassium 3.8 Chloride 108 H Carbon Dioxide 20 L Anion Gap 10 BUN 18 Creatinine 1.0 Est GFR ( Amer) > 60 Est GFR (Non-Af Amer) > 60 Random Glucose 74 L Calcium 8.0 L Total Bilirubin 0.5 AST 38 ALT 42 Alkaline Phosphatase 161 H Total Protein 5.3 L Albumin 2.5 L Globulin 2.8 Albumin/Globulin Ratio 0.9 L Blood Type Antibody Screen 08/29/17 15:10 WBC RBC Hgb Hct MCV MCH MCHC RDW Plt Count MPV Neut % (Auto) Lymph % (Auto) [place] % (Auto) Eos % (Auto) Baso % (Auto) Neut # Lymph # [place] # Eos # Baso # PT INR APTT Sodium Potassium Chloride Carbon Dioxide Anion Gap BUN Creatinine Est GFR ( Amer) Est GFR (Non-Af Amer) Random Glucose Calcium Total Bilirubin AST ALT Alkaline Phosphatase Total Protein Albumin Globulin Albumin/Globulin Ratio Blood Type B POSITIVE Antibody Screen Negative Assessment & Plan - Assessment and Plan (Free Text) Assessment: 72 year old male with a PMH of previous CVA, PUD, HTN, HLD, AAA s/p repair, iliac angio/stent, prostate CA, left groin wound, and seizure disorder who presents for evaluation for PEG placement given dysphagia with recent EGD on consistent with chronic gastritis Plan: Failure to thrive with decreased appetite/poor PO intake Gastritis, H pylori negative CVA HTN HLD Prostate CA Seizures Recently had EGD on 08/18 with consistent with gastritis, biopsy negative for H pylori Seen by ENT and had nasolaryngoscopy showing no acute pathology Barium swallow on 08/23 showed some pooling in vallecula and piriform sinus Review of other previous records reveal patient recently acute ill and had neurological evaluation for neurological origin for decreased PO intake which included brain MRI which showed no new lesions Has lost significant amount of weight, 06/22/15 was 88kg, 06/30/16 was 77kg, and is now at 61kg Continue supportive care with IVF hydration Keep NPO at this time Plan for patient to have EGD placement tomorrow, consent obtained from POA over phone, nurse witnessed Discussed with fellow and attending physician Thank you for the pleasure of participating in the care of this interesting patient - Date & Time Date: 08/30/17 Time: 06:30 <Donald Avalos - Last Filed: 08/30/17 09:19> Meds - Medications Medications: Current Medications Docusate Sodium (Colace) 100 mg PO DAILY [facility] Enoxaparin Sodium (Lovenox) 40 mg SC DAILY [facility] Folic Acid (Folic Acid) 1 mg PO DAILY [facility] Home Med (Arginine [L-Arginine]) 500 mg PO DAILY [facility] Cefepime HCl (Maxipime Iv 1 Gm Premix) 1 gm in 50 mls @ 100 mls/hr IVPB Q12H [facility] Last Admin: 08/30/17 06:00 Dose: 100 mls/hr Fluconazole (Diflucan Iv 200 Mg/100 Ml Ns) 100 mls @ 100 mls/hr IVPB DAILY [facility] Vancomycin/Sodium Chloride (Vancomycin 1 Gm/Ns 200 Ml) 1 gm in 200 mls @ 133 mls/hr IVPB Q24H [facility] Stop: 09/04/17 10:01 Magnesium Hydroxide (Milk Of Magnesia) 30 ml PO DAILY [facility] Metoprolol Tartrate (Lopressor) 25 mg PO DAILY [facility] Oxycodone/Acetaminophen (Percocet 5/325 Mg Tab) 1 tab PO Q4 PRN PRN Reason: Pain, moderate (4-7) Stop: 09/01/17 18:28 Pantoprazole Sodium (Protonix Ec Tab) 40 mg PO DAILY [facility] Polyethylene Glycol (Miralax) 17 gm PO DAILY [facility] Last Admin: 08/29/17 19:45 Dose: 17 gm Rosuvastatin Calcium (Crestor) 2.5 mg PO HS [facility] Last Admin: 08/29/17 22:02 Dose: 2.5 mg Results - Vital Signs Recent Vital Signs: Last Vital Signs Temp 97.5 F L 08/30/17 07:54 Pulse 83 08/30/17 07:54 Resp 20 08/30/17 07:54 BP 126/76 08/30/17 07:54 Pulse Ox 98 08/30/17 07:54 - Labs Result Diagrams: 08/29/17 15:10 08/29/17 15:10 Labs: Laboratory Results - last 24 hr 08/29/17 08/29/17 08/29/17 15:10 15:10 15:10 WBC 3.9 L RBC 3.20 L Hgb 9.6 L Hct 28.4 L MCV 88.7 MCH 30.0 MCHC 33.8 RDW 14.4 Plt Count 214 MPV 7.6 Neut % (Auto) 59.8 Lymph % (Auto) 24.8 [place] % (Auto) 13.9 H Eos % (Auto) 0.7 Baso % (Auto) 0.8 Neut # 2.3 Lymph # 1.0 [place] # 0.5 Eos # 0.0 Baso # 0.0 PT 13.8 H INR 1.2 APTT 31 Sodium 135 Potassium 3.8 Chloride 108 H Carbon Dioxide 20 L Anion Gap 10 BUN 18 Creatinine 1.0 Est GFR ( Amer) > 60 Est GFR (Non-Af Amer) > 60 Random Glucose 74 L Calcium 8.0 L Total Bilirubin 0.5 AST 38 ALT 42 Alkaline Phosphatase 161 H Total Protein 5.3 L Albumin 2.5 L Globulin 2.8 Albumin/Globulin Ratio 0.9 L Blood Type Antibody Screen 08/29/17 15:10 WBC RBC Hgb Hct MCV MCH MCHC RDW Plt Count MPV Neut % (Auto) Lymph % (Auto) [place] % (Auto) Eos % (Auto) Baso % (Auto) Neut # Lymph # [place] # Eos # Baso # PT INR APTT Sodium Potassium Chloride Carbon Dioxide Anion Gap BUN Creatinine Est GFR ( Amer) Est GFR (Non-Af Amer) Random Glucose Calcium Total Bilirubin AST ALT Alkaline Phosphatase Total Protein Albumin Globulin Albumin/Globulin Ratio Blood Type B POSITIVE Antibody Screen Negative Attending/Attestation - Attestation I have personally seen and examined this patient.: Yes I have fully participated in the care of the patient.: Yes I have reviewed all pertinent clinical information: Yes Notes (Text): 08/30/17 09:08 I have seen and examined patient with GI fellow and medical doctor. Agree with above documentation with the following additions. In brief, this is a pleasant 72 year old male with history of dementia, HTN, CVA, AAA s/p repair, seizure disorder who is sent from [facility] due to failure to thrive and ongoing dysphagia. Patient is able to communicate appropriately, however is only oriented to person, not to place or time. Additional information is obtained via chart review, discussion with nursing staff, and discussion with patient's . He was recently hospitalized for management of groin wound related to vascular stent placement. During that hospitalization he underwent barium swallow which showed pooling of barium in piriform sinus and EGD which showed gastritis. Since hospital discharge he reports ongoing dysphagia with regurgitation of solid food products on attempted swallowing with associated loss of appetite. He denies abdominal pain, nausea, vomiting, fever/chills. He does admit to ongoing weight loss but cannot quantify amount. Family history: reviewed, patient denies history of colon cancer Dementia HTN CVA AAA s/p repair Seizure disorder Dysphagia, weight loss - failure to thrive - Liquid diet as tolerated - Suggest repeat swallow evaluation - Given ongoing dysphagia with documented non-intentional significant weight loss over past 2 years, patient would benefit from gastrostomy feeding tube placement for additional nutritional support. Patient is currently agreeable, however not fully oriented and will need to carefully discuss risks/benefits of procedure with patient's prior to proceeding. NPO after midnight.
--- NOTE | 2017-08-30 09:14 | CP.PCM.PN ---
Subjective - Date & Time of Evaluation Date of Evaluation: 08/30/17 Time of Evaluation: 11:40 - Subjective Subjective: PGY2 Medicine Note for Dr. Blayne Jeffrey; all management as per Dr. Blayne Jeffrey This patient was seen and examined at bedside; he is stating that after he gets his PEG placed he would like to go to a bar to get "smashed". The patient has an active sense of humor, and is therefore at his mental baseline given this interaction. He is for PEG placement tomorrow; he has no complaints today; denies fevers/chills, TRENT, CP, SOB, abdominal pain, N/V/D, dysuria/freq/urg, or lower extremity pain/swelling. Objective - Vital Signs/Intake and Output Vital Signs (last 24 hours): Temp Pulse Resp BP Pulse Ox 97.5 F L 83 20 126/76 98 08/30/17 07:54 08/30/17 07:54 08/30/17 07:54 08/30/17 07:54 08/30/17 07:54 Intake and Output: 08/30/17 08/30/17 06:59 18:59 Intake Total 1150 Output Total 650 Balance 500 - Medications Medications: Current Medications Docusate Sodium (Colace) 100 mg PO DAILY [facility] Enoxaparin Sodium (Lovenox) 40 mg SC DAILY [facility] Folic Acid (Folic Acid) 1 mg PO DAILY [facility] Home Med (Arginine [L-Arginine]) 500 mg PO DAILY [facility] Cefepime HCl (Maxipime Iv 1 Gm Premix) 1 gm in 50 mls @ 100 mls/hr IVPB Q12H [facility] Last Admin: 08/30/17 06:00 Dose: 100 mls/hr Fluconazole (Diflucan Iv 200 Mg/100 Ml Ns) 100 mls @ 100 mls/hr IVPB DAILY [facility] Vancomycin/Sodium Chloride (Vancomycin 1 Gm/Ns 200 Ml) 1 gm in 200 mls @ 133 mls/hr IVPB Q24H [facility] Stop: 09/04/17 10:01 Magnesium Hydroxide (Milk Of Magnesia) 30 ml PO DAILY [facility] Metoprolol Tartrate (Lopressor) 25 mg PO DAILY [facility] Oxycodone/Acetaminophen (Percocet 5/325 Mg Tab) 1 tab PO Q4 PRN PRN Reason: Pain, moderate (4-7) Stop: 09/01/17 18:28 Pantoprazole Sodium (Protonix Ec Tab) 40 mg PO DAILY [facility] Polyethylene Glycol (Miralax) 17 gm PO DAILY [facility] Last Admin: 08/29/17 19:45 Dose: 17 gm Rosuvastatin Calcium (Crestor) 2.5 mg PO HS [facility] Last Admin: 08/29/17 22:02 Dose: 2.5 mg - Labs Labs: 08/29/17 15:10 08/29/17 15:10 PT 13.8 SECONDS (9.7-12.2) H 08/29/17 15:10 INR 1.2 08/29/17 15:10 APTT 31 SECONDS (21-34) 08/29/17 15:10 - Constitutional Appears: Non-toxic - Head Exam Head Exam: ATRAUMATIC - Eye Exam Eye Exam: EOMI - ENT Exam ENT Exam: Mucous Membranes Dry - Neck Exam Neck Exam: absent: Lymphadenopathy - Respiratory Exam Respiratory Exam: Clear to Ausculation Bilateral - Cardiovascular Exam Cardiovascular Exam: REGULAR RHYTHM - GI/Abdominal Exam GI & Abdominal Exam: Soft, Tenderness - Extremities Exam Extremities Exam: absent: Calf Tenderness - Back Exam Back Exam: absent: CVA tenderness (L), CVA tenderness (R) - Neurological Exam Neurological Exam: Alert, Awake - Psychiatric Exam Psychiatric exam: Normal Affect - Skin Skin Exam: Warm Assessment and Plan - Assessment and Plan (Free Text) Assessment: 71 years old male, with hx of CVA, AAA, TAA, presents for dysphagia, vomiting, weight loss, bacteremia, fatigue: Failure to thrive GI Consult, Dr. Avalos, recs appreciated. - EGD unremarkable, ADAT, OPDX colonoscopy for wt loss when medically stable, believe dysphagia may be neurologic in origin -Pt is for PEG placement 08/31; consent in chart; GI on board Obst Series (08/15/17): No evidence of acute obstruction. Abd x ray 08/13/17: mildly distended small bowel ileus vs early obstruction. Mildly distended loops of small bowel in left flank and RUQ. Vascular disease with multiple stents - abdominal aorta and iliacs. CXR 08/12/17: Left hilar/infrahilar opacity -> cannot exclude pneumonia. Biapical pleural thickening/granulamatous changes. Esophagus x ray 08/04/17: could not evaluate because pt could not ingest barium contrast Modified barium swallow (08/23/17): No penetration or aspiration observed. Refer to detailed reccs of speech pathologist (see full reports) - Speech pathology reccs: Pharyngeal Dysphagia noted with delayed initiations of swallows as both liquids and pureed went to level of valleculae prior to initiating the swallow. Mild residue noted on base of tongue and mild residue in valleculae following all consistencies.If weight loss continues, and pt's PO intakes remain low, alternative means of primary nutrition (PEG) might be considered with PO pleasure feeds. - Recommend: Liquid diet. Thin liquid via straw. O'Donnell liquid via spoon. Pureed food. - Social Services Assistant recommends: Ensure supplement TID and Prostat 30ml TID; recommend increasing PPN to 83ml/hr - Per DR. Jeffrey, no PPN at [facility] initially. He will monitor intake and discuss PEG tube placement with family Marinol 5 mg PO BID [facility]; patient is able to eat however he has little appetite Altered Mental Status; Chronic from previous admit - CT head (08/19/17): read as as Chronic small vessel disease/white matter disease. No acute findings. - speech/swallow eval repeat recommended - recommend MRI brain w/o contrast for brainstem stroke - MRI has history of aneurysm and iliac stent placement, produced card saying MRI safe - MRI Brain (08/22/17): Age related neuro degenerative changes are reiterated. No acute brain infarction or intracranial hemorrhage appreciable at this time. - not believed to be caused by autoimmune condition; Gout; chronic stable Allopurinol (Zyloprim) 100 mg PO DAILY [facility] Hypertension; chronic stable Well controlled Metoprolol Succinate (Toprol Xl) 25 mg PO DAILY [facility] - new parameters entered (Hold if SBP <100, HR < 65) Will monitor and encourage fluid intake Hyperlipidemia; chronic stable ASA 81 mg PO DAILY [facility] Crestor 2.5 mg PO HS [facility] Low HDL 08/20/17: HDL 15 Start Lovaza 1 gram PO BID Prophylaxis PT/OT SCDs Protonix Ec Tab 40 mg PO DAILY [facility] Colace 100 mg PO DAILY [facility] Folic Acid 1 mg PO DAILY [facility] Dispo: patient is for PEG placement 08/31; will be eligible for LTAC after; appreciate hospice/palliative care recs -will need 24 hours of monitoring to make sure PEG is functioning properly before d/c All management as per Dr Blayne Jeffrey
[2017-08-30] MEDS: POLYETHYLENE GLYCOL 3350 17 GM/Dose PACKET PO SCH (09:29)
[2017-08-30] MEDS: Pantoprazole 40 mg EC Tab PO SCH (09:29)
[2017-08-30] MEDS: Magnesium Hydroxide Susp 30 ml UD PO SCH (09:29)
[2017-08-30] MEDS: Fluconazole IV 200mg/100 ml NS 100 ML IVPB SCH (09:30)
[2017-08-30] MEDS ORDERED: FLUCONAZOLE IV SCH (10:00)
[2017-08-30] MEDS ORDERED: ARGININE 500 MG PO SCH (10:00)
[2017-08-30] MEDS ORDERED: NS IV SCH (10:00)
[2017-08-30] MEDS ORDERED: Enoxaparin 40 mg Syringe SC SCH (10:00)
[2017-08-30] MEDS ORDERED: SOD CHLORIDE IV SCH (10:00)
[2017-08-30] MEDS ORDERED: VANCOMYCIN IV SCH (10:00)
[2017-08-30] MEDS: Vancomycin 1 gm/NS 200 ml 1 GM/200 ML BAG IVPB SCH (10:29)
--- NOTE | 2017-08-30 12:51 | CP.PCM.CON ---
History of Present Illness - History of Present Illness History of Present Illness: Palliative consult called for end of life care discussion Patient is a 72 yo man admitted from OR with poor appetite and malnutrition. Patient was treated here for the same reason on 08/18/17 when the EGD showed gastritis. No any mechanical obstruction was found. However, patient continued to refuse food as he " just did not feel like eating it'. Patient complained of nausea but no vomiting. Patient also reported worsening of symptoms post cholecystectomy, about one month ago. PEG tube was advised on this admission and procedure was scheduled for today. PMH: CVA, PVD, AAA s/p repair, prostate CA, left groinn surgical wound, healing slowly Soc. Hx: , lives at home, heavy ETOH and smoking in the past Fam. Hx: parents did from natural causes Review of Systems - Constitutional Constitutional: Daytime Sleepiness - EENT Eyes: absent: As Per HPI, Blind Spots, Blurred Vision, Change in Vision, Decreased Night Vision, Diplopia, Discharge, Dry Eye, Exophthalmos, Floaters, Irritation, Itchy Eyes, Loss of Peripheral Vision, Pain, Photophobia, Requires Corrective Lenses, Sees Flashes, Spots in Vision, Tunnel Vision, Other Visual Disturbances, Loss of Vision, Other Ears: absent: As Per HPI, Decreased Hearing, Ear Discharge, Ear Pain, Tinnitus, Abnormal Hearing, Disequilibrium, Dizziness, Other Nose/Mouth/Throat: Dry Mouth - Cardiovascular Cardiovascular: absent: As Per HPI, Acrocyanosis, Chest Pain, Chest Pain at Rest , Chest Pain with Activity, Claudication, Diaphoresis, Dyspnea, Dyspnea on Exertion, Edema, Irregular Heart Rhythm, Pain Radiating to Arm/Neck/Jaw, Leg Edema, Leg Ulcers, Lightheadedness, Orthopnea, Palpitations, Paroxysmal Nocturnal Dyspnea, Pedal Edema, Radiating Pain, Rapid Heart Rate, Slow Heart Rate, Syncope, Other - Respiratory Respiratory: absent: As Per HPI, Cough, Dyspnea, Hemoptysis, Dyspnea on Exertion , Wheezing, Snoring, Stridor, Pain on Inspiration, Chest Congestion, Excessive Mucous Production, Change in Mucous Color, Pain with Coughing, Other - Gastrointestinal Gastrointestinal: Nausea - Genitourinary Genitourinary: absent: As Per HPI, Change in Urinary Stream, Difficulty Urinating, Dysuria, Flank Pain, Hematuria, Pyuria, Nocturia, Urinary Incontinence, Urinary Frequency, Urinary Hesitance, Urinary Urgency, Voiding Freq/Small Amts, Freq UTI, Hx Renal/Bladder Calculi, Hx /Renal Surgery, Bladder Distension, Other - Musculoskeletal Musculoskeletal: Muscle Weakness - Integumentary Integumentary: absent: As Per HPI, Acne, Alopecia, Bleeding Lesions, Change in Hair, Change in Nails, Change in Pigmentation, Changing Lesions, Dry Skin, Erythema, Furuncle, Hirsutism, Lesions, New Lesions, Non-Healing Lesions, Photosensitivity, Pruritus, Rash, Skin Pain, Skin Ulcer, Sores, Striae, Swelling , Unusual Bruising, Wounds, Jaundice, Other - Neurological Neurological: Weakness - Psychiatric Psychiatric: Anhedonia - Endocrine Endocrine: Change in Body Appearance Past Patient History - Infectious Disease Hx of Infectious Diseases: None - Past Medical History & Family History Past Medical History?: Yes - Past Social History Smoking Status: Former Smoker - CARDIAC Hx Hypercholesterolemia: Yes Hx Hypertension: Yes - PULMONARY Hx Respiratory Disorders: No - NEUROLOGICAL HX Cerebrovascular Accident: Yes Hx Seizures: Yes - HEENT Hx HEENT Problems: Yes (hard of hearing) - RENAL Hx Chronic Kidney Disease: No Other/Comment: ca bladder - ENDOCRINE/METABOLIC Hx Endocrine Disorders: No - HEMATOLOGICAL/ONCOLOGICAL Hx Human Immunodeficiency Virus (HIV): No - INTEGUMENTARY Hx Dermatological Problems: No - MUSCULOSKELETAL/RHEUMATOLOGICAL Hx Falls: No - GASTROINTESTINAL Hx Gastrointestinal Disorders: Yes Hx Gastroesophageal Reflux: Yes - GENITOURINARY/GYNECOLOGICAL Hx Genitourinary Disorders: No - PSYCHIATRIC Hx Substance Use: No - SURGICAL HISTORY Hx Appendectomy: Yes Hx Cholecystectomy: Yes - ANESTHESIA Hx Anesthesia: Yes Hx Anesthesia Reactions: No Hx Malignant Hyperthermia: No Has any member of the family had a problem w/ anesthesia?: No Meds Allergies/Adverse Reactions: Allergies Allergy/AdvReac Type Severity Reaction Status Date / Time No Known Allergies Allergy Verified 10/17/15 15:26 - Medications Medications: Current Medications Docusate Sodium (Colace) 100 mg PO DAILY [facility] Last Admin: 08/30/17 09:27 Dose: 100 mg Dronabinol (Marinol) 5 mg PO BID [facility] Last Admin: 08/30/17 10:40 Dose: 5 mg Enoxaparin Sodium (Lovenox) 40 mg SC DAILY [facility] Last Admin: 08/30/17 09:28 Dose: 40 mg Folic Acid (Folic Acid) 1 mg PO DAILY [facility] Last Admin: 08/30/17 09:28 Dose: 1 mg Home Med (Arginine [L-Arginine]) 500 mg PO DAILY [facility] Cefepime HCl (Maxipime Iv 1 Gm Premix) 1 gm in 50 mls @ 100 mls/hr IVPB Q12H [facility] Last Admin: 08/30/17 06:00 Dose: 100 mls/hr Fluconazole (Diflucan Iv 200 Mg/100 Ml Ns) 100 mls @ 100 mls/hr IVPB DAILY [facility] Last Admin: 08/30/17 09:30 Dose: 100 mls/hr Vancomycin/Sodium Chloride (Vancomycin 1 Gm/Ns 200 Ml) 1 gm in 200 mls @ 133 mls/hr IVPB Q24H [facility] Stop: 09/04/17 10:01 Last Admin: 08/30/17 10:29 Dose: 133 mls/hr Magnesium Hydroxide (Milk Of Magnesia) 30 ml PO DAILY [facility] Last Admin: 08/30/17 09:29 Dose: 30 ml Metoprolol Tartrate (Lopressor) 25 mg PO DAILY [facility] Last Admin: 08/30/17 09:28 Dose: 25 mg Oxycodone/Acetaminophen (Percocet 5/325 Mg Tab) 1 tab PO Q4 PRN PRN Reason: Pain, moderate (4-7) Stop: 09/01/17 18:28 Pantoprazole Sodium (Protonix Ec Tab) 40 mg PO DAILY [facility] Last Admin: 08/30/17 09:29 Dose: 40 mg Polyethylene Glycol (Miralax) 17 gm PO DAILY [facility] Last Admin: 08/30/17 09:29 Dose: 17 gm Rosuvastatin Calcium (Crestor) 2.5 mg PO HS [facility] Last Admin: 08/29/17 22:02 Dose: 2.5 mg Physical Exam - Constitutional Appears: Cachectic, Chronically Ill - Head Exam Head Exam: ATRAUMATIC, NORMAL INSPECTION, NORMOCEPHALIC - Eye Exam Eye Exam: EOMI, Normal appearance, PERRL Pupil Exam: NORMAL ACCOMODATION, PERRL - ENT Exam ENT Exam: Mucous Membranes Dry - Neck Exam Neck exam: Positive for: Normal Inspection - Respiratory Exam Respiratory Exam: Decreased Breath Sounds - Cardiovascular Exam Cardiovascular Exam: Tachycardia - GI/Abdominal Exam GI & Abdominal Exam: Hypoactive Bowel Sounds - Rectal Exam Rectal Exam: Deferred - Extremities Exam Extremities exam: Positive for: normal inspection - Back Exam Back exam: NORMAL INSPECTION - Neurological Exam Neurological exam: Alert, Oriented x3 - Psychiatric Exam Psychiatric exam: Depressed - Skin Skin Exam: Pallor Results - Vital Signs Recent Vital Signs: Last Vital Signs Temp 97.5 F L 08/30/17 07:54 Pulse 83 08/30/17 07:54 Resp 20 08/30/17 07:54 BP 126/74 08/30/17 09:28 Pulse Ox 98 08/30/17 07:54 - Labs Result Diagrams: 08/29/17 15:10 08/29/17 15:10 Labs: Laboratory Results - last 24 hr 08/29/17 08/29/17 08/29/17 15:10 15:10 15:10 WBC 3.9 L RBC 3.20 L Hgb 9.6 L Hct 28.4 L MCV 88.7 MCH 30.0 MCHC 33.8 RDW 14.4 Plt Count 214 MPV 7.6 Neut % (Auto) 59.8 Lymph % (Auto) 24.8 [place] % (Auto) 13.9 H Eos % (Auto) 0.7 Baso % (Auto) 0.8 Neut # 2.3 Lymph # 1.0 [place] # 0.5 Eos # 0.0 Baso # 0.0 PT 13.8 H INR 1.2 APTT 31 Sodium 135 Potassium 3.8 Chloride 108 H Carbon Dioxide 20 L Anion Gap 10 BUN 18 Creatinine 1.0 Est GFR ( Amer) > 60 Est GFR (Non-Af Amer) > 60 Random Glucose 74 L Calcium 8.0 L Total Bilirubin 0.5 AST 38 ALT 42 Alkaline Phosphatase 161 H Total Protein 5.3 L Albumin 2.5 L Globulin 2.8 Albumin/Globulin Ratio 0.9 L Blood Type Antibody Screen 08/29/17 15:10 WBC RBC Hgb Hct MCV MCH MCHC RDW Plt Count MPV Neut % (Auto) Lymph % (Auto) [place] % (Auto) Eos % (Auto) Baso % (Auto) Neut # Lymph # [place] # Eos # Baso # PT INR APTT Sodium Potassium Chloride Carbon Dioxide Anion Gap BUN Creatinine Est GFR ( Amer) Est GFR (Non-Af Amer) Random Glucose Calcium Total Bilirubin AST ALT Alkaline Phosphatase Total Protein Albumin Globulin Albumin/Globulin Ratio Blood Type B POSITIVE Antibody Screen Negative Assessment & Plan - Assessment and Plan (Free Text) Assessment: Palliative consult Code status DNR/DNI, POLST on chart, PPS 20% I reviewed medical records, all diagnostic studies, examined and interviewed patient in the bed. Patient is alert, oriented X 3, forgetful. [facility] and hospital's admissions, but he could not remember me this morning. Patient knew he was going for the PEG insertion and reason for it. Patient is aware of his poor PO intake . He reports that he just does not feel like eating. patient wanted to know for long would the PEG stay in. We discussed all prons and cons of PEG, but agreed that it was necessary for him at this time. Patient reported wanting to be home at his own environment and that prolonged stay at OR and hospital has made him " feeling down". He tried to stay cheerful , but his eyes spoke otherwise. I discussed symptoms of depression such as lack of appetite, increased sleeping and tiredness. Patient admitted recognizing those symptoms in himself and agreed to seek help from psychiatrist after the procedure. I supported him. Impression * This is a chronically ill man with multiple co morbidities further worsened by malnutrition * Patient understands need for PEG and agreed with * There are symptoms of depression and dementia * Patient recognizes those symptoms and agreed to get some help from psychiatrist * Patient's goal is to return home Suggestion * Would refer to psychiatrist post PEG procedure * Patient will need PT to regain muscle strength I will try to meet with and further discuss goals of care Thank you very much for consulting Palliative Care
--- NOTE | 2017-08-30 18:27 | CP.PCM.PN ---
Subjective - Date & Time of Evaluation Date of Evaluation: 08/30/17 Time of Evaluation: 08:00 - Subjective Subjective: clinically same Objective - Vital Signs/Intake and Output Vital Signs (last 24 hours): Temp Pulse Resp BP Pulse Ox 97.6 F 75 20 123/68 97 08/30/17 15:59 08/30/17 15:59 08/30/17 15:59 08/30/17 15:59 08/30/17 15:59 Intake and Output: 08/30/17 08/30/17 06:59 18:59 Intake Total 1150 Output Total 650 Balance 500 - Medications Medications: Current Medications Docusate Sodium (Colace) 100 mg PO DAILY [facility] Last Admin: 08/30/17 09:27 Dose: 100 mg Dronabinol (Marinol) 5 mg PO BID [facility] Last Admin: 08/30/17 17:43 Dose: Not Given Enoxaparin Sodium (Lovenox) 40 mg SC DAILY [facility] Last Admin: 08/30/17 09:28 Dose: 40 mg Folic Acid (Folic Acid) 1 mg PO DAILY [facility] Last Admin: 08/30/17 09:28 Dose: 1 mg Home Med (Arginine [L-Arginine]) 500 mg PO DAILY [facility] Cefepime HCl (Maxipime Iv 1 Gm Premix) 1 gm in 50 mls @ 100 mls/hr IVPB Q12H [facility] Last Admin: 08/30/17 06:00 Dose: 100 mls/hr Fluconazole (Diflucan Iv 200 Mg/100 Ml Ns) 100 mls @ 100 mls/hr IVPB DAILY [facility] Last Admin: 08/30/17 09:30 Dose: 100 mls/hr Vancomycin/Sodium Chloride (Vancomycin 1 Gm/Ns 200 Ml) 1 gm in 200 mls @ 133 mls/hr IVPB Q24H [facility] Stop: 09/04/17 10:01 Last Admin: 08/30/17 10:29 Dose: 133 mls/hr Magnesium Hydroxide (Milk Of Magnesia) 30 ml PO DAILY [facility] Last Admin: 08/30/17 09:29 Dose: 30 ml Metoprolol Tartrate (Lopressor) 25 mg PO DAILY [facility] Last Admin: 08/30/17 09:28 Dose: 25 mg Oxycodone/Acetaminophen (Percocet 5/325 Mg Tab) 1 tab PO Q4 PRN PRN Reason: Pain, moderate (4-7) Stop: 09/01/17 18:28 Pantoprazole Sodium (Protonix Ec Tab) 40 mg PO DAILY [facility] Last Admin: 08/30/17 09:29 Dose: 40 mg Polyethylene Glycol (Miralax) 17 gm PO DAILY [facility] Last Admin: 08/30/17 09:29 Dose: 17 gm Rosuvastatin Calcium (Crestor) 2.5 mg PO HS [facility] Last Admin: 08/29/17 22:02 Dose: 2.5 mg - Labs Labs: 08/29/17 15:10 08/29/17 15:10 PT 13.8 SECONDS (9.7-12.2) H 08/29/17 15:10 INR 1.2 08/29/17 15:10 APTT 31 SECONDS (21-34) 08/29/17 15:10 - Constitutional Appears: Well - Head Exam Head Exam: ATRAUMATIC, NORMAL INSPECTION, NORMOCEPHALIC - Eye Exam Eye Exam: EOMI, Normal appearance, PERRL Pupil Exam: NORMAL ACCOMODATION, PERRL - ENT Exam ENT Exam: Mucous Membranes Moist, Normal Exam - Neck Exam Neck Exam: Full ROM, Normal Inspection. absent: Lymphadenopathy - Respiratory Exam Respiratory Exam: Decreased Breath Sounds - Cardiovascular Exam Cardiovascular Exam: REGULAR RHYTHM, +S1, +S2 - GI/Abdominal Exam GI & Abdominal Exam: Soft, Diminished Bowel Sounds - Rectal Exam Rectal Exam: Deferred
--- NOTE | 2017-08-30 21:02 | CARD ---
APPROVED REPORT EKG Measurement Heart [id number] <Conclusion> Normal sinus rhythm Low voltage QRS T wave abnormality, consider anterior ischemia Abnormal ECG
[2017-08-30] MEDS: Rosuvastatin Calcium 2.5 mg Tab PO SCH (21:16)
[2017-08-31] MEDS: Cefepime IV 1 gm in Dextrose 1 GM/50 ML BAG IVPB SCH ×2 (06:16→18:03)
[2017-08-31 07:30] LABS: HEMATOCRIT 26.1 % (35.0-51.0); MEAN CELL VOLUME 89.4 fL (80.0-94.0); MEAN CORPUSCULAR HEMOGLOBIN 30.3 pg (27.0-31.0); MEAN CORPUSCULAR HGB CONC 33.9 g/dL (33.0-37.0); MEAN PLATELET VOLUME 7.8 fL (7.2-11.7); WHITE BLOOD COUNT 2.8 K/uL (4.8-10.8)
[2017-08-31 07:40] LABS: INR 1.3
[2017-08-31 08:22] LABS: ALKALINE PHOSPHATASE 130 U/L (38-126); ALT/SGPT 35 U/L (21-72); AST/SGOT 35 U/L (17-59); BILIRUBIN,TOTAL 0.5 mg/dL (0.2-1.3); BLOOD UREA NITROGEN 15 mg/dL (9-20); CALCIUM 7.7 mg/dl (8.6-10.4); CARBON DIOXIDE 16 mmol/L (22-30); CHLORIDE 113 mmol/L (98-107); GFR AFRICAN-AMERICAN > 60; GLUCOSE,RANDOM 74 mg/dL (75-110); POTASSIUM 3.4 mmol/L (3.6-5.2); SODIUM 137 mmol/L (132-148); TOTAL PROTEIN 4.6 g/dL (6.3-8.3)
[2017-08-31 08:23] LABS: ALB/GLOB RATIO 0.8 (1.0-2.1)
--- NOTE | 2017-08-31 09:21 | CP.PCM.PN ---
Subjective - Date & Time of Evaluation Date of Evaluation: 08/31/17 Time of Evaluation: 09:19 - Subjective Subjective: PGY2 Progress note for Dr. Jeffrey's service Patient seen and examined at bedside. Nursing reports no acute events overnight. Patient is found at his baseline: oriented to person only and is aware of [place] president; not oriented to place/time/context. He is for PEG placement today. He denies current complaints, and denies feeling hungry. He specifically denies fevers/chills, TRENT, CP, SOB, abdominal pain, N/V/D, dysuria/ freq/urg, or lower extremity pain/swelling. Objective - Vital Signs/Intake and Output Vital Signs (last 24 hours): Temp Pulse Resp BP Pulse Ox 97.7 F 82 20 106/63 98 08/31/17 07:00 08/31/17 07:00 08/31/17 07:00 08/31/17 07:00 08/31/17 07:00 Intake and Output: 08/31/17 08/31/17 06:59 18:59 Intake Total 800 Output Total 550 Balance 250 - Medications Medications: Current Medications Docusate Sodium (Colace) 100 mg PO DAILY [facility] Last Admin: 08/30/17 09:27 Dose: 100 mg Dronabinol (Marinol) 5 mg PO BID [facility] Last Admin: 08/30/17 17:43 Dose: Not Given Enoxaparin Sodium (Lovenox) 40 mg SC DAILY [facility] Last Admin: 08/30/17 09:28 Dose: 40 mg Folic Acid (Folic Acid) 1 mg PO DAILY [facility] Last Admin: 08/30/17 09:28 Dose: 1 mg Home Med (Arginine [L-Arginine]) 500 mg PO DAILY [facility] Cefepime HCl (Maxipime Iv 1 Gm Premix) 1 gm in 50 mls @ 100 mls/hr IVPB Q12H [facility] Last Admin: 08/31/17 06:16 Dose: 100 mls/hr Fluconazole (Diflucan Iv 200 Mg/100 Ml Ns) 100 mls @ 100 mls/hr IVPB DAILY [facility] Last Admin: 08/30/17 09:30 Dose: 100 mls/hr Vancomycin/Sodium Chloride (Vancomycin 1 Gm/Ns 200 Ml) 1 gm in 200 mls @ 133 mls/hr IVPB Q24H [facility] Stop: 09/04/17 10:01 Last Admin: 08/30/17 10:29 Dose: 133 mls/hr Magnesium Hydroxide (Milk Of Magnesia) 30 ml PO DAILY [facility] Last Admin: 08/30/17 09:29 Dose: 30 ml Metoprolol Tartrate (Lopressor) 25 mg PO DAILY [facility] Last Admin: 08/30/17 09:28 Dose: 25 mg Oxycodone/Acetaminophen (Percocet 5/325 Mg Tab) 1 tab PO Q4 PRN PRN Reason: Pain, moderate (4-7) Stop: 09/01/17 18:28 Pantoprazole Sodium (Protonix Ec Tab) 40 mg PO DAILY [facility] Last Admin: 08/30/17 09:29 Dose: 40 mg Polyethylene Glycol (Miralax) 17 gm PO DAILY [facility] Last Admin: 08/30/17 09:29 Dose: 17 gm Rosuvastatin Calcium (Crestor) 2.5 mg PO HS [facility] Last Admin: 08/30/17 21:16 Dose: Not Given - Labs Labs: 08/31/17 07:10 08/31/17 07:10 PT 15.2 SECONDS (9.7-12.2) H 08/31/17 07:10 INR 1.3 08/31/17 07:10 APTT 31 SECONDS (21-34) 08/29/17 15:10 - Constitutional Appears: Non-toxic, No Acute Distress - Head Exam Head Exam: ATRAUMATIC, NORMOCEPHALIC - Eye Exam Eye Exam: EOMI, Normal appearance. absent: Scleral icterus - ENT Exam ENT Exam: Mucous Membranes Moist Additional comments: Dentures in lower/upper teeth - Neck Exam Neck Exam: Full ROM - Respiratory Exam Respiratory Exam: Clear to Ausculation Bilateral, NORMAL BREATHING PATTERN - Cardiovascular Exam Cardiovascular Exam: REGULAR RHYTHM, +S1, +S2 - GI/Abdominal Exam GI & Abdominal Exam: Soft, Normal Bowel Sounds. absent: Tenderness - Extremities Exam Extremities Exam: Normal Inspection. absent: Calf Tenderness - Back Exam Back Exam: absent: CVA tenderness (L), CVA tenderness (R) - Neurological Exam Neurological Exam: Alert, Awake. absent: Oriented x3 (person only/aware of [place] president) - Psychiatric Exam Psychiatric exam: Normal Affect, Normal Mood - Skin Skin Exam: Dry, Normal Color, Warm Assessment and Plan - Assessment and Plan (Free Text) Plan: Assessment: 71 years old male, with hx of CVA, AAA, TAA, presents for dysphagia, vomiting, weight loss, bacteremia, fatigue; brought to hospital for failure to thrive ( unable to maintain minimum caloric requirements) Failure to thrive GI Consult, Dr. Avalos, recs appreciated. - EGD unremarkable, ADAT, OPDX colonoscopy for wt loss when medically stable, believe dysphagia may be neurologic in origin -Pt is for PEG placement 08/31; consent in chart; GI on board - f/u dietary reccs Obst Series (08/15/17): No evidence of acute obstruction. Abd x ray 08/13/17: mildly distended small bowel ileus vs early obstruction. Mildly distended loops of small bowel in left flank and RUQ. Vascular disease with multiple stents - abdominal aorta and iliacs. CXR 08/12/17: Left hilar/infrahilar opacity -> cannot exclude pneumonia. Biapical pleural thickening/granulamatous changes. Esophagus x ray 08/04/17: could not evaluate because pt could not ingest barium contrast Modified barium swallow (08/23/17): No penetration or aspiration observed. Refer to detailed reccs of speech pathologist (see full reports) - Speech pathology reccs: Pharyngeal Dysphagia noted with delayed initiations of swallows as both liquids and pureed went to level of valleculae prior to initiating the swallow. Mild residue noted on base of tongue and mild residue in valleculae following all consistencies.If weight loss continues, and pt's PO intakes remain low, alternative means of primary nutrition (PEG) might be considered with PO pleasure feeds. - Recommend: Liquid diet. Thin liquid via straw. [place] liquid via spoon. Pureed food. - Retail Salesman recommends: Ensure supplement TID and Prostat 30ml TID; recommend increasing PPN to 83ml/hr - Per DR. Jeffrey, no PPN at [facility] initially. He will monitor intake and discuss PEG tube placement with family Marinol 5 mg PO BID [facility] - patient is able to eat however he has little appetite Altered Mental Status; Chronic from previous admit Baseline is oriented to person only, aware of president of [place]; not oriented to place/time/context - CT head (08/19/17): read as as Chronic small vessel disease/white matter disease. No acute findings. - speech/swallow eval repeat recommended - MRI brain w/o contrast for brainstem stroke - MRI has history of aneurysm and iliac stent placement, produced card saying MRI safe - MRI Brain (08/22/17): Age related neuro degenerative changes are reiterated. No acute brain infarction or intracranial hemorrhage appreciable at this time. - not believed to be caused by autoimmune condition Gout; chronic stable Allopurinol (Zyloprim) 100 mg PO DAILY [facility] Hypertension; chronic stable Well controlled Metoprolol Succinate (Toprol Xl) 25 mg PO DAILY [facility] - new parameters entered (Hold if SBP <100, HR < 65) Will monitor and encourage fluid intake Hyperlipidemia; chronic stable ASA 81 mg PO DAILY [facility] Crestor 2.5 mg PO HS [facility] Hypoalbuminemia Albumin 2.1 on AM labs - Pt not eating, will monitor after PEG diet restarts Electrolyte abnormalities Hypokalemia: 3.4 on AM labs - repleted IV Prophylaxis PT/OT SCDs Lovenox (HOLD) Protonix Ec Tab 40 mg PO DAILY [facility] Colace 100 mg PO DAILY [facility] Folic Acid 1 mg PO DAILY [facility] Dispo: patient s/p PEG placement 08/31; will be eligible for LTAC after; appreciate hospice/palliative care recs -will need 24 hours of monitoring to make sure PEG is functioning properly before d/c Bernard Gonzalez PGY-2 All management as per Dr Blayne Jeffrey
[2017-08-31] MEDS: Pantoprazole 40 mg EC Tab PO SCH (10:14)
[2017-08-31] MEDS: Magnesium Hydroxide Susp 30 ml UD PO SCH (10:14)
[2017-08-31] MEDS: Fluconazole IV 200mg/100 ml NS 100 ML IVPB SCH (10:15)
[2017-08-31] MEDS: POLYETHYLENE GLYCOL 3350 17 GM/Dose PACKET PO SCH (10:16)
[2017-08-31] MEDS: Vancomycin 1 gm/NS 200 ml 1 GM/200 ML BAG IVPB SCH (11:25)
[2017-08-31] MEDS ORDERED: Propofol 10 mg/ml Inj (20 ML) ONE (12:28)
[2017-08-31 13:47] VITALS: RESP 20
[2017-08-31] MEDS: Lactated Ringer's 500 ML IV SCH ×2 (13:56→22:28)
--- NOTE | 2017-08-31 19:26 | CP.PCM.PN ---
Subjective - Date & Time of Evaluation Date of Evaluation: 08/31/17 Time of Evaluation: 07:20 - Subjective Subjective: clinically same Objective - Vital Signs/Intake and Output Vital Signs (last 24 hours): Temp Pulse Resp BP Pulse Ox 97 F L 75 20 131/72 95 08/31/17 15:00 08/31/17 15:00 08/31/17 15:00 08/31/17 15:00 08/31/17 15:00 Intake and Output: 08/31/17 09/01/17 18:59 06:59 Intake Total 850 Balance 850 - Medications Medications: Current Medications Docusate Sodium (Colace) 100 mg PO DAILY [facility] Last Admin: 08/31/17 10:14 Dose: 100 mg Dronabinol (Marinol) 5 mg PO BID [facility] Last Admin: 08/31/17 18:03 Dose: 5 mg Enoxaparin Sodium (Lovenox) 40 mg SC DAILY [facility] Last Admin: 08/30/17 09:28 Dose: 40 mg Folic Acid (Folic Acid) 1 mg PO DAILY [facility] Last Admin: 08/31/17 10:14 Dose: 1 mg Cefepime HCl (Maxipime Iv 1 Gm Premix) 1 gm in 50 mls @ 100 mls/hr IVPB Q12H [facility] Last Admin: 08/31/17 18:03 Dose: 100 mls/hr Fluconazole (Diflucan Iv 200 Mg/100 Ml Ns) 100 mls @ 100 mls/hr IVPB DAILY [facility] Last Admin: 08/31/17 10:15 Dose: 100 mls/hr Vancomycin/Sodium Chloride (Vancomycin 1 Gm/Ns 200 Ml) 1 gm in 200 mls @ 133 mls/hr IVPB Q24H [facility] Stop: 09/04/17 10:01 Last Admin: 08/31/17 11:25 Dose: 133 mls/hr Lactated Ringer's (Lactated Ringer's 500ml) 500 mls @ 75 mls/hr IV .Q6H40M [facility] Last Admin: 08/31/17 13:56 Dose: 75 mls/hr Magnesium Hydroxide (Milk Of Magnesia) 30 ml PO DAILY [facility] Last Admin: 08/31/17 10:14 Dose: 30 ml Metoprolol Tartrate (Lopressor) 25 mg PO DAILY [facility] Last Admin: 08/31/17 10:14 Dose: 25 mg Oxycodone/Acetaminophen (Percocet 5/325 Mg Tab) 1 tab PO Q4 PRN PRN Reason: Pain, moderate (4-7) Stop: 09/01/17 18:28 Pantoprazole Sodium (Protonix Ec Tab) 40 mg PO DAILY [facility] Last Admin: 08/31/17 10:14 Dose: 40 mg Polyethylene Glycol (Miralax) 17 gm PO DAILY [facility] Last Admin: 08/31/17 10:16 Dose: Not Given Rosuvastatin Calcium (Crestor) 2.5 mg PO HS [facility] Last Admin: 08/30/17 21:16 Dose: Not Given - Labs Labs: 08/31/17 07:10 08/31/17 07:10 PT 15.2 SECONDS (9.7-12.2) H 08/31/17 07:10 INR 1.3 08/31/17 07:10 APTT 31 SECONDS (21-34) 08/29/17 15:10 - Constitutional Appears: Well - Head Exam Head Exam: ATRAUMATIC, NORMAL INSPECTION, NORMOCEPHALIC - Eye Exam Eye Exam: EOMI, Normal appearance, PERRL Pupil Exam: NORMAL ACCOMODATION, PERRL - ENT Exam ENT Exam: Mucous Membranes Moist, Normal Exam - Neck Exam Neck Exam: Full ROM, Normal Inspection. absent: Lymphadenopathy - Respiratory Exam Respiratory Exam: Decreased Breath Sounds - Cardiovascular Exam Cardiovascular Exam: REGULAR RHYTHM, +S1, +S2 - GI/Abdominal Exam GI & Abdominal Exam: Soft, Diminished Bowel Sounds - Rectal Exam Rectal Exam: Deferred
[2017-08-31] MEDS: Rosuvastatin Calcium 2.5 mg Tab PO SCH (22:09)
[2017-08-31] MEDS ORDERED: Potassium Chloride 20 mEq ER Tab PO STA (23:15)
[2017-09-01] MEDS: Lactated Ringer's 500 ML IV SCH (02:20)
[2017-09-01] MEDS: Cefepime IV 1 gm in Dextrose 1 GM/50 ML BAG IVPB SCH ×2 (06:33→17:36)
[2017-09-01 07:57] LABS: BASO % 0.9 % (0.0-2.0); EOS % 1.3 % (0.0-4.0); HEMATOCRIT 27.1 % (35.0-51.0); LYMPH # 0.8 K/uL (1.0-4.3); LYMPH % 23.8 % (20.0-40.0); MEAN CELL VOLUME 88.6 fL (80.0-94.0); MEAN CORPUSCULAR HEMOGLOBIN 29.5 pg (27.0-31.0); MEAN CORPUSCULAR HGB CONC 33.3 g/dL (33.0-37.0); MEAN PLATELET VOLUME 7.8 fL (7.2-11.7); MONO # 0.4 K/uL (0.0-0.8); MONO % 12.5 % (0.0-10.0); NRBC % 0.2 % (0.0-2.0); RED CELL DISTRIBUTION WIDTH 14.3 % (11.5-14.5); WHITE BLOOD COUNT 3.4 K/uL (4.8-10.8)
[2017-09-01 07:59] LABS: ALB/GLOB RATIO 0.8 (1.0-2.1); ALKALINE PHOSPHATASE 137 U/L (38-126); ALT/SGPT 38 U/L (21-72); AST/SGOT 35 U/L (17-59); BILIRUBIN,TOTAL 0.4 mg/dL (0.2-1.3); BLOOD UREA NITROGEN 14 mg/dL (9-20); CALCIUM 7.5 mg/dl (8.6-10.4); CARBON DIOXIDE 20 mmol/L (22-30); CHLORIDE 111 mmol/L (98-107); GFR AFRICAN-AMERICAN > 60; GLUCOSE,RANDOM 91 mg/dL (75-110); MAGNESIUM 1.8 mg/dL (1.6-2.3); PHOSPHOROUS 1.9 mg/dL (2.5-4.5); POTASSIUM 3.5 mmol/L (3.6-5.2); SODIUM 136 mmol/L (132-148); TOTAL PROTEIN 4.7 g/dL (6.3-8.3)
[2017-09-01 08:03] VITALS: O2SAT 99
--- NOTE | 2017-09-01 08:22 | CP.PCM.PN ---
<Tiffany Petersen - Last Filed: 09/01/17 08:19> Subjective - Date & Time of Evaluation Date of Evaluation: 09/01/17 Time of Evaluation: 06:30 - Subjective Subjective: GI Fellow PGY4 Consult Note Pt seen and evaluated at bedside, pt denies any pain around PEG site. Pt tolerating po diet. ROS: A 12pt ROS was negative except as above. Objective - Vital Signs/Intake and Output Vital Signs (last 24 hours): Temp Pulse Resp BP Pulse Ox 97.9 F 83 20 126/75 99 09/01/17 08:02 09/01/17 08:02 09/01/17 08:02 09/01/17 08:02 09/01/17 08:02 Intake and Output: 09/01/17 09/01/17 06:59 18:59 Intake Total 1470 Output Total 300 Balance 1170 - Medications Medications: Current Medications Docusate Sodium (Colace) 100 mg PO DAILY [facility] Last Admin: 08/31/17 10:14 Dose: 100 mg Dronabinol (Marinol) 5 mg PO BID [facility] Last Admin: 08/31/17 18:03 Dose: 5 mg Enoxaparin Sodium (Lovenox) 40 mg SC DAILY [facility] Last Admin: 08/30/17 09:28 Dose: 40 mg Folic Acid (Folic Acid) 1 mg PO DAILY [facility] Last Admin: 08/31/17 10:14 Dose: 1 mg Cefepime HCl (Maxipime Iv 1 Gm Premix) 1 gm in 50 mls @ 100 mls/hr IVPB Q12H [facility] Last Admin: 09/01/17 06:33 Dose: 100 mls/hr Fluconazole (Diflucan Iv 200 Mg/100 Ml Ns) 100 mls @ 100 mls/hr IVPB DAILY [facility] Last Admin: 08/31/17 10:15 Dose: 100 mls/hr Vancomycin/Sodium Chloride (Vancomycin 1 Gm/Ns 200 Ml) 1 gm in 200 mls @ 133 mls/hr IVPB Q24H [facility] Stop: 09/04/17 10:01 Last Admin: 08/31/17 11:25 Dose: 133 mls/hr Magnesium Hydroxide (Milk Of Magnesia) 30 ml PO DAILY [facility] Last Admin: 08/31/17 10:14 Dose: 30 ml Metoprolol Tartrate (Lopressor) 25 mg PO DAILY [facility] Last Admin: 12/13/17 10:14 Dose: 25 mg Mirtazapine (Remeron) 15 mg PO HS [facility] Oxycodone/Acetaminophen (Percocet 5/325 Mg Tab) 1 tab PO Q4 PRN PRN Reason: Pain, moderate (4-7) Stop: 09/01/17 18:28 Pantoprazole Sodium (Protonix Ec Tab) 40 mg PO DAILY [facility] Last Admin: 08/31/17 10:14 Dose: 40 mg Polyethylene Glycol (Miralax) 17 gm PO DAILY [facility] Last Admin: 08/31/17 10:16 Dose: Not Given Rosuvastatin Calcium (Crestor) 2.5 mg PO HS [facility] Last Admin: 08/31/17 22:09 Dose: 2.5 mg - Labs Labs: 09/01/17 07:13 09/01/17 07:13 PT 15.2 SECONDS (9.7-12.2) H 08/31/17 07:10 INR 1.3 08/31/17 07:10 APTT 31 SECONDS (21-34) 08/29/17 15:10 - Constitutional Appears: Non-toxic, No Acute Distress - Head Exam Head Exam: ATRAUMATIC, NORMAL INSPECTION, NORMOCEPHALIC - Eye Exam Eye Exam: EOMI, Normal appearance, PERRL Pupil Exam: PERRL - ENT Exam ENT Exam: Mucous Membranes Moist, Normal Exam - Neck Exam Neck Exam: Normal Inspection - Respiratory Exam Respiratory Exam: NORMAL BREATHING PATTERN - Cardiovascular Exam Cardiovascular Exam: RRR - GI/Abdominal Exam GI & Abdominal Exam: Soft, Normal Bowel Sounds. absent: Tenderness, Organomegaly Additional comments: PEG site looks clean, no pain, no erythema - Extremities Exam Extremities Exam: Full ROM - Neurological Exam Neurological Exam: Alert, Awake - Psychiatric Exam Psychiatric exam: Normal Affect, Normal Mood - Skin Skin Exam: Dry, Intact, Normal Color, Warm Assessment and Plan - Assessment and Plan (Free Text) Assessment: This is a 72 year old male with a PMH of previous CVA, PUD, HTN, HLD, AAA s/p repair, iliac angio/stent, prostate CA, left groin wound, and seizure disorder who presents for evaluation for PEG placement given dysphagia with recent EGD on 08/18 consistent with chronic gastritis. 1. Decreased appetite/poor PO intake s/p PEG 2. Gastritis 3. CVA 4. HTN 5. HLD Plan: -Continue supportive care with PEG dressing -Can start TF today and place dietary cs for further recommendation -Continue po intake -Recently had EGD on 08/18 with consistent with gastritis, biopsy negative for H pylori -From GI perspective, pt can be discharged back to [facility] <Donald Avalos - Last Filed: 09/01/17 17:47> Objective - Vital Signs/Intake and Output Vital Signs (last 24 hours): Temp Pulse Resp BP Pulse Ox 97.5 F L 78 20 120/76 99 09/01/17 15:15 09/01/17 15:15 09/01/17 15:15 09/01/17 15:15 09/01/17 15:15 Intake and Output: 09/01/17 09/01/17 06:59 18:59 Intake Total 1470 Output Total 300 Balance 1170 - Medications Medications: Current Medications Docusate Sodium (Colace) 100 mg PO DAILY [facility] Last Admin: 09/01/17 09:32 Dose: Not Given Dronabinol (Marinol) 5 mg PO BID [facility] Last Admin: 09/01/17 09:25 Dose: 5 mg Enoxaparin Sodium (Lovenox) 40 mg SC DAILY [facility] Last Admin: 08/30/17 09:28 Dose: 40 mg Folic Acid (Folic Acid) 1 mg PO DAILY [facility] Last Admin: 09/01/17 09:25 Dose: 1 mg Cefepime HCl (Maxipime Iv 1 Gm Premix) 1 gm in 50 mls @ 100 mls/hr IVPB Q12H [facility] Last Admin: 09/01/17 17:36 Dose: 100 mls/hr Fluconazole (Diflucan Iv 200 Mg/100 Ml Ns) 100 mls @ 100 mls/hr IVPB DAILY [facility] Last Admin: 09/01/17 09:26 Dose: 100 mls/hr Vancomycin/Sodium Chloride (Vancomycin 1 Gm/Ns 200 Ml) 1 gm in 200 mls @ 133 mls/hr IVPB Q24H [facility] Stop: 09/04/17 10:01 Last Admin: 09/01/17 10:47 Dose: 133 mls/hr Magnesium Hydroxide (Milk Of Magnesia) 30 ml PO DAILY [facility] Last Admin: 09/01/17 09:25 Dose: 30 ml Metoprolol Tartrate (Lopressor) 25 mg PO DAILY [facility] Last Admin: 09/01/17 09:26 Dose: 25 mg Mirtazapine (Remeron) 15 mg PO HS [facility] Oxycodone/Acetaminophen (Percocet 5/325 Mg Tab) 1 tab PO Q4 PRN PRN Reason: Pain, moderate (4-7) Stop: 09/01/17 18:28 Pantoprazole Sodium (Protonix Susp) 40 mg PO DAILY [facility] Last Admin: 09/01/17 10:47 Dose: 40 mg Polyethylene Glycol (Miralax) 17 gm PO DAILY [facility] Last Admin: 09/01/17 09:27 Dose: 17 gm Rosuvastatin Calcium (Crestor) 2.5 mg PO HS [facility] Last Admin: 08/31/17 22:09 Dose: 2.5 mg - Labs Labs: 09/01/17 07:13 09/01/17 07:13 PT 15.2 SECONDS (9.7-12.2) H 08/31/17 07:10 INR 1.3 08/31/17 07:10 APTT 31 SECONDS (21-34) 08/29/17 15:10 Attending/Attestation - Attestation I have personally seen and examined this patient.: Yes I have fully participated in the care of the patient.: Yes I have reviewed all pertinent clinical information, including history, physical exam and plan: Yes Notes (Text): 09/01/17 17:45 I have seen and examined patient with GI fellow. No acute events overnight, he is seen resting in bed comfortably. He denies pain at gastrostomy site, nausea , vomiting, fever/chills. Tolerating PO liquids without difficulty. Review of vitals from today are normal. CVA HTN AAA s/p repair Dysphagia, weight loss - s/p PEG placement yesterday - Oral diet as tolerated, maintain strict aspiration precautions - PEG bumper slightly loosened, may now use for tube feeding as indicated - Flush PEG with 30 cc water [id number], change dressing daily - No further planned GI intervention, will sign off case. Please reconsult as necessary, thank you.
[2017-09-01] MEDS ORDERED: Potassium Chloride 20 mEq/15 ml LIQ UD PO ONE (08:46)
--- NOTE | 2017-09-01 08:46 | CP.PCM.PN ---
Subjective - Date & Time of Evaluation Date of Evaluation: 09/01/17 Time of Evaluation: 08:47 - Subjective Subjective: PGY2 Medicine Note for Dr. Blayne Jeffrey; all management as per Dr. Blayne Jeffrey This patient was seen and examined at bedside this AM; he seems in better spirits today; states pain is well controlled from PEG tube and slept well. He offers no complaints today; denies fevers/chills, TRENT, CP, SOB, abdominal pain, N /V/D, dysuria/freq/urg, or lower extremity pain/swelling. Objective - Vital Signs/Intake and Output Vital Signs (last 24 hours): Temp Pulse Resp BP Pulse Ox 97.9 F 83 20 126/75 99 09/01/17 08:02 09/01/17 08:02 09/01/17 08:02 09/01/17 08:02 09/01/17 08:02 Intake and Output: 09/01/17 09/01/17 06:59 18:59 Intake Total 1470 Output Total 300 Balance 1170 - Medications Medications: Current Medications Docusate Sodium (Colace) 100 mg PO DAILY [facility] Last Admin: 08/31/17 10:14 Dose: 100 mg Dronabinol (Marinol) 5 mg PO BID [facility] Last Admin: 08/31/17 18:03 Dose: 5 mg Enoxaparin Sodium (Lovenox) 40 mg SC DAILY [facility] Last Admin: 08/30/17 09:28 Dose: 40 mg Folic Acid (Folic Acid) 1 mg PO DAILY [facility] Last Admin: 08/31/17 10:14 Dose: 1 mg Cefepime HCl (Maxipime Iv 1 Gm Premix) 1 gm in 50 mls @ 100 mls/hr IVPB Q12H [facility] Last Admin: 09/01/17 06:33 Dose: 100 mls/hr Fluconazole (Diflucan Iv 200 Mg/100 Ml Ns) 100 mls @ 100 mls/hr IVPB DAILY [facility] Last Admin: 08/31/17 10:15 Dose: 100 mls/hr Vancomycin/Sodium Chloride (Vancomycin 1 Gm/Ns 200 Ml) 1 gm in 200 mls @ 133 mls/hr IVPB Q24H [facility] Stop: 09/04/17 10:01 Last Admin: 08/31/17 11:25 Dose: 133 mls/hr Magnesium Hydroxide (Milk Of Magnesia) 30 ml PO DAILY [facility] Last Admin: 08/31/17 10:14 Dose: 30 ml Metoprolol Tartrate (Lopressor) 25 mg PO DAILY [facility] Last Admin: 08/31/17 10:14 Dose: 25 mg Mirtazapine (Remeron) 15 mg PO [facility] Oxycodone/Acetaminophen (Percocet 5/325 Mg Tab) 1 tab PO Q4 PRN PRN Reason: Pain, moderate (4-7) Stop: 09/01/17 18:28 Pantoprazole Sodium (Protonix Ec Tab) 40 mg PO DAILY [facility] Last Admin: 08/31/17 10:14 Dose: 40 mg Polyethylene Glycol (Miralax) 17 gm PO DAILY [facility] Last Admin: 08/31/17 10:16 Dose: Not Given Rosuvastatin Calcium (Crestor) 2.5 mg PO [facility] Last Admin: 08/31/17 22:09 Dose: 2.5 mg - Labs Labs: 09/01/17 07:13 09/01/17 07:13 PT 15.2 SECONDS (9.7-12.2) H 08/31/17 07:10 INR 1.3 08/31/17 07:10 APTT 31 SECONDS (21-34) 08/29/17 15:10 - Constitutional Appears: Non-toxic, Cachectic, Chronically Ill - Head Exam Head Exam: ATRAUMATIC - Eye Exam Eye Exam: EOMI Pupil Exam: PERRL - ENT Exam ENT Exam: Mucous Membranes Dry - Neck Exam Neck Exam: absent: Full ROM, Lymphadenopathy - Respiratory Exam Respiratory Exam: Clear to Ausculation Bilateral - Cardiovascular Exam Cardiovascular Exam: REGULAR RHYTHM - GI/Abdominal Exam GI & Abdominal Exam: Soft, Normal Bowel Sounds (PEG in is place, clean dry and intact with no erythema or pus or bleeding) - Back Exam Back Exam: absent: CVA tenderness (L), CVA tenderness (R) - Neurological Exam Neurological Exam: Alert, Awake - Psychiatric Exam Psychiatric exam: Depressed - Skin Skin Exam: Warm Assessment and Plan - Assessment and Plan (Free Text) Assessment: 71 years old male, with hx of CVA, AAA, TAA, presents for dysphagia, vomiting, weight loss, bacteremia, fatigue; brought to hospital for failure to thrive ( unable to maintain minimum caloric requirements) Failure to thrive GI Consult, Dr. Avalos, recs appreciated. - EGD unremarkable, ADAT, OPDX colonoscopy for wt loss when medically stable, believe dysphagia may be neurologic in origin -Pt is for PEG placement 08/31; consent in chart; GI on board - f/u dietary reccs Obst Series (08/15/17): No evidence of acute obstruction. Abd x ray 08/13/17: mildly distended small bowel ileus vs early obstruction. Mildly distended loops of small bowel in left flank and RUQ. Vascular disease with multiple stents - abdominal aorta and iliacs. CXR 08/12/17: Left hilar/infrahilar opacity -> cannot exclude pneumonia. Biapical pleural thickening/granulamatous changes. Esophagus x ray 08/04/17: could not evaluate because pt could not ingest barium contrast Modified barium swallow (08/23/17): No penetration or aspiration observed. Refer to detailed reccs of speech pathologist (see full reports) - Speech pathology reccs: Pharyngeal Dysphagia noted with delayed initiations of swallows as both liquids and pureed went to level of valleculae prior to initiating the swallow. Mild residue noted on base of tongue and mild residue in valleculae following all consistencies.If weight loss continues, and pt's PO intakes remain low, alternative means of primary nutrition (PEG) might be considered with PO pleasure feeds. - Recommend: Liquid diet. Thin liquid via straw. [place] liquid via spoon. Pureed food. - Data Conversion Operator recommends: Ensure supplement TID and Prostat 30ml TID; recommend increasing PPN to 83ml/hr - Per DR. Jeffrey, no PPN at [facility] initially. He will monitor intake and discuss PEG tube placement with family Marinol 5 mg PO BID [facility] - patient is able to eat however he has little appetite Altered Mental Status; Chronic from previous admit Baseline is oriented to person only, aware of president of [place]; not oriented to place/time/context - CT head (08/19/17): read as as Chronic small vessel disease/white matter disease. No acute findings. - speech/swallow eval repeat recommended - MRI brain w/o contrast for brainstem stroke - MRI has history of aneurysm and iliac stent placement, produced card saying MRI safe - MRI Brain (08/22/17): Age related neuro degenerative changes are reiterated. No acute brain infarction or intracranial hemorrhage appreciable at this time. - not believed to be caused by autoimmune condition Gout; chronic stable Allopurinol (Zyloprim) 100 mg PO DAILY [facility] Hypertension; chronic stable Well controlled Metoprolol Succinate (Toprol Xl) 25 mg PO DAILY [facility] - new parameters entered (Hold if SBP <100, HR < 65) Will monitor and encourage fluid intake Hyperlipidemia; chronic stable ASA 81 mg PO DAILY [facility] Crestor 2.5 mg PO HS [facility] Hypoalbuminemia - Pt not eating well and will continue to monitor Electrolyte abnormalities -will continue to monitor Prophylaxis PT/OT SCDs Lovenox (HOLD) Protonix Ec Tab 40 mg PO DAILY [facility] Colace 100 mg PO DAILY [facility] Folic Acid 1 mg PO DAILY [facility] Dispo: PEG functioning well; GI has signed off; Dr. Avalos; thank you for your help -would recommend continuing the patient on marinol 5mg PO BID as well as remeron 15mg PO HS in addition to his other medications -PEG tube is to supplement normal feeding; patient recommended to have as normal a diet as possible for calorie intake as patient has lost an extreme amount of weight in the past 2 months -the patient is stable for d/c back to LT[facility] -appreciated POLST/Palliative care note; patient is DNR/DNI; goal is for comfort /IV supportive treatment at this point All management as per Dr Blayne Jeffrey
[2017-09-01] MEDS: Magnesium Hydroxide Susp 30 ml UD PO SCH (09:25)
[2017-09-01] MEDS: Fluconazole IV 200mg/100 ml NS 100 ML IVPB SCH (09:26)
[2017-09-01] MEDS: POLYETHYLENE GLYCOL 3350 17 GM/Dose PACKET PO SCH (09:27)
[2017-09-01] MEDS ORDERED: Pantoprazole 40 mg Susp UD PO SCH (10:00)
[2017-09-01] MEDS: Vancomycin 1 gm/NS 200 ml 1 GM/200 ML BAG IVPB SCH (10:47)
[2017-09-01 16:09] VITALS: BP 120/76; PULSE 78; TEMP 97.5
--- NOTE | 2017-09-01 17:37 | CP.PCM.PN ---
Subjective - Date & Time of Evaluation Date of Evaluation: 09/01/17 Time of Evaluation: 07:20 - Subjective Subjective: clinically same Objective - Vital Signs/Intake and Output Vital Signs (last 24 hours): Temp Pulse Resp BP Pulse Ox 97.5 F L 78 20 120/76 99 09/01/17 15:15 09/01/17 15:15 09/01/17 15:15 09/01/17 15:15 09/01/17 15:15 Intake and Output: 09/01/17 09/01/17 06:59 18:59 Intake Total 1470 Output Total 300 Balance 1170 - Medications Medications: Current Medications Docusate Sodium (Colace) 100 mg PO DAILY [facility] Last Admin: 09/01/17 09:32 Dose: Not Given Dronabinol (Marinol) 5 mg PO BID [facility] Last Admin: 09/01/17 09:25 Dose: 5 mg Enoxaparin Sodium (Lovenox) 40 mg SC DAILY [facility] Last Admin: 08/30/17 09:28 Dose: 40 mg Folic Acid (Folic Acid) 1 mg PO DAILY [facility] Last Admin: 09/01/17 09:25 Dose: 1 mg Cefepime HCl (Maxipime Iv 1 Gm Premix) 1 gm in 50 mls @ 100 mls/hr IVPB Q12H [facility] Last Admin: 09/01/17 17:36 Dose: 100 mls/hr Fluconazole (Diflucan Iv 200 Mg/100 Ml Ns) 100 mls @ 100 mls/hr IVPB DAILY [facility] Last Admin: 09/01/17 09:26 Dose: 100 mls/hr Vancomycin/Sodium Chloride (Vancomycin 1 Gm/Ns 200 Ml) 1 gm in 200 mls @ 133 mls/hr IVPB Q24H [facility] Stop: 09/04/17 10:01 Last Admin: 09/01/17 10:47 Dose: 133 mls/hr Magnesium Hydroxide (Milk Of Magnesia) 30 ml PO DAILY [facility] Last Admin: 09/01/17 09:25 Dose: 30 ml Metoprolol Tartrate (Lopressor) 25 mg PO DAILY [facility] Last Admin: 09/01/17 09:26 Dose: 25 mg Mirtazapine (Remeron) 15 mg PO HS [facility] Oxycodone/Acetaminophen (Percocet 5/325 Mg Tab) 1 tab PO Q4 PRN PRN Reason: Pain, moderate (4-7) Stop: 09/01/17 18:28 Pantoprazole Sodium (Protonix Susp) 40 mg PO DAILY [facility] Last Admin: 09/01/17 10:47 Dose: 40 mg Polyethylene Glycol (Miralax) 17 gm PO DAILY [facility] Last Admin: 09/01/17 09:27 Dose: 17 gm Rosuvastatin Calcium (Crestor) 2.5 mg PO HS [facility] Last Admin: 08/31/17 22:09 Dose: 2.5 mg - Labs Labs: 09/01/17 07:13 09/01/17 07:13 PT 15.2 SECONDS (9.7-12.2) H 08/31/17 07:10 INR 1.3 08/31/17 07:10 APTT 31 SECONDS (21-34) 08/29/17 15:10
== END 2017-09-01 19:51 | DRG 641 ==
LOC: C.ER 13:17 → C.9E 15:58 → OBSVTOIN 15:58 → C.3T 18:18
PROVIDERS: ADMIT Internal Medicine Nephrology; ATTEND Internal Medicine Nephrology
PROC: 0DH68UZ Insertion of Feeding Device into Stomach, Via Natural or Artificial Opening Endoscopic (ICD-10-PCS; principal; 2017-08-31 12:27)
DX: R62.7 Adult failure to thrive (principal); E46 Unspecified protein-calorie malnutrition; R78.81 Bacteremia; C61 Malignant neoplasm of prostate; F03.90 Unspecified dementia, unspecified severity, without behavioral disturbance, psychotic disturbance, mood disturbance, and anxiety; R13.10 Dysphagia, unspecified; G40.909 Epilepsy, unspecified, not intractable, without status epilepticus; K21.9 Gastro-esophageal reflux disease without esophagitis; I73.9 Peripheral vascular disease, unspecified; I71.4 Abdominal aortic aneurysm, without rupture; I10 Essential (primary) hypertension; H91.90 Unspecified hearing loss, unspecified ear; K29.50 Unspecified chronic gastritis without bleeding; E78.00 Pure hypercholesterolemia, unspecified; E78.5 Hyperlipidemia, unspecified; M10.9 Gout, unspecified; Z66 Do not resuscitate; T81.4XXD Infection following a procedure, subsequent encounter; Z79.2 Long term (current) use of antibiotics; Z85.51 Personal history of malignant neoplasm of bladder; Z90.49 Acquired absence of other specified parts of digestive tract; Z86.73 Personal history of transient ischemic attack (TIA), and cerebral infarction without residual deficits; Z87.11 Personal history of peptic ulcer disease; Z87.891 Personal history of nicotine dependence

== ENCOUNTER 2017-09-05 11:07 | Inpatient (IN) | payer MEDICARE ==
[2017-09-05 11:07] VITALS: BMI 24.3
--- NOTE | 2017-09-05 13:29 | C.PDOC ---
History Of Present Illness 72 year old male with a PMHx of CAD,HTN, HLD, AAA status post repair, Prostate CA, and CVA [facility] [place]. Pt had PEG tube placed on 08/31 for decreased appetite, was tolerating feedings till yesterday when he vomited shortly after. (+) BM yesterday. jail also notes PICC line is leaking. Patient is poor historian, information from . Patient denies any physical complaints currently and states he is ready to [facility] back [facility]. Time Seen by Provider: 09/05/17 11:47 Chief Complaint (Nursing): GI Problem History Per: Patient, Family () History/Exam Limitations: other (patient is poor historian) Onset/Duration Of Symptoms: Unknown Current Symptoms Are (Timing): Still Present Reports Recently: Treated By A Physician Recent travel outside of the [place]: No Additional History Per: Alf Past Medical History Reviewed: Historical Data, Nursing Documentation, Vital Signs Vital Signs: Last Vital Signs Temp 97.9 F 09/05/17 15:00 Pulse 85 09/05/17 15:00 Resp 20 09/05/17 15:00 BP 119/80 09/05/17 15:00 Pulse Ox 97 09/05/17 15:00 - Medical History PMH: Arthritis (L HIP SURGERY), CVA, Gastrointestinal Ulcer, HTN, Hypercholesterolemia, Hyperlipidemia, Malignancy (bladder cancer, currently being treated), Seizures Surgical History: Appendectomy, Cholecystectomy - [facility] Procedures EXCISION OF SMALL INTESTINE, ENDO, DIAGN (08/12/17) INSERTION OF FEEDING DEVICE INTO STOMACH, ENDO (08/29/17) INSERTION OF INFUSION DEV INTO SUP VENA CAVA, PERC APPROACH (08/12/17) INSPECTION OF LARYNX, ENDO (08/12/17) INTRODUCTION OF NUTRITIONAL INTO CENTRAL VEIN, PERC APPROACH (08/12/17) Family History: States: Unknown Family Hx (noncontributory) - Social History Hx Alcohol Use: No Hx Substance Use: No Review Of Systems Review Of Systems: ROS cannot be obtained secondary to pt's inabilty to answer questions. (patient is poor historian) Physical Exam - Physical Exam Appears: Non-toxic, No Acute Distress, Chronically Ill Skin: Warm, Dry, No Rash, Other (ecchymosis to bilateral extremities) Head: Atraumatic, Normacephalic, No Tenderness Eye(s): bilateral: Normal Inspection, EOMI Oral Mucosa: Moist Neck: Supple Chest: Symmetrical, No Deformity, No Tenderness Cardiovascular: Rhythm Regular, No Murmur Respiratory: No Rales, No Rhonchi, No Wheezing, Other (clear to auscultation bilaterally ) Gastrointestinal/Abdominal: Soft, No Tenderness, No Distention, No Guarding, No Rebound, Other (PEG tube in upper abdomen) Extremity: Normal ROM, No Tenderness, No Pedal Edema, No Calf Tenderness, Capillary Refill (<2 seconds ), No Swelling, Other (PICC line right upper extremity) Neurological/Psych: Oriented x3 ED Course And Treatment - Laboratory Results Result Diagrams: 09/05/17 13:42 09/05/17 13:42 O2 Sat by Pulse Oximetry: 95 (RA) Pulse Ox Interpretation: Normal - Other Rad Abdomen XR X-Ray: Viewed By Me, Read By Radiologist Interpretation: Findings: Multiple prominently dilated loops of small bowel seen throughout the abdomen concerning for a small bowel obstruction. Relative paucity of bowel gas seen within the colon. Aortic and bilateral iliac stent devices in place. Extensive vascular calcifications. Prominent degenerative changes in the spine and hips. Impression: Findings concerning for a small bowel obstruction. CXR X-Ray: Viewed By Me, Read By Radiologist Interpretation: Findings: Right PICC line with tip extending to the cavoatrial junction. Mild venous congestion. Upper lobe granulomatous changes. Aortic stent in place. Tortuous aorta. Degenerative changes in the spine and shoulders. Impression: No significant interval change. Progress Note: Abdomen XR, CXR, labs, ad blood work was ordered. Discussed case with Dr. Jeffrey and agrees with admission. Disposition - Disposition Disposition: HOSPITALIZED Disposition Time: 15:16 Condition: STABLE - Clinical Impression Clinical Impression: SBO (small bowel obstruction), S/P PICC central line placement, Decrease in appetite - PA / PROPAGATION MANAGER / Resident Statement MD/DO has reviewed & agrees with the documentation as recorded. - Scribe Statement The provider has reviewed the documentation as recorded by the Etienneibcosme aPtrick All medical record entries made by the Scribcosme were at my direction and personally dictated by me. I have reviewed the chart and agree that the record accurately reflects my personal performance of the history, physical exam, medical decision making, and the department course for this patient. I have also personally directed, reviewed, and agree with the discharge instructions and disposition.
--- NOTE | 2017-09-05 13:31 | RAD ---
Chest x-ray single frontal view History: PICC line. Comparison: 08/29/2017 Findings: Right PICC line with tip extending to the cavoatrial junction. Mild venous congestion. Upper lobe granulomatous changes. Aortic stent in place. Tortuous aorta. Degenerative changes in the spine and shoulders. Impression: No significant interval change.
--- NOTE | 2017-09-05 13:39 | RAD ---
Abdomen three views History: Abdominal pain. Comparison: None available. Findings: Multiple prominently dilated loops of small bowel seen throughout the abdomen concerning for a small bowel obstruction. Relative paucity of bowel gas seen within the colon. Aortic and bilateral iliac stent devices in place. Extensive vascular calcifications. Prominent degenerative changes in the spine and hips. Impression: Findings concerning for a small bowel obstruction.
[2017-09-05 13:46] LABS: BASO % 0.1 % (0.0-2.0); EOS # 0.1 K/uL (0.0-0.7); EOS % 0.9 % (0.0-4.0); HEMATOCRIT 29.8 % (35.0-51.0); LYMPH # 1.4 K/uL (1.0-4.3); LYMPH % 22.1 % (20.0-40.0); MEAN CELL VOLUME 87.9 fL (80.0-94.0); MEAN CORPUSCULAR HGB CONC 34.1 g/dL (33.0-37.0); MEAN PLATELET VOLUME 8.4 fL (7.2-11.7); MONO # 0.7 K/uL (0.0-0.8); MONO % 11.6 % (0.0-10.0); NRBC % 0.1 % (0.0-2.0); RED CELL DISTRIBUTION WIDTH 14.6 % (11.5-14.5); WHITE BLOOD COUNT 6.3 K/uL (4.8-10.8)
[2017-09-05 13:57] LABS: INR 1.3
[2017-09-05 14:17] LABS: ALB/GLOB RATIO 0.6 (1.0-2.1); ALKALINE PHOSPHATASE 179 U/L (38-126); ALT/SGPT 37 U/L (21-72); AST/SGOT 39 U/L (17-59); BILIRUBIN,TOTAL 0.4 mg/dL (0.2-1.3); BLOOD UREA NITROGEN 22 mg/dL (9-20); CARBON DIOXIDE 25 mmol/L (22-30); CHLORIDE 109 mmol/L (98-107); GFR AFRICAN-AMERICAN > 60; GLUCOSE,RANDOM 108 mg/dL (75-110); POTASSIUM 3.9 mmol/L (3.6-5.2); SODIUM 137 mmol/L (132-148); TOTAL PROTEIN 5.9 g/dL (6.3-8.3)
[2017-09-05 14:29] VITALS: RESP 20
--- NOTE | 2017-09-05 16:08 | CP.PCM.CON ---
History of Present Illness - History of Present Illness History of Present Illness: Surgical Consult Note: 72 year old male with past medical history of of CVA, PVD, AAA, prostate cancer , left groin surgical wound presents to the ED due to intolerance of tube feedings. Patient states he had PEG tube placed on 08/31 and was able to tolerate the feedings. However yesterday and today right after the tube feeding he had a small amount of vomiting. He denies nausea during the tube feedings or without. He states the PEG tube was placed because he has a lack of appetite. He states he is passing gas and his last bowel movement was yesterday. He denies abdominal pain, abdominal distension, or fever or any other complaints at this time. Past Medical History: CVA, PUD, HTN, HLD, AAA s/p repair in May, prostate CA, left groin wound Past Surgical History: lap cholecystectomy: 04/22/17 at [place], appendectomy; AAA s/p repair in May, iliac angio/stent Social History: former smoker quit about 13 years ago used to smoke 2 ppd x many years, heavy ETOH user in the past, lives at [facility] since after his surgeries in May. Allergies: NKDA Review of Systems - Constitutional Constitutional: absent: Chills, Fever, Headache, Increased Appetite (lack of appetite ) - Cardiovascular Cardiovascular: absent: Chest Pain, Dyspnea, Palpitations - Respiratory Respiratory: absent: Cough, Dyspnea - Gastrointestinal Gastrointestinal: Vomiting. absent: Constipation, Diarrhea, Nausea - Genitourinary Genitourinary: absent: Dysuria - Neurological Neurological: absent: Dizziness, Headaches - Endocrine Endocrine: absent: Palpitations Past Patient History - Infectious Disease Hx of Infectious Diseases: None - Past Medical History & Family History Past Medical History?: Yes - Past Social History Smoking Status: Former Smoker - CARDIAC Hx Hypercholesterolemia: Yes Hx Hypertension: Yes - PULMONARY Hx Respiratory Disorders: No - NEUROLOGICAL Hx Seizures: Yes - HEENT Hx HEENT Problems: Yes (hard of hearing) - RENAL Hx Chronic Kidney Disease: No - ENDOCRINE/METABOLIC Hx Endocrine Disorders: No - HEMATOLOGICAL/ONCOLOGICAL Hx Human Immunodeficiency Virus (HIV): No - INTEGUMENTARY Hx Dermatological Problems: No - MUSCULOSKELETAL/RHEUMATOLOGICAL Hx Arthritis: Yes (L HIP SURGERY) - GASTROINTESTINAL Hx Gastrointestinal Disorders: Yes Hx Gastroesophageal Reflux: Yes - GENITOURINARY/GYNECOLOGICAL Hx Genitourinary Disorders: No - PSYCHIATRIC Hx Substance Use: No - SURGICAL HISTORY Hx Appendectomy: Yes Hx Cholecystectomy: Yes - ANESTHESIA Hx Anesthesia: Yes Hx Anesthesia Reactions: No Hx Malignant Hyperthermia: No Meds Allergies/Adverse Reactions: Allergies Allergy/AdvReac Type Severity Reaction Status Date / Time No Known Allergies Allergy Verified 10/17/15 15:26 Physical Exam - Constitutional Appears: No Acute Distress, Cachectic - Head Exam Head Exam: ATRAUMATIC, NORMAL INSPECTION - Eye Exam Eye Exam: EOMI, Normal appearance - ENT Exam ENT Exam: Mucous Membranes Moist - Respiratory Exam Respiratory Exam: Clear to Auscultation Bilateral, NORMAL BREATHING PATTERN - Cardiovascular Exam Cardiovascular Exam: REGULAR RHYTHM, +S1, +S2 - GI/Abdominal Exam GI & Abdominal Exam: Normal Bowel Sounds, Soft. absent: Diminished Bowel Sounds , Distended, Firm, Hypoactive Bowel Sounds, Rigid, Tenderness Additional comments: PEG Tube - Extremities Exam Extremities exam: Negative for: calf tenderness, pedal edema, tenderness Additional comments: PICC line in the right upper extremity - Neurological Exam Neurological exam: Alert, Oriented x3 - Psychiatric Exam Psychiatric exam: Normal Affect, Normal Mood - Skin Skin Exam: Dry, Intact, Normal Color, Warm Additional comments: left groin wound: clean, dry and intact Results - Vital Signs Recent Vital Signs: Last Vital Signs Temp 97.8 F 09/05/17 11:18 Pulse 91 H 09/05/17 14:12 Resp 20 09/05/17 14:12 BP 124/74 09/05/17 14:12 Pulse Ox 95 09/05/17 14:22 - Labs Result Diagrams: 09/05/17 13:42 09/05/17 13:42 Labs: Laboratory Results - last 24 hr 09/05/17 09/05/17 09/05/17 13:42 13:42 13:42 WBC 6.3 D RBC 3.39 L Hgb 10.2 L Hct 29.8 L MCV 87.9 MCH 30.0 MCHC 34.1 RDW 14.6 H Plt Count 170 MPV 8.4 Neut % (Auto) 65.3 Lymph % (Auto) 22.1 [place] % (Auto) 11.6 H Eos % (Auto) 0.9 Baso % (Auto) 0.1 Neut # 4.1 Lymph # 1.4 [place] # 0.7 Eos # 0.1 Baso # 0.0 PT 14.7 H INR 1.3 APTT 28 Sodium 137 Potassium 3.9 Chloride 109 H Carbon Dioxide 25 Anion Gap 6 L BUN 22 H Creatinine 1.2 Est GFR ( Amer) > 60 Est GFR (Non-Af Amer) 59 Random Glucose 108 Calcium 8.0 L Total Bilirubin 0.4 AST 39 ALT 37 Alkaline Phosphatase 179 H D Total Protein 5.9 L Albumin 2.2 L Globulin 3.7 Albumin/Globulin Ratio 0.6 L Assessment & Plan - Assessment and Plan (Free Text) Assessment: 72 year old male with past medical history of of CVA, PVD, AAA, prostate cancer , left groin surgical wound presents to the ED due to intolerance of tube feedings. - Patient currently has small amount of vomiting but only right after his tube feedings. - At this time the patient denies nausea, abdominal pain, distension, or constipation. Patient continues to have bowel movements. - Patient not obstructed at this time. Recommendation is a GI consult to evaluate PEG tube placement and tube feedings. Case discussed with Dr. Avni Mendoza PGY-1
[2017-09-05] MEDS ORDERED: Oxycodone/Acetaminophen 5/325 mg Tab PO PRN (18:44)
[2017-09-05] MEDS: POLYETHYLENE GLYCOL 3350 17 GM/Dose PACKET PO SCH (19:00)
[2017-09-05] MEDS ORDERED: Sodium Chloride 0.9% 1,000 ML IV SCH (19:00)
--- NOTE | 2017-09-05 19:20 | CP.PCM.HP ---
Past Patient History - Infectious Disease Hx of Infectious Diseases: None - Past Medical History & Family History Past Medical History?: Yes - Past Social History Smoking Status: Former Smoker - CARDIAC Hx Hypercholesterolemia: Yes Hx Hypertension: Yes - PULMONARY Hx Respiratory Disorders: No - NEUROLOGICAL Hx Seizures: Yes - HEENT Hx HEENT Problems: Yes (hard of hearing) - RENAL Hx Chronic Kidney Disease: No - ENDOCRINE/METABOLIC Hx Endocrine Disorders: No - HEMATOLOGICAL/ONCOLOGICAL Hx Human Immunodeficiency Virus (HIV): No - INTEGUMENTARY Hx Dermatological Problems: No - MUSCULOSKELETAL/RHEUMATOLOGICAL Hx Arthritis: Yes (L HIP SURGERY) - GASTROINTESTINAL Hx Gastrointestinal Disorders: Yes Hx Gastroesophageal Reflux: Yes - GENITOURINARY/GYNECOLOGICAL Hx Genitourinary Disorders: No - PSYCHIATRIC Hx Substance Use: No - SURGICAL HISTORY Hx Appendectomy: Yes Hx Cholecystectomy: Yes - ANESTHESIA Hx Anesthesia: Yes Hx Anesthesia Reactions: No Hx Malignant Hyperthermia: No Meds Allergies/Adverse Reactions: Allergies Allergy/AdvReac Type Severity Reaction Status Date / Time No Known Allergies Allergy Verified 10/17/15 15:26 Physical Exam - Constitutional Appears: Well - Head Exam Head Exam: ATRAUMATIC, NORMAL INSPECTION, NORMOCEPHALIC - Eye Exam Eye Exam: EOMI, Normal appearance, PERRL Pupil Exam: NORMAL ACCOMODATION, PERRL - ENT Exam ENT Exam: Mucous Membranes Moist, Normal Exam - Neck Exam Neck exam: Positive for: Normal Inspection - Respiratory Exam Respiratory Exam: Decreased Breath Sounds - Cardiovascular Exam Cardiovascular Exam: REGULAR RHYTHM, +S1, +S2 - GI/Abdominal Exam GI & Abdominal Exam: Diminished Bowel Sounds, Soft - Rectal Exam Rectal Exam: Deferred Results - Vital Signs Recent Vital Signs: Last Vital Signs Temp 97.9 F 09/05/17 15:00 Pulse 85 09/05/17 15:00 Resp 20 09/05/17 15:00 BP 119/80 09/05/17 15:00 Pulse Ox 95 09/05/17 17:31 - Labs Result Diagrams: 09/05/17 13:42 09/05/17 13:42 Labs: Laboratory Results - last 24 hr 09/05/17 09/05/17 09/05/17 13:42 13:42 13:42 WBC 6.3 D RBC 3.39 L Hgb 10.2 L Hct 29.8 L MCV 87.9 MCH 30.0 MCHC 34.1 RDW 14.6 H Plt Count 170 MPV 8.4 Neut % (Auto) 65.3 Lymph % (Auto) 22.1 [place] % (Auto) 11.6 H Eos % (Auto) 0.9 Baso % (Auto) 0.1 Neut # 4.1 Lymph # 1.4 [place] # 0.7 Eos # 0.1 Baso # 0.0 PT 14.7 H INR 1.3 APTT 28 Sodium 137 Potassium 3.9 Chloride 109 H Carbon Dioxide 25 Anion Gap 6 L BUN 22 H Creatinine 1.2 Est GFR ( Amer) > 60 Est GFR (Non-Af Amer) 59 Random Glucose 108 Calcium 8.0 L Total Bilirubin 0.4 AST 39 ALT 37 Alkaline Phosphatase 179 H D Total Protein 5.9 L Albumin 2.2 L Globulin 3.7 Albumin/Globulin Ratio 0.6 L
[2017-09-05] MEDS ORDERED: HONEY TP SCH (22:00)
[2017-09-05] MEDS ORDERED: DEXTROSE IVPB SCH (22:00)
[2017-09-05] MEDS ORDERED: Rosuvastatin Calcium 2.5 mg Tab PO SCH (22:00)
[2017-09-05] MEDS ORDERED: CEFEPIME IVPB SCH (22:00)
[2017-09-05] MEDS ORDERED: Cefepime IV 1 gm in Dextrose 1 GM/50 ML BAG IVPB SCH (23:00)
--- NOTE | 2017-09-06 07:47 | CP.PCM.PN ---
Subjective - Date & Time of Evaluation Date of Evaluation: 09/06/17 Time of Evaluation: 07:45 - Subjective Subjective: General Surgery: Dr Holly Pt S&E. JAMES. Reports no nausea, vomiting, fevers or chills. Passing flatus and having BMs yesterday. Has not been given any food yet. Pt states he feels fine and he is getting plenty of rest here. To be seen by GI Objective - Vital Signs/Intake and Output Vital Signs (last 24 hours): Temp Pulse Resp BP Pulse Ox 98.5 F 92 H 20 134/87 98 09/06/17 07:23 09/06/17 07:23 09/06/17 07:23 09/06/17 07:23 09/06/17 07:23 Intake and Output: 09/06/17 09/06/17 06:59 18:59 Intake Total 400 Balance 400 - Medications Medications: Current Medications Acetaminophen (Tylenol 325mg Tab) 650 mg PO Q4 PRN PRN Reason: Pain, Mild (1-3) Allopurinol (Zyloprim) 100 mg PO DAILY [facility] Aspirin (Aspirin Chewable) 81 mg PO DAILY [facility] Cefepime HCl (Maxipime Iv 1 Gm Premix) 1 gm IVPB Q12 [facility] Last Admin: 09/05/17 22:28 Dose: 1 gm Docusate Sodium (Colace) 100 mg PO DAILY [facility] Dronabinol (Marinol) 5 mg PO BID [facility] Enoxaparin Sodium (Lovenox) 40 mg SC DAILY [facility] Fluconazole (Diflucan Iv 200 Mg/100 Ml Ns) 200 mg IVPB DAILY [facility] Folic Acid (Folic Acid) 1 mg PO DAILY [facility] Home Med (Arginine [L-Arginine]) 500 mg PO DAILY [facility] Sodium Chloride (Sodium Chloride 0.9%) 1,000 mls @ 50 mls/hr IV .Q20H [facility] Last Admin: 09/05/17 19:00 Dose: 50 mls/hr Vancomycin/Sodium Chloride (Vancomycin 1 Gm/Ns 200 Ml) 1 gm in 200 mls @ 133 mls/hr IVPB Q24H [facility] Stop: 09/11/17 10:01 Magnesium Hydroxide (Milk Of Magnesia) 30 ml PO DAILY [facility] Metoprolol Tartrate (Lopressor) 25 mg PO DAILY [facility] Oxycodone/Acetaminophen (Percocet 5/325 Mg Tab) 1 tab PO Q4 PRN PRN Reason: Pain, moderate (4-7) Stop: 09/08/17 18:45 Pantoprazole Sodium (Protonix Ec Tab) 40 mg PO DAILY [facility] Pneumococcal Polyvalent Vaccine (Pneumovax 23 Vaccine) 0.5 ml IM .ONCE ONE Stop: 09/08/17 10:01 Polyethylene Glycol (Miralax) 17 gm PO DAILY [facility] Last Admin: 09/05/17 19:00 Dose: Not Given Rosuvastatin Calcium (Crestor) 2.5 mg PO HS [facility] Last Admin: 09/05/17 22:30 Dose: Not Given - Labs Labs: 09/05/17 13:42 09/05/17 13:42 PT 14.7 SECONDS (9.7-12.2) H 09/05/17 13:42 INR 1.3 09/05/17 13:42 APTT 28 SECONDS (21-34) 09/05/17 13:42 - Constitutional Appears: Non-toxic, No Acute Distress - Eye Exam Eye Exam: Normal appearance - ENT Exam ENT Exam: Mucous Membranes Moist - Respiratory Exam Respiratory Exam: absent: Respiratory Distress - Cardiovascular Exam Cardiovascular Exam: REGULAR RHYTHM - GI/Abdominal Exam GI & Abdominal Exam: Soft. absent: Distended, Firm, Guarding, Rigid, Tenderness Assessment and Plan - Assessment and Plan (Free Text) Assessment: 72M with questionable abdominal pain: SBO vs peg feed intolerance Plan: continues to pass flatus having BMs abdomen soft and non-distended no surgical intervention planned please reconsult as necessary d/w Dr Avni Soni, PGY3
--- NOTE | 2017-09-06 08:49 | CP.PCM.CON ---
<Tiffany Petersen - Last Filed: 09/06/17 08:44> History of Present Illness - History of Present Illness History of Present Illness: GI Fellow PGY 4 Consult Note This is a 72 year old male with a PMHX of previous CVA, PUD, HTN, HLD, AAA s/p repair, iliac angio/stent, prostate CA, left groin wound, and seizure disorder who [place] episode of [place] after tube feeds and abdominal xray concerning for SBO. Per pt he denies any nausea, abdominal pain and recalls only one episode of nonbloody bilious emesis. Pt endorses BM yesterday and this is also documented by NH. Pt is s/p PEG placement 08/31/17 with no post procedure complications. Pt's abdominal Xray was reviewed showing PEG in good place with no air fluid levels. Pt was seen by surgery with no signs of SBO and no surgical intervention needed. ROS: A 12pt ROS was negtaive except as above. PMH: as above PSH: lap cholecystectomy - 04/22/17 at [place], appendectomy, PEG 08/31/17 SH: former smoker, 2 ppd x many years, heavy ETOH user in the past, lives at [facility]. FH: denies Past Patient History - Infectious Disease Hx of Infectious Diseases: None - Past Medical History & Family History Past Medical History?: Yes - Past Social History Smoking Status: Former Smoker - CARDIAC Hx Hypercholesterolemia: Yes Hx Hypertension: Yes - PULMONARY Hx Respiratory Disorders: No - NEUROLOGICAL Hx Seizures: Yes - HEENT Hx HEENT Problems: Yes (hard of hearing) - RENAL Hx Chronic Kidney Disease: No - ENDOCRINE/METABOLIC Hx Endocrine Disorders: No - HEMATOLOGICAL/ONCOLOGICAL Hx Human Immunodeficiency Virus (HIV): No - INTEGUMENTARY Hx Dermatological Problems: No - MUSCULOSKELETAL/RHEUMATOLOGICAL Hx Arthritis: Yes (L HIP SURGERY) - GASTROINTESTINAL Hx Gastrointestinal Disorders: Yes Hx Gastroesophageal Reflux: Yes - GENITOURINARY/GYNECOLOGICAL Hx Genitourinary Disorders: No - PSYCHIATRIC Hx Substance Use: No - SURGICAL HISTORY Hx Appendectomy: Yes Hx Cholecystectomy: Yes - ANESTHESIA Hx Anesthesia: Yes Hx Anesthesia Reactions: No Hx Malignant Hyperthermia: No Meds Allergies/Adverse Reactions: Allergies Allergy/AdvReac Type Severity Reaction Status Date / Time No Known Allergies Allergy Verified 10/17/15 15:26 - Medications Medications: Current Medications Acetaminophen (Tylenol 325mg Tab) 650 mg PO Q4 PRN PRN Reason: Pain, Mild (1-3) Allopurinol (Zyloprim) 100 mg PO DAILY [facility] Aspirin (Aspirin Chewable) 81 mg PO DAILY [facility] Cefepime HCl (Maxipime Iv 1 Gm Premix) 1 gm IVPB Q12 [facility] Last Admin: 09/05/17 22:28 Dose: 1 gm Docusate Sodium (Colace) 100 mg PO DAILY [facility] Dronabinol (Marinol) 5 mg PO BID [facility] Enoxaparin Sodium (Lovenox) 40 mg SC DAILY [facility] Fluconazole (Diflucan Iv 200 Mg/100 Ml Ns) 200 mg IVPB DAILY [facility] Folic Acid (Folic Acid) 1 mg PO DAILY [facility] Home Med (Arginine [L-Arginine]) 500 mg PO DAILY [facility] Sodium Chloride (Sodium Chloride 0.9%) 1,000 mls @ 50 mls/hr IV .Q20H [facility] Last Admin: 09/05/17 19:00 Dose: 50 mls/hr Vancomycin/Sodium Chloride (Vancomycin 1 Gm/Ns 200 Ml) 1 gm in 200 mls @ 133 mls/hr IVPB Q24H [facility] Stop: 09/11/17 10:01 Magnesium Hydroxide (Milk Of Magnesia) 30 ml PO DAILY [facility] Metoprolol Tartrate (Lopressor) 25 mg PO DAILY [facility] Oxycodone/Acetaminophen (Percocet 5/325 Mg Tab) 1 tab PO Q4 PRN PRN Reason: Pain, moderate (4-7) Stop: 09/08/17 18:45 Pantoprazole Sodium (Protonix Ec Tab) 40 mg PO DAILY [facility] Pneumococcal Polyvalent Vaccine (Pneumovax 23 Vaccine) 0.5 ml IM .ONCE ONE Stop: 09/08/17 10:01 Polyethylene Glycol (Miralax) 17 gm PO DAILY [facility] Last Admin: 09/05/17 19:00 Dose: Not Given Rosuvastatin Calcium (Crestor) 2.5 mg PO HS [facility] Last Admin: 09/05/17 22:30 Dose: Not Given Physical Exam - Constitutional Appears: Non-toxic, No Acute Distress, Cachectic, Chronically Ill - Head Exam Head Exam: ATRAUMATIC, NORMAL INSPECTION, NORMOCEPHALIC - Eye Exam Eye Exam: EOMI, Normal appearance, PERRL Pupil Exam: PERRL - ENT Exam ENT Exam: Mucous Membranes Dry - Neck Exam Neck exam: Positive for: Normal Inspection - Respiratory Exam Respiratory Exam: Decreased Breath Sounds - Cardiovascular Exam Cardiovascular Exam: REGULAR RHYTHM - GI/Abdominal Exam GI & Abdominal Exam: Normal Bowel Sounds, Soft. absent: Diminished Bowel Sounds , Distended, Guarding, Tenderness Additional comments: PEG site clean, no erythema, no pain - Rectal Exam Rectal Exam: Deferred - Extremities Exam Extremities exam: Positive for: normal inspection - Back Exam Back exam: NORMAL INSPECTION - Neurological Exam Neurological exam: Alert - Psychiatric Exam Psychiatric exam: Normal Affect, Normal Mood - Skin Skin Exam: Dry, Intact, Normal Color, Warm Results - Vital Signs Recent Vital Signs: Last Vital Signs Temp 98.5 F 09/06/17 07:23 Pulse 92 H 09/06/17 07:23 Resp 20 09/06/17 07:23 BP 134/87 09/06/17 07:23 Pulse Ox 98 09/06/17 07:23 - Labs Result Diagrams: 09/05/17 13:42 09/05/17 13:42 Labs: Laboratory Results - last 24 hr 09/05/17 09/05/17 09/05/17 13:42 13:42 13:42 WBC 6.3 D RBC 3.39 L Hgb 10.2 L Hct 29.8 L MCV 87.9 MCH 30.0 MCHC 34.1 RDW 14.6 H Plt Count 170 MPV 8.4 Neut % (Auto) 65.3 Lymph % (Auto) 22.1 [place] % (Auto) 11.6 H Eos % (Auto) 0.9 Baso % (Auto) 0.1 Neut # 4.1 Lymph # 1.4 [place] # 0.7 Eos # 0.1 Baso # 0.0 PT 14.7 H INR 1.3 APTT 28 Sodium 137 Potassium 3.9 Chloride 109 H Carbon Dioxide 25 Anion Gap 6 L BUN 22 H Creatinine 1.2 Est GFR ( Amer) > 60 Est GFR (Non-Af Amer) 59 Random Glucose 108 Calcium 8.0 L Total Bilirubin 0.4 AST 39 ALT 37 Alkaline Phosphatase 179 H D Total Protein 5.9 L Albumin 2.2 L Globulin 3.7 Albumin/Globulin Ratio 0.6 L Assessment & Plan - Assessment and Plan (Free Text) Assessment: [place] 72y[place] of [place] and concern for SBO. Plan: -Continue supportive care with anti-emetics and pain control -No signs of SBO, pt passing gas, positive BM yesterday, abdominal exam negative , BSx4, no surgical intervention needed -PEG site and placement good, will restart Tube feeds -Will try TF bolus and recommend aspiration precautions with head of bed elevated 30 degrees during bolus feeding -Start po intake of full liquid diet -If pt tolerates TF can dc back to jail <Donald Avalos - Last Filed: 09/06/17 09:09> Meds - Medications Medications: Current Medications Acetaminophen (Tylenol 325mg Tab) 650 mg PO Q4 PRN PRN Reason: Pain, Mild (1-3) Allopurinol (Zyloprim) 100 mg PO DAILY [facility] Aspirin (Aspirin Chewable) 81 mg PO DAILY [facility] Cefepime HCl (Maxipime Iv 1 Gm Premix) 1 gm IVPB Q12 [facility] Last Admin: 09/05/17 22:28 Dose: 1 gm Docusate Sodium (Colace) 100 mg PO DAILY [facility] Dronabinol (Marinol) 5 mg PO BID [facility] Enoxaparin Sodium (Lovenox) 40 mg SC DAILY [facility] Fluconazole (Diflucan Iv 200 Mg/100 Ml Ns) 200 mg IVPB DAILY [facility] Folic Acid (Folic Acid) 1 mg PO DAILY [facility] Home Med (Arginine [L-Arginine]) 500 mg PO DAILY [facility] Sodium Chloride (Sodium Chloride 0.9%) 1,000 mls @ 50 mls/hr IV .Q20H [facility] Last Admin: 09/05/17 19:00 Dose: 50 mls/hr Vancomycin/Sodium Chloride (Vancomycin 1 Gm/Ns 200 Ml) 1 gm in 200 mls @ 133 mls/hr IVPB Q24H [facility] Stop: 09/11/17 10:01 Magnesium Hydroxide (Milk Of Magnesia) 30 ml PO DAILY [facility] Metoprolol Tartrate (Lopressor) 25 mg PO DAILY [facility] Oxycodone/Acetaminophen (Percocet 5/325 Mg Tab) 1 tab PO Q4 PRN PRN Reason: Pain, moderate (4-7) Stop: 09/08/17 18:45 Pantoprazole Sodium (Protonix Ec Tab) 40 mg PO DAILY [facility] Pneumococcal Polyvalent Vaccine (Pneumovax 23 Vaccine) 0.5 ml IM .ONCE ONE Stop: 09/08/17 10:01 Polyethylene Glycol (Miralax) 17 gm PO DAILY [facility] Last Admin: 09/05/17 19:00 Dose: Not Given Rosuvastatin Calcium (Crestor) 2.5 mg PO HS [facility] Last Admin: 09/05/17 22:30 Dose: Not Given Results - Vital Signs Recent Vital Signs: Last Vital Signs Temp 98.5 F 09/06/17 07:23 Pulse 92 H 09/06/17 07:23 Resp 20 09/06/17 07:23 BP 134/87 09/06/17 07:23 Pulse Ox 98 09/06/17 07:23 - Labs Result Diagrams: 09/05/17 13:42 09/05/17 13:42 Labs: Laboratory Results - last 24 hr 09/05/17 09/05/17 09/05/17 13:42 13:42 13:42 WBC 6.3 D RBC 3.39 L Hgb 10.2 L Hct 29.8 L MCV 87.9 MCH 30.0 MCHC 34.1 RDW 14.6 H Plt Count 170 MPV 8.4 Neut % (Auto) 65.3 Lymph % (Auto) 22.1 [place] % (Auto) 11.6 H Eos % (Auto) 0.9 Baso % (Auto) 0.1 Neut # 4.1 Lymph # 1.4 [place] # 0.7 Eos # 0.1 Baso # 0.0 PT 14.7 H INR 1.3 APTT 28 Sodium 137 Potassium 3.9 Chloride 109 H Carbon Dioxide 25 Anion Gap 6 L BUN 22 H Creatinine 1.2 Est GFR ( Amer) > 60 Est GFR (Non-Af Amer) 59 Random Glucose 108 Calcium 8.0 L Total Bilirubin 0.4 AST 39 ALT 37 Alkaline Phosphatase 179 H D Total Protein 5.9 L Albumin 2.2 L Globulin 3.7 Albumin/Globulin Ratio 0.6 L Attending/Attestation - Attestation I have personally seen and examined this patient.: Yes I have fully participated in the care of the patient.: Yes I have reviewed all pertinent clinical information: Yes Notes (Text): 09/06/17 09:01 I have seen and examined patient with GI fellow. Agree with above documentation with the following additions. In brief this is a 72 year old male with history of CVA, HTN, dementia, hyperlipidemia, AAA s/p surgical repair , seizure disorder, prior groin wound infection, dysphagia s/p recent PEG placement who is [facility] from [facility] for episode of vomiting. Patient is not able to fully recollect episode of vomiting, additional information obtained via chart review, discussion with patient family member, and discussion with nursing staff. He currently is seen resting comfortably and denies abdominal pain or recurrent vomiting episodes since arrival to hospital. He does report one bowel movement yesterday and is passing gas. Family history: reviewed, patient denies history of colon cancer Additional physical exam: Abdomen: no palpable hepato/splenomegaly CVA Dementia HTN AAA s/p surgical repair Dysphagia, s/p recent PEG placement Vomiting - AXR reviewed by me showing dilated loops of small bowel concerning for small bowel obstruction - Clinically patient does not appear to have active bowel obstruction, he is passing gas, pain free, and having bowel movements - Would re-initiate tube feeding as tolerated and observe. Maintain strict aspiration precautions during feeding. - Follow up surgical recommendations - Continue with supportive care, anti-emetic therapy PRN - If patient able to tolerate tube feeding, from GI standpoint ok for patient to return to nursing facility. Will continue to monitor patient clinical course.
[2017-09-06] MEDS: POLYETHYLENE GLYCOL 3350 17 GM/Dose PACKET PO SCH (09:36)
[2017-09-06] MEDS ORDERED: Magnesium Hydroxide Susp 30 ml UD PO SCH (10:00)
[2017-09-06] MEDS ORDERED: Vancomycin 1 gm/NS 200 ml 1 GM/200 ML BAG IVPB SCH (10:00)
[2017-09-06] MEDS ORDERED: ARGININE 500 MG PO SCH (10:00)
[2017-09-06] MEDS ORDERED: FLUCONAZOLE 200 MG/100 ML IVPB SCH ×2 (10:00→14:00)
[2017-09-06] MEDS ORDERED: Pantoprazole 40 mg Susp UD PO SCH (10:00)
[2017-09-06] MEDS ORDERED: SOD CHLORIDE IV SCH (10:00)
[2017-09-06] MEDS ORDERED: VANCOMYCIN IV SCH (10:00)
[2017-09-06] MEDS ORDERED: NS IVPB SCH ×2 (10:00→14:00)
[2017-09-06] MEDS ORDERED: Enoxaparin 40 mg Syringe SC SCH (10:00)
[2017-09-06] MEDS ORDERED: Pantoprazole 40 mg EC Tab PO SCH (10:00)
[2017-09-06] MEDS ORDERED: Cefepime IV 1 gm in Dextrose 1 GM/50 ML BAG IVPB SCH (12:00)
[2017-09-06] MEDS ORDERED: Fluconazole IV 200mg/100 ml NS 100 ML IVPB SCH (14:00)
[2017-09-06] MEDS ORDERED: Sodium Chloride 0.9% 1,000 ML IV SCH (14:41)
--- NOTE | 2017-09-06 16:12 | CP.PCM.PN ---
Subjective - Date & Time of Evaluation Date of Evaluation: 09/06/17 Time of Evaluation: 11:00 - Subjective Subjective: Alert, awake, no sob or chest pains. Tolerating feedings well. Objective - Vital Signs/Intake and Output Vital Signs (last 24 hours): Temp Pulse Resp BP Pulse Ox 98.5 F 92 H 20 134/87 98 09/06/17 07:23 09/06/17 07:23 09/06/17 07:23 09/06/17 09:35 09/06/17 07:23 Intake and Output: 09/06/17 09/06/17 06:59 18:59 Intake Total 400 680 Output Total 0 Balance 400 680 - Medications Medications: Current Medications Acetaminophen (Tylenol 325mg Tab) 650 mg PO Q4 PRN PRN Reason: Pain, Mild (1-3) Allopurinol (Zyloprim) 100 mg PO DAILY [facility] Last Admin: 09/06/17 09:36 Dose: 100 mg Aspirin (Aspirin Chewable) 81 mg PO DAILY [facility] Last Admin: 09/06/17 09:35 Dose: 81 mg Docusate Sodium (Colace) 100 mg PO DAILY [facility] Last Admin: 09/06/17 10:51 Dose: Not Given Dronabinol (Marinol) 5 mg PO BID [facility] Last Admin: 09/06/17 11:38 Dose: 5 mg Enoxaparin Sodium (Lovenox) 40 mg SC DAILY [facility] Last Admin: 09/06/17 09:35 Dose: 40 mg Folic Acid (Folic Acid) 1 mg PO DAILY [facility] Last Admin: 09/06/17 09:36 Dose: 1 mg Vancomycin/Sodium Chloride (Vancomycin 1 Gm/Ns 200 Ml) 1 gm in 200 mls @ 133 mls/hr IVPB Q24H [facility] Stop: 09/11/17 10:01 Last Admin: 09/06/17 09:38 Dose: 133 mls/hr Cefepime HCl (Maxipime Iv 1 Gm Premix) 1 gm in 50 mls @ 100 mls/hr IVPB Q12H [facility] Last Admin: 09/06/17 11:34 Dose: 100 mls/hr Fluconazole (Diflucan Iv 200 Mg/100 Ml Ns) 100 mls @ 100 mls/hr IVPB Q24H [facility] Last Admin: 09/06/17 14:32 Dose: 100 mls/hr Sodium Chloride (Sodium Chloride 0.9%) 1,000 mls @ 100 mls/hr IV .Q10H [facility] Last Admin: 09/06/17 14:51 Dose: 100 mls/hr Magnesium Hydroxide (Milk Of Magnesia) 30 ml PO DAILY [facility] Last Admin: 09/06/17 11:39 Dose: 30 ml Metoprolol Tartrate (Lopressor) 25 mg PO DAILY [facility] Last Admin: 09/06/17 09:35 Dose: 25 mg Oxycodone/Acetaminophen (Percocet 5/325 Mg Tab) 1 tab PO Q4 PRN PRN Reason: Pain, moderate (4-7) Stop: 09/08/17 18:45 Pantoprazole Sodium (Protonix Susp) 40 mg PO DAILY [facility] Last Admin: 09/06/17 09:39 Dose: 40 mg Pneumococcal Polyvalent Vaccine (Pneumovax 23 Vaccine) 0.5 ml IM .ONCE ONE Stop: 09/08/17 10:01 Polyethylene Glycol (Miralax) 17 gm PO DAILY [facility] Last Admin: 09/06/17 09:36 Dose: 17 gm Rosuvastatin Calcium (Crestor) 2.5 mg PO HS [facility] Last Admin: 09/05/17 22:30 Dose: Not Given - Labs Labs: 09/05/17 13:42 09/05/17 13:42 PT 14.7 SECONDS (9.7-12.2) H 09/05/17 13:42 INR 1.3 09/05/17 13:42 APTT 28 SECONDS (21-34) 09/05/17 13:42 Assessment and Plan - Assessment and Plan (Free Text) Assessment: Patient admitted with small bowel obstruction, seen and examined. Alert, follows commands. Seen and is cleared by surgery and GI. Tolerating tube feeds. PICC line is working well. Discussed with DR Blayne Jeffrey, plan to discharge back to rehab today. Will complete iv antibiotics in the custodial.
[2017-09-06 17:10] VITALS: BP 124/78; PULSE 79; TEMP 98.3; O2SAT 96
[2017-09-06] MEDS ORDERED: Pneumococcal 23-Valent Vaccine IM ONE (18:00)
== END 2017-09-06 19:00 | DRG 641 ==
LOC: C.ER 11:07 → C.9E 13:27 → C.3T 14:41
PROVIDERS: ADMIT Internal Medicine Nephrology; ATTEND Internal Medicine Nephrology
DX: R63.0 Anorexia (principal); R13.10 Dysphagia, unspecified; R11.11 Vomiting without nausea; I25.10 Atherosclerotic heart disease of native coronary artery without angina pectoris; I73.9 Peripheral vascular disease, unspecified; K21.9 Gastro-esophageal reflux disease without esophagitis; M16.12 Unilateral primary osteoarthritis, left hip; I10 Essential (primary) hypertension; E78.00 Pure hypercholesterolemia, unspecified; Z85.46 Personal history of malignant neoplasm of prostate; Z85.51 Personal history of malignant neoplasm of bladder; Z86.73 Personal history of transient ischemic attack (TIA), and cerebral infarction without residual deficits; Z93.1 Gastrostomy status; Z87.11 Personal history of peptic ulcer disease; Z87.891 Personal history of nicotine dependence

== ENCOUNTER 2017-09-26 18:19 | Inpatient (IN) | payer MEDICARE ==
[2017-09-26 18:19] VITALS: BMI 24.3
[2017-09-26 19:32] LABS: BASO # 0.1 K/uL (0.0-0.2); BASO % 1.3 % (0.0-2.0); EOS # 0.1 K/uL (0.0-0.7); EOS % 2.4 % (0.0-4.0); HEMOGLOBIN 9.1 g/dL (12.0-18.0); LYMPH # 1.3 K/uL (1.0-4.3); LYMPH % 26.2 % (20.0-40.0); MEAN CELL VOLUME 92.6 fL (80.0-94.0); MEAN CORPUSCULAR HEMOGLOBIN 29.6 pg (27.0-31.0); MEAN PLATELET VOLUME 8.8 fL (7.2-11.7); MONO # 0.7 K/uL (0.0-0.8); MONO % 13.7 % (0.0-10.0); NEUT # 2.7 K/uL (1.8-7.0); NEUT % 56.4 % (50.0-75.0); NRBC % 0.1 % (0.0-2.0); RBC 3.06 Mil/uL (4.40-5.90); RED CELL DISTRIBUTION WIDTH 19.5 % (11.5-14.5); WHITE BLOOD COUNT 4.8 K/uL (4.8-10.8)
[2017-09-26 19:36] LABS: INR 1.2; PROTHROMBIN TIME 13.5 SECONDS (9.7-12.2)
[2017-09-26 19:47] LABS: VENOUS BLOOD GAS BASE EXCESS -1.1 mmol/L (0.0-2.0); VENOUS BLOOD GAS PCO2 34 mmHg (40-60); VENOUS BLOOD GAS PO2 81 mm/Hg (30-55); VENOUS BLOOD PH 7.43 (7.32-7.43)
[2017-09-26 19:47] LABS: ALB/GLOB RATIO 0.7 (1.0-2.1); ALBUMIN 2.4 g/dL (3.5-5.0); CALCIUM 8.4 mg/dl (8.6-10.4); MAGNESIUM 2.1 mg/dL (1.6-2.3)
[2017-09-26 19:55] LABS: URINE BACTERIA OCC (<OCC); URINE BILIRUBIN NEGATIVE (NEGATIVE); URINE BLOOD NEGATIVE (NEGATIVE); URINE CLARITY Clear (Clear); URINE COLOR Yellow (YELLOW); URINE GLUCOSE (UA) NORMAL (Normal); URINE HYALINE CAST 0-2 /lpf (0-2); URINE LEUKOCYTE ESTERASE NEG Leu/uL (Negative); URINE NITRATE NEGATIVE (NEGATIVE); URINE PROTEIN 2+ mg/dL (NEGATIVE); URINE UROBILINOGEN NORMAL mg/dL (0.2-1.0)
[2017-09-26 19:56] LABS: TROPONIN I 0.015 ng/mL (0.00-0.120)
--- NOTE | 2017-09-26 20:12 | C.PDOC ---
History Of Present Illness Patient is a 72 y/o male who presents to the ED from a residential with a complaint of abdominal pain. Per residential, the patient had a fever of 100.2 , abdominal pain, and distention. The patient has a significant medical history : admission 09/05/17 for PEG tube intolerance placed on 08/31 and lack of food intake; 09/07/17 admission for SBO, and was tolerating tube feeds and PICC line ; cholecystectomy, appendectomy, CAD, HTN, HLD, AAA s/p repair, prostate CA, and CVA. Patient is currently DNR and DNI status. Time Seen by Provider: 09/26/17 19:13 Chief Complaint (Nursing): GI Problem History Per: Patient History/Exam Limitations: no limitations Onset/Duration Of Symptoms: Days (today) Current Symptoms Are (Timing): Still Present Severity: Moderate Pain Scale Rating Of: 3 Location Of Pain/Discomfort: Diffuse Quality Of Discomfort: denies: Unable To Describe, Sharp Associated Symptoms: denies: Fever, Chills, Nausea Exacerbating Factors: denies: None Recent travel outside of the [place]: No Past Medical History Reviewed: Historical Data, Nursing Documentation, Vital Signs Vital Signs: Last Vital Signs Temp 98.0 F 09/27/17 04:41 Pulse 82 09/27/17 04:41 Resp 21 09/27/17 04:41 BP 138/69 09/27/17 04:41 Pulse Ox 97 09/27/17 04:53 - Medical History PMH: Arthritis (L HIP SURGERY), CAD, CVA, Gastrointestinal Ulcer, HTN, Hypercholesterolemia, Hyperlipidemia, Malignancy (bladder cancer, currently being treated), Seizures Denies: Diabetes, HIV, Chronic Kidney Disease Other PMH: prostate CA, HLD, SBO, AAA Surgical History: Appendectomy, Cholecystectomy - [facility] Procedures EXCISION OF SMALL INTESTINE, ENDO, DIAGN (08/12/17) INSERTION OF FEEDING DEVICE INTO STOMACH, ENDO (08/29/17) INSERTION OF INFUSION DEV INTO SUP VENA CAVA, PERC APPROACH (08/12/17) INSPECTION OF LARYNX, ENDO (08/12/17) INTRODUCTION OF NUTRITIONAL INTO CENTRAL VEIN, PERC APPROACH (08/12/17) Family History: States: Unknown Family Hx (noncontributory) - Social History Hx Alcohol Use: No Hx Substance Use: No - Immunization History Hx Tetanus Toxoid Vaccination: No Hx Influenza Vaccination: Yes (06/27/2017) Hx Pneumococcal Vaccination: Yes (06/19/2013) Review Of Systems Constitutional: Positive for: Fever (100.2) Eyes: Negative for: Conjunctivae Inflammation ENT: Negative for: Ear Pain, Ear Discharge, Mouth Pain, Mouth Swelling Cardiovascular: Negative for: Chest Pain, Paroxysmal Noc. Dyspnea, Edema Respiratory: Negative for: Cough, Shortness of Breath, SOB with Excertion Gastrointestinal: Positive for: Nausea, Abdominal Pain. Negative for: Vomiting , Constipation, Melena Genitourinary: Negative for: Dysuria Musculoskeletal: Negative for: Neck Pain Physical Exam - Physical Exam Skin: Normal Color, Warm, Dry Head: Atraumatic, Normacephalic Eye(s): bilateral: Normal Inspection Ear(s): Bilateral: Normal Oral Mucosa: Dry (somewhat dry) Tongue: No Normal Appearing Lips: No Normal Appearing Teeth: Normal Dentition, Edentulous, Other (poor dentition) Chest: Symmetrical Cardiovascular: Rhythm Regular, No Murmur Respiratory: Normal Breath Sounds, No Rales, No Rhonchi, No Wheezing Gastrointestinal/Abdominal: Bowel Sounds (decreased bowel sounds), Soft, No Tenderness, Distention, Other (PEG tube) Back: Other (stage 3 sacral decubitus ulcer) Extremity: Normal ROM, Other (left groin wound; PICC line on left arm) Extremity: Bilateral: Atraumatic Pulses: Left Carotid: Normal Neurological/Psych: Oriented x3, Normal Speech, Normal Cognition ED Course And Treatment - Laboratory Results Result Diagrams: 09/26/17 19:25 09/26/17 23:15 O2 Sat by Pulse Oximetry: 97 - Radiology CXR: Interpreted by Me CXR Interpretation: Yes: No Acute Disease, Other (negative effusion; aortic stent). No: Infiltrates - CT Scan/US A/P Other Rad Studies (CT/US): Interpreted By Me, Read By Radiologist CT/US Interpretation: EXAM: CT Abdomen and Pelvis With Intravenous Contrast. EXAM DATE/TIME: 09/26/2017 11:29 PM. CLINICAL HISTORY: 72 years old, male; Pain ; Abdominal pain; Additional info: Abd distention. TECHNIQUE: Axial computed tomography images of the abdomen and pelvis with intravenous contrast. All CT. scans at this facility use one or more dose reduction techniques, viz.: automated exposure control;. ma/kV adjustment per patient size (including targeted exams where dose is matched to indication; i.e. head); or iterative reconstruction technique. Coronal and sagittal reformatted images were created and reviewed. CONTRAST: 240 mL of peg tube administered intravenously. COMPARISON: Prior CT pelvis of 2017-08-15. FINDINGS: LOWER THORAX: Small to moderate bilateral pleural effusions. Consolidation in the posterior lung. bases bilaterally, most likely representing compressive atelectasis, related to the bilateral pleural effusions. ABDOMEN: LIVER: No acute abnormality of the liver identified. GALLBLADDER AND BILE DUCTS: Fluid is seen adjacent to the gallbladder. This is most likely. related to the generalized abdominal free fluid rather than representing pericholecystic fluid. secondary to acute cholecystitis. No evidence of significant biliary ductal dilatation. PANCREAS: No CT evidence of acute pancreatitis. SPLEEN: No acute abnormality of the spleen identified. ADRENALS: No acute abnormality of the adrenal glands identified. KIDNEYS AND URETERS: Bilateral perinephric stranding, a nonspecific finding. No acute. abnormality of the kidneys identified. STOMACH AND BOWEL: Colonic diverticulosis, with no evidence of acute diverticulitis. Patient. appears to be post ileocecal resection. There is an enterocolic anastomosis in the right lower. quadrant. Percutaneous gastrostomy is in place. This does not appear to be malpositioned by CT. Otherwise, no significant abnormality of the bowel is identified. No evidence of bowel obstruction. APPENDIX: Appendix is been surgically removed. PELVIS: BLADDER: No acute abnormality of the bladder identified. REPRODUCTIVE: Small bilateral hydroceles again seen. ABDOMEN and PELVIS: INTRAPERITONEAL SPACE: Moderate to large amount of abdominal and pelvic free fluid,. significantly increased in amount compared to the prior CT. This fluid appears mildly complex. No. evidence of free air. BONES/JOINTS: No acute fractures or other acute bony abnormality noted. SOFT TISSUES: Diffuse subcutaneous edema/anasarca. This is increased compared to the. previous exam. Fluid collection again seen in the left groin, measuring 6 x 2 cm maximally, which is. decreased in size ( previously 7 x 2.5 cm this same location on the prior CT). No associated air. VASCULATURE: Endograft stents noted within the descending thoracic and abdominal aorta. There. is a residual 5 cm aneurysm of the abdominal aorta, stable in appearance. Extensive atherosclerotic. calcification. No evidence of aortic rupture. LYMPH NODES: No evidence of diffuse lymphadenopathy. IMPRESSION: - Moderate to large amount of abdominal and pelvic free fluid/ ascites, increased in amount. compared to a prior CT of 08/15/2017. The fluid appears mildly complex, of uncertain etiology,. however, can be seen in the setting of infected or malignant ascites. Recommend clinical. correlation. - Bilateral pleural effusions. - Anasarca, mildly worsened compared to the prior exam. - Fluid collection in the left groin, decreased in size compared to the prior exam, which may. represent a resolving hematoma. - Otherwise, no evidence of significant acute process. - Endograft stents within the thoracic and abdominal aorta, with a stable appearing residual 5 cm. aneurysm of the abdominal aorta. - See above for remaining findings. Progress Note: Venous gas, blood culture, lactate labs, Obs series, CXR, CT a/p , and G tube stude ordered. Tylenol and IV fluids administered. resident inspector consulted at 3:14am for evaluation of patient. - Physician Consult Information Time Consulting Physician Contacted: 04:00 Physician Contacted: Danny Jeffrey Outcome Of Conversation: agrees upon admission. Medical Decision Making Medical Decision Making: Lab results: white count 4.8 hemoglobin 9.1 INR 1.2 blood gas 7.43 34/81 lactate 1.5 creatinine 1.8, elevated troponin 1.5 BNP 28/70 lipase 758, elevated negative urine pt with moderate ascites. case discussed with surgical coder. possible peg tube dislodgement pt will be admitted surgical attending to see pt in am. Disposition Counseled Patient/Family Regarding: Diagnosis - Disposition Disposition: HOSPITALIZED Disposition Time: 05:57 Condition: FAIR - Clinical Impression Clinical Impression: Abdominal distention, Ascites - Scribe Statement The provider has reviewed the documentation as recorded by the Scribcomse Hale All medical record entries made by the [employer]cos[employer] were at my direction and personally dictated by me. I have reviewed the chart and agree that the record accurately reflects my personal performance of the history, physical exam, medical decision making, and the department course for this patient. I have also personally directed, reviewed, and agree with the discharge instructions and disposition.
[2017-09-26] MEDS ORDERED: Sodium Chloride 0.9% 1,000 ML IV ONE (20:21)
[2017-09-26] MEDS ORDERED: Sodium Chloride 0.9% 1,000 ML ONE (20:41)
[2017-09-26] MEDS ORDERED: Acetaminophen 650mg/20.3ml solution UD ONE (20:45)
[2017-09-26 23:29] LABS: CALCIUM 7.5 mg/dl (8.6-10.4)
[2017-09-26 23:31] LABS: VENOUS BLOOD GAS BASE EXCESS -4.2 mmol/L (0.0-2.0); VENOUS BLOOD GAS PCO2 34 mmHg (40-60); VENOUS BLOOD GAS PO2 48 mm/Hg (30-55); VENOUS BLOOD PH 7.38 (7.32-7.43)
[2017-09-26] MEDS ORDERED: Iohexol 240 (50 ml) PO ONE (23:52)
[2017-09-27] MEDS ORDERED: Iohexol 240 (50 ml) ONE (00:05)
--- NOTE | 2017-09-27 03:05 | CT ---
EXAM: CT Abdomen and Pelvis With Intravenous Contrast EXAM DATE/TIME: 09/26/2017 11:29 PM CLINICAL HISTORY: 72 years old, male; Pain; Abdominal pain; Additional info: Abd distention TECHNIQUE: Axial computed tomography images of the abdomen and pelvis with intravenous contrast. All CT scans at this facility use one or more dose reduction techniques, viz.: automated exposure control; ma/kV adjustment per patient size (including targeted exams where dose is matched to indication; i.e. head); or iterative reconstruction technique. Coronal and sagittal reformatted images were created and reviewed. CONTRAST: 240 mL of peg tube administered intravenously. COMPARISON: Prior CT pelvis of 2017-08-15 FINDINGS: LOWER THORAX: Small to moderate bilateral pleural effusions. Consolidation in the posterior lung bases bilaterally, most likely representing compressive atelectasis, related to the bilateral pleural effusions. ABDOMEN: LIVER: No acute abnormality of the liver identified. GALLBLADDER AND BILE DUCTS: Fluid is seen adjacent to the gallbladder. This is most likely related to the generalized abdominal free fluid rather than representing pericholecystic fluid secondary to acute cholecystitis. No evidence of significant biliary ductal dilatation. PANCREAS: No CT evidence of acute pancreatitis. SPLEEN: No acute abnormality of the spleen identified. ADRENALS: No acute abnormality of the adrenal glands identified. KIDNEYS AND URETERS: Bilateral perinephric stranding, a nonspecific finding. No acute abnormality of the kidneys identified. STOMACH AND BOWEL: Colonic diverticulosis, with no evidence of acute diverticulitis. Patient appears to be post ileocecal resection. There is an enterocolic anastomosis in the right lower quadrant. Percutaneous gastrostomy is in place. This does not appear to be malpositioned by CT. Otherwise, no significant abnormality of the bowel is identified. No evidence of bowel obstruction. APPENDIX: Appendix is been surgically removed. PELVIS: BLADDER: No acute abnormality of the bladder identified. REPRODUCTIVE: Small bilateral hydroceles again seen. ABDOMEN and PELVIS: INTRAPERITONEAL SPACE: Moderate to large amount of abdominal and pelvic free fluid, significantly increased in amount compared to the prior CT. This fluid appears mildly complex. No evidence of free air. BONES/JOINTS: No acute fractures or other acute bony abnormality noted. SOFT TISSUES: Diffuse subcutaneous edema/anasarca. This is increased compared to the previous exam. Fluid collection again seen in the left groin, measuring 6 x 2 cm maximally, which is decreased in size (previously 7 x 2.5 cm this same location on the prior CT). No associated air. VASCULATURE: Endograft stents noted within the descending thoracic and abdominal aorta. There is a residual 5 cm aneurysm of the abdominal aorta, stable in appearance. Extensive atherosclerotic calcification. No evidence of aortic rupture. LYMPH NODES: No evidence of diffuse lymphadenopathy. IMPRESSION: - Moderate to large amount of abdominal and pelvic free fluid/ascites, increased in amount compared to a prior CT of 08/15/2017. The fluid appears mildly complex, of uncertain etiology, however, can be seen in the setting of infected or malignant ascites. Recommend clinical correlation. - Bilateral pleural effusions. - Anasarca, mildly worsened compared to the prior exam. - Fluid collection in the left groin, decreased in size compared to the prior exam, which may represent a resolving hematoma. - Otherwise, no evidence of significant acute process. - Endograft stents within the thoracic and abdominal aorta, with a stable appearing residual 5 cm aneurysm of the abdominal aorta. - See above for remaining findings.
[2017-09-27] MEDS ORDERED: Petrolatum Oint Foilpak (5 gm) ONE (03:28)
[2017-09-27] MEDS ORDERED: Piperacill/Tazo 4.5gm in Dex 4.5 GM/100 ML BAG IVPB STA (04:01)
[2017-09-27] MEDS ORDERED: Vancomycin 1 gm/NS 200 ml 1 GM/200 ML BAG IVPB STA (04:01)
--- NOTE | 2017-09-27 04:03 | CP.PCM.CON ---
<Virgil Iglesias - Last Filed: 09/27/17 04:04> History of Present Illness - History of Present Illness History of Present Illness: General Surgery Consult Note for Dr. Goodwin This is a 72M with a PMH of CAD, HTN, HLD, TAA Stent, AAA stent, prostate CA, CVA, presents due to " a few days" of increasing abdominal distention at the residential. He recently had a PEG placed due to failure to thrive which began with his lap aditi in april. The PT denies any pain, nausea, vomiting, diarrhea. He has no change in bowel habits. He was afebrile in the residential however in the ED he was febrile at 100.8. CT abdomen and pelvis with contrast via PEG showing intra-luminal contrast with significant amount of free fluid in the abdomen and pelvis. PMH: CAD, HTN, HLD, prostate CA, CVA PSH: Lap Aditi April, TAA stent sent 1, AAA stent , PEG august ALL: NKDA Social: ETOH quit 10 years ago, 80ppd, no drugs Review of Systems - Review of Systems Review of Systems: Patient is lethargic an minimally verbal which impeded ability to obtain 14 point ROS. However he denies pain. Past Patient History - Infectious Disease Hx of Infectious Diseases: None - Past Medical History & Family History Past Medical History?: Yes - Past Social History Smoking Status: Former Smoker - CARDIAC Hx Hypercholesterolemia: Yes Hx Hypertension: Yes - PULMONARY Hx Respiratory Disorders: No - NEUROLOGICAL Hx Seizures: Yes - HEENT Hx HEENT Problems: Yes (hard of hearing) - RENAL Hx Chronic Kidney Disease: No - ENDOCRINE/METABOLIC Hx Endocrine Disorders: No - HEMATOLOGICAL/ONCOLOGICAL Hx Human Immunodeficiency Virus (HIV): No - INTEGUMENTARY Hx Dermatological Problems: No - MUSCULOSKELETAL/RHEUMATOLOGICAL Hx Arthritis: Yes (L HIP SURGERY) - GASTROINTESTINAL Hx Gastrointestinal Disorders: Yes Hx Constipation: Yes Hx Gastroesophageal Reflux: Yes Other/Comment: Dysphagia. peg - GENITOURINARY/GYNECOLOGICAL Hx Genitourinary Disorders: No - PSYCHIATRIC Hx Substance Use: No - SURGICAL HISTORY Hx Appendectomy: Yes Hx Cholecystectomy: Yes - ANESTHESIA Hx Anesthesia: Yes Hx Anesthesia Reactions: No Hx Malignant Hyperthermia: No Meds Allergies/Adverse Reactions: Allergies Allergy/AdvReac Type Severity Reaction Status Date / Time No Known Allergies Allergy Verified 10/17/15 15:26 - Medications Medications: Current Medications Acetaminophen (Tylenol 325mg Tab) 975 mg PO ONCE PRN PRN Reason: Fever >100.4 F Last Admin: 09/26/17 21:02 Dose: 975 mg Physical Exam - Constitutional Appears: Non-toxic, No Acute Distress, Cachectic - Head Exam Head Exam: ATRAUMATIC, NORMOCEPHALIC - Eye Exam Eye Exam: EOMI, Normal appearance - ENT Exam ENT Exam: Mucous Membranes Moist, Normal Exam Additional comments: Poor dentition - Respiratory Exam Respiratory Exam: Clear to Auscultation Bilateral, NORMAL BREATHING PATTERN - Cardiovascular Exam Cardiovascular Exam: +S1, +S2 - GI/Abdominal Exam GI & Abdominal Exam: Soft. absent: Distended, Firm, Guarding, Hernia - Neurological Exam Neurological exam: Alert, Oriented x3 - Psychiatric Exam Psychiatric exam: Normal Affect, Normal Mood - Skin Skin Exam: Dry, Intact Results - Vital Signs Recent Vital Signs: Last Vital Signs Temp 100.8 F H 09/26/17 21:02 Pulse 86 09/27/17 02:10 Resp 18 09/27/17 02:10 BP 130/76 09/27/17 02:10 Pulse Ox 100 09/27/17 02:10 - Labs Result Diagrams: 09/26/17 19:25 09/26/17 23:15 Labs: Laboratory Results - last 24 hr 09/26/17 09/26/17 09/26/17 19:25 19:25 19:25 WBC 4.8 RBC 3.06 L Hgb 9.1 L Hct 28.3 L MCV 92.6 D MCH 29.6 MCHC 32.0 L RDW 19.5 H Plt Count 218 MPV 8.8 Neut % (Auto) 56.4 Lymph % (Auto) 26.2 Hemphill % (Auto) 13.7 H Eos % (Auto) 2.4 Baso % (Auto) 1.3 Neut # 2.7 Lymph # 1.3 Hemphill # 0.7 Eos # 0.1 Baso # 0.1 PT 13.5 H INR 1.2 APTT 29 pO2 VBG pH VBG pCO2 VBG HCO3 VBG Total CO2 VBG O2 Sat (Calc) VBG Base Excess VBG Potassium Glucose Lactate Sodium 142 Potassium 5.1 Chloride 116 H Carbon Dioxide 22 Anion Gap 9 L BUN 48 H Creatinine 1.8 H Est GFR ( Amer) 45 Est GFR (Non-Af Amer) 37 Random Glucose 97 Calcium 8.4 L Phosphorus 2.9 Magnesium 2.1 Total Bilirubin 0.4 AST 70 H D ALT 40 Alkaline Phosphatase 286 H D Troponin I 0.0150 NT-Pro-B Natriuret Pep 2870 H Total Protein 5.8 L Albumin 2.4 L Globulin 3.3 Albumin/Globulin Ratio 0.7 L Lipase 758 H Venous Blood Potassium Urine Color Urine Clarity Urine pH Ur Specific [place] Urine Protein Urine Glucose (UA) Urine Ketones Urine Blood Urine Nitrate Urine Bilirubin Urine Urobilinogen Ur Leukocyte Esterase Urine WBC (Auto) Urine RBC (Auto) Urine Bacteria Hyaline Casts 09/26/17 09/26/17 09/26/17 19:36 19:44 23:15 WBC RBC Hgb Hct MCV MCH MCHC RDW Plt Count MPV Neut % (Auto) Lymph % (Auto) Hemphill % (Auto) Eos % (Auto) Baso % (Auto) Neut # Lymph # Hemphill # Eos # Baso # PT INR APTT pO2 81 H VBG pH 7.43 VBG pCO2 34 L VBG HCO3 24.0 VBG Total CO2 23.6 VBG O2 Sat (Calc) 98.7 H VBG Base Excess -1.1 L VBG Potassium 5.0 Glucose 98 Lactate 1.5 Sodium 149.0 H 140 Potassium 5.5 H Chloride 122.0 H 117 H Carbon Dioxide 21 L Anion Gap 7 L BUN 46 H Creatinine 1.7 H Est GFR ( Amer) 48 Est GFR (Non-Af Amer) 40 Random Glucose 85 Calcium 7.5 L Phosphorus Magnesium Total Bilirubin AST ALT Alkaline Phosphatase Troponin I NT-Pro-B Natriuret Pep Total Protein Albumin Globulin Albumin/Globulin Ratio Lipase Venous Blood Potassium 5.0 Urine Color Yellow Urine Clarity Clear Urine pH 8.0 Ur Specific [place] 1.014 Urine Protein 2+ H Urine Glucose (UA) Normal Urine Ketones Negative Urine Blood Negative Urine Nitrate Negative Urine Bilirubin Negative Urine Urobilinogen Normal Ur Leukocyte Esterase Neg Urine WBC (Auto) 1 Urine RBC (Auto) < 1 Urine Bacteria Occ H Hyaline Casts 0-2 09/26/17 23:28 WBC RBC Hgb Hct MCV MCH MCHC RDW Plt Count MPV Neut % (Auto) Lymph % (Auto) Hemph[place] % (Auto) Eos % (Auto) Baso % (Auto) Neut # Lymph # Hemphill # Eos # Baso # PT INR APTT pO2 48 VBG pH 7.38 VBG pCO2 34 L VBG HCO3 21.2 VBG Total CO2 21.1 L VBG O2 Sat (Calc) 87.2 H VBG Base Excess -4.2 L VBG Potassium 5.5 H Glucose 88 Lactate 1.8 Sodium 145.0 Potassium Chloride 119.0 H Carbon Dioxide Anion Gap BUN Creatinine Est GFR ( Amer) Est GFR (Non-Af Amer) Random Glucose Calcium Phosphorus Magnesium Total Bilirubin AST ALT Alkaline Phosphatase Troponin I NT-Pro-B Natriuret Pep Total Protein Albumin Globulin Albumin/Globulin Ratio Lipase Venous Blood Potassium 5.5 H Urine Color Urine Clarity Urine pH Ur Specific [place] Urine Protein Urine Glucose (UA) Urine Ketones Urine Blood Urine Nitrate Urine Bilirubin Urine Urobilinogen Ur Leukocyte Esterase Urine WBC (Auto) Urine RBC (Auto) Urine Bacteria Hyaline Casts Assessment & Plan - Assessment and Plan (Free Text) Assessment: This is a 72M with abdominal distention and free abdominal fluid PEG leak vs ascities Re-evaluate in AM Continue ABX Serial Abdominal exams NPO IVF D/W Dr. Buddy Iglesias PGY2 <David Goodwin B - Last Filed: 10/08/17 19:36> Meds - Medications Medications: Current Medications Acetaminophen (Tylenol 325mg Tab) 975 mg PO Q8H PRN PRN Reason: Fever >100.4 F Allopurinol (Zyloprim) 100 mg PO DAILY [facility] Last Admin: 10/08/17 09:56 Dose: 100 mg Aspirin (Aspirin Chewable) 81 mg PO DAILY [facility] Last Admin: 10/08/17 09:56 Dose: 81 mg Folic Acid (Folic Acid) 1 mg PO DAILY [facility] Last Admin: 10/08/17 09:56 Dose: 1 mg Ceftriaxone Sodium 1 gm/ (Sodium Chloride) 100 mls @ 200 mls/hr IVPB Q24H [facility] Last Admin: 10/08/17 15:39 Dose: 200 mls/hr Lactulose (Enulose) 20 gm PO BID [facility] Last Admin: 10/08/17 17:55 Dose: 20 gm Metoprolol Tartrate (Lopressor) 25 mg PO DAILY [facility] Last Admin: 10/08/17 09:56 Dose: 25 mg Mupirocin (Bactroban Ointment) 0 gm TOP BID [facility] Last Admin: 10/08/17 17:55 Dose: 1 applic Pantoprazole Sodium (Protonix Inj) 40 mg IVP DAILY [facility] Last Admin: 10/08/17 09:56 Dose: 40 mg Rosuvastatin Calcium (Crestor) 2.5 mg PO HS [facility] Last Admin: 10/07/17 21:32 Dose: 2.5 mg Results - Vital Signs Recent Vital Signs: Last Vital Signs Temp 97.9 F 10/08/17 16:00 Pulse 92 H 10/08/17 16:00 Resp 20 10/08/17 16:00 BP 102/63 10/08/17 16:00 Pulse Ox 96 10/08/17 16:00 - Labs Result Diagrams: 10/08/17 07:23 10/08/17 07:23 Labs: Laboratory Results - last 24 hr 10/08/17 10/08/17 07:23 07:23 WBC 4.1 L RBC 3.02 L Hgb 9.4 L Hct 29.2 L MCV 96.7 H MCH 31.1 H MCHC 32.1 L RDW 21.0 H Plt Count 255 MPV 9.0 Neut % (Auto) 50.0 Lymph % (Auto) 32.8 Hemphill % (Auto) 12.6 H Eos % (Auto) 3.5 Baso % (Auto) 1.1 Neut # 2.1 Lymph # 1.4 Hemphill # 0.5 Eos # 0.1 Baso # 0.0 Sodium 156 H Potassium 5.2 Chloride 126 H Carbon Dioxide 24 Anion Gap 12 BUN 68 H Creatinine 4.4 H Est GFR ( Amer) 16 Est GFR (Non-Af Amer) 13 Random Glucose 111 H Calcium 8.9 Attending/Attestation - Attestation I have personally seen and examined this patient.: Yes I have fully participated in the care of the patient.: Yes I have reviewed all pertinent clinical information: Yes Notes (Text): Pt was seen and examined at bedside Agree with above note and assessment Pt with Abdominal distention and ascites Abdomen : non tender, distended GI consult PEG study C/w current mx Plan d.w primary team in detail Risk and benefit explained in detail
[2017-09-27 04:46] LABS: VENOUS BLOOD GAS BASE EXCESS -2.4 mmol/L (0.0-2.0); VENOUS BLOOD GAS PCO2 45 mmHg (40-60); VENOUS BLOOD GAS PO2 41 mm/Hg (30-55); VENOUS BLOOD PH 7.33 (7.32-7.43)
[2017-09-27] MEDS: Sodium Chloride 0.9% 1,000 ML IV SCH ×2 (04:55→19:22)
--- NOTE | 2017-09-27 08:50 | RAD ---
HISTORY: abd pain COMPARISON: 09/05/2017 FINDINGS: BOWEL: Gastrostomy tube over epigastric location as expected Assumed right bowel anastomotic sutures present. No bowel obstruction. Prior small-bowel dilatation not now suggested BONES: Normal. OTHER FINDINGS: Extensive thoracic and abdominal - bi iliac vascular stents present. Scattered atherosclerotic arterial vascular calcifications IMPRESSION: Prior small-bowel dilatation not now suggested. No mechanical bowel obstruction suggested. Gastrostomy tube over epigastric location as expected. Assumed right bowel anastomotic sutures present. No bowel obstruction Extensive thoracic and abdominal - bi iliac vascular stents present.
--- NOTE | 2017-09-27 12:07 | RAD ---
PROCEDURE: Radiographs of the chest and abdomen (obstructive series) HISTORY: abd pain COMPARISON: 09/05/2017 1250 hours and 09/05/2017 at 13:16 hour TECHNIQUE: AP radiograph of the chest, with upright and supine radiographs of the abdomen. FINDINGS: CHEST: Lungs: Clear. Cardiovascular: Mild cardiomegaly No pulmonary vascular congestion. Aortic graft stent in place as before. Interval insertion of a left PICC line in tip caval superior vena cava. Prior right PICC line removed Pleura: No pleural fluid. No pneumothorax. Other findings: None. ABDOMEN AND PELVIS: Bowel: Unremarkable bowel gas pattern. No evidence of mechanical obstruction. Free air: None. Bones: Unremarkable. Other findings: Patient with known ascites. . Abdominal aortic - bi iliac stents -similar. Extensive and diffuse arterial vascular calcifications in as before IMPRESSION: Interval change in PICC lines. No pneumothorax. No evidence of mechanical bowel obstruction. Known ascites Extensive arterial vascular disease with extensive thoracic and abdominal vascular graft stents and similar-appearing
[2017-09-27] MEDS: metroNIDAZOLE IV 250mg/50 ml 250 MG/50 ML BAG IVPB SCH ×2 (13:45→22:31)
[2017-09-27] MEDS: Enoxaparin 40 mg Syringe SC SCH (13:45)
--- NOTE | 2017-09-27 14:39 | CP.PCM.PN ---
Subjective - Date & Time of Evaluation Date of Evaluation: 09/27/17 Time of Evaluation: 14:36 - Subjective Subjective: Progress Note for Dr. Jeffrey's Service Patient seen and examined at bedside this morning. is seated at bedside and explains that the patient has been having poor feeding. Often times he does not swallow his food and spits it back out. She is unsure if he is unable to swallow or if he lacks appetite. No acute events overnight. Objective - Vital Signs/Intake and Output Vital Signs (last 24 hours): Temp Pulse Resp BP Pulse Ox 98.0 F 82 21 138/69 97 09/27/17 04:41 09/27/17 04:41 09/27/17 04:41 09/27/17 04:41 09/27/17 05:57 Intake and Output: 09/27/17 09/27/17 06:59 18:59 Intake Total 70 Output Total 0 Balance 70 - Medications Medications: Current Medications Acetaminophen (Tylenol 325mg Tab) 975 mg PO ONCE PRN PRN Reason: Fever >100.4 F Last Admin: 09/26/17 21:02 Dose: 975 mg Enoxaparin Sodium (Lovenox) 40 mg SC DAILY [facility] Last Admin: 09/27/17 13:45 Dose: 40 mg Sodium Chloride (Sodium Chloride 0.9%) 1,000 mls @ 70 mls/hr IV .[id number] [facility] Last Admin: 09/27/17 04:55 Dose: 70 mls/hr Ceftriaxone Sodium 1 gm/ (Sodium Chloride) 100 mls @ 200 mls/hr IVPB Q24H [facility] Last Admin: 09/27/17 14:30 Dose: 200 mls/hr Metronidazole (Flagyl) 250 mg in 50 mls @ 100 mls/hr IVPB Q8 [facility] Stop: 10/02/17 14:01 Last Admin: 09/27/17 13:45 Dose: 100 mls/hr - Labs Labs: 09/26/17 19:25 09/26/17 23:15 PT 13.5 SECONDS (9.7-12.2) H 09/26/17 19:25 INR 1.2 09/26/17 19:25 APTT 29 SECONDS (21-34) 09/26/17 19:25 - Constitutional Appears: No Acute Distress - Head Exam Head Exam: ATRAUMATIC - Eye Exam Eye Exam: EOMI - ENT Exam ENT Exam: Mucous Membranes Moist - Respiratory Exam Respiratory Exam: Clear to Ausculation Bilateral, NORMAL BREATHING PATTERN - Cardiovascular Exam Cardiovascular Exam: REGULAR RHYTHM, +S1, +S2 - GI/Abdominal Exam GI & Abdominal Exam: Soft. absent: Guarding, Tenderness Additional comments: PEG in place; no erythema/inflammation - Neurological Exam Neurological Exam: Alert - Skin Skin Exam: Dry, Warm Assessment and Plan - Assessment and Plan (Free Text) Plan: Abdominal distension Surgical consult placed- Dr. Chew- ashley appreciated GI consult placed- Dr. Avalos- Ashley appreciated The patient had PEG tube placement in [place] [address] abdomen/pelvis 09/26 Moderate to large free fluid/ascites Bilateral pleural effusions No acute changes Obstructive series 09/26 No mechanical obstruction Xray abdomen 09/26 No obstruction Ceftriaxone 1g IV daily Flagyl 250mg IV q8hrs Follow up Blood cx Follow up urine cx Febrile overnight- 100.8 WBC- 4.8 Dysphagia GI consult placed- f/u recs s/p recent PEG placement (08/2017) Consider swallow eval once clinically improved HTN Hx Normotensive currently without medications Continue to monitor AAA s/p surgical repair AAA s/p repair -04/2017, iliac angioplasty/stent 05/2017 No acute interval changes Hx of CVA No acute interventions Dementia No acute interventions Prophylaxis PT/OT SCDs Protonix IV 40 mg DAILY [facility] Lovenox 40mg SC daily This patient has limited amount of days left in [facility]. The pt's family would like him to return home upon discharge. I have placed an order for PT eval to determine his need for [facility]. Case discussed with Dr. Jeffrey All management as per Dr. Jeffrey
--- NOTE | 2017-09-27 18:46 | CP.PCM.HP ---
Past Patient History - Infectious Disease Hx of Infectious Diseases: None - Past Medical History & Family History Past Medical History?: Yes - Past Social History Smoking Status: Never Smoked - CARDIAC Hx Cardiac Disorders: Yes Hx Hypercholesterolemia: Yes Hx Hypertension: Yes - PULMONARY Hx Respiratory Disorders: No - NEUROLOGICAL Hx Seizures: Yes - HEENT Hx HEENT Problems: Yes (hard of hearing) - RENAL Hx Chronic Kidney Disease: No - ENDOCRINE/METABOLIC Hx Endocrine Disorders: No - HEMATOLOGICAL/ONCOLOGICAL Hx Human Immunodeficiency Virus (HIV): No - INTEGUMENTARY Hx Dermatological Problems: No - MUSCULOSKELETAL/RHEUMATOLOGICAL Hx Falls: No - GASTROINTESTINAL Hx Gastrointestinal Disorders: Yes Hx Constipation: Yes Hx Gastritis: Yes Hx Gastroesophageal Reflux: Yes Other/Comment: Dysphagia. peg - GENITOURINARY/GYNECOLOGICAL Hx Genitourinary Disorders: No Hx Bladder Cancer: Yes Hx Prostate Cancer: Yes - PSYCHIATRIC Hx Substance Use: No - SURGICAL HISTORY Hx Abdominal Aortic Aneurysm Repair: Yes Hx Appendectomy: Yes Hx Cholecystectomy: Yes - ANESTHESIA Hx Anesthesia: Yes Hx Anesthesia Reactions: No Hx Malignant Hyperthermia: No Meds Allergies/Adverse Reactions: Allergies Allergy/AdvReac Type Severity Reaction Status Date / Time No Known Allergies Allergy Verified 10/17/15 15:26 Physical Exam - Constitutional Appears: Well - Head Exam Head Exam: ATRAUMATIC, NORMAL INSPECTION, NORMOCEPHALIC - Eye Exam Eye Exam: EOMI, Normal appearance, PERRL Pupil Exam: NORMAL ACCOMODATION, PERRL - ENT Exam ENT Exam: Mucous Membranes Moist, Normal Exam - Neck Exam Neck exam: Positive for: Normal Inspection - Respiratory Exam Respiratory Exam: Decreased Breath Sounds - Cardiovascular Exam Cardiovascular Exam: REGULAR RHYTHM, +S1, +S2 - GI/Abdominal Exam GI & Abdominal Exam: Diminished Bowel Sounds, Soft - Rectal Exam Rectal Exam: Deferred Results - Vital Signs Recent Vital Signs: Last Vital Signs Temp 97.8 F 09/27/17 16:36 Pulse 84 09/27/17 16:36 Resp 20 09/27/17 16:36 BP 134/83 09/27/17 16:36 Pulse Ox 98 09/27/17 16:36 - Labs Result Diagrams: 09/26/17 19:25 09/26/17 23:15 Labs: Laboratory Results - last 24 hr 09/26/17 09/26/17 09/26/17 19:25 19:25 19:25 WBC 4.8 RBC 3.06 L Hgb 9.1 L Hct 28.3 L MCV 92.6 D MCH 29.6 MCHC 32.0 L RDW 19.5 H Plt Count 218 MPV 8.8 Neut % (Auto) 56.4 Lymph % (Auto) 26.2 [place] % (Auto) 13.7 H Eos % (Auto) 2.4 Baso % (Auto) 1.3 Neut # 2.7 Lymph # 1.3 Henderson # 0.7 Eos # 0.1 Baso # 0.1 PT 13.5 H INR 1.2 APTT 29 pO2 VBG pH VBG pCO2 VBG HCO3 VBG Total CO2 VBG O2 Sat (Calc) VBG Base Excess VBG Potassium Glucose Lactate Sodium 142 Potassium 5.1 Chloride 116 H Carbon Dioxide 22 Anion Gap 9 L BUN 48 H Creatinine 1.8 H Est GFR ( Amer) 45 Est GFR (Non-Af Amer) 37 Random Glucose 97 Calcium 8.4 L Phosphorus 2.9 Magnesium 2.1 Total Bilirubin 0.4 AST 70 H D ALT 40 Alkaline Phosphatase 286 H D Troponin I 0.0150 NT-Pro-B Natriuret Pep 2870 H Total Protein 5.8 L Albumin 2.4 L Globulin 3.3 Albumin/Globulin Ratio 0.7 L Lipase 758 H Venous Blood Potassium Urine Color Urine Clarity Urine pH Ur Specific [place] Urine Protein Urine Glucose (UA) Urine Ketones Urine Blood Urine Nitrate Urine Bilirubin Urine Urobilinogen Ur Leukocyte Esterase Urine WBC (Auto) Urine RBC (Auto) Urine Bacteria Hyaline Casts 09/26/17 09/26/17 09/26/17 19:36 19:44 23:15 WBC RBC Hgb Hct MCV MCH MCHC RDW Plt Count MPV Neut % (Auto) Lymph % (Auto) [place] % (Auto) Eos % (Auto) Baso % (Auto) Neut # Lymph # Henderson # Eos # Baso # PT INR APTT pO2 81 H VBG pH 7.43 VBG pCO2 34 L VBG HCO3 24.0 VBG Total CO2 23.6 VBG O2 Sat (Calc) 98.7 H VBG Base Excess -1.1 L VBG Potassium 5.0 Glucose 98 Lactate 1.5 Sodium 149.0 H 140 Potassium 5.5 H Chloride 122.0 H 117 H Carbon Dioxide 21 L Anion Gap 7 L BUN 46 H Creatinine 1.7 H Est GFR ( Amer) 48 Est GFR (Non-Af Amer) 40 Random Glucose 85 Calcium 7.5 L Phosphorus Magnesium Total Bilirubin AST ALT Alkaline Phosphatase Troponin I NT-Pro-B Natriuret Pep Total Protein Albumin Globulin Albumin/Globulin Ratio Lipase Venous Blood Potassium 5.0 Urine Color Yellow Urine Clarity Clear Urine pH 8.0 Ur Specific [place] 1.014 Urine Protein 2+ H Urine Glucose (UA) Normal Urine Ketones Negative Urine Blood Negative Urine Nitrate Negative Urine Bilirubin Negative Urine Urobilinogen Normal Ur Leukocyte Esterase Neg Urine WBC (Auto) 1 Urine RBC (Auto) < 1 Urine Bacteria Occ H Hyaline Casts 0-2 09/26/17 09/27/17 23:28 04:40 WBC RBC Hgb Hct MCV MCH MCHC RDW Plt Count MPV Neut % (Auto) Lymph % (Auto) [place] % (Auto) Eos % (Auto) Baso % (Auto) Neut # Lymph # Henderson # Eos # Baso # PT INR APTT pO2 48 41 VBG pH 7.38 7.33 VBG pCO2 34 L 45 VBG HCO3 21.2 22.4 VBG Total CO2 21.1 L 25.1 VBG O2 Sat (Calc) 87.2 H 77.1 H VBG Base Excess -4.2 L -2.4 L VBG Potassium 5.5 H 5.5 H Glucose 88 89 Lactate 1.8 1.7 Sodium 145.0 146.0 Potassium Chloride 119.0 H 121.0 H Carbon Dioxide Anion Gap BUN Creatinine Est GFR ( Amer) Est GFR (Non-Af Amer) Random Glucose Calcium Phosphorus Magnesium Total Bilirubin AST ALT Alkaline Phosphatase Troponin I NT-Pro-B Natriuret Pep Total Protein Albumin Globulin Albumin/Globulin Ratio Lipase Venous Blood Potassium 5.5 H 5.5 H Urine Color Urine Clarity Urine pH Ur Specific [place] Urine Protein Urine Glucose (UA) Urine Ketones Urine Blood Urine Nitrate Urine Bilirubin Urine Urobilinogen Ur Leukocyte Esterase Urine WBC (Auto) Urine RBC (Auto) Urine Bacteria Hyaline Casts
[2017-09-27] MEDS: Rosuvastatin Calcium 2.5 mg Tab PO SCH (22:29)
[2017-09-28] MEDS: metroNIDAZOLE IV 250mg/50 ml 250 MG/50 ML BAG IVPB SCH ×3 (05:46→21:52)
--- NOTE | 2017-09-28 07:40 | CP.PCM.CON ---
<Lupis Abbott - Last Filed: 09/28/17 12:23> History of Present Illness - History of Present Illness History of Present Illness: Gastroenterology Fellow/PGY5 Consult Note 72 year old male with history of CVA, Prostate Cancer, PUD, HTN, HLD, AAA s/p repair, iliac angioplasty with stent complicated by left groin fluid collection , seizure disorder, ETOH cirrhosis, and PEG 2/ dysphagia 08/2017 presenting with abdominal distension. Patient returns from nursing facility due to worsening abdominal swelling. He is a poor historian but states he drinks some fluids without vomiting. PEG in [facility] and continued to be used for nutritional support at nursing facility without issue. Denies fever, chills, sweats, abdominal pain, diarrhea, melena, hematochezia, or unintentional weight loss. States he hasn't had a bowel movement in a few days. Prior EGD 07/3017 showed H pylori negative Gastritis with PEG placement 08/31/2017. No prior colonoscopy. Family- denies stomach cancer, colon cancer Surgery- appendectomy, cholecystectomy 04/22/17, AAA repair 04/2017, iliac stent 2016, PEG 08/31/17 Social-former smoker (2 ppd over 20 years), prior heavy ETOH abuse Review of Systems - Review of Systems Review of Systems: 12-point review of systems negative except for as above Past Patient History - Infectious Disease Hx of Infectious Diseases: None - Past Medical History & Family History Past Medical History?: Yes - Past Social History Smoking Status: Never Smoked - CARDIAC Hx Cardiac Disorders: Yes Hx Hypercholesterolemia: Yes Hx Hypertension: Yes - PULMONARY Hx Respiratory Disorders: No - NEUROLOGICAL Hx Seizures: Yes - HEENT Hx HEENT Problems: Yes (hard of hearing) - RENAL Hx Chronic Kidney Disease: No - ENDOCRINE/METABOLIC Hx Endocrine Disorders: No - HEMATOLOGICAL/ONCOLOGICAL Hx Human Immunodeficiency Virus (HIV): No - INTEGUMENTARY Hx Dermatological Problems: No - MUSCULOSKELETAL/RHEUMATOLOGICAL Hx Falls: No - GASTROINTESTINAL Hx Gastrointestinal Disorders: Yes Hx Constipation: Yes Hx Gastritis: Yes Hx Gastroesophageal Reflux: Yes Other/Comment: Dysphagia. peg - GENITOURINARY/GYNECOLOGICAL Hx Genitourinary Disorders: No Hx Bladder Cancer: Yes Hx Prostate Cancer: Yes - PSYCHIATRIC Hx Substance Use: No - SURGICAL HISTORY Hx Abdominal Aortic Aneurysm Repair: Yes Hx Appendectomy: Yes Hx Cholecystectomy: Yes - ANESTHESIA Hx Anesthesia: Yes Hx Anesthesia Reactions: No Hx Malignant Hyperthermia: No Meds Allergies/Adverse Reactions: Allergies Allergy/AdvReac Type Severity Reaction Status Date / Time No Known Allergies Allergy Verified 10/17/15 15:26 - Medications Medications: Current Medications Acetaminophen (Tylenol 325mg Tab) 975 mg PO ONCE PRN PRN Reason: Fever >100.4 F Allopurinol (Zyloprim) 100 mg PO DAILY [facility] Aspirin (Aspirin Chewable) 81 mg PO DAILY [facility] Enoxaparin Sodium (Lovenox) 40 mg SC DAILY [facility] Last Admin: 09/27/17 13:45 Dose: 40 mg Folic Acid (Folic Acid) 1 mg PO DAILY [facility] Sodium Chloride (Sodium Chloride 0.9%) 1,000 mls @ 70 mls/hr IV .[id number] [facility] Last Admin: 09/27/17 19:22 Dose: 70 mls/hr Ceftriaxone Sodium 1 gm/ (Sodium Chloride) 100 mls @ 200 mls/hr IVPB Q24H [facility] Last Admin: 09/27/17 14:30 Dose: 200 mls/hr Metronidazole (Flagyl) 250 mg in 50 mls @ 100 mls/hr IVPB Q8 [facility] Stop: 10/02/17 14:01 Last Admin: 09/28/17 05:46 Dose: 100 mls/hr Metoprolol Tartrate (Lopressor) 25 mg PO DAILY [facility] Mupirocin (Bactroban Ointment) 0 gm TOP QSHIFT [facility] Last Admin: 09/28/17 05:56 Dose: 1 applic Pantoprazole Sodium (Protonix Inj) 40 mg IVP DAILY [facility] Rosuvastatin Calcium (Crestor) 2.5 mg PO HS [facility] Last Admin: 09/27/17 22:29 Dose: Not Given Physical Exam - Constitutional Appears: Non-toxic, No Acute Distress - Head Exam Head Exam: ATRAUMATIC, NORMOCEPHALIC - Eye Exam Eye Exam: EOMI, PERRL. absent: Scleral icterus Pupil Exam: PERRL. absent: Miosis, Mydriatic - ENT Exam ENT Exam: Mucous Membranes Moist, Normal Oropharynx - Neck Exam Neck exam: Positive for: Full Rom, Normal Inspection - Respiratory Exam Respiratory Exam: Clear to Auscultation Bilateral. absent: Rales, Rhonchi, Wheezes - Cardiovascular Exam Cardiovascular Exam: RRR, +S1, +S2. absent: Gallop, Rubs - GI/Abdominal Exam GI & Abdominal Exam: Distended, Normal Bowel Sounds, Soft. absent: Firm, Guarding, Organomegaly, Rebound, Rigid, Tenderness Additional comments: distended abdomen, nontender to palpation - Extremities Exam Extremities exam: Positive for: normal inspection. Negative for: pedal edema - Neurological Exam Neurological exam: Alert - Psychiatric Exam Psychiatric exam: Normal Affect, Normal Mood - Skin Skin Exam: Dry, Intact, Normal Color, Warm Results - Vital Signs Recent Vital Signs: Last Vital Signs Temp 97.8 F 09/27/17 16:36 Pulse 84 09/27/17 16:36 Resp 20 09/27/17 16:36 BP 134/83 09/27/17 16:36 Pulse Ox 98 09/27/17 16:36 - Labs Result Diagrams: 09/28/17 10:24 09/28/17 10:24 Assessment & Plan - Assessment and Plan (Free Text) Assessment: 72 year old male with history of CVA, Prostate Cancer, PUD, HTN, HLD, AAA s/p repair, iliac angioplasty with stent complicated by left groin fluid collection , seizure disorder, ETOH cirrhosis (on CT 05/2017 from [place]), and PEG 2/2 dysphagia 08/2017 presenting with abdominal distension. Active treatment of decompensated cirrhosis in setting of moderate to large ascites on CT A/P PO contrast. Prior EGD 07/3017 showed H pylori negative Gastritis with PEG placement 08/31/2017. Plan: >MELD 14 >ordered diagnostic and therapeutic paracentesis with fluid analysis with cytology given read of possible complex fluid concerning for infection vs malignancy >start Lactulose 20g BID,titrate to 2-3 BMs daily for possible hepatic encephalopathy >ordered AFP >recent CT wit h contrast at [facility] - no hepatic mass >H/H stable >strict I&Os >daily PT/INR >tube feeds as tolerated >PEG in good position on CT A/P >will follow clinical course <Donald Avalos - Last Filed: 09/28/17 16:41> Meds - Medications Medications: Current Medications Acetaminophen (Tylenol 325mg Tab) 975 mg PO ONCE PRN PRN Reason: Fever >100.4 F Allopurinol (Zyloprim) 100 mg PO DAILY [facility] Last Admin: 09/28/17 10:04 Dose: Not Given Aspirin (Aspirin Chewable) 81 mg PO DAILY [facility] Last Admin: 09/28/17 09:56 Dose: Not Given Enoxaparin Sodium (Lovenox) 40 mg SC DAILY [facility] Last Admin: 09/28/17 09:57 Dose: Not Given Folic Acid (Folic Acid) 1 mg PO DAILY [facility] Last Admin: 09/28/17 09:56 Dose: Not Given Sodium Chloride (Sodium Chloride 0.9%) 1,000 mls @ 70 mls/hr IV .[id number] [facility] Last Admin: 09/28/17 10:04 Dose: Not Given Ceftriaxone Sodium 1 gm/ (Sodium Chloride) 100 mls @ 200 mls/hr IVPB Q24H [facility] Last Admin: 09/28/17 13:28 Dose: 200 mls/hr Metronidazole (Flagyl) 250 mg in 50 mls @ 100 mls/hr IVPB Q8 [facility] Stop: 10/02/17 14:01 Last Admin: 09/28/17 14:56 Dose: 100 mls/hr Lactulose (Enulose) 20 gm PO BID [facility] Last Admin: 09/28/17 12:00 Dose: Not Given Metoprolol Tartrate (Lopressor) 25 mg PO DAILY [facility] Last Admin: 09/28/17 09:56 Dose: Not Given Pantoprazole Sodium (Protonix Inj) 40 mg IVP DAILY [facility] Last Admin: 09/28/17 10:08 Dose: 40 mg Pneumococcal Polyvalent Vaccine (Pneumovax 23 Vaccine) 0.5 ml IM .ONCE ONE Stop: 09/30/17 10:01 Rosuvastatin Calcium (Crestor) 2.5 mg PO HS [facility] Last Admin: 09/27/17 22:29 Dose: Not Given Results - Vital Signs Recent Vital Signs: Last Vital Signs Temp 97.5 F L 09/28/17 16:00 Pulse 79 09/28/17 16:00 Resp 19 09/28/17 16:00 BP 133/77 09/28/17 16:00 Pulse Ox 100 09/28/17 16:00 - Labs Result Diagrams: 09/28/17 10:24 09/28/17 10:24 Labs: Laboratory Results - last 24 hr 09/28/17 09/28/17 09/28/17 10:24 10:24 10:24 WBC 4.3 L RBC 2.98 L Hgb 9.0 L Hct 28.0 L MCV 94.0 MCH 30.4 MCHC 32.3 L RDW 19.6 H Plt Count 210 MPV 8.4 Neut % (Auto) 54.8 Lymph % (Auto) 27.1 [place] % (Auto) 12.8 H Eos % (Auto) 4.2 H Baso % (Auto) 1.1 Neut # 2.4 Lymph # 1.2 [place] # 0.6 Eos # 0.2 Baso # 0.0 PT 13.2 H INR 1.2 Sodium 142 Potassium 5.0 Chloride 118 H Carbon Dioxide 18 L Anion Gap 11 BUN 42 H Creatinine 2.1 H Est GFR ( Amer) 38 Est GFR (Non-Af Amer) 31 Random Glucose 72 L Calcium 7.7 L Total Bilirubin 0.3 AST 44 ALT 32 Alkaline Phosphatase 222 H D Total Protein 5.4 L Albumin 2.3 L Globulin 3.1 Albumin/Globulin Ratio 0.7 L Alpha Fetoprotein Fluid Source Fluid Appearance Fluid WBC Fluid RBC Fluid Tot Cell Count Fluid Neutrophils Fluid Lymphocytes Fld Monocyte/Macrophag Fluid Comment 09/28/17 09/28/17 12:03 14:27 WBC RBC Hgb Hct MCV MCH MCHC RDW Plt Count MPV Neut % (Auto) Lymph % (Auto) [place] % (Auto) Eos % (Auto) Baso % (Auto) Neut # Lymph # [place] # Eos # Baso # PT INR Sodium Potassium Chloride Carbon Dioxide Anion Gap BUN Creatinine Est GFR ( Amer) Est GFR (Non-Af Amer) Random Glucose Calcium Total Bilirubin AST ALT Alkaline Phosphatase Total Protein Albumin Globulin Albumin/Globulin Ratio Alpha Fetoprotein 1.7 Fluid Source Peritoneal/ascites Fluid Appearance Sl cloudy Fluid WBC 95.0 Fluid RBC 195.0 H Fluid Tot Cell Count 100 H Fluid Neutrophils 11.0 H Fluid Lymphocytes 81.0 H Fld Monocyte/Macrophag 8 H Fluid Comment Attending/Attestation - Attestation I have personally seen and examined this patient.: Yes I have fully participated in the care of the patient.: Yes I have reviewed all pertinent clinical information: Yes Notes (Text): 09/28/17 16:34 I have seen and examined patient with GI fellow. Agree with above documentation with the following additions. In brief, this is a 72 year old male with history of CVA, dementia, dysphagia s/p PEG, prostate cancer, AAA, L iliac stent complicated by fluid infection, sacral decubits ulcer, ETOH cirrhosis who is sent from [facility] for evaluation of progressive abdominal distention. Patient denies abdominal pain, nausea, vomiting, fever/chills, weight loss, rectal bleeding, or change in bowel habits. He has never required abdominal paracentesis before or had any sequelae of chronic liver disease. As per [facility] records, no difficulties encountered with tube feeding via existing gastrostomy tube. Review of vitals from today are normal, however low grade temperature on initial hospital admission noted. CVA Dysphagia s/p PEG Dementia History of prostate cancer AAA L groin fluid collection ETOH cirrhosis - decompensated with interval development of abdominal ascites, MELD 14 CT imaging reviewed by me showing correct placement of gastrostomy tube, decrease in size of groin fluid collection, +ascites Acute renal insufficiency - Continue with tube feeding as tolerated - Continue with antibiotic therapy, obtain blood culture results - Obtain diagnostic paracentesis, will send fluid for cytology, albumin, total protein, cell count - Continue to monitor creatinine, will temporarily hold on initiation of diuretic therapy - Suggest beginning lactulose, titrate so patient has 2-3 bowel movements daily - Will continue to monitor patient clinical course
--- NOTE | 2017-09-28 08:05 | CP.PCM.PN ---
Subjective - Date & Time of Evaluation Date of Evaluation: 09/28/17 Time of Evaluation: 05:30 - Subjective Subjective: clinically same Objective - Vital Signs/Intake and Output Vital Signs (last 24 hours): Temp Pulse Resp BP Pulse Ox 97.8 F 84 20 134/83 98 09/27/17 16:36 09/27/17 16:36 09/27/17 16:36 09/27/17 16:36 09/27/17 16:36 Intake and Output: 09/28/17 09/28/17 06:59 18:59 Intake Total 640 Balance 640 - Medications Medications: Current Medications Acetaminophen (Tylenol 325mg Tab) 975 mg PO ONCE PRN PRN Reason: Fever >100.4 F Allopurinol (Zyloprim) 100 mg PO DAILY [facility] Aspirin (Aspirin Chewable) 81 mg PO DAILY [facility] Enoxaparin Sodium (Lovenox) 40 mg SC DAILY [facility] Last Admin: 09/27/17 13:45 Dose: 40 mg Folic Acid (Folic Acid) 1 mg PO DAILY [facility] Sodium Chloride (Sodium Chloride 0.9%) 1,000 mls @ 70 mls/hr IV .[id number] [facility] Last Admin: 09/27/17 19:22 Dose: 70 mls/hr Ceftriaxone Sodium 1 gm/ (Sodium Chloride) 100 mls @ 200 mls/hr IVPB Q24H [facility] Last Admin: 09/27/17 14:30 Dose: 200 mls/hr Metronidazole (Flagyl) 250 mg in 50 mls @ 100 mls/hr IVPB Q8 [facility] Stop: 10/02/17 14:01 Last Admin: 09/28/17 05:46 Dose: 100 mls/hr Metoprolol Tartrate (Lopressor) 25 mg PO DAILY [facility] Mupirocin (Bactroban Ointment) 0 gm TOP QSHIFT [facility] Last Admin: 09/28/17 05:56 Dose: 1 applic Pantoprazole Sodium (Protonix Inj) 40 mg IVP DAILY [facility] Rosuvastatin Calcium (Crestor) 2.5 mg PO HS [facility] Last Admin: 09/27/17 22:29 Dose: Not Given - Labs Labs: 09/26/17 19:25 09/26/17 23:15 PT 13.5 SECONDS (9.7-12.2) H 09/26/17 19:25 INR 1.2 09/26/17 19:25 APTT 29 SECONDS (21-34) 09/26/17 19:25
--- NOTE | 2017-09-28 09:45 | CP.PCM.PN ---
<Radha Frances - Last Filed: 09/28/17 09:42> Subjective - Date & Time of Evaluation Date of Evaluation: 09/28/17 Time of Evaluation: 09:42 - Subjective Subjective: Surgery Pt s&e. EMMANUELRyleeMONI. Denies F/C/N/V/D/CP/SOB. Objective - Vital Signs/Intake and Output Vital Signs (last 24 hours): Temp Pulse Resp BP Pulse Ox 97.7 F 82 18 124/78 100 09/28/17 09:31 09/28/17 09:31 09/28/17 09:31 09/28/17 09:31 09/28/17 09:31 Intake and Output: 09/28/17 09/28/17 06:59 18:59 Intake Total 640 Balance 640 - Medications Medications: Current Medications Acetaminophen (Tylenol 325mg Tab) 975 mg PO ONCE PRN PRN Reason: Fever >100.4 F Allopurinol (Zyloprim) 100 mg PO DAILY [facility] Aspirin (Aspirin Chewable) 81 mg PO DAILY [facility] Enoxaparin Sodium (Lovenox) 40 mg SC DAILY [facility] Last Admin: 09/27/17 13:45 Dose: 40 mg Folic Acid (Folic Acid) 1 mg PO DAILY [facility] Sodium Chloride (Sodium Chloride 0.9%) 1,000 mls @ 70 mls/hr IV .[id number] [facility] Last Admin: 09/27/17 19:22 Dose: 70 mls/hr Ceftriaxone Sodium 1 gm/ (Sodium Chloride) 100 mls @ 200 mls/hr IVPB Q24H [facility] Last Admin: 09/27/17 14:30 Dose: 200 mls/hr Metronidazole (Flagyl) 250 mg in 50 mls @ 100 mls/hr IVPB Q8 [facility] Stop: 10/02/17 14:01 Last Admin: 09/28/17 05:46 Dose: 100 mls/hr Metoprolol Tartrate (Lopressor) 25 mg PO DAILY [facility] Mupirocin (Bactroban Ointment) 0 gm TOP QSHIFT [facility] Last Admin: 09/28/17 05:56 Dose: 1 applic Pantoprazole Sodium (Protonix Inj) 40 mg IVP DAILY [facility] Rosuvastatin Calcium (Crestor) 2.5 mg PO HS [facility] Last Admin: 09/27/17 22:29 Dose: Not Given - Labs Labs: 09/26/17 19:25 09/26/17 23:15 PT 13.5 SECONDS (9.7-12.2) H 09/26/17 19:25 INR 1.2 09/26/17 19:25 APTT 29 SECONDS (21-34) 09/26/17 19:25 - Constitutional Appears: Confused, Chronically Ill - Head Exam Head Exam: ATRAUMATIC, NORMAL INSPECTION, NORMOCEPHALIC - Eye Exam Eye Exam: EOMI, Normal appearance, PERRL Pupil Exam: NORMAL ACCOMODATION, PERRL - ENT Exam ENT Exam: Mucous Membranes Moist, Normal Exam - Neck Exam Neck Exam: Full ROM, Normal Inspection. absent: Lymphadenopathy - Respiratory Exam Respiratory Exam: Clear to Ausculation Bilateral, NORMAL BREATHING PATTERN - Cardiovascular Exam Cardiovascular Exam: REGULAR RHYTHM, +S1, +S2. absent: Murmur - GI/Abdominal Exam GI & Abdominal Exam: Distended, Soft, Tenderness, Normal Bowel Sounds. absent: Firm Additional comments: Fluid waves - Extremities Exam Extremities Exam: Normal Inspection - Back Exam Back Exam: NORMAL INSPECTION - Neurological Exam Neurological Exam: Awake. absent: Alert, Normal Gait, Oriented x3 - Skin Skin Exam: Dry, Intact, Normal Color, Warm Assessment and Plan - Assessment and Plan (Free Text) Assessment: is is a 72M with abdominal distention and free abdominal fluid PEG leak vs ascities GI rec: paracenthesis. Fluids analysis Continue ABX Serial Abdominal exams NPO IVF Will D/W Dr. Goodwin <David Goodwin - Last Filed: 10/08/17 19:39> Objective - Vital Signs/Intake and Output Vital Signs (last 24 hours): Temp Pulse Resp BP Pulse Ox 97.9 F 92 H 20 102/63 96 10/08/17 16:00 10/08/17 16:00 10/08/17 16:00 10/08/17 16:00 10/08/17 16:00 Intake and Output: 10/08/17 10/09/17 18:59 06:59 Intake Total 750 Output Total 1 Balance 749 - Medications Medications: Current Medications Acetaminophen (Tylenol 325mg Tab) 975 mg PO Q8H PRN PRN Reason: Fever >100.4 F Allopurinol (Zyloprim) 100 mg PO DAILY [facility] Last Admin: 10/08/17 09:56 Dose: 100 mg Aspirin (Aspirin Chewable) 81 mg PO DAILY [facility] Last Admin: 10/08/17 09:56 Dose: 81 mg Folic Acid (Folic Acid) 1 mg PO DAILY [facility] Last Admin: 10/08/17 09:56 Dose: 1 mg Ceftriaxone Sodium 1 gm/ (Sodium Chloride) 100 mls @ 200 mls/hr IVPB Q24H [facility] Last Admin: 10/08/17 15:39 Dose: 200 mls/hr Lactulose (Enulose) 20 gm PO BID [facility] Last Admin: 10/08/17 17:55 Dose: 20 gm Metoprolol Tartrate (Lopressor) 25 mg PO DAILY [facility] Last Admin: 10/08/17 09:56 Dose: 25 mg Mupirocin (Bactroban Ointment) 0 gm TOP BID [facility] Last Admin: 10/08/17 17:55 Dose: 1 applic Pantoprazole Sodium (Protonix Inj) 40 mg IVP DAILY [facility] Last Admin: 10/08/17 09:56 Dose: 40 mg Rosuvastatin Calcium (Crestor) 2.5 mg PO HS [facility] Last Admin: 10/07/17 21:32 Dose: 2.5 mg - Labs Labs: 10/08/17 07:23 10/08/17 07:23 PT 13.2 SECONDS (9.7-12.2) H 09/28/17 10:24 INR 1.2 09/28/17 10:24 APTT 29 SECONDS (21-34) 09/26/17 19:25 Attending/Attestation - Attestation I have personally seen and examined this patient.: Yes I have fully participated in the care of the patient.: Yes I have reviewed all pertinent clinical information, including history, physical exam and plan: Yes Notes (Text): Pt was seen and examined at bedside Agree with above note and assessment Pt with Abdominal distention and ascites GI consult appreciated PEG study as planned No acute general surgery intervention required at present Plan d.w primary team in detail F/u with PMD
[2017-09-28] MEDS: Enoxaparin 40 mg Syringe SC SCH (09:57)
[2017-09-28] MEDS: Sodium Chloride 0.9% 1,000 ML IV SCH ×2 (10:04→19:32)
[2017-09-28 10:29] LABS: BASO % 1.1 % (0.0-2.0); EOS # 0.2 K/uL (0.0-0.7); EOS % 4.2 % (0.0-4.0); LYMPH # 1.2 K/uL (1.0-4.3); LYMPH % 27.1 % (20.0-40.0); MEAN CORPUSCULAR HEMOGLOBIN 30.4 pg (27.0-31.0); MEAN CORPUSCULAR HGB CONC 32.3 g/dL (33.0-37.0); MEAN PLATELET VOLUME 8.4 fL (7.2-11.7); MONO # 0.6 K/uL (0.0-0.8); MONO % 12.8 % (0.0-10.0); NEUT # 2.4 K/uL (1.8-7.0); NEUT % 54.8 % (50.0-75.0); NRBC % 0.1 % (0.0-2.0); RBC 2.98 Mil/uL (4.40-5.90); RED CELL DISTRIBUTION WIDTH 19.6 % (11.5-14.5); WHITE BLOOD COUNT 4.3 K/uL (4.8-10.8)
[2017-09-28 10:34] LABS: INR 1.2; PROTHROMBIN TIME 13.2 SECONDS (9.7-12.2)
[2017-09-28 10:42] LABS: ALB/GLOB RATIO 0.7 (1.0-2.1); ALBUMIN 2.3 g/dL (3.5-5.0); CALCIUM 7.7 mg/dl (8.6-10.4)
--- NOTE | 2017-09-28 11:03 | PCM.SURG1 ---
Surgeon's Initial Post Op Note - Surgeon's Notes Surgeon: Charles Hurley MD Animal Herder: NONE Type of Anesthesia: Local Pre-Operative Diagnosis: Ascites Operative Findings: US showed a small amount of ascites Post-Operative Diagnosis: Ascites Operation Performed: US guided paracentesis. Specimen/Specimens Removed: 800 cc of straw colored fluid Estimated Blood Loss: EBL {In ML}: 0 Blood Products Given: N/A Drains Used: No Drains Post-Op Condition: Fair Date of Surgery/Procedure: 09/28/17 Time of Surgery/Procedure: 11:00
[2017-09-28 12:05] LABS: BODY FLUID TYPE PERITONEAL/ASCITES
--- NOTE | 2017-09-28 12:26 | US ---
Date of Procedure: 09/28/2017 PROCEDURE: Ultrasound-guided paracentesis, CPT 19353 Medications: 7 cc 1% Lidocaine HISTORY: Ascites, abdominal pain, cirrhosis TECHNIQUE: Following informed consent , the patient was placed supine on the stretcher and the site was marked. A limited abdominal ultrasound was performed that showed a large amount of intra-abdominal fluid. Procedural time out was called and the Pt's abdomen was marked and prepped and draped in the usual sterile fashion. Ultrasound-guided large volume paracentesis performed. A total of 800 cc of straw colored fluid was removed without complication. Fluid specimen was sent for culture, sensitivity, cytology and chemistries. IMPRESSION: Ultrasound-guided large volume paracentesis.
[2017-09-28 12:43] LABS: BF GROSS APPEARANCE SL CLOUDY (CLEAR)
[2017-09-28 12:44] LABS: BODY FLUID MONO/MACROPHAGE 8 % (0-0); BODY FLUID TOTAL COUNT 100 (0-0)
--- NOTE | 2017-09-28 16:32 | CP.PCM.PN ---
Subjective - Date & Time of Evaluation Date of Evaluation: 09/28/17 Time of Evaluation: 16:30 - Subjective Subjective: REQUESTED BY ALEXANDER SMITH TO CHECK PT'S DNR STATUS. PT HAS DNR BRACELET ON. CHART REVIEWED FROM PREVIOUS ADMISSIONS. PT HAS A POLST DNR/DNI FROM . ORDER PLACED BY ME NOW. I CONTACTED [facility] THIS MORNING REGARDING THIS BUT NO RESPONSE---SHE MAY NOT BE AVAILABLE TODAY. NO FURTHER ORDERS AT THIS TIME. Objective - Vital Signs/Intake and Output Vital Signs (last 24 hours): Temp Pulse Resp BP Pulse Ox 97.5 F L 79 19 133/77 100 09/28/17 16:00 09/28/17 16:00 09/28/17 16:00 09/28/17 16:00 09/28/17 16:00 Intake and Output: 09/28/17 09/28/17 06:59 18:59 Intake Total 640 600 Balance 640 600 - Medications Medications: Current Medications Acetaminophen (Tylenol 325mg Tab) 975 mg PO ONCE PRN PRN Reason: Fever >100.4 F Allopurinol (Zyloprim) 100 mg PO DAILY [facility] Last Admin: 09/28/17 10:04 Dose: Not Given Aspirin (Aspirin Chewable) 81 mg PO DAILY [facility] Last Admin: 09/28/17 09:56 Dose: Not Given Enoxaparin Sodium (Lovenox) 40 mg SC DAILY [facility] Last Admin: 09/28/17 09:57 Dose: Not Given Folic Acid (Folic Acid) 1 mg PO DAILY [facility] Last Admin: 09/28/17 09:56 Dose: Not Given Sodium Chloride (Sodium Chloride 0.9%) 1,000 mls @ 70 mls/hr IV .[id number] [facility] Last Admin: 09/28/17 10:04 Dose: Not Given Ceftriaxone Sodium 1 gm/ (Sodium Chloride) 100 mls @ 200 mls/hr IVPB Q24H [facility] Last Admin: 09/28/17 13:28 Dose: 200 mls/hr Metronidazole (Flagyl) 250 mg in 50 mls @ 100 mls/hr IVPB Q8 [facility] Stop: 10/02/17 14:01 Last Admin: 09/28/17 14:56 Dose: 100 mls/hr Lactulose (Enulose) 20 gm PO BID [facility] Last Admin: 09/28/17 12:00 Dose: Not Given Metoprolol Tartrate (Lopressor) 25 mg PO DAILY [facility] Last Admin: 09/28/17 09:56 Dose: Not Given Pantoprazole Sodium (Protonix Inj) 40 mg IVP DAILY [facility] Last Admin: 09/28/17 10:08 Dose: 40 mg Pneumococcal Polyvalent Vaccine (Pneumovax 23 Vaccine) 0.5 ml IM .ONCE ONE Stop: 09/30/17 10:01 Rosuvastatin Calcium (Crestor) 2.5 mg PO HS [facility] Last Admin: 09/27/17 22:29 Dose: Not Given - Labs Labs: 09/28/17 10:24 09/28/17 10:24 PT 13.2 SECONDS (9.7-12.2) H 09/28/17 10:24 INR 1.2 09/28/17 10:24 APTT 29 SECONDS (21-34) 09/26/17 19:25
[2017-09-28] MEDS: Rosuvastatin Calcium 2.5 mg Tab PO SCH (21:50)
--- NOTE | 2017-09-28 23:09 | CARD ---
APPROVED REPORT EKG Measurement Heart [id number] <Conclusion> Sinus tachycardia with frequent premature ventricular complexes in a pattern of bigeminy Otherwise normal ECG
[2017-09-29] MEDS: metroNIDAZOLE IV 250mg/50 ml 250 MG/50 ML BAG IVPB SCH ×3 (05:44→22:23)
[2017-09-29 07:55] LABS: BASO % 0.8 % (0.0-2.0); EOS # 0.2 K/uL (0.0-0.7); EOS % 4.4 % (0.0-4.0); HEMOGLOBIN 9.3 g/dL (12.0-18.0); LYMPH # 0.9 K/uL (1.0-4.3); LYMPH % 23.4 % (20.0-40.0); MEAN CELL VOLUME 94.7 fL (80.0-94.0); MEAN CORPUSCULAR HEMOGLOBIN 30.1 pg (27.0-31.0); MEAN CORPUSCULAR HGB CONC 31.7 g/dL (33.0-37.0); MEAN PLATELET VOLUME 8.3 fL (7.2-11.7); MONO # 0.4 K/uL (0.0-0.8); NEUT # 2.3 K/uL (1.8-7.0); NEUT % 60.4 % (50.0-75.0); RBC 3.09 Mil/uL (4.40-5.90); RED CELL DISTRIBUTION WIDTH 20.2 % (11.5-14.5); WHITE BLOOD COUNT 3.9 K/uL (4.8-10.8)
--- NOTE | 2017-09-29 08:35 | CP.PCM.PN ---
<NicolaTiffany lane - Last Filed: 09/29/17 08:41> Subjective - Date & Time of Evaluation Date of Evaluation: 09/29/17 Time of Evaluation: 06:50 - Subjective Subjective: GI Fellow PGY4 Progress Note Pt seen and evaluated at bedside, no issues overnight. Tolerating TF via PEG. No abdominal pain, pt had two BM yesterday. ROS: A 12pt ROS was negative except as above. Objective - Vital Signs/Intake and Output Vital Signs (last 24 hours): Temp Pulse Resp BP Pulse Ox 98.1 F 89 20 130/74 97 09/29/17 07:53 09/29/17 07:53 09/29/17 07:53 09/29/17 07:53 09/29/17 07:53 Intake and Output: 09/29/17 09/29/17 06:59 18:59 Intake Total 575 Balance 575 - Medications Medications: Current Medications Acetaminophen (Tylenol 325mg Tab) 975 mg PO ONCE PRN PRN Reason: Fever >100.4 F Allopurinol (Zyloprim) 100 mg PO DAILY [facility] Last Admin: 09/28/17 10:04 Dose: Not Given Aspirin (Aspirin Chewable) 81 mg PO DAILY [facility] Last Admin: 09/28/17 09:56 Dose: Not Given Enoxaparin Sodium (Lovenox) 40 mg SC DAILY [facility] Last Admin: 09/28/17 09:57 Dose: Not Given Folic Acid (Folic Acid) 1 mg PO DAILY [facility] Last Admin: 09/28/17 09:56 Dose: Not Given Ceftriaxone Sodium 1 gm/ (Sodium Chloride) 100 mls @ 200 mls/hr IVPB Q24H [facility] Last Admin: 09/28/17 13:28 Dose: 200 mls/hr Metronidazole (Flagyl) 250 mg in 50 mls @ 100 mls/hr IVPB Q8 [facility] Stop: 10/02/17 14:01 Last Admin: 09/29/17 05:44 Dose: 100 mls/hr Lactulose (Enulose) 20 gm PO BID [facility] Last Admin: 09/28/17 17:27 Dose: Not Given Metoprolol Tartrate (Lopressor) 25 mg PO DAILY [facility] Last Admin: 09/28/17 09:56 Dose: Not Given Pantoprazole Sodium (Protonix Inj) 40 mg IVP DAILY [facility] Last Admin: 09/28/17 10:08 Dose: 40 mg Pneumococcal Polyvalent Vaccine (Pneumovax 23 Vaccine) 0.5 ml IM .ONCE [facility] Stop: 09/30/17 10:01 Rosuvastatin Calcium (Crestor) 2.5 mg PO HS [facility] Last Admin: 09/28/17 21:50 Dose: 2.5 mg - Labs Labs: 09/29/17 07:50 09/28/17 10:24 PT 13.2 SECONDS (9.7-12.2) H 09/28/17 10:24 INR 1.2 09/28/17 10:24 APTT 29 SECONDS (21-34) 09/26/17 19:25 - Constitutional Appears: Non-toxic, No Acute Distress, Older Than Stated Age, Cachectic, Chronically Ill - Head Exam Head Exam: ATRAUMATIC, NORMAL INSPECTION, NORMOCEPHALIC - Eye Exam Eye Exam: EOMI, PERRL - ENT Exam ENT Exam: Mucous Membranes Dry - Respiratory Exam Respiratory Exam: NORMAL BREATHING PATTERN - Cardiovascular Exam Cardiovascular Exam: RRR - GI/Abdominal Exam GI & Abdominal Exam: Soft, Normal Bowel Sounds. absent: Distended, Guarding, Tenderness, Organomegaly Additional comments: PEG - Extremities Exam Extremities Exam: absent: Pedal Edema - Neurological Exam Neurological Exam: Alert, Awake - Psychiatric Exam Psychiatric exam: Normal Affect, Normal Mood - Skin Skin Exam: Dry, Intact, Normal Color, Warm Assessment and Plan - Assessment and Plan (Free Text) Assessment: 72 year old male with history of CVA, Prostate Cancer, PUD, HTN, HLD, AAA s/p repair, iliac angioplasty with stent complicated by left groin fluid collection , seizure disorder, ETOH cirrhosis (on CT 05/2017 from [place]), and PEG 2/2 dysphagia 08/2017 presenting with abdominal distension. 1. ETOH cirrhosis - decompensated with ascites 2. Dysphagia s/p PEG 3. Dementia 4. Hx of prostate cancer 5. L groin fluid collection 6. GARRETT 7. CVA Plan: -Continue supportive care, MELD 14 on admission -Diagnostic and therapeutic paracentesis with 800cc of fluid removed, no SBP, waiting on further analysis with cytology given complex fluid concerning for infection vs malignancy -Continue Lactulose 20g BID,titrate to 2-3 BMs daily for possible hepatic encephalopathy -Continue tube feeds as tolerated -PEG in good position on CT A/P -Pt with GARRETT likely prerenal, will add water flushes to TF and monitor renal function closely, hold diuretics -Left groin infection, continue abx per primary team -Dysphagia, NPO -Will follow pt closely <Donald Avalos - Last Filed: 09/29/17 10:27> Objective - Vital Signs/Intake and Output Vital Signs (last 24 hours): Temp Pulse Resp BP Pulse Ox 98.1 F 89 20 130/74 97 09/29/17 07:53 09/29/17 07:53 09/29/17 07:53 09/29/17 07:53 09/29/17 07:53 Intake and Output: 09/29/17 09/29/17 06:59 18:59 Intake Total 575 Balance 575 - Medications Medications: Current Medications Acetaminophen (Tylenol 325mg Tab) 975 mg PO ONCE PRN PRN Reason: Fever >100.4 F Allopurinol (Zyloprim) 100 mg PO DAILY [facility] Last Admin: 09/28/17 10:04 Dose: Not Given Aspirin (Aspirin Chewable) 81 mg PO DAILY [facility] Last Admin: 09/28/17 09:56 Dose: Not Given Enoxaparin Sodium (Lovenox) 40 mg SC DAILY [facility] Last Admin: 09/28/17 09:57 Dose: Not Given Folic Acid (Folic Acid) 1 mg PO DAILY [facility] Last Admin: 09/28/17 09:56 Dose: Not Given Ceftriaxone Sodium 1 gm/ (Sodium Chloride) 100 mls @ 200 mls/hr IVPB Q24H [facility] Last Admin: 09/28/17 13:28 Dose: 200 mls/hr Metronidazole (Flagyl) 250 mg in 50 mls @ 100 mls/hr IVPB Q8 [facility] Stop: 10/02/17 14:01 Last Admin: 09/29/17 05:44 Dose: 100 mls/hr Lactulose (Enulose) 20 gm PO BID [facility] Last Admin: 09/28/17 17:27 Dose: Not Given Metoprolol Tartrate (Lopressor) 25 mg PO DAILY [facility] Last Admin: 09/28/17 09:56 Dose: Not Given Pantoprazole Sodium (Protonix Inj) 40 mg IVP DAILY [facility] Last Admin: 09/28/17 10:08 Dose: 40 mg Pneumococcal Polyvalent Vaccine (Pneumovax 23 Vaccine) 0.5 ml IM .ONCE ONE Stop: 09/30/17 10:01 Rosuvastatin Calcium (Crestor) 2.5 mg PO HS [facility] Last Admin: 09/28/17 21:50 Dose: 2.5 mg - Labs Labs: 09/29/17 07:50 09/29/17 07:50 PT 13.2 SECONDS (9.7-12.2) H 09/28/17 10:24 INR 1.2 09/28/17 10:24 APTT 29 SECONDS (21-34) 09/26/17 19:25 Attending/Attestation - Attestation I have personally seen and examined this patient.: Yes I have fully participated in the care of the patient.: Yes I have reviewed all pertinent clinical information, including history, physical exam and plan: Yes Notes (Text): 09/29/17 10:23 I have seen and examined patient with GI fellow. No acute events overnight, he is seen resting comfortably in bed. He denies abdominal pain, nausea, vomiting , fever/chills. Tolerating PEG tube feedings without difficulty. He had 2 bowel movements yesterday. Review of vitals from today are normal. CVA Dysphagia, s/p PEG Dementia History of prostate cancer ETOH cirrhosis, s/p paracentesis AAA Sacral decubitus ulcer Acute renal insufficiency - Continue with tube feeding as tolerated, will add free water flushes - Ascitic fluid cell count reviewed, no evidence of SBP - Continue with antibiotic therapy as per medical team - Creatinine rising, monitor, suggest IVF hydration given likely prerenal azotemia - Continue to hold diuretics for time being - Awaiting additional ascitic fluid studies, will continue to monitor patient clinical course
[2017-09-29 08:45] LABS: ALB/GLOB RATIO 0.7 (1.0-2.1); ALBUMIN 2.2 g/dL (3.5-5.0); CALCIUM 7.7 mg/dl (8.6-10.4)
[2017-09-29] MEDS: Enoxaparin 40 mg Syringe SC SCH (10:56)
--- NOTE | 2017-09-29 20:39 | CP.PCM.PN ---
Subjective - Date & Time of Evaluation Date of Evaluation: 09/29/17 Time of Evaluation: 20:39 Objective - Vital Signs/Intake and Output Vital Signs (last 24 hours): Temp Pulse Resp BP Pulse Ox 99.1 F 79 20 128/78 97 09/29/17 16:00 09/29/17 16:00 09/29/17 16:00 09/29/17 16:00 09/29/17 16:00 Intake and Output: 09/29/17 09/30/17 18:59 06:59 Intake Total 800 Balance 800 - Medications Medications: Current Medications Acetaminophen (Tylenol 325mg Tab) 975 mg PO Q8H PRN PRN Reason: Fever >100.4 F Allopurinol (Zyloprim) 100 mg PO DAILY [facility] Last Admin: 09/29/17 10:57 Dose: 100 mg Aspirin (Aspirin Chewable) 81 mg PO DAILY [facility] Last Admin: 09/29/17 10:57 Dose: 81 mg Enoxaparin Sodium (Lovenox) 30 mg SC DAILY [facility] Folic Acid (Folic Acid) 1 mg PO DAILY [facility] Last Admin: 09/29/17 10:57 Dose: 1 mg Ceftriaxone Sodium 1 gm/ (Sodium Chloride) 100 mls @ 200 mls/hr IVPB Q24H [facility] Last Admin: 09/29/17 14:25 Dose: 200 mls/hr Metronidazole (Flagyl) 250 mg in 50 mls @ 100 mls/hr IVPB Q8 [facility] Stop: 10/02/17 14:01 Last Admin: 09/29/17 14:25 Dose: 100 mls/hr Lactulose (Enulose) 20 gm PO BID [facility] Last Admin: 09/29/17 18:02 Dose: 20 gm Metoprolol Tartrate (Lopressor) 25 mg PO DAILY [facility] Last Admin: 09/29/17 10:59 Dose: 25 mg Pantoprazole Sodium (Protonix Inj) 40 mg IVP DAILY [facility] Last Admin: 09/29/17 10:56 Dose: 40 mg Pneumococcal Polyvalent Vaccine (Pneumovax 23 Vaccine) 0.5 ml IM .ONCE ONE Stop: 09/30/17 10:01 Rosuvastatin Calcium (Crestor) 2.5 mg PO HS [facility] Last Admin: 09/28/17 21:50 Dose: 2.5 mg - Labs Labs: 09/29/17 07:50 09/29/17 07:50 PT 13.2 SECONDS (9.7-12.2) H 09/28/17 10:24 INR 1.2 09/28/17 10:24 APTT 29 SECONDS (21-34) 09/26/17 19:25
[2017-09-29] MEDS: Rosuvastatin Calcium 2.5 mg Tab PO SCH (22:23)
[2017-09-30] MEDS: metroNIDAZOLE IV 250mg/50 ml 250 MG/50 ML BAG IVPB SCH ×3 (05:02→21:45)
--- NOTE | 2017-09-30 07:12 | CP.PCM.PN ---
<NicolaTiffany - Last Filed: 09/30/17 14:00> Subjective - Date & Time of Evaluation Date of Evaluation: 09/30/17 Time of Evaluation: 06:50 - Subjective Subjective: GI Fellow PGY4 Progress Note Pt seen and evaluated at bedside, no issues overnight. Tolerating TF via PEG. No abdominal pain, pt had two BM 09/28/17. ROS: A 12pt ROS was negative except as above. Objective - Vital Signs/Intake and Output Vital Signs (last 24 hours): Temp Pulse Resp BP Pulse Ox 99 F 98 H 20 107/62 100 09/30/17 00:14 09/30/17 00:14 09/30/17 00:14 09/30/17 00:14 09/30/17 00:14 Intake and Output: 09/30/17 09/30/17 06:59 18:59 Intake Total 1925 Balance 1925 - Medications Medications: Current Medications Acetaminophen (Tylenol 325mg Tab) 975 mg PO Q8H PRN PRN Reason: Fever >100.4 F Allopurinol (Zyloprim) 100 mg PO DAILY [facility] Last Admin: 09/29/17 10:57 Dose: 100 mg Aspirin (Aspirin Chewable) 81 mg PO DAILY [facility] Last Admin: 09/29/17 10:57 Dose: 81 mg Enoxaparin Sodium (Lovenox) 30 mg SC DAILY [facility] Folic Acid (Folic Acid) 1 mg PO DAILY [facility] Last Admin: 09/29/17 10:57 Dose: 1 mg Ceftriaxone Sodium 1 gm/ (Sodium Chloride) 100 mls @ 200 mls/hr IVPB Q24H [facility] Last Admin: 09/29/17 14:25 Dose: 200 mls/hr Metronidazole (Flagyl) 250 mg in 50 mls @ 100 mls/hr IVPB Q8 [facility] Stop: 10/02/17 14:01 Last Admin: 09/30/17 05:02 Dose: 100 mls/hr Lactulose (Enulose) 20 gm PO BID [facility] Last Admin: 09/29/17 18:02 Dose: 20 gm Metoprolol Tartrate (Lopressor) 25 mg PO DAILY [facility] Last Admin: 09/29/17 10:59 Dose: 25 mg Pantoprazole Sodium (Protonix Inj) 40 mg IVP DAILY [facility] Last Admin: 09/29/17 10:56 Dose: 40 mg Pneumococcal Polyvalent Vaccine (Pneumovax 23 Vaccine) 0.5 ml IM .ONCE ONE Stop: 09/30/17 10:01 Rosuvastatin Calcium (Crestor) 2.5 mg PO HS [facility] Last Admin: 09/29/17 22:23 Dose: 2.5 mg - Labs Labs: 09/29/17 07:50 09/29/17 07:50 PT 13.2 SECONDS (9.7-12.2) H 09/28/17 10:24 INR 1.2 09/28/17 10:24 APTT 29 SECONDS (21-34) 09/26/17 19:25 - Constitutional Appears: Non-toxic, No Acute Distress, Older Than Stated Age, Chronically Ill - Head Exam Head Exam: ATRAUMATIC, NORMAL INSPECTION, NORMOCEPHALIC - Eye Exam Eye Exam: EOMI, Normal appearance, PERRL - ENT Exam ENT Exam: Mucous Membranes Dry - Respiratory Exam Respiratory Exam: NORMAL BREATHING PATTERN - Cardiovascular Exam Cardiovascular Exam: REGULAR RHYTHM - GI/Abdominal Exam GI & Abdominal Exam: Soft, Normal Bowel Sounds. absent: Distended, Guarding, Tenderness, Organomegaly Additional comments: PEG - Extremities Exam Extremities Exam: Normal Inspection - Neurological Exam Neurological Exam: Alert, Awake - Psychiatric Exam Psychiatric exam: Normal Affect, Normal Mood - Skin Skin Exam: Dry, Intact, Normal Color, Warm Assessment and Plan - Assessment and Plan (Free Text) Assessment: 72 year old male with history of CVA, Prostate Cancer, PUD, HTN, HLD, AAA s/p repair, iliac angioplasty with stent complicated by left groin fluid collection , seizure disorder, ETOH cirrhosis (on CT 05/2017 from [place]), and PEG 2/2 dysphagia 08/2017 presenting with abdominal distension. 1. ETOH cirrhosis - decompensated with ascites 2. Dysphagia s/p PEG 3. Dementia 4. Hx of prostate cancer 5. L groin fluid collection 6. GARRETT 7. CVA Plan: -Continue supportive care, MELD 14 on admission -Diagnostic and therapeutic paracentesis with 800cc of fluid removed, no SBP, waiting on further analysis with cytology given complex fluid concerning for malignancy -Continue Lactulose 20g BID,titrate to 2-3 BMs daily for possible hepatic encephalopathy -Continue tube feeds as tolerated -PEG in good position on CT A/P -Pt with GARRETT likely prerenal, will add water flushes to TF and monitor renal function closely, hold diuretics -Left groin infection, continue abx per primary team -Dysphagia, NPO -Pt was seen by Hospice and family agrees to home hospice <David Cespedes - Last Filed: 09/30/17 17:40> Objective - Vital Signs/Intake and Output Vital Signs (last 24 hours): Temp Pulse Resp BP Pulse Ox 98.9 F 80 20 116/74 98 09/30/17 07:57 09/30/17 07:57 09/30/17 07:57 09/30/17 10:33 09/30/17 07:57 Intake and Output: 09/30/17 09/30/17 06:59 18:59 Intake Total 1925 800 Balance 1925 800 - Medications Medications: Current Medications Acetaminophen (Tylenol 325mg Tab) 975 mg PO Q8H PRN PRN Reason: Fever >100.4 F Allopurinol (Zyloprim) 100 mg PO DAILY [facility] Last Admin: 09/30/17 10:34 Dose: 100 mg Aspirin (Aspirin Chewable) 81 mg PO DAILY [facility] Last Admin: 09/30/17 10:33 Dose: 81 mg Enoxaparin Sodium (Lovenox) 30 mg SC DAILY [facility] Last Admin: 09/30/17 10:33 Dose: 30 mg Folic Acid (Folic Acid) 1 mg PO DAILY [facility] Last Admin: 09/30/17 10:34 Dose: 1 mg Ceftriaxone Sodium 1 gm/ (Sodium Chloride) 100 mls @ 200 mls/hr IVPB Q24H [facility] Last Admin: 09/30/17 13:02 Dose: 200 mls/hr Metronidazole (Flagyl) 250 mg in 50 mls @ 100 mls/hr IVPB Q8 [facility] Stop: 10/02/17 14:01 Last Admin: 09/30/17 13:49 Dose: 100 mls/hr Lactulose (Enulose) 20 gm PO BID [facility] Last Admin: 09/30/17 17:30 Dose: 20 gm Metoprolol Tartrate (Lopressor) 25 mg PO DAILY [facility] Last Admin: 09/30/17 10:33 Dose: 25 mg Pantoprazole Sodium (Protonix Inj) 40 mg IVP DAILY [facility] Last Admin: 09/30/17 10:33 Dose: 40 mg Rosuvastatin Calcium (Crestor) 2.5 mg PO HS [facility] Last Admin: 09/29/17 22:23 Dose: 2.5 mg - Labs Labs: 09/30/17 07:02 09/30/17 07:02 PT 13.2 SECONDS (9.7-12.2) H 09/28/17 10:24 INR 1.2 09/28/17 10:24 APTT 29 SECONDS (21-34) 09/26/17 19:25 Attending/Attestation - Attestation I have personally seen and examined this patient.: Yes I have fully participated in the care of the patient.: Yes I have reviewed all pertinent clinical information, including history, physical exam and plan: Yes Notes (Text): 09/30/17 17:38 72 year old male with h/o CVA, Prostate Cancer, PUD, HTN, HLD, TAA s/p repair, AAA s/p repair, ETOH cirrhosis, h/o PEG admitted with ascites. 1. Alcoholic cirrhosis 2. Ascites 3. s/P PEG Plan: -s/p paracentesis, no sbp -continue lactulose -continue tube feeds and supportive measures -plan is for hospice per family -will sign off
[2017-09-30 07:13] LABS: BASO % 1.1 % (0.0-2.0); EOS % 1.3 % (0.0-4.0); HEMOGLOBIN 8.8 g/dL (12.0-18.0); LYMPH # 1.2 K/uL (1.0-4.3); MEAN CELL VOLUME 93.4 fL (80.0-94.0); MEAN CORPUSCULAR HGB CONC 32.2 g/dL (33.0-37.0); MEAN PLATELET VOLUME 8.6 fL (7.2-11.7); MONO # 0.4 K/uL (0.0-0.8); MONO % 10.4 % (0.0-10.0); NEUT # 2.3 K/uL (1.8-7.0); NEUT % 57.2 % (50.0-75.0); NRBC % 0.2 % (0.0-2.0); RBC 2.93 Mil/uL (4.40-5.90); RED CELL DISTRIBUTION WIDTH 20.1 % (11.5-14.5); WHITE BLOOD COUNT 3.9 K/uL (4.8-10.8)
[2017-09-30 08:21] LABS: ALB/GLOB RATIO 0.7 (1.0-2.1); ALBUMIN 2.1 g/dL (3.5-5.0); CALCIUM 7.8 mg/dl (8.6-10.4)
[2017-09-30] MEDS ORDERED: Enoxaparin 30 mg Syringe SC SCH (10:00)
[2017-09-30] MEDS ORDERED: Influenza Vaccine 60 mcg/0.5 mL SYR (4YR UP) IM ONE (10:00)
[2017-09-30] MEDS ORDERED: Pneumococcal 23-Valent Vaccine IM ONE (10:00)
[2017-09-30] MEDS: Enoxaparin 30 mg Syringe SC SCH (10:33)
--- NOTE | 2017-09-30 16:04 | CP.PCM.PN ---
Subjective - Date & Time of Evaluation Date of Evaluation: 09/30/17 Time of Evaluation: 16:03 Objective - Vital Signs/Intake and Output Vital Signs (last 24 hours): Temp Pulse Resp BP Pulse Ox 98.9 F 80 20 116/74 98 09/30/17 07:57 09/30/17 07:57 09/30/17 07:57 09/30/17 10:33 09/30/17 07:57 Intake and Output: 09/30/17 09/30/17 06:59 18:59 Intake Total 1925 800 Balance 1925 800 - Medications Medications: Current Medications Acetaminophen (Tylenol 325mg Tab) 975 mg PO Q8H PRN PRN Reason: Fever >100.4 F Allopurinol (Zyloprim) 100 mg PO DAILY [facility] Last Admin: 09/30/17 10:34 Dose: 100 mg Aspirin (Aspirin Chewable) 81 mg PO DAILY [facility] Last Admin: 09/30/17 10:33 Dose: 81 mg Enoxaparin Sodium (Lovenox) 30 mg SC DAILY [facility] Last Admin: 09/30/17 10:33 Dose: 30 mg Folic Acid (Folic Acid) 1 mg PO DAILY [facility] Last Admin: 09/30/17 10:34 Dose: 1 mg Ceftriaxone Sodium 1 gm/ (Sodium Chloride) 100 mls @ 200 mls/hr IVPB Q24H [facility] Last Admin: 09/30/17 13:02 Dose: 200 mls/hr Metronidazole (Flagyl) 250 mg in 50 mls @ 100 mls/hr IVPB Q8 [facility] Stop: 10/02/17 14:01 Last Admin: 09/30/17 13:49 Dose: 100 mls/hr Lactulose (Enulose) 20 gm PO BID [facility] Last Admin: 09/30/17 10:33 Dose: 20 gm Metoprolol Tartrate (Lopressor) 25 mg PO DAILY [facility] Last Admin: 09/30/17 10:33 Dose: 25 mg Pantoprazole Sodium (Protonix Inj) 40 mg IVP DAILY [facility] Last Admin: 09/30/17 10:33 Dose: 40 mg Rosuvastatin Calcium (Crestor) 2.5 mg PO HS [facility] Last Admin: 09/29/17 22:23 Dose: 2.5 mg - Labs Labs: 09/30/17 07:02 09/30/17 07:02 PT 13.2 SECONDS (9.7-12.2) H 09/28/17 10:24 INR 1.2 09/28/17 10:24 APTT 29 SECONDS (21-34) 09/26/17 19:25
[2017-09-30] MEDS: Rosuvastatin Calcium 2.5 mg Tab PO SCH (21:45)
[2017-10-01] MEDS: metroNIDAZOLE IV 250mg/50 ml 250 MG/50 ML BAG IVPB SCH ×3 (05:00→21:56)
[2017-10-01] MEDS: Enoxaparin 30 mg Syringe SC SCH (10:28)
[2017-10-01 11:16] LABS: BASO # 0.1 K/uL (0.0-0.2); BASO % 1.3 % (0.0-2.0); EOS # 0.1 K/uL (0.0-0.7); EOS % 2.3 % (0.0-4.0); HEMOGLOBIN 9.2 g/dL (12.0-18.0); LYMPH # 1.2 K/uL (1.0-4.3); LYMPH % 26.6 % (20.0-40.0); MEAN CELL VOLUME 94.2 fL (80.0-94.0); MEAN CORPUSCULAR HEMOGLOBIN 31.2 pg (27.0-31.0); MEAN CORPUSCULAR HGB CONC 33.2 g/dL (33.0-37.0); MEAN PLATELET VOLUME 8.4 fL (7.2-11.7); MONO # 0.5 K/uL (0.0-0.8); MONO % 10.2 % (0.0-10.0); NEUT # 2.7 K/uL (1.8-7.0); NEUT % 59.6 % (50.0-75.0); NRBC % 0.1 % (0.0-2.0); RBC 2.94 Mil/uL (4.40-5.90); RED CELL DISTRIBUTION WIDTH 19.9 % (11.5-14.5); WHITE BLOOD COUNT 4.5 K/uL (4.8-10.8)
[2017-10-01 11:37] LABS: ALB/GLOB RATIO 0.7 (1.0-2.1); ALBUMIN 2.1 g/dL (3.5-5.0); CALCIUM 7.9 mg/dl (8.6-10.4)
--- NOTE | 2017-10-01 17:20 | CP.PCM.PN ---
Subjective - Date & Time of Evaluation Date of Evaluation: 10/01/17 Time of Evaluation: 17:20 Objective - Vital Signs/Intake and Output Vital Signs (last 24 hours): Temp Pulse Resp BP Pulse Ox 98 F 88 20 102/70 100 10/01/17 15:00 10/01/17 15:00 10/01/17 15:00 10/01/17 15:00 10/01/17 15:00 Intake and Output: 10/01/17 10/01/17 06:59 18:59 Intake Total 700 800 Balance 700 800 - Medications Medications: Current Medications Acetaminophen (Tylenol 325mg Tab) 975 mg PO Q8H PRN PRN Reason: Fever >100.4 F Allopurinol (Zyloprim) 100 mg PO DAILY [facility] Last Admin: 10/01/17 10:29 Dose: 100 mg Aspirin (Aspirin Chewable) 81 mg PO DAILY [facility] Last Admin: 10/01/17 10:29 Dose: 81 mg Enoxaparin Sodium (Lovenox) 30 mg SC DAILY [facility] Last Admin: 10/01/17 10:28 Dose: 30 mg Folic Acid (Folic Acid) 1 mg PO DAILY [facility] Last Admin: 10/01/17 10:28 Dose: 1 mg Ceftriaxone Sodium 1 gm/ (Sodium Chloride) 100 mls @ 200 mls/hr IVPB Q24H [facility] Last Admin: 10/01/17 14:56 Dose: 200 mls/hr Metronidazole (Flagyl) 250 mg in 50 mls @ 100 mls/hr IVPB Q8 [facility] Stop: 10/02/17 14:01 Last Admin: 10/01/17 14:56 Dose: 100 mls/hr Lactulose (Enulose) 20 gm PO BID [facility] Last Admin: 10/01/17 10:29 Dose: 20 gm Metoprolol Tartrate (Lopressor) 25 mg PO DAILY [facility] Last Admin: 10/01/17 10:40 Dose: Not Given Pantoprazole Sodium (Protonix Inj) 40 mg IVP DAILY [facility] Last Admin: 10/01/17 10:28 Dose: 40 mg Rosuvastatin Calcium (Crestor) 2.5 mg PO HS [facility] Last Admin: 09/30/17 21:45 Dose: 2.5 mg - Labs Labs: 10/01/17 10:57 10/01/17 10:57 PT 13.2 SECONDS (9.7-12.2) H 09/28/17 10:24 INR 1.2 09/28/17 10:24 APTT 29 SECONDS (21-34) 09/26/17 19:25
[2017-10-01] MEDS: Rosuvastatin Calcium 2.5 mg Tab PO SCH (21:53)
[2017-10-02] MEDS: metroNIDAZOLE IV 250mg/50 ml 250 MG/50 ML BAG IVPB SCH ×2 (05:20→14:00)
[2017-10-02] MEDS: Enoxaparin 30 mg Syringe SC SCH (09:52)
--- NOTE | 2017-10-02 13:04 | CP.PCM.PN ---
Subjective - Date & Time of Evaluation Date of Evaluation: 10/02/17 Time of Evaluation: 13:03 Objective - Vital Signs/Intake and Output Vital Signs (last 24 hours): Temp Pulse Resp BP Pulse Ox 97.8 F 87 20 101/65 100 10/02/17 08:37 10/02/17 08:37 10/02/17 08:37 10/02/17 09:51 10/02/17 08:37 Intake and Output: 10/02/17 10/02/17 06:59 18:59 Intake Total 1670 Output Total 1 Balance 1669 - Medications Medications: Current Medications Acetaminophen (Tylenol 325mg Tab) 975 mg PO Q8H PRN PRN Reason: Fever >100.4 F Allopurinol (Zyloprim) 100 mg PO DAILY [facility] Last Admin: 10/02/17 09:52 Dose: 100 mg Aspirin (Aspirin Chewable) 81 mg PO DAILY [facility] Last Admin: 10/02/17 09:51 Dose: 81 mg Enoxaparin Sodium (Lovenox) 30 mg SC DAILY [facility] Last Admin: 10/02/17 09:52 Dose: 30 mg Folic Acid (Folic Acid) 1 mg PO DAILY [facility] Last Admin: 10/02/17 09:52 Dose: 1 mg Ceftriaxone Sodium 1 gm/ (Sodium Chloride) 100 mls @ 200 mls/hr IVPB Q24H [facility] Last Admin: 10/01/17 14:56 Dose: 200 mls/hr Metronidazole (Flagyl) 250 mg in 50 mls @ 100 mls/hr IVPB Q8 [facility] Stop: 10/02/17 14:01 Last Admin: 10/02/17 05:20 Dose: 100 mls/hr Lactulose (Enulose) 20 gm PO BID [facility] Last Admin: 10/01/17 17:16 Dose: 20 gm Metoprolol Tartrate (Lopressor) 25 mg PO DAILY [facility] Last Admin: 10/02/17 09:51 Dose: 25 mg Pantoprazole Sodium (Protonix Inj) 40 mg IVP DAILY [facility] Last Admin: 10/02/17 09:52 Dose: 40 mg Rosuvastatin Calcium (Crestor) 2.5 mg PO HS [facility] Last Admin: 10/01/17 21:53 Dose: 2.5 mg - Labs Labs: 10/01/17 10:57 10/01/17 10:57 PT 13.2 SECONDS (9.7-12.2) H 09/28/17 10:24 INR 1.2 09/28/17 10:24 APTT 29 SECONDS (21-34) 09/26/17 19:25
[2017-10-02] MEDS: Rosuvastatin Calcium 2.5 mg Tab PO SCH (21:54)
[2017-10-03] MEDS: Enoxaparin 30 mg Syringe SC SCH (10:32)
--- NOTE | 2017-10-03 13:56 | CP.PCM.PN ---
Subjective - Date & Time of Evaluation Date of Evaluation: 10/03/17 Time of Evaluation: 13:56 Objective - Vital Signs/Intake and Output Vital Signs (last 24 hours): Temp Pulse Resp BP Pulse Ox 98.7 F 108 H 20 123/90 100 10/03/17 08:14 10/03/17 08:14 10/03/17 08:14 10/03/17 10:31 10/03/17 08:14 Intake and Output: 10/03/17 10/03/17 06:59 18:59 Intake Total 1300 Output Total 2 Balance 1298 - Medications Medications: Current Medications Acetaminophen (Tylenol 325mg Tab) 975 mg PO Q8H PRN PRN Reason: Fever >100.4 F Allopurinol (Zyloprim) 100 mg PO DAILY [facility] Last Admin: 10/03/17 10:32 Dose: 100 mg Aspirin (Aspirin Chewable) 81 mg PO DAILY [facility] Last Admin: 10/03/17 10:32 Dose: 81 mg Enoxaparin Sodium (Lovenox) 30 mg SC DAILY [facility] Last Admin: 10/03/17 10:32 Dose: 30 mg Folic Acid (Folic Acid) 1 mg PO DAILY [facility] Last Admin: 10/03/17 10:32 Dose: 1 mg Ceftriaxone Sodium 1 gm/ (Sodium Chloride) 100 mls @ 200 mls/hr IVPB Q24H [facility] Last Admin: 10/02/17 14:17 Dose: 200 mls/hr Lactulose (Enulose) 20 gm PO BID [facility] Last Admin: 10/03/17 10:47 Dose: 20 gm Metoprolol Tartrate (Lopressor) 25 mg PO DAILY [facility] Last Admin: 10/03/17 10:31 Dose: 25 mg Pantoprazole Sodium (Protonix Inj) 40 mg IVP DAILY [facility] Last Admin: 10/03/17 10:32 Dose: 40 mg Rosuvastatin Calcium (Crestor) 2.5 mg PO HS [facility] Last Admin: 10/02/17 21:54 Dose: 2.5 mg - Labs Labs: 10/01/17 10:57 10/01/17 10:57 PT 13.2 SECONDS (9.7-12.2) H 09/28/17 10:24 INR 1.2 09/28/17 10:24 APTT 29 SECONDS (21-34) 09/26/17 19:25
[2017-10-03] MEDS: Rosuvastatin Calcium 2.5 mg Tab PO SCH (21:22)
[2017-10-04] MEDS: Enoxaparin 30 mg Syringe SC SCH (11:29)
--- NOTE | 2017-10-04 13:40 | CP.PCM.PN ---
Subjective - Date & Time of Evaluation Date of Evaluation: 10/04/17 Time of Evaluation: 13:40 Objective - Vital Signs/Intake and Output Vital Signs (last 24 hours): Temp Pulse Resp BP Pulse Ox 97.8 F 86 20 114/75 96 10/04/17 08:00 10/04/17 08:00 10/04/17 08:00 10/04/17 11:30 10/04/17 08:00 Intake and Output: 10/04/17 10/04/17 06:59 18:59 Intake Total 1400 Output Total 350 Balance 1050 - Medications Medications: Current Medications Acetaminophen (Tylenol 325mg Tab) 975 mg PO Q8H PRN PRN Reason: Fever >100.4 F Allopurinol (Zyloprim) 100 mg PO DAILY [facility] Last Admin: 10/04/17 11:28 Dose: 100 mg Aspirin (Aspirin Chewable) 81 mg PO DAILY [facility] Last Admin: 10/04/17 11:28 Dose: 81 mg Enoxaparin Sodium (Lovenox) 30 mg SC DAILY [facility] Last Admin: 10/04/17 11:29 Dose: 30 mg Folic Acid (Folic Acid) 1 mg PO DAILY [facility] Last Admin: 10/04/17 11:29 Dose: 1 mg Ceftriaxone Sodium 1 gm/ (Sodium Chloride) 100 mls @ 200 mls/hr IVPB Q24H [facility] Last Admin: 10/03/17 14:02 Dose: 200 mls/hr Lactulose (Enulose) 20 gm PO BID [facility] Last Admin: 10/04/17 11:28 Dose: 20 gm Metoprolol Tartrate (Lopressor) 25 mg PO DAILY [facility] Last Admin: 10/04/17 11:30 Dose: 25 mg Pantoprazole Sodium (Protonix Inj) 40 mg IVP DAILY [facility] Last Admin: 10/04/17 11:28 Dose: 40 mg Rosuvastatin Calcium (Crestor) 2.5 mg PO HS [facility] Last Admin: 10/03/17 21:22 Dose: 2.5 mg - Labs Labs: 10/01/17 10:57 10/01/17 10:57 PT 13.2 SECONDS (9.7-12.2) H 09/28/17 10:24 INR 1.2 09/28/17 10:24 APTT 29 SECONDS (21-34) 09/26/17 19:25
[2017-10-04] MEDS: Rosuvastatin Calcium 2.5 mg Tab PO SCH (21:14)
[2017-10-05 07:17] LABS: BASO % 0.9 % (0.0-2.0); EOS # 0.1 K/uL (0.0-0.7); EOS % 2.4 % (0.0-4.0); HEMOGLOBIN 9.1 g/dL (12.0-18.0); LYMPH # 1.3 K/uL (1.0-4.3); LYMPH % 30.7 % (20.0-40.0); MEAN CELL VOLUME 95.6 fL (80.0-94.0); MEAN CORPUSCULAR HEMOGLOBIN 30.8 pg (27.0-31.0); MEAN CORPUSCULAR HGB CONC 32.2 g/dL (33.0-37.0); MONO # 0.4 K/uL (0.0-0.8); MONO % 10.4 % (0.0-10.0); NEUT # 2.4 K/uL (1.8-7.0); NEUT % 55.6 % (50.0-75.0); RBC 2.94 Mil/uL (4.40-5.90); RED CELL DISTRIBUTION WIDTH 20.6 % (11.5-14.5); WHITE BLOOD COUNT 4.3 K/uL (4.8-10.8)
[2017-10-05 08:24] LABS: ALB/GLOB RATIO 0.7 (1.0-2.1); ALBUMIN 2.4 g/dL (3.5-5.0); CALCIUM 8.2 mg/dl (8.6-10.4)
[2017-10-05] MEDS: Enoxaparin 30 mg Syringe SC SCH (11:00)
--- NOTE | 2017-10-05 12:31 | CP.PCM.PN ---
Subjective - Date & Time of Evaluation Date of Evaluation: 10/05/17 Time of Evaluation: 12:31 Objective - Vital Signs/Intake and Output Vital Signs (last 24 hours): Temp Pulse Resp BP Pulse Ox 97.3 F L 62 20 99/63 L 95 10/05/17 07:37 10/05/17 07:37 10/05/17 07:37 10/05/17 10:59 10/05/17 07:37 Intake and Output: 10/05/17 10/05/17 06:59 18:59 Intake Total 650 Balance 650 - Medications Medications: Current Medications Acetaminophen (Tylenol 325mg Tab) 975 mg PO Q8H PRN PRN Reason: Fever >100.4 F Allopurinol (Zyloprim) 100 mg PO DAILY [facility] Last Admin: 10/05/17 10:59 Dose: 100 mg Aspirin (Aspirin Chewable) 81 mg PO DAILY [facility] Last Admin: 10/05/17 10:59 Dose: 81 mg Enoxaparin Sodium (Lovenox) 30 mg SC DAILY [facility] Last Admin: 10/05/17 11:00 Dose: 30 mg Folic Acid (Folic Acid) 1 mg PO DAILY [facility] Last Admin: 10/05/17 10:59 Dose: 1 mg Ceftriaxone Sodium 1 gm/ (Sodium Chloride) 100 mls @ 200 mls/hr IVPB Q24H [facility] Last Admin: 10/04/17 14:30 Dose: 200 mls/hr Lactulose (Enulose) 20 gm PO BID [facility] Last Admin: 10/05/17 11:00 Dose: 20 gm Metoprolol Tartrate (Lopressor) 25 mg PO DAILY [facility] Last Admin: 10/05/17 10:59 Dose: Not Given Mupirocin (Bactroban Ointment) 0 gm TOP BID [facility] Last Admin: 10/05/17 11:07 Dose: 1 applic Pantoprazole Sodium (Protonix Inj) 40 mg IVP DAILY [facility] Last Admin: 10/05/17 11:00 Dose: 40 mg Rosuvastatin Calcium (Crestor) 2.5 mg PO HS [facility] Last Admin: 10/04/17 21:14 Dose: 2.5 mg - Labs Labs: 10/05/17 07:02 10/05/17 07:02 PT 13.2 SECONDS (9.7-12.2) H 09/28/17 10:24 INR 1.2 09/28/17 10:24 APTT 29 SECONDS (21-34) 09/26/17 19:25
[2017-10-05] MEDS: Rosuvastatin Calcium 2.5 mg Tab PO SCH (21:17)
[2017-10-06] MEDS: Enoxaparin 30 mg Syringe SC SCH (11:03)
--- NOTE | 2017-10-06 18:55 | CP.PCM.PN ---
Subjective - Date & Time of Evaluation Date of Evaluation: 10/06/17 Time of Evaluation: 18:55 Objective - Vital Signs/Intake and Output Vital Signs (last 24 hours): Temp Pulse Resp BP Pulse Ox 98.3 F 90 20 112/77 100 10/06/17 16:00 10/06/17 16:00 10/06/17 16:00 10/06/17 16:00 10/06/17 16:00 Intake and Output: 10/06/17 10/06/17 06:59 18:59 Intake Total 1250 650 Balance 1250 650 - Medications Medications: Current Medications Acetaminophen (Tylenol 325mg Tab) 975 mg PO Q8H PRN PRN Reason: Fever >100.4 F Allopurinol (Zyloprim) 100 mg PO DAILY [facility] Last Admin: 10/06/17 11:02 Dose: 100 mg Aspirin (Aspirin Chewable) 81 mg PO DAILY [facility] Last Admin: 10/06/17 11:02 Dose: 81 mg Enoxaparin Sodium (Lovenox) 30 mg SC DAILY [facility] Last Admin: 10/06/17 11:03 Dose: 30 mg Folic Acid (Folic Acid) 1 mg PO DAILY [facility] Last Admin: 10/06/17 11:02 Dose: 1 mg Ceftriaxone Sodium 1 gm/ (Sodium Chloride) 100 mls @ 200 mls/hr IVPB Q24H [facility] Last Admin: 10/06/17 14:03 Dose: 200 mls/hr Lactulose (Enulose) 20 gm PO BID [facility] Last Admin: 10/06/17 17:25 Dose: 20 gm Metoprolol Tartrate (Lopressor) 25 mg PO DAILY [facility] Last Admin: 10/06/17 11:04 Dose: 25 mg Mupirocin (Bactroban Ointment) 0 gm TOP BID [facility] Last Admin: 10/06/17 17:24 Dose: 1 applic Pantoprazole Sodium (Protonix Inj) 40 mg IVP DAILY [facility] Last Admin: 10/06/17 11:03 Dose: 40 mg Rosuvastatin Calcium (Crestor) 2.5 mg PO HS [facility] Last Admin: 10/05/17 21:17 Dose: 2.5 mg - Labs Labs: 10/05/17 07:02 10/05/17 07:02 PT 13.2 SECONDS (9.7-12.2) H 09/28/17 10:24 INR 1.2 09/28/17 10:24 APTT 29 SECONDS (21-34) 09/26/17 19:25
[2017-10-06] MEDS: Rosuvastatin Calcium 2.5 mg Tab PO SCH (21:04)
[2017-10-07] MEDS: Enoxaparin 30 mg Syringe SC SCH (10:16)
--- NOTE | 2017-10-07 15:59 | CP.PCM.PN ---
Subjective - Date & Time of Evaluation Date of Evaluation: 10/07/17 Time of Evaluation: 15:59 Objective - Vital Signs/Intake and Output Vital Signs (last 24 hours): Temp Pulse Resp BP Pulse Ox 98.0 F 85 18 173/86 H 95 10/07/17 08:00 10/07/17 08:00 10/07/17 08:00 10/07/17 10:17 10/07/17 08:00 Intake and Output: 10/07/17 10/07/17 06:59 18:59 Intake Total 1250 Output Total 1 Balance 1249 - Medications Medications: Current Medications Acetaminophen (Tylenol 325mg Tab) 975 mg PO Q8H PRN PRN Reason: Fever >100.4 F Allopurinol (Zyloprim) 100 mg PO DAILY [facility] Last Admin: 10/07/17 10:16 Dose: 100 mg Aspirin (Aspirin Chewable) 81 mg PO DAILY [facility] Last Admin: 10/07/17 10:16 Dose: 81 mg Folic Acid (Folic Acid) 1 mg PO DAILY [facility] Last Admin: 10/07/17 10:16 Dose: 1 mg Ceftriaxone Sodium 1 gm/ (Sodium Chloride) 100 mls @ 200 mls/hr IVPB Q24H [facility] Last Admin: 10/07/17 14:13 Dose: 200 mls/hr Lactulose (Enulose) 20 gm PO BID [facility] Last Admin: 10/07/17 10:16 Dose: 20 gm Metoprolol Tartrate (Lopressor) 25 mg PO DAILY [facility] Last Admin: 10/07/17 10:17 Dose: 25 mg Mupirocin (Bactroban Ointment) 0 gm TOP BID [facility] Last Admin: 10/07/17 10:00 Dose: 1 applic Pantoprazole Sodium (Protonix Inj) 40 mg IVP DAILY [facility] Last Admin: 10/07/17 14:13 Dose: 40 mg Rosuvastatin Calcium (Crestor) 2.5 mg PO HS [facility] Last Admin: 10/06/17 21:04 Dose: 2.5 mg - Labs Labs: 10/05/17 07:02 10/05/17 07:02 PT 13.2 SECONDS (9.7-12.2) H 09/28/17 10:24 INR 1.2 09/28/17 10:24 APTT 29 SECONDS (21-34) 09/26/17 19:25
[2017-10-07] MEDS: Rosuvastatin Calcium 2.5 mg Tab PO SCH (21:32)
[2017-10-08 07:37] LABS: BASO % 1.1 % (0.0-2.0); EOS # 0.1 K/uL (0.0-0.7); EOS % 3.5 % (0.0-4.0); HEMOGLOBIN 9.4 g/dL (12.0-18.0); LYMPH # 1.4 K/uL (1.0-4.3); LYMPH % 32.8 % (20.0-40.0); MEAN CELL VOLUME 96.7 fL (80.0-94.0); MEAN CORPUSCULAR HEMOGLOBIN 31.1 pg (27.0-31.0); MEAN CORPUSCULAR HGB CONC 32.1 g/dL (33.0-37.0); MONO # 0.5 K/uL (0.0-0.8); MONO % 12.6 % (0.0-10.0); NEUT # 2.1 K/uL (1.8-7.0); NRBC % 0.3 % (0.0-2.0); RBC 3.02 Mil/uL (4.40-5.90); WHITE BLOOD COUNT 4.1 K/uL (4.8-10.8)
[2017-10-08 08:18] LABS: CALCIUM 8.9 mg/dl (8.6-10.4)
--- NOTE | 2017-10-08 16:09 | CP.PCM.PN ---
Subjective - Date & Time of Evaluation Date of Evaluation: 10/08/17 Time of Evaluation: 16:09 Objective - Vital Signs/Intake and Output Vital Signs (last 24 hours): Temp Pulse Resp BP Pulse Ox 98.5 F 105 H 18 118/83 98 10/08/17 08:11 10/08/17 08:11 10/08/17 08:11 10/08/17 09:56 10/08/17 08:11 Intake and Output: 10/08/17 10/08/17 06:59 18:59 Intake Total 1300 750 Output Total 1 Balance 1300 749 - Medications Medications: Current Medications Acetaminophen (Tylenol 325mg Tab) 975 mg PO Q8H PRN PRN Reason: Fever >100.4 F Allopurinol (Zyloprim) 100 mg PO DAILY [facility] Last Admin: 10/08/17 09:56 Dose: 100 mg Aspirin (Aspirin Chewable) 81 mg PO DAILY [facility] Last Admin: 10/08/17 09:56 Dose: 81 mg Folic Acid (Folic Acid) 1 mg PO DAILY [facility] Last Admin: 10/08/17 09:56 Dose: 1 mg Ceftriaxone Sodium 1 gm/ (Sodium Chloride) 100 mls @ 200 mls/hr IVPB Q24H [facility] Last Admin: 10/08/17 15:39 Dose: 200 mls/hr Lactulose (Enulose) 20 gm PO BID [facility] Last Admin: 10/08/17 09:56 Dose: 20 gm Metoprolol Tartrate (Lopressor) 25 mg PO DAILY [facility] Last Admin: 10/08/17 09:56 Dose: 25 mg Mupirocin (Bactroban Ointment) 0 gm TOP BID [facility] Last Admin: 10/08/17 09:57 Dose: 1 applic Pantoprazole Sodium (Protonix Inj) 40 mg IVP DAILY [facility] Last Admin: 10/08/17 09:56 Dose: 40 mg Rosuvastatin Calcium (Crestor) 2.5 mg PO HS [facility] Last Admin: 10/07/17 21:32 Dose: 2.5 mg - Labs Labs: 10/08/17 07:23 10/08/17 07:23 PT 13.2 SECONDS (9.7-12.2) H 09/28/17 10:24 INR 1.2 09/28/17 10:24 APTT 29 SECONDS (21-34) 09/26/17 19:25
[2017-10-08] MEDS: Rosuvastatin Calcium 2.5 mg Tab PO SCH (22:23)
[2017-10-09] MEDS: Rosuvastatin Calcium 2.5 mg Tab PO SCH (21:49)
[2017-10-10 08:26] VITALS: BP 92/56; PULSE 96; RESP 22; TEMP 98.5; O2SAT 98
== END 2017-10-10 18:08 | disposition hospice, home (50) | DRG 432 ==
LOC: C.ER 18:19 → C.3T 09-27 04:00 → OBSVTOIN 09-27 04:46 → C.3T 10-06 16:42
PROVIDERS: ADMIT Internal Medicine Nephrology; ATTEND Internal Medicine Nephrology
PROC: 0W9G3ZX Drainage of Peritoneal Cavity, Percutaneous Approach, Diagnostic (ICD-10-PCS; principal; 2017-09-28)
DX: K70.31 Alcoholic cirrhosis of liver with ascites (principal); A41.9 Sepsis, unspecified organism; R65.20 Severe sepsis without septic shock; G93.41 Metabolic encephalopathy; L89.153 Pressure ulcer of sacral region, stage 3; N17.9 Acute kidney failure, unspecified; J90 Pleural effusion, not elsewhere classified; T85.79XA Infection and inflammatory reaction due to other internal prosthetic devices, implants and grafts, initial encounter; C67.9 Malignant neoplasm of bladder, unspecified; I25.10 Atherosclerotic heart disease of native coronary artery without angina pectoris; E78.5 Hyperlipidemia, unspecified; I10 Essential (primary) hypertension; Z86.73 Personal history of transient ischemic attack (TIA), and cerebral infarction without residual deficits; Z85.46 Personal history of malignant neoplasm of prostate; Z66 Do not resuscitate; Z87.11 Personal history of peptic ulcer disease; I71.4 Abdominal aortic aneurysm, without rupture; G40.909 Epilepsy, unspecified, not intractable, without status epilepticus; Y83.8 Other surgical procedures as the cause of abnormal reaction of the patient, or of later complication, without mention of misadventure at the time of the procedure; Z93.1 Gastrostomy status; R13.10 Dysphagia, unspecified; F03.90 Unspecified dementia, unspecified severity, without behavioral disturbance, psychotic disturbance, mood disturbance, and anxiety; K72.90 Hepatic failure, unspecified without coma; N50.1 Vascular disorders of male genital organs

== ENCOUNTER 2017-10-16 00:22 | Inpatient (IN) | payer MEDICARE ==
[2017-10-16 00:23] VITALS: BMI 24.3
[2017-10-16] MEDS ORDERED: Sodium Chloride 0.9% 1,000 ML IV ONE (00:47)
[2017-10-16] MEDS ORDERED: Sodium Chloride 0.9% 1,000 ML ONE ×2 (00:53→02:01)
[2017-10-16 00:55] LABS: BASO # 0.1 K/uL (0.0-0.2); BASO % 0.9 % (0.0-2.0); EOS # 0.1 K/uL (0.0-0.7); EOS % 1.3 % (0.0-4.0); HEMOGLOBIN 9.5 g/dL (12.0-18.0); LYMPH # 1.9 K/uL (1.0-4.3); LYMPH % 26.2 % (20.0-40.0); MEAN CELL VOLUME 99.3 fL (80.0-94.0); MEAN CORPUSCULAR HEMOGLOBIN 30.8 pg (27.0-31.0); MEAN PLATELET VOLUME 9.4 fL (7.2-11.7); MONO # 0.6 K/uL (0.0-0.8); MONO % 8.3 % (0.0-10.0); NEUT # 4.5 K/uL (1.8-7.0); NEUT % 63.3 % (50.0-75.0); NRBC % 0.1 % (0.0-2.0); RBC 3.09 Mil/uL (4.40-5.90); RED CELL DISTRIBUTION WIDTH 20.4 % (11.5-14.5); WHITE BLOOD COUNT 7.1 K/uL (4.8-10.8)
--- NOTE | 2017-10-16 01:00 | C.PDOC ---
History Of Present Illness 72 year old male brought in by family for a complaint of a fever. Patient is DNR DNI. Chief Complaint (Nursing): Shortness Of Breath History Per: Family History/Exam Limitations: clinical condition Onset/Duration Of Symptoms: Days Current Symptoms Are (Timing): Still Present Associated Symptoms: Fever Recent travel outside of the [place]: No Past Medical History Reviewed: Historical Data, Nursing Documentation, Vital Signs Vital Signs: Last Vital Signs Temp 99.7 F H 10/16/17 02:36 Pulse 107 H 10/16/17 02:36 Resp 24 10/16/17 02:36 BP 98/56 L 10/16/17 02:36 Pulse Ox 92 L 10/16/17 02:50 - Medical History PMH: Arthritis (L HIP SURGERY), CAD, CVA, Gastritis, Gastrointestinal Ulcer, HTN , Hypercholesterolemia, Hyperlipidemia, Malignancy (bladder cancer, currently being treated), Seizures Surgical History: Appendectomy, Cholecystectomy - [facility] Procedures DRAINAGE OF PERITONEAL CAVITY, PERCUTANEOUS APPROACH, DIAGN (09/27/17) EXCISION OF SMALL INTESTINE, ENDO, DIAGN (08/12/17) INSERTION OF FEEDING DEVICE INTO STOMACH, ENDO (08/29/17) INSERTION OF INFUSION DEV INTO SUP VENA CAVA, PERC APPROACH (08/12/17) INSPECTION OF LARYNX, ENDO (08/12/17) INTRODUCTION OF NUTRITIONAL INTO CENTRAL VEIN, PERC APPROACH (08/12/17) Family History: States: Unknown Family Hx (noncontributory) - Social History Hx Alcohol Use: Yes Hx Substance Use: No - Immunization History Hx Tetanus Toxoid Vaccination: No Hx Influenza Vaccination: Yes (06/27/2017) Hx Pneumococcal Vaccination: Yes (06/19/2013) Review Of Systems Review Of Systems: ROS cannot be obtained secondary to pt's inabilty to answer questions. Physical Exam - Physical Exam Appears: Other (Lethargic) Skin: Ecchymosis (Multiple patches throughout body), Other (Poor turgor) Head: Atraumatic, Normacephalic Oral Mucosa: Dry Throat: Normal, No Erythema Neck: Normal, Supple Chest: Symmetrical, No Tenderness Cardiovascular: Rhythm Regular (Tachycardic), No Murmur Respiratory: No Rales, Rhonchi, No Wheezing Gastrointestinal/Abdominal: Soft, No Tenderness, Other (gastrostomy tube in place) ED Course And Treatment - Laboratory Results Result Diagrams: 10/16/17 00:52 10/16/17 02:13 ECG: Interpreted By Me, Viewed By Me ECG Rhythm: Sinus Tachycardia ECG Interpretation: No Acute Changes Interpretation Of ECG: Sinus tachycardia, normal tracings Rate From EC O2 Sat by Pulse Oximetry: 92 Pulse Ox Interpretation: Abnormal Interpretation Of Abnormal: low saturation - Radiology CXR: Interpreted by Me, Viewed By Me CXR Interpretation: Yes: Infiltrates (left hilar infiltrate) Progress Note: Flu swab, CXR, blood work, EKG, and urinalysis ordered. IV fluids , tylenol, rocephin, zithromax, and duoneb administered. Disposition Discussed With : Danny Jeffrey Doctor Will See Patient In The: Hospital Counseled Patient/Family Regarding: Diagnosis - Disposition Disposition: HOSPITALIZED Disposition Time: 02:46 Condition: GUARDED Forms: [facility] (Eritrean) - POA Present On Arrival: None - Clinical Impression Clinical Impression: Sepsis, Pneumonia, Severe dehydration, Dehydration with hypernatremia, Hyperkalemia, Acute renal insufficiency - Scribe Statement The provider has reviewed the documentation as recorded by the Scribcosme Cordero All medical record entries made by the Scribe were at my direction and personally dictated by me. I have reviewed the chart and agree that the record accurately reflects my personal performance of the history, physical exam, medical decision making, and the department course for this patient. I have also personally directed, reviewed, and agree with the discharge instructions and disposition.
[2017-10-16 01:02] LABS: INR 1.2; PROTHROMBIN TIME 13.3 SECONDS (9.7-12.2)
[2017-10-16] MEDS ORDERED: Albuterol-Ipratrop 3 mg / 0.5 (3 ml) UD INH STA ×2 (01:10→02:14)
[2017-10-16] MEDS ORDERED: Albuterol-Ipratrop 3 mg / 0.5 (3 ml) UD ONE ×3 (01:13→02:06)
[2017-10-16 01:16] LABS: ALB/GLOB RATIO 0.7 (1.0-2.1); ALBUMIN 2.8 g/dL (3.5-5.0); CALCIUM 9.3 mg/dl (8.6-10.4)
[2017-10-16 01:20] LABS: VENOUS BLOOD GAS BASE EXCESS -3.4 mmol/L (0.0-2.0); VENOUS BLOOD GAS PCO2 32 mmHg (40-60); VENOUS BLOOD GAS PO2 45 mm/Hg (30-55); VENOUS BLOOD PH 7.41 (7.32-7.43)
[2017-10-16 01:23] LABS: GRANULAR CAST 5 /lpf (0-1); SQUAMOUS EPITHIAL 2 /hpf (0-5); URINE AMORPHOUS SEDIMENT RARE /ul (<OCC); URINE BACTERIA OCC (<OCC); URINE BILIRUBIN NEGATIVE (NEGATIVE); URINE BLOOD NEGATIVE (NEGATIVE); URINE CLARITY Hazy (Clear); URINE COLOR Yellow (YELLOW); URINE GLUCOSE (UA) NORMAL (Normal); URINE LEUKOCYTE ESTERASE NEG Leu/uL (Negative); URINE NITRATE NEGATIVE (NEGATIVE); URINE PROTEIN 2+ mg/dL (NEGATIVE); URINE UROBILINOGEN NORMAL mg/dL (0.2-1.0)
[2017-10-16] MEDS ORDERED: Sodium Chloride 0.9% 500 ML IV ONE ×3 (01:23→04:11)
[2017-10-16] MEDS ORDERED: cefTRIAXone IV 1 gm in Dextros 50 ML IVPB ONE (01:33)
[2017-10-16] MEDS ORDERED: Azithromycin 500 MG in Sodium Chloride 0.9% 250 ML IVPB STA (01:33)
[2017-10-16 02:11] LABS: ABG ALLEN TEST POS; ARTERIAL BLOOD GAS HCO3 22.7 mmol/L (21-28); ARTERIAL BLOOD GAS HEMOGLOBIN 8.3 g/dL (11.7-17.4); ARTERIAL BLOOD GAS O2 SAT 91.4 % (95-98); ARTERIAL BLOOD GAS PCO2 32 mm/Hg (35-45); ARTERIAL BLOOD GAS PH 7.43 (7.35-7.45); ARTERIAL BLOOD GAS PO2 52 mm/Hg (80-100); ARTERIAL BLOOD GAS TCO2 22.2 mmol/L (22-28)
[2017-10-16] MEDS ORDERED: Dextrose 50% SYRINGE Inj (50 ml) IV STA (02:38)
[2017-10-16] MEDS ORDERED: Sodium Bicarbonate (8.4%) 50 Meq Syringe IVP ONE (02:39)
[2017-10-16] MEDS ORDERED: (Novolin R) Insulin Human Regular 100 units/ml vial IV ONE (02:39)
[2017-10-16] MEDS ORDERED: Sod Polystyrene Sulf 15 gm/60 ml Susp GT ONE (02:39)
[2017-10-16] MEDS ORDERED: Dextrose 50% VIAL Inj (50 ml) IV ONE (02:49)
[2017-10-16] MEDS ORDERED: Sod Polystyrene Sulf 15 gm/60 ml Susp ONE (02:49)
[2017-10-16] MEDS ORDERED: Sodium Bicarbonate (8.4%) 50 Meq Syringe ONE (02:51)
[2017-10-16] MEDS ORDERED: (Novolin R) Insulin Human Regular 100 units/ml vial ONE (02:51)
[2017-10-16] MEDS ORDERED: Aluminum Hydroxide/Magnesium Hydroxide Susp (30 mL) GT PRN (04:53)
[2017-10-16 05:42] LABS: CALCIUM 8.6 mg/dl (8.6-10.4)
[2017-10-16] MEDS ORDERED: APPL TP SCH (06:00)
[2017-10-16] MEDS ORDERED: AMMONIUM LACTATE TP SCH (06:00)
[2017-10-16] MEDS ORDERED: Pantoprazole 40 mg Susp UD GT SCH (06:00)
--- NOTE | 2017-10-16 06:44 | RAD ---
Chest x-ray single frontal view History: Shortness of breath. Comparison: 09/05/2017 Findings: Enlarged ectatic aorta with aortic stent in place. Venous congestion. Patchy increased markings in the bilateral infrahilar regions. Biapical pleural thickening with upper lobe granulomatous changes. Curvilinear density projecting over the right lung apex may be external. Impression: Enlarged ectatic aorta with aortic stent in place. Venous congestion. Patchy increased markings in the bilateral infrahilar regions. Biapical pleural thickening with upper lobe granulomatous changes.
[2017-10-16] MEDS ORDERED: POLYETHYLENE GLYCOL 17 GM GT SCH (10:00)
[2017-10-16] MEDS ORDERED: Collagenase 250 Units/gm Ointment(30 gm) EXT SCH (10:00)
[2017-10-16] MEDS ORDERED: cefTRIAXone IV 1 gm in Dextros 50 ML IVPB SCH (10:00)
[2017-10-16] MEDS ORDERED: FOLIC ACID 0.4 MG GT SCH (10:00)
[2017-10-16] MEDS ORDERED: Enoxaparin 40 mg Syringe SC SCH (10:00)
[2017-10-16] MEDS: Azithromycin 500mg/250ML NS 500 MG/250 ML BAG IVPB SCH (10:59)
--- NOTE | 2017-10-16 17:59 | CP.PCM.HP ---
Past Patient History - Infectious Disease Hx of Infectious Diseases: None - Past Medical History & Family History Past Medical History?: Yes - Past Social History Smoking Status: Former Smoker - CARDIAC Hx Hypercholesterolemia: Yes Hx Hypertension: Yes - PULMONARY Hx Respiratory Disorders: No - NEUROLOGICAL Hx Seizures: Yes - HEENT Hx HEENT Problems: Yes (hard of hearing) - RENAL Hx Chronic Kidney Disease: No - ENDOCRINE/METABOLIC Hx Endocrine Disorders: No - HEMATOLOGICAL/ONCOLOGICAL Hx Human Immunodeficiency Virus (HIV): No - INTEGUMENTARY Hx Dermatological Problems: No - MUSCULOSKELETAL/RHEUMATOLOGICAL Hx Arthritis: Yes (L HIP SURGERY) Hx Falls: No - GASTROINTESTINAL Hx Gastritis: Yes - GENITOURINARY/GYNECOLOGICAL Hx Genitourinary Disorders: No Hx Bladder Cancer: Yes Hx Prostate Cancer: Yes - PSYCHIATRIC Hx Substance Use: No - SURGICAL HISTORY Hx Appendectomy: Yes Hx Cholecystectomy: Yes - ANESTHESIA Hx Anesthesia: Yes Hx Anesthesia Reactions: No Hx Malignant Hyperthermia: No Meds Allergies/Adverse Reactions: Allergies Allergy/AdvReac Type Severity Reaction Status Date / Time No Known Allergies Allergy Verified 10/17/15 15:26 Physical Exam - Constitutional Appears: Well - Head Exam Head Exam: ATRAUMATIC, NORMAL INSPECTION, NORMOCEPHALIC - Eye Exam Eye Exam: EOMI, Normal appearance, PERRL Pupil Exam: NORMAL ACCOMODATION, PERRL - ENT Exam ENT Exam: Mucous Membranes Moist, Normal Exam - Neck Exam Neck exam: Positive for: Normal Inspection - Respiratory Exam Respiratory Exam: Decreased Breath Sounds - Cardiovascular Exam Cardiovascular Exam: REGULAR RHYTHM, +S1, +S2 - GI/Abdominal Exam GI & Abdominal Exam: Diminished Bowel Sounds, Soft - Rectal Exam Rectal Exam: Deferred Results - Vital Signs Recent Vital Signs: Last Vital Signs Temp 100.5 F H 10/16/17 16:00 Pulse 103 H 10/16/17 16:00 Resp 22 10/16/17 16:00 BP 97/58 L 10/16/17 16:49 Pulse Ox 96 10/16/17 16:00 - Labs Result Diagrams: 10/16/17 00:52 10/16/17 05:03 Labs: Laboratory Results - last 24 hr 10/16/17 10/16/17 10/16/17 00:52 00:52 00:52 WBC 7.1 D RBC 3.09 L Hgb 9.5 L Hct 30.7 L MCV 99.3 H D MCH 30.8 MCHC 31.0 L RDW 20.4 H Plt Count 240 MPV 9.4 Neut % (Auto) 63.3 Lymph % (Auto) 26.2 [place] % (Auto) 8.3 Eos % (Auto) 1.3 Baso % (Auto) 0.9 Neut # 4.5 Lymph # 1.9 [place] # 0.6 Eos # 0.1 Baso # 0.1 PT 13.3 H INR 1.2 APTT 32 Puncture Site pCO2 pO2 HCO3 ABG pH ABG Total CO2 ABG O2 Saturation ABG Base Excess ABG Hemoglobin ABG Carboxyhemoglobin POC ABG HHb (Measured) ABG Methemoglobin Bipin Test VBG pH VBG pCO2 VBG HCO3 VBG Total CO2 VBG O2 Sat (Calc) VBG Base Excess VBG Potassium A-a O2 Difference Respiratory Index Hgb O2 Saturation Glucose Lactate Liter Flow FiO2 Crit Value Called To Crit Value Called By Crit Value Read Back Blood Gas Notified Time Sodium 167 H* Potassium 6.5 H* D Chloride 134 H Carbon Dioxide 21 L Anion Gap 19 BUN 90 H Creatinine 6.1 H Est GFR ( Amer) 11 Est GFR (Non-Af Amer) 9 Random Glucose 117 H Lactic Acid Calcium 9.3 Total Bilirubin 0.4 AST 49 ALT 20 L Alkaline Phosphatase 230 H NT-Pro-B Natriuret Pep 2850 H Total Protein 6.5 Albumin 2.8 L Globulin 3.8 Albumin/Globulin Ratio 0.7 L Venous Blood Potassium Urine Color Urine Clarity Urine pH Ur Specific [place] Urine Protein Urine Glucose (UA) Urine Ketones Urine Blood Urine Nitrate Urine Bilirubin Urine Urobilinogen Ur Leukocyte Esterase Urine WBC (Auto) Urine RBC (Auto) Ur Squamous Epith Cells Amorphous Sediment Urine Bacteria Hyaline Casts Granular Casts (Auto) Influenza Typ A,B (EIA) 10/16/17 10/16/17 10/16/17 01:07 01:10 01:27 WBC RBC Hgb Hct MCV MCH MCHC RDW Plt Count MPV Neut % (Auto) Lymph % (Auto) [place] % (Auto) Eos % (Auto) Baso % (Auto) Neut # Lymph # [place] # Eos # Baso # PT INR APTT Puncture Site pCO2 pO2 45 HCO3 ABG pH ABG Total CO2 ABG O2 Saturation ABG Base Excess ABG Hemoglobin ABG Carboxyhemoglobin POC ABG HHb (Measured) ABG Methemoglobin Bipin Test VBG pH 7.41 VBG pCO2 32 L VBG HCO3 21.8 VBG Total CO2 21.3 L VBG O2 Sat (Calc) 84.0 H VBG Base Excess -3.4 L VBG Potassium 6.2 H* A-a O2 Difference Respiratory Index Hgb O2 Saturation Glucose 118 H Lactate 3.2 H Liter Flow FiO2 Crit Value Called To [place] armenta/rner Crit Value Called By Jovanni santana/rt Crit Value Read Back Y Blood Gas Notified Time 120 Sodium 168.0 H* Potassium Chloride 132.0 H Carbon Dioxide Anion Gap BUN Creatinine Est GFR ( Amer) Est GFR (Non-Af Amer) Random Glucose Lactic Acid Calcium Total Bilirubin AST ALT Alkaline Phosphatase NT-Pro-B Natriuret Pep Total Protein Albumin Globulin Albumin/Globulin Ratio Venous Blood Potassium 6.2 H* Urine Color Yellow Urine Clarity Hazy Urine pH 6.0 Ur Specific [place] 1.015 Urine Protein 2+ H Urine Glucose (UA) Normal Urine Ketones Negative Urine Blood Negative Urine Nitrate Negative Urine Bilirubin Negative Urine Urobilinogen Normal Ur Leukocyte Esterase Neg Urine WBC (Auto) 4 Urine RBC (Auto) 4 H Ur Squamous Epith Cells 2 Amorphous Sediment Rare H Urine Bacteria Occ H Hyaline Casts 3-5 H Granular Casts (Auto) 5 Influenza Typ A,B (EIA) Negative for flu a/b 10/16/17 10/16/17 10/16/17 02:05 02:13 05:03 WBC RBC Hgb Hct MCV MCH MCHC RDW Plt Count MPV Neut % (Auto) Lymph % (Auto) [place] % (Auto) Eos % (Auto) Baso % (Auto) Neut # Lymph # [place] # Eos # Baso # PT INR APTT Puncture Site Rr pCO2 32 L pO2 52 L HCO3 22.7 ABG pH 7.43 ABG Total CO2 22.2 ABG O2 Saturation 91.4 L ABG Base Excess -2.7 L ABG Hemoglobin 8.3 L ABG Carboxyhemoglobin 2.4 H POC ABG HHb (Measured) 8.3 H ABG Methemoglobin 1.0 Bipin Test Pos VBG pH VBG pCO2 VBG HCO3 VBG Total CO2 VBG O2 Sat (Calc) VBG Base Excess VBG Potassium A-a O2 Difference 136.0 Respiratory Index 2.6 Hgb O2 Saturation 88.3 L Glucose Lactate Liter Flow 3.0 FiO2 32.0 Crit Value Called To Crit Value Called By Crit Value Read Back Blood Gas Notified Time Sodium 165 H* 167 H* Potassium 6.2 H* 5.9 H Chloride 135 H 135 H Carbon Dioxide 22 21 L Anion Gap 15 16 BUN 93 H 82 H Creatinine 5.9 H 5.8 H Est GFR ( Amer) 11 12 Est GFR (Non-Af Amer) 9 10 Random Glucose 107 98 Lactic Acid Calcium 9.0 8.6 Total Bilirubin AST ALT Alkaline Phosphatase NT-Pro-B Natriuret Pep Total Protein Albumin Globulin Albumin/Globulin Ratio Venous Blood Potassium Urine Color Urine Clarity Urine pH Ur Specific [place] Urine Protein Urine Glucose (UA) Urine Ketones Urine Blood Urine Nitrate Urine Bilirubin Urine Urobilinogen Ur Leukocyte Esterase Urine WBC (Auto) Urine RBC (Auto) Ur Squamous Epith Cells Amorphous Sediment Urine Bacteria Hyaline Casts Granular Casts (Auto) Influenza Typ A,B (EIA) 10/16/17 05:03 WBC RBC Hgb Hct MCV MCH MCHC RDW Plt Count MPV Neut % (Auto) Lymph % (Auto) [place] % (Auto) Eos % (Auto) Baso % (Auto) Neut # Lymph # [place] # Eos # Baso # PT INR APTT Puncture Site pCO2 pO2 HCO3 ABG pH ABG Total CO2 ABG O2 Saturation ABG Base Excess ABG Hemoglobin ABG Carboxyhemoglobin POC ABG HHb (Measured) ABG Methemoglobin Bipin Test VBG pH VBG pCO2 VBG HCO3 VBG Total CO2 VBG O2 Sat (Calc) VBG Base Excess VBG Potassium A-a O2 Difference Respiratory Index Hgb O2 Saturation Glucose Lactate Liter Flow FiO2 Crit Value Called To Crit Value Called By Crit Value Read Back Blood Gas Notified Time Sodium Potassium Chloride Carbon Dioxide Anion Gap BUN Creatinine Est GFR ( Amer) Est GFR (Non-Af Amer) Random Glucose Lactic Acid 3.9 H Calcium Total Bilirubin AST ALT Alkaline Phosphatase NT-Pro-B Natriuret Pep Total Protein Albumin Globulin Albumin/Globulin Ratio Venous Blood Potassium Urine Color Urine Clarity Urine pH Ur Specific [place] Urine Protein Urine Glucose (UA) Urine Ketones Urine Blood Urine Nitrate Urine Bilirubin Urine Urobilinogen Ur Leukocyte Esterase Urine WBC (Auto) Urine RBC (Auto) Ur Squamous Epith Cells Amorphous Sediment Urine Bacteria Hyaline Casts Granular Casts (Auto) Influenza Typ A,B (EIA)
[2017-10-16] MEDS: Vitamins A & D Oint UD Foilpak EXT SCH (21:39)
[2017-10-16] MEDS: Ammonium Lactate 12% Lotion (225 g) TOP SCH (21:40)
[2017-10-17 00:03] VITALS: RESP 23; O2SAT 93
[2017-10-17] MEDS ORDERED: Acetaminophen 650mg/20.3ml solution UD GT PRN (02:30)
[2017-10-17] MEDS: Vitamins A & D Oint UD Foilpak EXT SCH ×2 (05:18→15:12)
[2017-10-17] MEDS ORDERED: Sodium Chloride 0.9% 1,000 ML IV ONE (08:14)
[2017-10-17] MEDS ORDERED: Enoxaparin 40 mg Syringe SC SCH (10:00)
[2017-10-17] MEDS ORDERED: POLYETHYLENE GLYCOL 3350 17 GM/Dose PACKET GT SCH (10:00)
[2017-10-17 11:32] LABS: BASO % 0.2 % (0.0-2.0); HEMOGLOBIN 9.2 g/dL (12.0-18.0); LYMPH # 1.4 K/uL (1.0-4.3); LYMPH % 16.1 % (20.0-40.0); MEAN CORPUSCULAR HEMOGLOBIN 30.7 pg (27.0-31.0); MEAN CORPUSCULAR HGB CONC 30.2 g/dL (33.0-37.0); MEAN PLATELET VOLUME 10.5 fL (7.2-11.7); MONO # 0.3 K/uL (0.0-0.8); NEUT # 6.9 K/uL (1.8-7.0); NEUT % 80.7 % (50.0-75.0); NRBC % 0.2 % (0.0-2.0); RBC 2.99 Mil/uL (4.40-5.90); RED CELL DISTRIBUTION WIDTH 20.4 % (11.5-14.5); WHITE BLOOD COUNT 8.5 K/uL (4.8-10.8)
[2017-10-17 11:33] LABS: MEAN CELL VOLUME 101.7 fL (80.0-94.0)
[2017-10-17 11:46] LABS: ALB/GLOB RATIO 0.8 (1.0-2.1); ALBUMIN 2.5 g/dL (3.5-5.0); CALCIUM 8.6 mg/dl (8.6-10.4)
--- NOTE | 2017-10-17 12:15 | CP.PCM.CON ---
History of Present Illness - History of Present Illness History of Present Illness: 72 year old male brought in by family for a complaint of a fever. Patient is DNR DNI. pt examined chart reviewed IV rx in progress poor prognosis await wound care and surgery eval - Medical History PMH: Arthritis (L HIP SURGERY), CAD, CVA, Gastritis, Gastrointestinal Ulcer, HTN , Hypercholesterolemia, Hyperlipidemia, Malignancy (bladder cancer, currently being treated), Seizures Surgical History: Appendectomy, Cholecystectomy Review of Systems - Review of Systems Systems not reviewed;Unavailable: Altered Mental Status - Constitutional Constitutional: As Per HPI - EENT Eyes: absent: As Per HPI, Blind Spots, Blurred Vision, Change in Vision, Decreased Night Vision, Diplopia, Discharge, Dry Eye, Exophthalmos, Floaters, Irritation, Itchy Eyes, Loss of Peripheral Vision, Pain, Photophobia, Requires Corrective Lenses, Sees Flashes, Spots in Vision, Tunnel Vision, Other Visual Disturbances, Loss of Vision, Other Ears: absent: As Per HPI, Decreased Hearing, Ear Discharge, Ear Pain, Tinnitus, Abnormal Hearing, Disequilibrium, Dizziness, Other Nose/Mouth/Throat: absent: As Per HPI, Epistaxis, Nasal Congestion, Nasal Discharge, Nasal Obstruction, Nasal Trauma, Nose Pain, Post Nasal Drip, Sinus Pain, Sinus Pressure, Bleeding Gums, Change in Voice, Dental Pain, Dry Mouth, Dysphagia, Halitosis, Hoarsness, Lip Swelling, Mouth Lesions, Mouth Pain, Odynophagia, Sore Throat, Throat Swelling, Tongue Swelling, Facial Pain, Neck Pain, Neck Mass, Other - Cardiovascular Cardiovascular: absent: As Per HPI, Acrocyanosis, Chest Pain, Chest Pain at Rest , Chest Pain with Activity, Claudication, Diaphoresis, Dyspnea, Dyspnea on Exertion, Edema, Irregular Heart Rhythm, Pain Radiating to Arm/Neck/Jaw, Leg Edema, Leg Ulcers, Lightheadedness, Orthopnea, Palpitations, Paroxysmal Nocturnal Dyspnea, Pedal Edema, Radiating Pain, Rapid Heart Rate, Slow Heart Rate, Syncope, Other - Respiratory Respiratory: absent: As Per HPI, Cough, Dyspnea, Hemoptysis, Dyspnea on Exertion , Wheezing, Snoring, Stridor, Pain on Inspiration, Chest Congestion, Excessive Mucous Production, Change in Mucous Color, Pain with Coughing, Other - Gastrointestinal Gastrointestinal: absent: As Per HPI, Abdominal Pain, Belching, Bloating, Change in Bowel Habits, Change in Stool Character, Coffee Ground Emesis, Constipation, Cramping, Diarrhea, Dyspepsia, Dysphagia, Early Satiety, Excessive Flatus, Fecal Incontinence, Heartburn, Hematemesis, Hematochezia, Loose Stools, Melena, Nausea, Odynophagia, Temesmus, Vomiting, Other - Genitourinary Genitourinary: absent: As Per HPI, Change in Urinary Stream, Difficulty Urinating, Dysuria, Flank Pain, Hematuria, Pyuria, Nocturia, Urinary Incontinence, Urinary Frequency, Urinary Hesitance, Urinary Urgency, Voiding Freq/Small Amts, Freq UTI, Hx Renal/Bladder Calculi, Hx /Renal Surgery, Bladder Distension, Other - Musculoskeletal Musculoskeletal: absent: As Per HPI, Abnormal Gait, Arthralgias, Atrophy, Back Pain, Deformity, Joint Swelling, Limited Range of Motion, Loss of Height, Muscle Cramps, Muscle Weakness, Myalgias, Neck Pain, Numbness, Radiating Pain into Limb, Stiffness, Tingling, Other - Integumentary Integumentary: absent: As Per HPI, Acne, Alopecia, Bleeding Lesions, Change in Hair, Change in Nails, Change in Pigmentation, Changing Lesions, Dry Skin, Erythema, Furuncle, Hirsutism, Lesions, New Lesions, Non-Healing Lesions, Photosensitivity, Pruritus, Rash, Skin Pain, Skin Ulcer, Sores, Striae, Swelling , Unusual Bruising, Wounds, Jaundice, Other - Neurological Neurological: absent: As Per HPI, Abnormal Gait, Abnormal Hearing, Abnormal Movements, Abnormal Speech, Behavioral Changes, Burning Sensations, Confusion, Convulsions, Disequilibrium, Dizziness, Numbness, Focal Weakness, Frequent Falls , Headaches, Lack of Coordination, Loss of Vision, Memory Loss, Paresthesias, Radicular Pain, Restless Legs, Sensory Deficit, Syncope, Tingling, Tremor, Vertigo, Weakness, Other Visual Disturbances, Other - Psychiatric Psychiatric: absent: As Per HPI, Abnormal Sleep Pattern, Anhedonia, Anxiety, Auditory Hallucinations, Behavioral Changes, Change in Appetite, Change in Libido, Confusion, Depression, Difficulty Concentrating, Hallucinations, Homicidal Ideation, Hopelessness, Irritability, Memory Loss, Mood Swings, Panic Attacks, Paranoia, Suicidal Ideation, Visual Hallucinations, Tactile Hallucinations, Other - Endocrine Endocrine: absent: As Per HPI, Change in Body Appearance, Change in Libido, Cold Intolorance, Deepening of Voice, Excessive Sweating, Fatigue, Flushing, Heat Intolorance, Increase in Ring/Shoe/Hat Size, Palpitations, Polydipsia, Polyphagia, Polyuria, Other - Hematologic/Lymphatic Hematologic: absent: As Per HPI, Easy Bleeding, Easy Bruising, Lymphadenopathy, Other Past Patient History - Infectious Disease Hx of Infectious Diseases: None - Past Medical History & Family History Past Medical History?: Yes - Past Social History Smoking Status: Former Smoker - CARDIAC Hx Hypercholesterolemia: Yes Hx Hypertension: Yes - PULMONARY Hx Respiratory Disorders: No - NEUROLOGICAL Hx Seizures: Yes - HEENT Hx HEENT Problems: Yes (hard of hearing) - RENAL Hx Chronic Kidney Disease: No - ENDOCRINE/METABOLIC Hx Endocrine Disorders: No - HEMATOLOGICAL/ONCOLOGICAL Hx Human Immunodeficiency Virus (HIV): No - INTEGUMENTARY Hx Dermatological Problems: No - MUSCULOSKELETAL/RHEUMATOLOGICAL Hx Arthritis: Yes (L HIP SURGERY) Hx Falls: No - GASTROINTESTINAL Hx Gastritis: Yes - GENITOURINARY/GYNECOLOGICAL Hx Genitourinary Disorders: No Hx Bladder Cancer: Yes Hx Prostate Cancer: Yes - PSYCHIATRIC Hx Substance Use: No - SURGICAL HISTORY Hx Appendectomy: Yes Hx Cholecystectomy: Yes - ANESTHESIA Hx Anesthesia: Yes Hx Anesthesia Reactions: No Hx Malignant Hyperthermia: No Meds Allergies/Adverse Reactions: Allergies Allergy/AdvReac Type Severity Reaction Status Date / Time No Known Allergies Allergy Verified 10/17/15 15:26 - Medications Medications: Current Medications Acetaminophen (Tylenol 650mg/20.3ml Solution Ud) 650 mg GT Q4 PRN PRN Reason: Temperature Last Admin: 10/17/17 02:20 Dose: 650 mg Al Hydrox/Mg Hydrox/Simethicone (Maalox 30 Ml) 30 ml GT Q4 PRN PRN Reason: Heartburn Collagenase (Santyl) gm EXT DAILY OFELIA Docusate Sodium (Colace) 100 mg GT HS OFELIA Last Admin: 10/16/17 21:34 Dose: Not Given Folic Acid (Folic Acid) 1 mg GT DAILY [facility] Last Admin: 10/17/17 09:58 Dose: 1 mg Heparin Sodium (Porcine) (Heparin) 5,000 units SC Q12 OF[facility] Dextrose (Dextrose 5% In Water 1000 Ml) 1,000 mls @ 75 mls/hr IV .[id number] [facility] Last Admin: 10/16/17 21:40 Dose: 75 mls/hr Azithromycin (Zithromax 500mg In Ns Addvantage) 500 mg in 250 mls @ 167 mls/hr IVPB DAILY [facility] Last Admin: 10/16/17 10:59 Dose: 167 mls/hr Sodium Chloride (Sodium Chloride 0.9%) 1,000 mls @ 75 mls/hr IV .[id number] ONE Stop: 10/17/17 21:33 Last Admin: 10/17/17 10:02 Dose: 75 mls/hr Vancomycin HCl 1 gm/ Sodium (Chloride) 250 mls @ 166.7 mls/hr IVPB STAT STA Stop: 10/17/17 13:42 Cefepime HCl (Maxipime Iv 1 Gm Premix) 1 gm in 50 mls @ 100 mls/hr IVPB Q24H [facility] Lactic Acid (Lac-Hydrin 12% Lotion (225 G)) [facility] Last Admin: 10/16/17 21:40 Dose: Not Given Mupirocin (Bactroban Ointment) [facility] Pantoprazole Sodium (Protonix Susp) 40 mg GT 0600 [facility] Last Admin: 10/17/17 05:18 Dose: 40 mg Pneumococcal Polyvalent Vaccine (Pneumovax 23 Vaccine) 0.5 ml IM .ONCE ONE Stop: 10/18/17 14:01 Polyethylene Glycol (Miralax) 17 gm GT DAILY [facility] Last Admin: 10/17/17 09:58 Dose: 17 gm Vitamin A (Vitamin A & D Oint Ud Foilpak) [facility] Last Admin: 10/17/17 05:18 Dose: 1 ea Physical Exam - Constitutional Appears: Confused, Cachectic, Chronically Ill - Head Exam Head Exam: NORMOCEPHALIC - Eye Exam Eye Exam: PERRL - ENT Exam ENT Exam: Mucous Membranes Dry, Normal External Ear Exam - Neck Exam Neck exam: Negative for: Lymphadenopathy - Respiratory Exam Respiratory Exam: Decreased Breath Sounds - Cardiovascular Exam Cardiovascular Exam: REGULAR RHYTHM - GI/Abdominal Exam GI & Abdominal Exam: Diminished Bowel Sounds, Soft. absent: Tenderness - Rectal Exam Rectal Exam: Deferred - Exam Exam: NORMAL INSPECTION - Extremities Exam Extremities exam: Positive for: pedal pulses present. Negative for: calf tenderness, pedal edema, tenderness - Back Exam Back exam: absent: CVA tenderness (L), CVA tenderness (R) - Neurological Exam Neurological exam: Altered - Psychiatric Exam Psychiatric exam: Depressed - Skin Skin Exam: Dry Additional comments: stage IV sacral Results - Vital Signs Recent Vital Signs: Last Vital Signs Temp 97.8 F 10/17/17 04:19 Pulse 90 10/16/17 23:56 Resp 23 10/16/17 23:56 BP 81/44 L 10/16/17 23:56 Pulse Ox 93 L 10/16/17 23:56 - Labs Result Diagrams: 10/17/17 11:09 10/17/17 11:09 Labs: Laboratory Results - last 24 hr 10/17/17 10/17/17 10/17/17 11:09 11:09 11:09 WBC 8.5 RBC 2.99 L Hgb 9.2 L Hct 30.4 L MCV 101.7 H D MCH 30.7 MCHC 30.2 L RDW 20.4 H Plt Count 169 MPV 10.5 Neut % (Auto) 80.7 H Lymph % (Auto) 16.1 L [place] % (Auto) 3.0 Eos % (Auto) 0.0 Baso % (Auto) 0.2 Neut # 6.9 Lymph # 1.4 [place] # 0.3 Eos # 0.0 Baso # 0.0 Sodium 157 H Potassium 6.5 H* Chloride 127 H Carbon Dioxide 19 L Anion Gap 19 BUN 100 H* D Creatinine 6.6 H Est GFR ( Amer) 10 Est GFR (Non-Af Amer) 8 Random Glucose 126 H Lactic Acid 5.1 H* Calcium 8.6 Total Bilirubin 0.3 AST 49 ALT 23 Alkaline Phosphatase 139 H D Total Protein 5.8 L Albumin 2.5 L Globulin 3.3 Albumin/Globulin Ratio 0.8 L Assessment & Plan (1) Acute renal insufficiency Status: Acute (2) Dehydration with hypernatremia Status: Acute (3) Sepsis Status: Acute (4) Severe dehydration Status: Acute
[2017-10-17] MEDS ORDERED: Sod Polystyrene Sulf 15 gm/60 ml Susp PO ONE (12:30)
[2017-10-17] MEDS: Sod Polystyrene Sulf 15 gm/60 ml Susp PO ONE ×2 (12:54→15:09)
[2017-10-17] MEDS: Azithromycin 500mg/250ML NS 500 MG/250 ML BAG IVPB SCH (12:56)
[2017-10-17] MEDS ORDERED: Cefepime IV 1 gm in Dextrose 1 GM/50 ML BAG IVPB SCH (13:00)
[2017-10-17] MEDS ORDERED: Vancomycin 1 GM in Sodium Chloride 0.9% 200 ML IVPB ONE (13:30)
[2017-10-17] MEDS ORDERED: (Novolin R) Insulin Human Regular 100 units/ml vial IV ONE (13:54)
[2017-10-17] MEDS ORDERED: Dextrose 50% SYRINGE Inj (50 ml) IV STA (13:55)
[2017-10-17] MEDS ORDERED: Albuterol-Ipratrop 3 mg / 0.5 (3 ml) UD INH STA (13:58)
[2017-10-17] MEDS ORDERED: Sodium Chloride 0.9% 1,000 ML IV SCH (14:00)
[2017-10-17] MEDS ORDERED: Calcium Gluconate 4.65 mEq/10 ml Inj IVP ONE (14:59)
--- NOTE | 2017-10-17 15:12 | CP.PCM.PN ---
Subjective - Date & Time of Evaluation Date of Evaluation: 10/17/17 Time of Evaluation: 13:50 - Subjective Subjective: Hospitalist Note: Responded to Code Sepsis. Patient is altered mental status, tachypneic, agonal breathing, hypotensive, diffuse rales on exam. Code sepsis called by nursing staff. I spoke with patient's , Ning who was present at bedside with [employer] Tender Janelle present. Patient placed in [place] and order for full boluses; which were cancelled in light of conversation with his . Patient was recently discharge this past Tuesday under Home hospice and brought her back in given fever day later. I confirmed with patient's -->no aggressive measures, including no "breathing machines" no "tubes" no "dialysis" given acute renal failure she reports she wants comfort measures. She has confirmed DNR/DNI and understands this will allow natural . I spoke with the nurse practitioner, Jorge for inpatient-hospice evaluation in light of discussion with . I have also followed this up with patient's primary doctor, Dr. Blayne Jeffrey who is aware. She is aware there is high mortality associated with sepsis. Patient is in diffuse rales if given full dose of IV fluids per he will go in the respiratory failure and likely require intubation. General: altered, agonal breathing heart: s1, S2 Lungs: diffuse rales Abdomen: soft nontender nondistended Extremities: multiple ecchomyoses, 2 perpherial lines over In regards to high potassium, patient had received Kayexlate, ordered for Insulin 10 units IVX1, amp D50, and amp calcium gluconate. Again, I have confirmed with , no aggressive measure. Confirmed DNR/DNI. Comfort measures only and inpatient hospice eval pending. Code sepsis cancelled in light for comfort measures. Objective - Vital Signs/Intake and Output Vital Signs (last 24 hours): Temp Pulse Resp BP Pulse Ox 97.8 F 90 23 81/44 L 93 L 10/17/17 04:19 10/16/17 23:56 10/16/17 23:56 10/16/17 23:56 10/16/17 23:56 Intake and Output: 10/17/17 10/17/17 06:59 18:59 Intake Total 1000 Balance 1000 - Medications Medications: Current Medications Acetaminophen (Tylenol 650mg/20.3ml Solution Ud) 650 mg GT Q4 PRN PRN Reason: Temperature Last Admin: 10/17/17 02:20 Dose: 650 mg Al Hydrox/Mg Hydrox/Simethicone (Maalox 30 Ml) 30 ml GT Q4 PRN PRN Reason: Heartburn Collagenase (Santyl) gm EXT DAILY [facility] Docusate Sodium (Colace) 100 mg GT HS [facility] Last Admin: 10/16/17 21:34 Dose: Not Given Folic Acid (Folic Acid) 1 mg GT DAILY [facility] Last Admin: 10/17/17 09:58 Dose: 1 mg Heparin Sodium (Porcine) (Heparin) 5,000 units SC Q12 [facility] Last Admin: 10/17/17 12:54 Dose: 5,000 units Dextrose (Dextrose 5% In Water 1000 Ml) 1,000 mls @ 75 mls/hr IV .[id number] [facility] Last Admin: 10/16/17 21:40 Dose: 75 mls/hr Azithromycin (Zithromax 500mg In Ns Addvantage) 500 mg in 250 mls @ 167 mls/hr IVPB DAILY [facility] Last Admin: 10/17/17 12:56 Dose: 167 mls/hr Vancomycin HCl 1 gm/ Sodium (Chloride) 200 mls @ 133.333 mls/hr IVPB ONCE ONE Stop: 10/17/17 14:59 Cefepime HCl (Maxipime Iv 1 Gm Premix) 1 gm in 50 mls @ 100 mls/hr IVPB Q24H [facility] Sodium Chloride (Sodium Chloride 0.9%) 1,000 mls @ 100 mls/hr IV .Q10H [facility] Lactic Acid (Lac-Hydrin 12% Lotion (225 G)) 1 gm TOP QSHIFT [facility] Last Admin: 10/16/17 21:40 Dose: Not Given Mupirocin (Bactroban Ointment) [facility] Pantoprazole Sodium (Protonix Susp) 40 mg GT 0600 [facility] Last Admin: 10/17/17 05:18 Dose: 40 mg Pneumococcal Polyvalent Vaccine (Pneumovax 23 Vaccine) 0.5 ml IM .ONCE ONE Stop: 10/18/17 14:01 Polyethylene Glycol (Miralax) 17 gm GT DAILY [facility] Last Admin: 10/17/17 09:58 Dose: 17 gm Vitamin A (Vitamin A & D Oint Ud Foilpak) 1 ea EXT QSHIFT [facility] Last Admin: 10/17/17 05:18 Dose: 1 ea - Labs Labs: 10/17/17 11:09 10/17/17 11:09 PT 13.3 SECONDS (9.7-12.2) H 10/16/17 00:52 INR 1.2 10/16/17 00:52 APTT 32 SECONDS (21-34) 10/16/17 00:52
[2017-10-17] MEDS: Ammonium Lactate 12% Lotion (225 g) TOP SCH (15:59)
[2017-10-17 16:03] VITALS: BP 60/35; PULSE 105; TEMP 99.2
--- NOTE | 2017-10-17 17:19 | CARD ---
APPROVED REPORT EKG Measurement Heart [id number] <Conclusion> Sinus tachycardia Otherwise normal ECG
[2017-10-18] MEDS ORDERED: Pneumococcal 23-Valent Vaccine IM ONE (14:00)
== END 2017-10-17 16:18 | disposition hospice, inpatient (51) | DRG 871 ==
LOC: C.ER 00:22 → C.5S 02:55
PROVIDERS: ADMIT Internal Medicine Nephrology; ATTEND Internal Medicine Nephrology
DX: A41.9 Sepsis, unspecified organism (principal); J18.9 Pneumonia, unspecified organism; N17.9 Acute kidney failure, unspecified; E87.0 Hyperosmolality and hypernatremia; R64 Cachexia; E87.5 Hyperkalemia; E86.0 Dehydration; E78.00 Pure hypercholesterolemia, unspecified; E78.5 Hyperlipidemia, unspecified; H91.90 Unspecified hearing loss, unspecified ear; I10 Essential (primary) hypertension; I25.10 Atherosclerotic heart disease of native coronary artery without angina pectoris; M16.12 Unilateral primary osteoarthritis, left hip; N28.9 Disorder of kidney and ureter, unspecified; Z66 Do not resuscitate; Z85.46 Personal history of malignant neoplasm of prostate; Z85.51 Personal history of malignant neoplasm of bladder; Z86.73 Personal history of transient ischemic attack (TIA), and cerebral infarction without residual deficits; Z87.891 Personal history of nicotine dependence; Z87.11 Personal history of peptic ulcer disease; Z90.49 Acquired absence of other specified parts of digestive tract; Z51.5 Encounter for palliative care

== ENCOUNTER 2017-10-17 15:53 | Inpatient (IN) | payer OTHER ==
[2017-10-17 16:41] VITALS: BMI 27.6
[2017-10-17] MEDS ORDERED: Morphine 4 MG/ML VIAL IVP PRN (16:41)
[2017-10-17 23:46] VITALS: O2SAT 91
[2017-10-18 08:00] VITALS: BP 70/40; PULSE 83; RESP 20
[2017-10-18 16:10] VITALS: TEMP 101.8
--- NOTE | 2017-10-19 13:44 | CP.PCM.PRO ---
Pronouncement of Note - Clinical Findings Physical Exam: No Response Verbal/Painful Stimuli, Absent Peripheral Pulses{ Carotid & Femoral}, Absent Heart & Breath Sounds, No Pupillary Light Reflex, Pupils Fixed & Dilated, Absence of Vital Signs - Pronouncement Time Time of Pronouncement of : 13:35 - Notifications Pronouncement Notifications: Family Notified, Atending Notified Consumer Education Specialist Notified: No - Autopsy Autopsy Requested: No [place] [id number]
== END 2017-10-19 17:30 | DRG 871 ==
LOC: C.5S 15:53
PROVIDERS: ADMIT Internal Medicine Nephrology; ATTEND Internal Medicine Nephrology
DX: A41.9 Sepsis, unspecified organism (principal); J18.9 Pneumonia, unspecified organism; N17.9 Acute kidney failure, unspecified; E87.0 Hyperosmolality and hypernatremia; K74.60 Unspecified cirrhosis of liver; I71.2 Thoracic aortic aneurysm, without rupture; E86.0 Dehydration; Z51.5 Encounter for palliative care; R65.20 Severe sepsis without septic shock; Z66 Do not resuscitate; Z85.46 Personal history of malignant neoplasm of prostate; Z85.51 Personal history of malignant neoplasm of bladder